=== PATIENT | male | born 1950 | race Two or more races ===

== ENCOUNTER → 2016-09-02 | Outpatient (CLI) | payer MEDICARE, BC ==
[~2016-09-02] MED LIST: AMLO5TAB2 PO; BAYE325T12 PO; PERCOCET PO; PRIN20TA3 PO; TOPR50TA PO; TRAM50TA2 PO; TYLE167L PO
--- NOTE | 2016-09-17 01:35 | ECWPNPC ---
PATIENT NAME: ANDREA CARREON : 1950 GENDER: MALE VISIT DATE: 09/02/2016 DISCHARGE DATE: 09/02/16 1241 VISIT LOCKED DATE TIME: PHYSICIAN: CARLOS A IYER RESOURCE: CARLOS A IYER REASON FOR APPOINTMENT 1. BACK PAIN HISTORY OF PRESENT ILLNESS FALL RISK SCREENIN65 Y/O MALE REFERRED BY [facility] FOR EVALUATION OF CHRONIC LOW BACK PAIN.THIS HAS BEEN ONGOING SINCE HIS 40'S.HAS SEVERE SCOLIOSIS.DENIES INJURY.DESCRIBES PAIN DISCOMFORT IN LOW BACK WITH RADIATION OF PAIN TO LEGS RIGHT GREATER THAN LEFT.PAIN HAS BEEN AGGREVATED THIS PAST YEAR. HAS BEEN TAKING TRAMADOL 50MG INTERMITTENTLY FOR PAIN EXACERBATIONS.PAIN IS NOT RELIEVED BY TRAMADOL MUCH LATELY.HISTORY OF MULTIPLE SCLEROSIS DIAGNOSED 1998.EXTENSIVE HISTORY OF SPINE SURGERY AND ALSO DORSAL COLUMN STIMULATOR PLACEMENT.THESE WERE ALL PERFORMED THROUGH [facility].REPORTS WHAT SOUNDS LIKE DECOMPRESSION IN 1991 AND A SECOND DECOMPRESSION IN 1993.HAD DORSAL COLUMN STIMULATOR PLACEMENT IN 1995.HE STOPPED USING [facility] SEVERAL YEARS AGO.HE IS NO LONGER FOLLOWED BY THOSE PHYSICIANS.DENIES BOWEL OR BLADDER INCONTINENCE.RATING PAIN VAS 7/10.DENIES BOWEL OR BLADDER INCONTINENCE. SCREENING :NO FALLS IN THE PAST YEAR PAIN SCREENING: PATIENT HAS A COMPLAINT OF ACUTE OR CHRONIC PAIN :YES CURRENT MEDICATIONS TAKING METOPROLOL SUCCINATE ER 50 MG TABLET EXTENDED RELEASE 24 HOUR TAKE ONE TABLET BY MOUTH DAILY ORAL TAKING TRAMADOL HCL 50 MG TABLET (SCHEDULE IV DRUG) TAKE 1 TABLET BY MOUTH EVERY 8 HOURS MAXIMUM DAILY DOSE 3 TABLETS ORAL TAKING AMLODIPINE BESYLATE 10 MG TABLET TAKE ONE TABLET BY MOUTH EVERY DAY ORAL TAKING LISINOPRIL 40 MG TABLET TAKE ONE TABLET BY MOUTH TWICE A DAY ORAL TAKING ASPIRIN BUFFERED 325 MG TABLET 1 TAB ORALLY DAILY MEDICATION LIST REVIEWED AND RECONCILED WITH THE PATIENT PAST MEDICAL HISTORY HTN HYPERLIPIDEMIA MULTIPLE SCLEROSIS PVD CORONARY STRICTURE ALLERGIES ATORVASTATIN CALCIUM: ACHES PENICILLIN (FOR ALLERGIES USE ONLY): RASH FEVER SURGICAL HISTORY SCOPE OF KNEE RIGHT DCS 1996 MULTIPLE DECOMPRESSIVE SURGERIES 1991, 1993 RIGHT SHOULDER REPLACED 2015 HERNIA REPAIR 2005 HEART STENTS 2004 CARATOID ENDARTARECTOMY 2005 FAMILY HISTORY MOTHER WITH ARTHRITIS, OTHERWISE UNREMARKABLE. SOCIAL HISTORY GENERAL: TOBACCO USE ARE YOU A:CURRENT SMOKER HOW MANY CIGARETTES A DAY DO YOU SMOKE?6-10 PATIENT COUNSELED ON THE DANGERS OF TOBACCO USE AND URGED TO QUIT:09/02/2016 ARE YOU INTERESTED IN QUITTING?NOT READY TO QUIT COUNSELED THE PATIENT ON SMOKING EFFECTS, EDUCATION QUEUIROB28/09/2017 ALCOHOL SCREENING POINTS0 INTERPRETATIONNEGATIVE CAFFEINE CAFFEINE USE?YES COFFEE ABOUT 4 CUPS A DAY ORIENTAL ORTHODOX [id number] JUDAISM LEARNING BARRIERS / SPECIAL NEEDS BARRIERS TO LEARNING?NO VISION IMPAIRED?YES :CORRECTIVE LENSES COGNITIVELY IMPAIRED?NO READINESS TO LEARN?YES LEARNING PREFERENCES?NO ADVANCED DIRECTIVES HEALTH CARE PROXY?YES NAME OF HCP - GENE CONTACT # FOR HCP [phone] HOSPITALIZATION/MAJOR DIAGNOSTIC PROCEDURE SEE ABOVE REVIEW OF SYSTEMS CONSTITUTIONAL: ANY CHANGE IN YOUR MEDICAL CONDITION? NO . CHILLS NO . FEVER NO . INFECTION: DO YOU HAVE NEW INFECTIONS? NO . DO YOU HAVE HISTORY OF MRSA? NO . MUSCULOSKELETAL: ANY NEW PATTERNS OF PAIN OR NUMBNESS? YES . SYTEMIC LUPUS NO . GASTROENTEROLOGY: ANY NEW CHANGE IN BOWEL CONTROL? NO . BARRETTS ESOPHAGUS NO . CIRRHOSIS NO . HEPATITIS NO . LIVER FAILURE NO . ACID REFLUX NO . UNEXPLAINED WEIGHT LOSS NO . GENITOURINARY: ANY NEW CHANGE IN BLADDER CONTROL? NO . IS THERE A CHANCE YOU COULD BE ? NO . HEMATOLOGY/LYMPH: DO YOU TAKE ANY BLOOD THINNERS? (FOR EXAMPLE- COUMADIN, PLAVIX, AGGRENOX, PLATEL, PRADAXA, OR XARELTO) NO . WHEN WAS YOUR LAST DOSE? DATE: TIME: . LOW PLATELET COUNT NO . SICKLE CELL DISEASE NO . VON WILLIEBRANDS NO . FACTOR V LEIDEN NO . THALLASEMIA NO . ANEMIA NO . EASY BRUISING NO . NEUROLOGY: HAVE YOU FALLEN IN THE PAST 6 MONTHS? YES . ANY NEW EXTREMITY NUMBNESS OR WEAKNESS? NO . HEAD INJURY NO . DEMENTIA NO . CEREBRAL PALSY NO . MULTIPLE SCLEROSIS YES . DIZZINESS NO . HEADACHE NO . STROKES NO . VERTIGO NO . CARDIOLOGY: DO YOU HAVE A PACEMAKER OR DEFIBRILLATOR? NO . ANGINA NO . HEART ATTACK NO . HEART SURGERY NO . CONGESTIVE HEART FAILURE/FLUID OVERLOAD NO . CHEST PAIN NO . HIGH BLOOD PRESSURE NO . IRREGULAR HEART BEAT NO . RESPIRATORY: HAVE YOU BEEN SICK IN THE PAST WEEK? NO . FEVER NO . FLU LIKE SYMPTOMS? NO . CPAP NO . BYPAP NO . ASTHMA NO . EMPHYSEMA NO . CHRONIC LUNG DISEASES NO . SHORTNESS OF BREATH ON EXERTION NO . COUGH NO . SNORING NO . INTEGUMENTARY: DO YOU HAVE ANY RASHES OR OPEN SORES? NO . ALLERGIC/IMMUNO: ARE YOU ALLERGIC TO SHELLFISH OR IV DYE? NO . ANY NEW ALLERGIES? NO . PSYCHIATRIC: DO YOU HAVE THOUGHTS OF HURTING YOURSELF OR SOMEONE ELSE? NO . ARE YOU ABUSED, NEGLECTED, OR IN AN UNSAFE ENVIRONMENT? NO . ENDOCRINOLOGY: ARE YOU DIABETIC? NO . THYROID DISORDER NO . OTHER: DO YOU NEED ANY PRESCRIPTIONS? NO . IF YES, PLEASE LIST: ____ . ANY NEW PROBLEMS WITH YOUR MEDICATIONS? NO . WHEN DID YOU LAST EAT? ____ . WHEN DID YOU LAST DRINK? ____ . WHAT DID YOU LAST DRINK? ____ . NAME OF PERSON DRIVING YOU HOME? ____ . DO YOU HAVE ANY OTHER QUESTIONS OR CONCERNS NO . REVIEWED BY: PROVIDER: CARLOS A CXO . VITAL SIGNS WT 100.0 LBS, HT 57.5 ", BMI 21.26 INDEX, BP 130/61 MM HG, HR 65 /MIN, RR 16 /MIN, TEMP 97.3 F, OXYGEN SAT % 99%, SAFE IN ENV? (Y/N) Y, NA INITIALS EM. EXAMINATION GENERAL EXAMINATION: GENERAL APPEARANCE:COOPERATIVE . PSYCHAFFECT NORMAL. LUNGS:LUNG ARRIETA ARE CLEAR TO AUSCULTATION BILATERALLY. GOOD MOVEMENT OF AIR. HEART:S1, S2 IN A REGULAR RATE AND RHYTHM. NO SIGNIFICANT MURMURS, RUBS OR GALLOPS NOTED. LUMBAR SPINE/LOWER BACK: PALPATION:VERTEBRAL SPINE TENDERNESS, PARASPINAL TENDERNESS. MOTOR SYSTEM:5/5 BLE. SENSORY EXAM:RANDOM PARATHESIAS TO LIGHT TOUCH LOWER EXTREMITIES.. GAIT:NORMAL. ASSESSMENTS LUMBAR SPONDYLOSIS - M47.816 (PRIMARY) NEUROPATHY - G62.9 TREATMENT LUMBAR SPONDYLOSIS CONTINUE TRAMADOL HCL TABLET, 50 MG, (SCHEDULE IV DRUG) TAKE 1 TABLET BY MOUTH EVERY 8 HOURS MAXIMUM DAILY DOSE 3 TABLETS, ORAL START CYMBALTA CAPSULE DELAYED RELEASE PARTICLES, 30 MG, 1 CAPSULE, ORALLY, ONCE A DAY, 30 DAY(S), 30 CAPSULE, REFILLS 2 NOTES: PATIENT WAS ADVISED TO START A WALKING PROGRAM TO STRENGTHEN LUMBAR PARASPINAL MUSCLES AND IMPROVE MOBILITY. THEY WERE ADVISED THAT THIS WILL IMPROVE WEIGHT LOSS AND ALSO DEPRESSION/FIBROMYALGIA SYMPTOMS. ADVISED TO WALK 10 MINUTES EVERY OTHER DAY ON A FLAT SURFACE. EMPHASIZED THE IMPORTANCE OF DOING THIS CONSISTANTLY AND NOT SPORATICALLY TO AVOID INJURY. STRONG ADVISED NOT TO DO MORE THAN 10 MINUTES EVERY OTHER DAY FOR THE FIRST 4 WEEKS. PROCEDURE CODES FA211 ESTABILISHED PATIENT [facility] CHARGE DISPOSITION & COMMUNICATION FOLLOW UP 6 WEEKS ELECTRONICALLY SIGNED BY KENNY PITTMAN ON 09/16/2016 AT 05:31 PM EDT DISCLAIMER : THIS IS A VISIT SUMMARY EXTRACTED FROM THE [employer] CHART. IT IS NOT A COPY OF THE [employer] PROGRESS NOTE. TJ
== END | disposition home or self-care (01) ==
LOC: M PAIN 11:20
PROVIDERS: ATTEND Nurse Practitioner Family
DX: G89.29 Other chronic pain (principal); M47.816 Spondylosis without myelopathy or radiculopathy, lumbar region; G62.9 Polyneuropathy, unspecified; I10 Essential (primary) hypertension; E78.5 Hyperlipidemia, unspecified; G35 Multiple sclerosis; I73.9 Peripheral vascular disease, unspecified; Z79.899 Other long term (current) drug therapy; Z79.82 Long term (current) use of aspirin; Z88.0 Allergy status to penicillin; Z88.8 Allergy status to other drugs, medicaments and biological substances; F17.210 Nicotine dependence, cigarettes, uncomplicated

== ENCOUNTER → 2016-10-14 | Outpatient (CLI) | payer MEDICARE, BC ==
--- NOTE | 2016-10-15 01:26 | ECWPNPC ---
PATIENT NAME: ANDREA CARREON : 1950 GENDER: MALE VISIT DATE: 10/14/2016 DISCHARGE DATE: 10/14/1636 VISIT LOCKED DATE TIME: PHYSICIAN: CARLOS A IYER RESOURCE: CARLOS A IYER REASON FOR APPOINTMENT 1. FOLLOWUP HISTORY OF PRESENT ILLNESS HISTORY OF PRESENT ILLNESS: HERE FOR ONE MONTH F/U OF CHRONIC LOW BACK/RIGHT LEG PAIN AND NEUROPATHY.STARTD ON CYMBALTA 30MG DAILY AT HIS INITIAL VISIT ONE MONTH AGO AND IS DOING VERY WELL.STATES THIS MEDICATION HAS CUT HIS PAIN IN HALF.RATING PAIN VAS 4/10.DENIES SIDE EFFECTS.HAS TO TAKE TRAMADOL ONE AT NIGHT AND THIS IS A REDUCTION SINCE STARTING CYMBALTA. PAIN THE PATIENT DESCRIBES THE PAIN... FALL RISK SCREENING: SCREENING :NO FALLS IN THE PAST YEAR CURRENT MEDICATIONS TAKING TRAMADOL HCL 50 MG TABLET (SCHEDULE IV DRUG) TAKE 1 TABLET BY MOUTH EVERY 8 HOURS MAXIMUM DAILY DOSE 3 TABLETS ORAL TAKING METOPROLOL SUCCINATE ER 50 MG TABLET EXTENDED RELEASE 24 HOUR TAKE ONE TABLET BY MOUTH DAILY ORAL TAKING AMLODIPINE BESYLATE 10 MG TABLET TAKE ONE TABLET BY MOUTH EVERY DAY ORAL TAKING LISINOPRIL 40 MG TABLET TAKE ONE TABLET BY MOUTH TWICE A DAY ORAL TAKING ASPIRIN BUFFERED 325 MG TABLET 1 TAB ORALLY DAILY TAKING CYMBALTA 30 MG CAPSULE DELAYED RELEASE PARTICLES 1 CAPSULE ORALLY DAILY NOT-TAKING CYMBALTA 30 MG CAPSULE DELAYED RELEASE PARTICLES 1 CAPSULE ORALLY ONCE A DAY MEDICATION LIST REVIEWED AND RECONCILED WITH THE PATIENT PAST MEDICAL HISTORY HTN HYPERLIPIDEMIA MULTIPLE SCLEROSIS PVD CORONARY STRICTURE ALLERGIES ATORVASTATIN CALCIUM: ACHES PENICILLIN (FOR ALLERGIES USE ONLY): RASH FEVER SOCIAL HISTORY GENERAL: TOBACCO USE ARE YOU A:CURRENT SMOKER HOW MANY CIGARETTES A DAY DO YOU SMOKE?6-10 PATIENT COUNSELED ON THE DANGERS OF TOBACCO USE AND URGED TO QUIT:09/02/2016 ARE YOU INTERESTED IN QUITTING?NOT READY TO QUIT COUNSELED THE PATIENT ON SMOKING EFFECTS, EDUCATION [id number]/09/2017 ALCOHOL SCREENING DID YOU HAVE A DRINK CONTAINING ALCOHOL IN THE PAST YEAR?NO POINTS0 INTERPRETATIONNEGATIVE CAFFEINE CAFFEINE USE?YES COFFEE ABOUT 4 CUPS A DAY ZOROASTRIANISM [id number] BUDDHISM LEARNING BARRIERS / SPECIAL NEEDS BARRIERS TO LEARNING?NO VISION IMPAIRED?YES :CORRECTIVE LENSES COGNITIVELY IMPAIRED?NO READINESS TO LEARN?YES LEARNING PREFERENCES?NO PAIN CLINIC PFS, CLERGY, PUBLIC HEALTH REFERRALS PFS REFERRAL NEEDED?NO CLERGY REFERRAL NEEDED?NO PUBLIC HEALTH REFERRAL NEEDED?NO HAS THE PATIENT BEEN EDUCATED REGARDING HIS/HER PLAN OF CARE?YES HAS THE PATIENT BEEN EDUCATED REGARDING PAIN, THE RISK FOR PAIN, THE IMPORTANCE OF EFFECTIVE PAIN MANAGEMENT, AND THE PAIN ASSESSMENT PROCESS?YES ADVANCE DIRECTIVES HEALTH CARE PROXY?YES NAME OF HCP - GENE CONTACT # FOR HCP [phone] REVIEW OF SYSTEMS CONSTITUTIONAL: ANY CHANGE IN YOUR MEDICAL CONDITION? NO . CHILLS NO . FEVER NO . INFECTION: DO YOU HAVE NEW INFECTIONS? NO . DO YOU HAVE HISTORY OF MRSA? NO . MUSCULOSKELETAL: ANY NEW PATTERNS OF PAIN OR NUMBNESS? NO . GASTROENTEROLOGY: ANY NEW CHANGE IN BOWEL CONTROL? NO . GENITOURINARY: ANY NEW CHANGE IN BLADDER CONTROL? NO . IS THERE A CHANCE YOU COULD BE ? NO . HEMATOLOGY/LYMPH: DO YOU TAKE ANY BLOOD THINNERS? (FOR EXAMPLE- COUMADIN, PLAVIX, AGGRENOX, PLATEL, PRADAXA, OR XARELTO) NO . WHEN WAS YOUR LAST DOSE? DATE: TIME: . NEUROLOGY: HAVE YOU FALLEN IN THE PAST 6 MONTHS? YES . ANY NEW EXTREMITY NUMBNESS OR WEAKNESS? NO . CARDIOLOGY: DO YOU HAVE A PACEMAKER OR DEFIBRILLATOR? NO . RESPIRATORY: HAVE YOU BEEN SICK IN THE PAST WEEK? NO . FEVER NO . FLU LIKE SYMPTOMS? NO . COUGH NO . INTEGUMENTARY: DO YOU HAVE ANY RASHES OR OPEN SORES? NO . ALLERGIC/IMMUNO: ARE YOU ALLERGIC TO SHELLFISH OR IV DYE? NO . ANY NEW ALLERGIES? NO . PSYCHIATRIC: DO YOU HAVE THOUGHTS OF HURTING YOURSELF OR SOMEONE ELSE? NO . ARE YOU ABUSED, NEGLECTED, OR IN AN UNSAFE ENVIRONMENT? NO . ENDOCRINOLOGY: ARE YOU DIABETIC? NO . OTHER: DO YOU NEED ANY PRESCRIPTIONS? YES . IF YES, PLEASE LIST: CYMBALTA . ANY NEW PROBLEMS WITH YOUR MEDICATIONS? NO . WHEN DID YOU LAST EAT? ____ . WHEN DID YOU LAST DRINK? ____ . WHAT DID YOU LAST DRINK? ____ . NAME OF PERSON DRIVING YOU HOME? ____ . DO YOU HAVE ANY OTHER QUESTIONS OR CONCERNS NO . REVIEWED BY: PROVIDER: CARLOS A COX . VITAL SIGNS WT 96.6 LBS, HT 57.5 ", BMI 20.54 INDEX, BP 160/81 MM HG, HR 84 /MIN, RR 16 /MIN, TEMP 96.9 F, OXYGEN SAT % 99%, NA INITIALS TL 0903, REVIEWED BY: YUKO. EXAMINATION GENERAL EXAMINATION: GENERAL APPEARANCE:COOPERATIVE . PSYCHAFFECT NORMAL. LUNGS:LUNG ARRIETA ARE CLEAR TO AUSCULTATION BILATERALLY. GOOD MOVEMENT OF AIR. HEART:S1, S2 IN A REGULAR RATE AND RHYTHM. NO SIGNIFICANT MURMURS, RUBS OR GALLOPS NOTED. LUMBAR SPINE/LOWER BACK: PALPATION:VERTEBRAL SPINE TENDERNESS, PARASPINAL TENDERNESS. MOTOR SYSTEM:5/5 BLE. SENSORY EXAM:RANDOM PARATHESIAS TO LIGHT TOUCH LOWER EXTREMITIES.. GAIT:NORMAL. ASSESSMENTS LUMBAR SPONDYLOSIS - M47.816 (PRIMARY) NEUROPATHY - G62.9 TREATMENT LUMBAR SPONDYLOSIS CONTINUE TRAMADOL HCL TABLET, 50 MG, (SCHEDULE IV DRUG) TAKE 1 TABLET BY MOUTH EVERY 8 HOURS MAXIMUM DAILY DOSE 3 TABLETS, ORAL CONTINUE CYMBALTA CAPSULE DELAYED RELEASE PARTICLES, 30 MG, 1 CAPSULE, ORALLY, DAILY, 30 DAY(S), 30 CAPSULE, REFILLS 5 PROCEDURE CODES FA211 ESTABILISHED PATIENT [facility] FACILITY CHARGE G2930 PAIN ASSESS POS TOOL F/U PLAN DOC G8427 DOC MEDS VERIFIED W/PT OR RE DISPOSITION & COMMUNICATION FOLLOW UP 3 MONTHS ELECTRONICALLY SIGNED BY KENNY PITTMAN ON 10/14/2016 AT 02:55 PM EDT DISCLAIMER : THIS IS A VISIT SUMMARY EXTRACTED FROM THE [employer] CHART. IT IS NOT A COPY OF THE [employer] PROGRESS NOTE. MTDD
== END | disposition home or self-care (01) ==
LOC: M PAIN 09:00
PROVIDERS: ATTEND Nurse Practitioner Family
DX: G89.29 Other chronic pain (principal); M47.816 Spondylosis without myelopathy or radiculopathy, lumbar region; G62.9 Polyneuropathy, unspecified; I10 Essential (primary) hypertension; E78.5 Hyperlipidemia, unspecified; G35 Multiple sclerosis; I73.9 Peripheral vascular disease, unspecified; Z79.899 Other long term (current) drug therapy; Z79.82 Long term (current) use of aspirin; I25.10 Atherosclerotic heart disease of native coronary artery without angina pectoris; F17.210 Nicotine dependence, cigarettes, uncomplicated; Z88.0 Allergy status to penicillin; Z88.8 Allergy status to other drugs, medicaments and biological substances

== ENCOUNTER → 2017-01-14 | Outpatient (CLI) | payer BC, MEDICARE ==
--- NOTE | 2017-01-16 01:48 | ECWPNPC ---
PATIENT NAME: ANDREA CARREON : 1950 GENDER: MALE VISIT DATE: 01/14/2017 DISCHARGE DATE: 01/14/17948 VISIT LOCKED DATE TIME: PHYSICIAN: CARLOS A IYER RESOURCE: CARLOS A IYER REASON FOR APPOINTMENT 1. LBP/ RT LEG/ NEUROPATHY HISTORY OF PRESENT ILLNESS HISTORY OF PRESENT ILLNESS: HERE FOR ONE MONTH F/U OF CHRONIC LOW BACK/RIGHT LEG PAIN AND NEUROPATHY.STARTD ON CYMBALTA 30MG DAILY AT HIS INITIAL VISIT SEVERAL MONTHS AGO AND IS DOING VERY WELL.STATES THIS MEDICATION HAS CUT HIS PAIN IN HALF.RATING PAIN VAS 3/10.DENIES SIDE EFFECTS.TAKES TRAMADOL ONE AT NIGHT AND THIS IS A REDUCTION SINCE STARTING CYMBALTA.THIS IS PRESCRIBED BY PRIMARY CARE. PAIN THE PATIENT DESCRIBES THE PAIN... THE PATIENT DESCRIBES THE PAIN... FALL RISK SCREENING: SCREENING :NO FALLS IN THE PAST YEAR CURRENT MEDICATIONS TAKING METOPROLOL SUCCINATE ER 50 MG TABLET EXTENDED RELEASE 24 HOUR TAKE ONE TABLET BY MOUTH DAILY ORAL TAKING AMLODIPINE BESYLATE 10 MG TABLET TAKE ONE TABLET BY MOUTH EVERY DAY ORAL TAKING LISINOPRIL 40 MG TABLET TAKE ONE TABLET BY MOUTH TWICE A DAY ORAL TAKING ASPIRIN BUFFERED 325 MG TABLET 1 TAB ORALLY DAILY TAKING TRAMADOL HCL 50 MG TABLET (SCHEDULE IV DRUG) TAKE 1 TABLET BY MOUTH EVERY 8 HOURS MAXIMUM DAILY DOSE 3 TABLETS ORAL TAKING CYMBALTA 30 MG CAPSULE DELAYED RELEASE PARTICLES 1 CAPSULE ORALLY DAILY NOT-TAKING CYMBALTA 30 MG CAPSULE DELAYED RELEASE PARTICLES 1 CAPSULE ORALLY ONCE A DAY MEDICATION LIST REVIEWED AND RECONCILED WITH THE PATIENT PAST MEDICAL HISTORY HTN HYPERLIPIDEMIA MULTIPLE SCLEROSIS PVD CORONARY STRICTURE ALLERGIES ATORVASTATIN CALCIUM: ACHES PENICILLIN (FOR ALLERGIES USE ONLY): RASH FEVER SOCIAL HISTORY GENERAL: TOBACCO USE ARE YOU A:CURRENT SMOKER HOW MANY CIGARETTES A DAY DO YOU SMOKE?6-10 PATIENT COUNSELED ON THE DANGERS OF TOBACCO USE AND URGED TO QUIT:09/02/2016 ARE YOU INTERESTED IN QUITTING?NOT READY TO QUIT COUNSELED THE PATIENT ON SMOKING EFFECTS, EDUCATION [id number]/09/2017 ALCOHOL SCREENING DID YOU HAVE A DRINK CONTAINING ALCOHOL IN THE PAST YEAR?NO POINTS0 INTERPRETATIONNEGATIVE CAFFEINE CAFFEINE USE?YES COFFEE ABOUT 4 CUPS A DAY RESTORATIONISM [id number] [employer]URCH LANGUAGE LANGUAGES SPOKEN:CROATIAN LEARNING BARRIERS / SPECIAL NEEDS CHANGE FROM LAST VISIT?NO BARRIERS TO LEARNING?NO HEARING IMPAIRED?NO VISION IMPAIRED?YES :CORRECTIVE LENSES COGNITIVELY IMPAIRED?NO READINESS TO LEARN?YES LEARNING PREFERENCES?NO LEARNING CAPABILITIES PRESENT?YES EMOTIONAL BARRIERS?NO SPECIAL DEVICES?YES :CANE FITTINGS FINISHER NEEDED?NO PAIN CLINIC PFS, CLERGY, PUBLIC HEALTH REFERRALS PFS REFERRAL NEEDED?NO CLERGY REFERRAL NEEDED?NO PUBLIC HEALTH REFERRAL NEEDED?NO HAS THE PATIENT BEEN EDUCATED REGARDING HIS/HER PLAN OF CARE?YES HAS THE PATIENT BEEN EDUCATED REGARDING PAIN, THE RISK FOR PAIN, THE IMPORTANCE OF EFFECTIVE PAIN MANAGEMENT, AND THE PAIN ASSESSMENT PROCESS?YES ADVANCE DIRECTIVES HEALTH CARE PROXY?YES NAME OF HCP - GENE CONTACT # FOR HCP [phone] DO YOU HAVE A COPY WITH YOU?NO DO YOU HAVE A DNR?NO WOULD YOU LIKE MORE INFORMATION?NO LIVING WILL?NO WOULD YOU LIKE MORE INFORMATION?NO POWER OF COUNTY AGENT?NO WOULD YOU LIKE MORE INFORMATION?NO REVIEW OF SYSTEMS REVIEWED BY: PROVIDER: CARLOS A COX . CONSTITUTIONAL: ANY CHANGE IN YOUR MEDICAL CONDITION? NO . CHILLS NO . FEVER NO . INFECTION: DO YOU HAVE NEW INFECTIONS? NO . DO YOU HAVE HISTORY OF MRSA? NO . MUSCULOSKELETAL: ANY NEW PATTERNS OF PAIN OR NUMBNESS? NO . GASTROENTEROLOGY: ANY NEW CHANGE IN BOWEL CONTROL? NO . GENITOURINARY: ANY NEW CHANGE IN BLADDER CONTROL? NO . IS THERE A CHANCE YOU COULD BE ? NO . HEMATOLOGY/LYMPH: DO YOU TAKE ANY BLOOD THINNERS? (FOR EXAMPLE- COUMADIN, PLAVIX, AGGRENOX, PLATEL, PRADAXA, OR XARELTO) NO . WHEN WAS YOUR LAST DOSE? DATE: TIME: . NEUROLOGY: HAVE YOU FALLEN IN THE PAST 6 MONTHS? YES . ANY NEW EXTREMITY NUMBNESS OR WEAKNESS? NO . CARDIOLOGY: DO YOU HAVE A PACEMAKER OR DEFIBRILLATOR? NO . RESPIRATORY: HAVE YOU BEEN SICK IN THE PAST WEEK? NO . FEVER NO . FLU LIKE SYMPTOMS? NO . COUGH NO . INTEGUMENTARY: DO YOU HAVE ANY RASHES OR OPEN SORES? NO . ALLERGIC/IMMUNO: ARE YOU ALLERGIC TO SHELLFISH OR IV DYE? NO . ANY NEW ALLERGIES? NO . PSYCHIATRIC: DO YOU HAVE THOUGHTS OF HURTING YOURSELF OR SOMEONE ELSE? NO . ARE YOU ABUSED, NEGLECTED, OR IN AN UNSAFE ENVIRONMENT? NO . ENDOCRINOLOGY: ARE YOU DIABETIC? NO . OTHER: DO YOU NEED ANY PRESCRIPTIONS? NO . IF YES, PLEASE LIST: ____ . ANY NEW PROBLEMS WITH YOUR MEDICATIONS? NO . WHEN DID YOU LAST EAT? ____ . WHEN DID YOU LAST DRINK? ____ . WHAT DID YOU LAST DRINK? ____ . NAME OF PERSON DRIVING YOU HOME? ____ . DO YOU HAVE ANY OTHER QUESTIONS OR CONCERNS NO . VITAL SIGNS WT 92.0 LBS, HT 57.5 ", BMI 19.56 INDEX, BP 156/71 MM HG, HR 63 /MIN, RR 16 /MIN, TEMP 97.5 F, OXYGEN SAT % 100%, NA INITIALS AW 0924, REVIEWED BY: CS. EXAMINATION GENERAL EXAMINATION: GENERAL APPEARANCE:COOPERATIVE . PSYCHAFFECT NORMAL. LUNGS:LUNG ARRIETA ARE CLEAR TO AUSCULTATION BILATERALLY. GOOD MOVEMENT OF AIR. HEART:S1, S2 IN A REGULAR RATE AND RHYTHM. NO SIGNIFICANT MURMURS, RUBS OR GALLOPS NOTED. LUMBAR SPINE/LOWER BACK: PALPATION:VERTEBRAL SPINE TENDERNESS, PARASPINAL TENDERNESS. MOTOR SYSTEM:5/5 BLE. SENSORY EXAM:RANDOM PARATHESIAS TO LIGHT TOUCH LOWER EXTREMITIES.. GAIT:NORMAL. ASSESSMENTS LUMBAR SPONDYLOSIS - M47.816 (PRIMARY) NEUROPATHY - G62.9 TREATMENT LUMBAR SPONDYLOSIS CONTINUE TRAMADOL HCL TABLET, 50 MG, (SCHEDULE IV DRUG) TAKE 1 TABLET BY MOUTH EVERY 8 HOURS MAXIMUM DAILY DOSE 3 TABLETS, ORAL CONTINUE CYMBALTA CAPSULE DELAYED RELEASE PARTICLES, 30 MG, 1 CAPSULE, ORALLY, DAILY, 30 DAY(S), 30, REFILLS 5 NOTES: # 226 TOBACCO USE SCREENING/INTERVENTION: PATIENT CURRENTLY USED TOBACCO. WAS OFFERED SMOKING CESSATION FOR GUIDANCE IN QUITTING THROUGH THE [facility] QUITS PROGRAM AND THE [facility] CESSATION PROGRAM. PROCEDURE CODES FA211 ESTABILISHED PATIENT [facility] FACILITY CHARGE G9580 BP SCR PRFRM RCMDD DEFIND SCR INTVL G8730 PAIN ASSESS POS TOOL F/U PLAN DOC 3016F PT SCRND UNHLTHY [place] USE 1124F ACP DISCUSS-NO [id number] DOCD G0827 DOC MEDS VERIFIED W/PT OR RE G8420 BMI<30 AND >=22 CALC & DOCU 3288F FALL RISK ASSESSMENT DOCD 4004F PT TOBACCO SCREEN RCVD TLK DISPOSITION & COMMUNICATION FOLLOW UP NO F/U NECESSARY ELECTRONICALLY SIGNED BY KENNY PITTMAN ON 01/14/2017 AT 10:38 AM EDT DISCLAIMER : THIS IS A VISIT SUMMARY EXTRACTED FROM THE [employer] CHART. IT IS NOT A COPY OF THE [employer] PROGRESS NOTE. MTDD
== END ==
LOC: M PAIN 09:00
PROVIDERS: ATTEND Nurse Practitioner Family
DX: M47.816 Spondylosis without myelopathy or radiculopathy, lumbar region (principal); G62.9 Polyneuropathy, unspecified; F17.210 Nicotine dependence, cigarettes, uncomplicated; Z79.2 Long term (current) use of antibiotics; Z79.891 Long term (current) use of opiate analgesic; Z79.899 Other long term (current) drug therapy; Z88.0 Allergy status to penicillin; Z88.8 Allergy status to other drugs, medicaments and biological substances

== ENCOUNTER 2017-06-18 09:56 | Emergency (ER) | payer MEDICARE, BC ==
[2017-06-18 10:53] LABS: BASO % 0.4 % (0.0-1.0); EOS # 0.2 10^3/uL (0.0-0.50); EOS % 1.6 % (0.0-3.0); HEMATOCRIT 40.2 % (42.0-52.0); HEMOGLOBIN 13.9 g/dl (14.0-18.0); IMMATURE GRANULOCYTE % 0.3 % (0-3.0); LYMPH # 2.1 10^3/uL (1.5-4.5); LYMPH % 21.6 % (24.0-44.0); MEAN CORPUSCULAR HEMOGLOBIN 29.3 pg (27.0-33.0); MEAN CORPUSCULAR HGB CONC 34.6 g/dl (32.0-36.5); MEAN CORPUSCULAR VOLUME 84.8 fl (80.0-96.0); MONO % 10.1 % (0.0-5.0); NEUTROPHILS # 6.3 10^3/uL (1.8-7.7); PLATELET COUNT, AUTOMATED 286 10^3/uL (150-450); RED BLOOD COUNT 4.74 10^6/uL (4.30-6.10); WHITE BLOOD COUNT 9.5 10^3/uL (4.0-10.0)
[2017-06-18 11:15] LABS: ANION GAP 9 MEQ/L (8-16); BLOOD UREA NITROGEN 14 MG/DL (7-18); C REACTIVE PROTEIN QUANTITATIV < 0.30 MG/DL (0.00-0.30); CARBON DIOXIDE LEVEL 29 MEQ/L (21-32); CHLORIDE LEVEL 88 MEQ/L (98-107); CREATININE FOR GFR 0.82 MG/DL (0.70-1.30); GLOMERULAR FILTRATION RATE > 60.0 (>49); GLUCOSE, FASTING 87 MG/DL (70-100); POTASSIUM SERUM 3.9 MEQ/L (3.5-5.1); SODIUM LEVEL 126 MEQ/L (136-145)
[2017-06-18] MEDS ORDERED: ISOVUE-370 76% 100ML VIAL (Q9967) As Ordered (11:44)
[2017-06-18] MEDS: NS 1,000 ML IV (11:45)
[2017-06-18 11:51] LABS: ERYTHROCYTE SEDIMENTATION RATE 18 mm/hr (0-20)
[2017-06-18 14:22] LABS: ALBUMIN 4.2 GM/DL (3.2-5.2); ALBUMIN/GLOBULIN RATIO 1.24 (1.00-1.93); ALKALINE PHOSPHATASE 115 U/L (45-117); ALT/SGPT 22 U/L (12-78); AST/SGOT 27 U/L (7-37); BILIRUBIN,DIRECT 0.1 MG/DL (0.0-0.2); BILIRUBIN,TOTAL 0.5 MG/DL (0.2-1.0); CHOLESTEROL LEVEL 190 MG/DL (<200); CHOLESTEROL RISK RATIO 3.653 (<5); HDL CHOLESTEROL 52 MG/DL (>40); LDL CHOLESTEROL 121.6 MG/DL (<100); NON-HDL-C 138 MG/DL; TOTAL PROTEIN 7.6 GM/DL (6.4-8.2); TRIGLYCERIDES LEVEL 82 MG/DL (<150)
== END 2017-06-18 14:27 | disposition home or self-care (01) ==
LOC: M ED 09:56
DX: M79.671 Pain in right foot (principal); M79.674 Pain in right toe(s); I73.9 Peripheral vascular disease, unspecified; I10 Essential (primary) hypertension; G35 Multiple sclerosis; M54.9 Dorsalgia, unspecified; Z95.5 Presence of coronary angioplasty implant and graft; Z79.899 Other long term (current) drug therapy; Z79.82 Long term (current) use of aspirin; Z88.0 Allergy status to penicillin; F17.210 Nicotine dependence, cigarettes, uncomplicated
CPT/HCPCS: Q9967

== ENCOUNTER → 2018-01-13 | Outpatient (REF) | payer BC, MEDICARE | LOC: M LAB REF 12:43 | DX: I70.234 Atherosclerosis of native arteries of right leg with ulceration of heel and midfoot (principal) | CPT/HCPCS: 88304 ==

== ENCOUNTER 2020-03-09 10:22 | Inpatient (IN) | payer BC, MEDICARE ==
[~2020-03-09] VITALS: Ht 144.8 cm; Wt 38.0 kg
[~2020-03-09 10:22] MED LIST changes: +ACET-716 PO; +AMLO1TAB24 PO; +AMLO1TAB25; -AMLO5TAB2 PO; +DULO1CAP5 PO; +LISI40TA; +METO1TAB7; +PLAV1TAB2 PO; +ZETI10TA16 PO
[2020-03-09] MEDS ORDERED: KLOR10TA76 PO (10:53)
[2020-03-09] MEDS ORDERED: XARE20TA PO (10:53)
[2020-03-09] MEDS ORDERED: TAMS1CAP17 PO (10:53)
[2020-03-09] MEDS ORDERED: LEVO25TA5 PO (10:53)
[2020-03-09] MEDS ORDERED: METO1TAB87 PO (10:53)
[2020-03-09] MEDS ORDERED: ATOR80TA59 PO (10:53)
--- NOTE | 2020-03-09 11:05 | REP ---
INDICATION: sudden onset headache. COMPARISON: None. TECHNIQUE: Helical scanning is acquired. 5 mm axial images were reformatted. Coronal MPR images were generated. FINDINGS: Bone window settings demonstrate an intact bony calvarium. There is no evidence of skull fracture or incidental bony calvarial lesion. The visualized paranasal sinuses appear clear. No intraorbital abnormality is seen. On soft tissue window setting images; the lateral, third, and fourth ventricles are normal in position. Schulz-white differentiation pattern is normal above and below the tentorium. There are is no evidence of intracranial hemorrhage. No mass, edema, infarction, or midline shift is seen. No extra-axial fluid collection is appreciated. There is moderate vascular calcification in the distal internal carotid and vertebral circulation. Generalized volume loss is seen. Small-vessel atherosclerotic changes are noted in the periventricular white matter. IMPRESSION: Generalized volume loss, small vessel changes and extensive vascular calcification. No acute intracranial abnormality.. <Electronically signed by Ben Bergman > 03/09/20 [id number]
[2020-03-09] MEDS ORDERED: niCARdipine IV 40 MG in IV 1 EA IV SCH (11:15)
[2020-03-09 11:19] LABS: BASO % 0.2 % (0.0-1.0); EOS % 0.2 % (0.0-3.0); HEMATOCRIT 50.7 % (42.0-52.0); HEMOGLOBIN 16.5 g/dl (13.5-17.5); LYMPH # 0.6 10^3/uL (1.5-5.0); MEAN CORPUSCULAR HEMOGLOBIN 27.8 pg (27.0-33.0); MEAN CORPUSCULAR HGB CONC 32.5 g/dl (32.0-36.5); MEAN CORPUSCULAR VOLUME 85.4 fl (80.0-96.0); MONO # 0.8 10^3/uL (0.0-0.8); MONO % 6.7 % (0.0-5.0); NEUTROPHILS # 10.6 10^3/uL (1.5-8.5); NEUTROPHILS % 87.6 % (36.0-66.0); PLATELET COUNT, AUTOMATED 208 10^3/uL (150-450); RED BLOOD COUNT 5.94 10^6/uL (4.30-6.10); WHITE BLOOD COUNT 12.1 10^3/uL (4.0-10.0)
--- NOTE | 2020-03-09 11:23 | REP ---
INDICATION: CHEST PAIN. COMPARISON: 11/29/2013, 07/13/2007 TECHNIQUE: AP seated semi- lordotic chest FINDINGS: Lungs are well inflated without infiltrate or effusion. There is no pneumothorax or pneumomediastinum. Dorsal column stimulator leads are over the lower chest. There is a right total shoulder arthroplasty and some surgical clips in the supraclavicular region. The aorta is calcified and tortuous following the course of the scoliotic thoracic spine. There is an S-shaped thoracolumbar scoliosis, convex to the right in the midthoracic spine and convex left in the upper lumbar region. No gross cardiomegaly, vascular redistribution or edema. Stable sclerotic focus in the left humeral head suggesting enchondroma. IMPRESSION: 1. No acute infiltrate effusion pneumothorax or lung mass. 2. No cardiomegaly or edema. Dorsal column stimulator leads again noted. Calcified and ectatic, tortuous aorta without aneurysm. 3. Bones demineralized with some degenerative changes left shoulder and a right total shoulder arthroplasty. S-shaped thoracolumbar scoliosis. <Electronically signed by Calin Kaur > 03/09/20 [id number]
[2020-03-09] MEDS ORDERED: ELIQ5TAB PO (11:49)
[2020-03-09 11:59] LABS: ALBUMIN 3.7 GM/DL (3.2-5.2); BILIRUBIN,DIRECT 0.1 MG/DL (0.0-0.2); BILIRUBIN,TOTAL 0.5 MG/DL (0.2-1.0); FREE T4 1.66 NG/DL (0.76-1.46); THYROID STIMULATING HORMONE 5.44 uIU/ML (0.358-3.740); TOTAL PROTEIN 7.6 GM/DL (6.4-8.2)
[2020-03-09] MEDS ORDERED: ISOVUE-370 76% 100ML VIAL As Ordered ONE (12:07)
--- NOTE | 2020-03-09 12:57 | REP ---
INDICATION: ABDOMINAL PAIN. COMPARISON: CTA abdomen pelvis 08/20/2018 TECHNIQUE: Bolus of 85 mL Isovue 370 scanning through the abdomen and pelvis with coronal and sagittal reconstructions. FINDINGS: CT abdomen: The lung bases show changes of COPD but are without infiltrate effusion nodule or mass. Heart size mildly prominent with some left atrial and ventricular enlargement. There is a levorotatory scoliosis of the thoracolumbar junction. Advanced degenerative changes with endplate sclerosis and facet arthropathy in the spine. Abdominal aorta shows diffuse atherosclerotic calcifications. There is occlusion of the aorta in its infrarenal portion with circumferential heavy calcifications aorta and common. There is no hepatomegaly, splenomegaly, focal hepatic or splenic lesion or ascites. Gallbladder without calcified stone. Pancreas without mass or ductal dilatation. Adrenal glands are normal. Left kidney shows enhancement. 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 The previous study showed flow to the kidney and in the artery although the kidney was globally smaller than the left. Some compensatory hypertrophy is seen in the interval on the left side. Accordingly I do not think this is definitely acute. There is no hydronephrosis for either kidney. I see no renal stone. No adrenal mass. Small bowel loops without gross dilatation. I do not see evidence for pneumatosis in colon or small bowel. No gross ascites and no perforation or free air evident. There is a right axillary femoral bypass graft which is patent and a cross femoral graft is also patent. There is some retrograde flow in the external iliac arteries and then to the internal iliac arteries. There is blood flow seen in the left renal artery but with the some calcifications. There is a dorsal column stimulator overlying the left flank and iliac region with leads extending to the thoracic spine. CT pelvis axillary femoral and cross femoral grafts patent with retrograde flow at the external iliacs to the internal iliacs no flow in the common iliac arteries or distal aorta. Bladder without mass, wall thickening or stone. The small bowel loops are grossly unremarkable. There is diverticulosis of the sigmoid and the distal left colon and sigmoid show some ill-defined edema in the adjacent fat suggesting diverticulitis or colitis. No pelvic free fluid or mass. The bone windows show the sacrum, hips and pelvis with degenerative changes. No fracture or destructive lesion seen. No ventral or inguinal hernia. IMPRESSION: 1. Evidence for distal left colonic and sigmoid diverticulitis and inflammatory changes in the adjacent fat but no perforation or abscess at this time. 2. Advanced atherosclerotic disease with occlusion of the infrarenal abdominal aorta and a right axillary femoral bypass and cross femoral bypass with retrograde flow into the external iliacs and internal iliacs. No flow in the common iliac arteries. 3. 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 However this is not acute as the kidney is smaller (and does not enhance). There is compensatory hypertrophy since the previous study for the left kidney. There are atherosclerotic calcifications in that kidney's main artery as well. 4. No definite evidence for small bowel abnormality or pneumatosis. No perforation or free air. 5. Advanced degenerative changes and levorotatory thoracolumbar scoliosis. Hip degenerative changes as well. <Electronically signed by Calin Kaur > 03/09/20 [id number]
[2020-03-09] MEDS ORDERED: POTASSIUM CHLORIDE 10 MEQ SR TABLET PO ONE (13:45)
[2020-03-09] MEDS ORDERED: traMADol 50 MG TAB PO PRN (16:00)
[2020-03-09 16:40] VITALS: BP 165/88
[2020-03-09 16:53] VITALS: BP 165/88
[2020-03-09] MEDS: cefTRIAXone SOD 2 GM in D5W MINI-BAG PLUS 50 ML IV SCH (17:22)
[2020-03-09] MEDS: metroNIDAZOLE 500 MG in IV 1 EA IV SCH ×2 (17:22→23:10)
[2020-03-09] MEDS ORDERED: NS 1,000 ML IV SCH (19:00)
--- NOTE | 2020-03-09 19:25 | ECGEPIP ---
[facility] - ED Test Date: 2020-03-09 Pat Name: ANDREA CARREON Department: Room: - Gender: Male Senior Product Consultant: Kira LYNN : 1950 Requested By: LORRAINE BERNARD Order Number: [id number] Reading MD: Ania Garcia Measurements Intervals [place] Rate: 82 P: 77 ME: 163 QRS: -68 QRSD: 88 T: 9 QT: 385 QTc: 452 Interpretive Statements SINUS RHYTHM POSSIBLE LEFT ATRIAL ENLARGEMENT MARKED LEFT AXIS DEVIATION ANTEROSEPTAL MYOCARDIAL INFARCTION, PROBABLY OLD NSTTW abnormalities NO PRIOR Electronically Signed on 03-09-2020 19:25:37 EST by Ania Garcia
[2020-03-09 19:58] VITALS: BP 152/100
--- NOTE | 2020-03-09 20:34 | HPEPDOC ---
General Date of Admission Mar 09, 2020 at 14:19 Date of Service: Mar 09, 2020 Chief Complaint The patient is a 69-year-old male admitted with a reason for visit of Diverticulitis. Source: Patient History of Present Illness Mr. Hedrick is a 69 year old male with HTN, HLD, multiple sclerosis, and PVD who is here for nausea, vomiting, diarrhea, and abdominal pain who was found to have acute diverticulitis. Yesterday he was in good health. Denied eating anything different. Denies eating nuts or popcorn. When he woke up this morning, he started having abdominal pain with nausea and dry heaving. He came into the ED. CT of abdomen and pelvis found acute diverticulitis. Home Medications Scheduled Apixaban (Eliquis) 5 Mg Tablet, 5 MG PO BID, (Reported) Aspirin (Aspirin) 325 Mg Tab, 325 MG PO DAILY, (Reported) Atorvastatin Calcium (Atorvastatin Calcium) 80 Mg Tablet, 80 MG PO QHS, (Reported) Duloxetine Hcl (Duloxetine HCl) 30 Mg Cap, 30 MG PO DAILY, (Reported) Levothyroxine Sodium (Levothyroxine Sodium) 25 Mcg Tablet, 25 MCG PO DAILY, (Reported) Metoprolol Tartrate (Metoprolol Tartrate) 25 Mg Tablet, 25 MG PO BID, (Reported) Potassium Chloride (Klor-Con M10) 10 Meq Tab.er.prt, 20 MEQ PO DAILY, (Reported) Tamsulosin Hcl (Tamsulosin HCl) 0.4 Mg Capsule, 0.4 MG PO DAILY, (Reported) Scheduled PRN Tramadol HCl (Tramadol HCl) 50 Mg Tab, 50 MG PO TID PRN for PAIN, (Reported) Allergies Coded Allergies: Penicillins (Verified Allergy, Mild, RASH A CHILD, 03/09/20) Past Medical History Medical History 1. Hypertension 2. Hyperlipidemia 3. Multiple sclerosis 4. Peripheral vascular disease 5. Coronary stricture Surgical History 1. Scope of right knee 2. DCS 3. Multiple decompressive surgeries 4. Right shoulder replacement 5. Hernia repair 6. Heart stents 7. Carotid endarterectomy 8. Axillofemoral bypass 9. Femoral-femoral bypass Family History Father: Heart disease Mother: Arthritis Social History * Smoker: former Smoker (quit 4 years ago, smoked for about 50 years, 1 pack per day) Alcohol: Denies Drugs: marijuana (occasional use of marijuana) A-FIB/CHADSVASC A-FIB History Current/History of A-Fib/PAF?: No Review of Systems Constitutional: Reports: Malaise; Denies: Chills, Fever Eyes: Denies: Vision change ENT: Denies: Sore Throat Skin: Denies: Rash Pulmonary: Denies: Dyspnea, Cough Cardiovascular: Denies: Chest Pain, Palpitations Gastrointestinal: Reports: Nausea, Abdominal Pain, Diarrhea Genitourinary: Denies: Dysuria Hematologic: Reports: Bruising Endocrine: Reports: Polyphagia; Denies: Polydipsia, Polyuria Physical Examination General Exam: Positive: Alert, Cooperative Eye Exam: Positive: EOMI; Negative: Sclera icteric ENT Exam: Positive: Atraumatic, Mucous membr. moist/pink (appears dry), Tongue Midline Neck Exam: Positive: Supple Chest Exam: Positive: Clear to auscultation Heart Exam: Positive: Rate Normal, Regular Rhythm Abdomen Exam: Positive: Normal bowel sounds, Soft, Tenderness Extremity Exam: Negative: Edema Neuro Exam: Positive: Cranial Nerves 3-12 NL Psych Exam: Positive: Mental status NL, Mood NL Vital Signs Vital Signs Date Time Temp Pulse Resp B/P (MAP) Pulse Ox O2 Delivery O2 Flow Rate FiO2 03/09/20 19:58 98.8 116 20 152/100 (117) 98 Room Air Laboratory Data Labs 24H Laboratory Tests 2 03/09/20 11:09: Immature Granulocyte % (Auto) 0.3, Neutrophils (%) (Auto) 87.6H, Lymphocytes (%) (Auto) 5.0L, Monocytes (%) (Auto) 6.7H, Eosinophils (%) (Auto) 0.2, Basophils (%) (Auto) 0.2, Neutrophils # (Auto) 10.6H, Lymphocytes # (Auto) 0.6L, Monocytes # (Auto) 0.8, Eosinophils # (Auto) 0.0, Basophils # (Auto) 0.0, Nucleated Red Blood Cells % (auto) 0.0, Total Bilirubin 0.5, Direct Bilirubin 0.1, Aspartate Amino Transf (AST/SGOT) 48H, Alanine Aminotransferase (ALT/SGPT) 40, Alkaline Phosphatase 119H, OJ-Mfh-L-Type Natriuretic Peptide 8326H, Total Protein 7.6, Albumin 3.7, Albumin/Globulin Ratio 0.9, Lipase 104, Thyroid Stimulating Hormone (TSH) 5.440H, Free Thyroxine 1.66H 03/09/20 11:16: POC Lactate (Misc Panel) 2.51*H 03/09/20 11:20: POC Glucose (Misc Panel) 151H, POC Sodium (Misc Panel) 136, POC Potassium (Misc Panel) 2.9*L, POC Chloride (Misc Panel) 96L, POC Total CO2 (Misc Panel) 30.0H, POC Blood Urea Nitrogen (Misc Panel 23, POC Ionized Calcium (Misc Panel) 4.2L, POC Creatinine (Misc Panel) 1.5H, POC Hematocrit (Misc Panel) 53.0H 03/09/20 11:24: POC Troponin I (Misc) 0.05 03/09/20 15:10: Coronavirus (COVID-19)(PCR) NEGATIVE 03/09/20 15:16: Lactic Acid Level 3.1*H CBC/BMP Laboratory Tests 03/09/20 11:09 Assessment/Plan Mr. Hedrick is a 69 year old male with HTN, HLD, multiple sclerosis, and PVD who is here for nausea, vomiting, diarrhea, and abdominal pain who was found to have acute diverticulitis. This is his first episode of diverticulitis. He'll be managed medically with IV antibiotics and IV fluids. He will be started on a clear liquid diet and advance as tolerated. Plan / VTE VTE Prophylaxis Ordered?: Yes Plan Plan 1. Acute diverticulitis First episode IV ceftriaxone and IV metronidazole as patient has allergies to penicillins Clear liquid diet with IVF Advance as tolerated 2. Hypokalemia He is given 40 mEq in the ED We'll recheck a BMP and replete as needed We will also check a magnesium level 3. Peripheral vascular disease Has had multiple bypasses Continue aspirin, atorvastatin, Nexium and 4. Hypothyroidism Continue levothyroxine 5. Hypertension Continue metoprolol 6. BPH Continue tamsulosin 7. DVT prophylaxis Already on apixaban WHIT RUBALCAVA DO Mar 09, 2020 20:34
[2020-03-09 20:57] LABS: CALCIUM LEVEL 9.1 MG/DL (8.8-10.2); CREATININE FOR GFR 1.79 MG/DL (0.70-1.30); GLOMERULAR FILTRATION RATE 40.1 (>42); MAGNESIUM LEVEL 1.7 MG/DL (1.8-2.4); POTASSIUM SERUM 3.3 MEQ/L (3.5-5.1)
[2020-03-09 21:00] VITALS: BP 220/120
[2020-03-09] MEDS: APIXABAN 5 MG TAB (ELIQUIS) PO SCH (21:06)
[2020-03-09] MEDS: ATORVASTATIN 20 MG TAB PO SCH (21:06)
[2020-03-09] MEDS: METOPROLOL TART 25 MG TABLET PO SCH (21:08)
[2020-03-09] MEDS: ONDANSETRON 4MG/2ML VIAL IV PRN (21:48)
[2020-03-09 22:39] VITALS: BP 200/120
[2020-03-09] MEDS ORDERED: amLODIPine 5 MG TAB PO ONE (23:00)
[2020-03-09 23:56] VITALS: BP 222/120
[2020-03-10] MEDS ORDERED: ACETAMINOPHEN TAB 650MG DOSE (2X325MG) PO PRN (00:30)
[2020-03-10 01:50] VITALS: BP 222/120
[2020-03-10 06:08] VITALS: BP 192/85
[2020-03-10] MEDS: LEVOTHYROXINE 25MCG TABLET (0.025MG) PO SCH (06:18)
[2020-03-10] MEDS: CHLORTHALIDONE 25 MG TAB PO SCH ×2 (07:03→09:00)
[2020-03-10] MEDS: metroNIDAZOLE 500 MG in IV 1 EA IV SCH ×3 (07:41→23:20)
[2020-03-10 07:50] LABS: HEMATOCRIT 47.9 % (42.0-52.0); HEMOGLOBIN 16.1 g/dl (13.5-17.5); MEAN CORPUSCULAR HEMOGLOBIN 28.1 pg (27.0-33.0); MEAN CORPUSCULAR HGB CONC 33.6 g/dl (32.0-36.5); MEAN CORPUSCULAR VOLUME 83.6 fl (80.0-96.0); PLATELET COUNT, AUTOMATED 204 10^3/uL (150-450); RED BLOOD COUNT 5.73 10^6/uL (4.30-6.10); WHITE BLOOD COUNT 16.3 10^3/uL (4.0-10.0)
[2020-03-10 08:03] LABS: CREATININE FOR GFR 1.58 MG/DL (0.70-1.30); GLOMERULAR FILTRATION RATE 46.3 (>42); MAGNESIUM LEVEL 1.8 MG/DL (1.8-2.4); POTASSIUM SERUM 3.2 MEQ/L (3.5-5.1)
[2020-03-10] MEDS: POTASSIUM CHLORIDE 10 MEQ SR TABLET PO SCH (08:59)
[2020-03-10] MEDS: ASPIRIN 325 MG TAB PO SCH (08:59)
[2020-03-10] MEDS: TAMSULOSIN 0.4 MG CAP PO SCH (08:59)
[2020-03-10 09:00] VITALS: BP 130/100
[2020-03-10] MEDS: DULoxetine 30 MG CAP (CYMBALTA) PO SCH (09:00)
[2020-03-10] MEDS: APIXABAN 5 MG TAB (ELIQUIS) PO SCH ×2 (09:00→21:31)
[2020-03-10] MEDS: METOPROLOL TART 25 MG TABLET PO SCH ×2 (09:00→21:31)
[2020-03-10] MEDS: cefTRIAXone SOD 2 GM in D5W MINI-BAG PLUS 50 ML IV SCH (09:01)
[2020-03-10] MEDS: ONDANSETRON 4MG/2ML VIAL IV PRN ×2 (09:06→23:24)
[2020-03-10 14:00] VITALS: BP 127/79
--- NOTE | 2020-03-10 16:50 | IPNPDOC ---
Subjective Date Seen The patient was seen on 03/10/20. Subjective Chief Complaint/HPI Mr. Hedrick is a 69 year old male with HTN, HLD, multiple sclerosis, and PVD who is here for nausea, vomiting, diarrhea, and abdominal pain who was found to have acute diverticulitis. This morning, he felt nauseous and vomited after drinking a lot of dayna lukasz. Afterwards, he felt better. He doesn't feel like he can tolerate solid foods at this time. Denies fever, chest pain, or dysuria. Still has nausea and abdominal pain Objective Physical Examination General Exam: Positive: Alert, Cooperative Eye Exam: Positive: EOMI; Negative: Sclera icteric ENT Exam: Positive: Atraumatic, Mucous membr. moist/pink (appears dry), Tongue Midline Neck Exam: Positive: Supple Chest Exam: Positive: Clear to auscultation Heart Exam: Positive: Rate Normal, Regular Rhythm Abdomen Exam: Positive: Normal bowel sounds, Soft, Tenderness Extremity Exam: Negative: Edema Neuro Exam: Positive: Cranial Nerves 3-12 NL Psych Exam: Positive: Mental status NL, Mood NL Assessment /Plan Assessment Mr. Hedrick is a 69 year old male with HTN, HLD, multiple sclerosis, and PVD who is here for nausea, vomiting, diarrhea, and abdominal pain who was found to have acute diverticulitis. This is his first episode of diverticulitis. He'll be managed medically with IV antibiotics and IV fluids. He will be started on a clear liquid diet and advance as tolerated. Plan/VTE VTE Prophylaxis Ordered?: Yes Plan 1. Acute diverticulitis First episode IV ceftriaxone and IV metronidazole as patient has allergies to penicillins Clear liquid diet with IVF Advance as tolerated 2. Hypokalemia He is given 40 mEq in the ED We'll recheck a BMP and replete as needed We will also check a magnesium level 3. Peripheral vascular disease Has had multiple bypasses Continue aspirin, atorvastatin, Nexium and 4. Hypothyroidism Continue levothyroxine 5. Hypertension Continue metoprolol 6. BPH Continue tamsulosin 7. DVT prophylaxis Already on apixaban VS, I&O, 24H, Fishbone Vital Signs/I&O Vital Signs Date Time Temp Pulse Resp B/P (MAP) Pulse Ox O2 Delivery O2 Flow Rate FiO2 03/10/20 14:00 97.8 70 20 127/79 (95) 98 Room Air I&O- Last 24 Hours up to 6 AM 03/10/20 06:00 Intake Total 406.25 ml Output Total 600 ml Balance -193.75 ml Laboratory Data 24H LABS Laboratory Tests 2 03/09/20 20:03: Anion Gap 14, Glomerular Filtration Rate 40.1L, Calcium Level 9.1, Magnesium Level 1.7L 03/09/20 20:07: Lactic Acid Followup at 4 Hours 4.2*H 03/09/20 23:53: Lactic Acid Level 2.0 03/10/20 07:12: Anion Gap 8, Glomerular Filtration Rate 46.3, Calcium Level 9.0, Magnesium Level 1.8, Nucleated Red Blood Cells % (auto) 0.0 CBC/BMP Laboratory Tests 03/09/20 20:03 03/10/20 07:12 WHIT RUBALCAVA DO Mar 10, 2020 16:50
[2020-03-10] MEDS ORDERED: POTASSIUM CHLORIDE 10 MEQ SR TABLET PO ONE (17:00)
[2020-03-10 20:59] VITALS: BP 147/87
[2020-03-10] MEDS ORDERED: amLODIPine 5 MG TAB PO SCH (21:00)
[2020-03-10] MEDS: ATORVASTATIN 20 MG TAB PO SCH (21:30)
[2020-03-10 21:31] VITALS: BP 147/87
[2020-03-11 06:10] VITALS: BP 150/86
[2020-03-11] MEDS: LEVOTHYROXINE 25MCG TABLET (0.025MG) PO SCH (06:23)
[2020-03-11 08:02] LABS: HEMATOCRIT 44.4 % (42.0-52.0); HEMOGLOBIN 14.3 g/dl (13.5-17.5); MEAN CORPUSCULAR HEMOGLOBIN 27.7 pg (27.0-33.0); MEAN CORPUSCULAR HGB CONC 32.2 g/dl (32.0-36.5); PLATELET COUNT, AUTOMATED 168 10^3/uL (150-450); RED BLOOD COUNT 5.16 10^6/uL (4.30-6.10); WHITE BLOOD COUNT 9.2 10^3/uL (4.0-10.0)
[2020-03-11] MEDS: TAMSULOSIN 0.4 MG CAP PO SCH (08:10)
[2020-03-11] MEDS: metroNIDAZOLE 500 MG in IV 1 EA IV SCH (08:10)
[2020-03-11] MEDS: APIXABAN 5 MG TAB (ELIQUIS) PO SCH (08:11)
[2020-03-11] MEDS: METOPROLOL TART 25 MG TABLET PO SCH (08:11)
[2020-03-11] MEDS: POTASSIUM CHLORIDE 10 MEQ SR TABLET PO SCH (08:12)
[2020-03-11] MEDS: DULoxetine 30 MG CAP (CYMBALTA) PO SCH (08:12)
[2020-03-11] MEDS: ASPIRIN 325 MG TAB PO SCH (08:12)
[2020-03-11] MEDS ORDERED: CHLORTHALIDONE 25 MG TAB PO SCH (09:00)
[2020-03-11 09:45] LABS: CALCIUM LEVEL 8.8 MG/DL (8.8-10.2); CREATININE FOR GFR 1.71 MG/DL (0.70-1.30); GLOMERULAR FILTRATION RATE 42.2 (>42); MAGNESIUM LEVEL 1.9 MG/DL (1.8-2.4); POTASSIUM SERUM 3.1 MEQ/L (3.5-5.1)
[2020-03-11] MEDS: cefTRIAXone SOD 2 GM in D5W MINI-BAG PLUS 50 ML IV SCH (10:18)
[2020-03-11] MEDS ORDERED: POTASSIUM CHLORIDE 10 MEQ SR TABLET PO ONE (12:45)
[2020-03-11] MEDS ORDERED: AMLO1TAB25 PO (14:15)
[2020-03-11] MEDS ORDERED: MOXI1TAB PO (14:15)
[2020-03-11] MEDS ORDERED: METR-265 PO (14:33)
[2020-03-11] MEDS ORDERED: LEVO750T14 PO (14:33)
--- NOTE | 2020-03-11 21:34 | DS.PDOC ---
Discharge Summary General Date of Admission Mar 09, 2020 at 14:19 Date of Discharge Mar 11, 2020 Attending Physician: WHIT RUBALCAVA DO Discharge Summary PROCEDURES PERFORMED DURING STAY: None ADMITTING DIAGNOSES: 1. Acute diverticulitis 2. Hypokalemia 3. Peripheral vascular disease 4. Hypothyroidism 5. Hypertension 6. BPH DISCHARGE DIAGNOSES: 1. Acute diverticulitis 2. Hypokalemia 3. Peripheral vascular disease 4. Hypothyroidism 5. Hypertension 6. BPH COMPLICATIONS/CHIEF COMPLAINT: Diverticulitis. HISTORY OF PRESENT ILLNESS: Mr. Hedrick is a 69 year old male with HTN, HLD, mul tiple sclerosis, and PVD who is here for nausea, vomiting, diarrhea, and abdominal pain who was found to have acute diverticulitis. Yesterday he was in good health. Denied eating anything different. Denies eating nuts or popcorn. When he woke up this morning, he started having abdominal pain with nausea and dry heaving. He came into the ED. CT of abdomen and pelvis found acute diverticulitis. HOSPITAL COURSE: The morning after admission, he vomited his clear liquid diet. He felt better afterwards. Later in the day he that he could try to advance his diet. He was advanced to low-residue diet. Today, he is feeling well and denies any nausea/vomiting or diarrhea. Denies any fever or chills, lightheadedness or dizziness, chest pain, or dysuria. He felt ready for home and was subsequently discharged home. DISCHARGE MEDICATIONS: Please see below. ALLERGIES: Please see below. PHYSICAL EXAMINATION ON DISCHARGE: VITAL SIGNS: Please see below. GENERAL: Comfortable, in no apparent distress. HEENT: Head normocephalic/atraumatic, EOMI, sclera clear. NECK: Supple, no JVD. RESPIRATORY: Lungs clear to auscultation bilaterally, no rales, wheeze or rhonchi. CARDIOVASCULAR: Regular rate and rhythm. ABDOMEN: Soft, nontender, no guarding or rebound tenderness. Normal bowel sounds. MUSCLE SKELETAL: Muscle strength 5/5 in all extremities. NEUROLOGICAL: CN 312 grossly intact, no focal deficits noted. PSYCHOLOGICAL: Normal mood and affect LABORATORY DATA: Please see below. IMAGING: CT of abdomen and pelvis 1. Evidence for distal left colonic and sigmoid diverticulitis and inflammatory changes in the adjacent fat but no perforation or abscess at this time. 2. Advanced atherosclerotic disease with occlusion of the infrarenal abdominal aorta and a right axillary femoral bypass and cross femoral bypass with retrograde flow into the external iliacs and internal iliacs. No flow in the common iliac arteries. 3. 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 However this is not acute as the kidney is smaller (and does not enhance). There is compensatory hypertrophy since the previous study for the left kidney. There are atherosclerotic calcifications in that kidney's main artery as well. 4. No definite evidence for small bowel abnormality or pneumatosis. No perforation or free air. 5. Advanced degenerative changes and levorotatory thoracolumbar scoliosis. Hip degenerative changes as well. PROGNOSIS: Good ACTIVITY: As tolerated. DIET: As tolerated DISCHARGE PLAN: Home DISPOSITION: Home, Self-Care. DISCHARGE INSTRUCTIONS: 1. Follow-up with her PCP within 5 days 2. Continue levofloxacin and metronidazole to completion for total of a 10 day treatment course. DISCHARGE CONDITION: Stable. Total time spent on discharge planning, discharge summary, and medication reconciliation: 45 minutes Vital Signs/I&Os Vital Signs Date Time Temp Pulse Resp B/P (MAP) Pulse Ox O2 Delivery O2 Flow Rate FiO2 03/11/20 06:10 98.3 77 18 150/86 (107) 95 Room Air I&O- Last 24 Hours up to 6 AM 03/11/20 06:00 Intake Total 2630 ml Output Total 1000 ml Balance 1630 ml Laboratory Data Labs 24H Laboratory Tests 2 03/11/20 07:36: Nucleated Red Blood Cells % (auto) 0.0, Anion Gap 8, Glomerular Filtration Rate 42.2, Calcium Level 8.8, Magnesium Level 1.9 CBC/BMP Laboratory Tests 03/11/20 07:36 Discharge Medications Scheduled Amlodipine Besylate (Amlodipine Besylate) 10 Mg Tablet, 10 MG PO DAILY Apixaban (Eliquis) 5 Mg Tablet, 5 MG PO BID, (Reported) Aspirin (Aspirin) 325 Mg Tab, 325 MG PO DAILY, (Reported) Atorvastatin Calcium (Atorvastatin Calcium) 80 Mg Tablet, 80 MG PO QHS, (Reported) Duloxetine Hcl (Duloxetine HCl) 30 Mg Cap, 30 MG PO DAILY, (Reported) Levothyroxine Sodium (Levothyroxine Sodium) 25 Mcg Tablet, 25 MCG PO DAILY, (Reported) Metoprolol Tartrate (Metoprolol Tartrate) 25 Mg Tablet, 25 MG PO BID, (Reported) Metronidazole (Metronidazole) 500 Mg Tablet, 500 MG PO TID Potassium Chloride (Klor-Con M10) 10 Meq Tab.er.prt, 20 MEQ PO DAILY, (Reported) Tamsulosin Hcl (Tamsulosin HCl) 0.4 Mg Capsule, 0.4 MG PO DAILY, (Reported) levoFLOXacin (levoFLOXacin) 750 Mg Tablet, 750 MG PO DAILY Scheduled PRN Tramadol HCl (Tramadol HCl) 50 Mg Tab, 50 MG PO TID PRN for PAIN, (Reported) Allergies Coded Allergies: Penicillins (Verified Allergy, Mild, RASH A CHILD, 03/09/20) WHIT RUBALCAVA DO Mar 11, 2020 21:34
== END 2020-03-11 15:43 | disposition home or self-care (01) | DRG 392 ==
LOC: M ED 10:22 → EDBD 10:22 → M ED INP 14:19 → ENRESERV 15:09 → M MS5PR 17:01
PROVIDERS: ADMIT Internal Medicine; ATTEND Internal Medicine
DX: K57.32 Diverticulitis of large intestine without perforation or abscess without bleeding (principal); I10 Essential (primary) hypertension; E78.5 Hyperlipidemia, unspecified; G35 Multiple sclerosis; I73.9 Peripheral vascular disease, unspecified; E87.6 Hypokalemia; Z79.01 Long term (current) use of anticoagulants; Z79.82 Long term (current) use of aspirin; Z79.899 Other long term (current) drug therapy; Z88.0 Allergy status to penicillin; Z96.611 Presence of right artificial shoulder joint; Z95.5 Presence of coronary angioplasty implant and graft; Z95.820 Peripheral vascular angioplasty status with implants and grafts; Z87.891 Personal history of nicotine dependence; E03.9 Hypothyroidism, unspecified; N40.0 Benign prostatic hyperplasia without lower urinary tract symptoms; Z20.828 Contact with and (suspected) exposure to other viral communicable diseases

== ENCOUNTER 2020-03-14 11:07 | Inpatient (IN) | payer MEDICARE ==
[~2020-03-14] VITALS: Ht 144.8 cm; Wt 38.6 kg
[~2020-03-14 11:07] MED LIST changes: +AMLO1TAB25 PO; +ATOR80TA59 PO; +ELIQ5TAB PO; +KLOR10TA76 PO; +LEVO25TA5 PO; +LEVO750T14 PO; +METO1TAB87 PO; +METR-265 PO; +MOXI1TAB PO; +TAMS1CAP17 PO; +XARE20TA PO
[2020-03-14] MEDS ORDERED: NS 1,000 ML IV ONE (11:45)
[2020-03-14 12:10] LABS: BASO % 0.1 % (0.0-1.0); HEMATOCRIT 49.3 % (42.0-52.0); HEMOGLOBIN 16.4 g/dl (13.5-17.5); LYMPH # 0.6 10^3/uL (1.5-5.0); LYMPH % 5.3 % (24.0-44.0); MEAN CORPUSCULAR HGB CONC 33.3 g/dl (32.0-36.5); MEAN CORPUSCULAR VOLUME 87.1 fl (80.0-96.0); MONO # 0.9 10^3/uL (0.0-0.8); MONO % 8.2 % (0.0-5.0); NEUTROPHILS # 9.6 10^3/uL (1.5-8.5); NEUTROPHILS % 86.1 % (36.0-66.0); PLATELET COUNT, AUTOMATED 183 10^3/uL (150-450); RED BLOOD COUNT 5.66 10^6/uL (4.30-6.10); WHITE BLOOD COUNT 11.2 10^3/uL (4.0-10.0)
[2020-03-14 12:22] LABS: INR 1.18; PARTIAL THROMBOPLASTIN TIME 30.9 SECONDS (24.2-38.5); PROTHROMBIN TIME 15.3 SECONDS (12.5-14.3)
[2020-03-14 13:05] LABS: ALT/SGPT 36 U/L (12-78); BILIRUBIN,DIRECT < 0.1 MG/DL (0.0-0.2); BILIRUBIN,TOTAL 0.7 MG/DL (0.2-1.0); BLOOD UREA NITROGEN 24 MG/DL (7-18); CALCIUM LEVEL 8.9 MG/DL (8.8-10.2); CARBON DIOXIDE LEVEL 31 MEQ/L (21-32); CHLORIDE LEVEL 88 MEQ/L (98-107); CREATININE FOR GFR 2.15 MG/DL (0.70-1.30); GLOMERULAR FILTRATION RATE 32.4 (>42); GLUCOSE, FASTING 133 MG/DL (70-100); LIPASE 88 U/L (73-393); SODIUM LEVEL 132 MEQ/L (136-145); TOTAL PROTEIN 6.8 GM/DL (6.4-8.2)
[2020-03-14] MEDS ORDERED: MORPHINE 2 MG/ML 1ML VIAL (J2270) IV PRN (13:45)
--- NOTE | 2020-03-14 14:21 | REP ---
INDICATION: abdominal pain COMPARISON: 03/09/2020 TECHNIQUE: Axial noncontrast images from the lung bases to the pubic symphysis with coronal and sagittal reformations. This CT examination was performed using the following dose reduction techniques: Automated exposure control, adjustment of mA and/or kv according to the patient's size, and use of iterative reconstruction technique. FINDINGS: Evaluation is significantly limited by paucity of intraperitoneal fat as well as lack of both oral and intravenous contrast enhancement. Liver, spleen, pancreas, and bilateral adrenal glands are grossly normal/stable. Atrophic appearance of the right kidney again noted with relatively normal appearance of the left kidney. Cholelithiasis appreciated without evidence for acute cholecystitis. The enteric system is inadequately evaluated. However, there is no obvious obstruction or obvious focal acute inflammatory process. Scattered colonic and sigmoid diverticula noted without obvious diverticulitis. Previously noted acute sigmoid diverticulitis on 03/09/2020 is not appreciable by current noncontrast evaluation. No free air. No ascites. Pelvis demonstrates moderately distended bladder with prostatomegaly causing mass effect on the base of the bladder suggesting element of outlet obstruction. Extensive atherosclerotic changes to the aorta and vasculature again noted without change. Lung bases are clear. Musculoskeletal structures demonstrate stable degenerative changes. IMPRESSION: 1. Limited examination. No obvious acute abdominopelvic pathology appreciated. 2. Previously identified sigmoid diverticulitis is not appreciable on current examination. There is no associated bowel obstruction, free air to suggest perforation, ascites or drainable collection/abscess. 3. Chronic findings as described above. 4. Cholelithiasis. <Electronically signed by Live Bird > 03/14/20 [id number]
[2020-03-14 14:36] LABS: CLOSTRIDIUM DIFFICILE PCR NEGATIVE (NEGATIVE)
[2020-03-14] MEDS ORDERED: AMLO1TAB25 PO (14:54)
[2020-03-14] MEDS ORDERED: METR-265 PO (14:54)
[2020-03-14] MEDS ORDERED: LEVO750T13 PO (14:54)
[2020-03-14] MEDS ORDERED: NS 500 ML IV ONE (15:00)
--- NOTE | 2020-03-14 17:04 | HPEPDOC ---
[facility] Medical History & Physical Date of Admission Mar 14, 2020 Date of Service: Mar 14, 2020 History and Physical CHIEF COMPLAINT: Nausea/vomiting HISTORY OF PRESENT ILLNESS: 69-year-old male past medical history of hypertension, hyperlipidemia, multiple sclerosis, PVD, recent Hospitalization for diverticulitis discharged a few days ago. Tell me that upon discharge from the hospital a few days ago he was feeling much better and was able to tolerate his diet that evening but the following morning his appetite became worse and he was not able to keep fluids or solids down and started feeling nauseous and dry heaving for the past few days. He denies any of abdominal pain currently. He denies any fevers or chills. He denies any chest pain or shortness of breath. He says that he hasnt been having much fluid intake since going home and feels pretty dehydrated. Feels that the IV fluids he has received in the ED has helped him significantly and his nausea has improved. He also reports diarrhea associate with the nausea. PAST MEDICAL HISTORY: HTN, HLD, MS, PVD, HTN PAST SURGICAL HISTORY: Scope of right knee, DCS, Right shoulder replacement, hernia repair, cardiac stenting, carotid endarterectomy, femoral bypass, axilliofemoral bypass. SOCIAL HISTORY: Denies alcohol use Denies tobacco use currently. quit 4 yrs ago. 50 pack year history. Denies illicit drug use other than occasional cannabis use. FAMILY HISTORY: Father had CAD. Mother arthiritis. ALLERGIES: Please see below. REVIEW OF SYSTEMS: Constitutional: No sweating or weight loss Eyes: No eye pain or acute blurred vision HENT: No complaints of headache or sore throat Cadiovascular: No Chest pain or palpitations Pulm: No SOB or cough Gastrointestinal: per HPI Genitourinary: No dysuria or hematuria Musculoskeletal: No back pain or joint pain Skin: No rash or jaundice Neurological: No weakness. HOME MEDICATIONS: Please see below. PHYSICAL EXAMINATION: Constitutional: Awake and alert, in no apparent distress ENT: Sclera are clear. Mucosa is dry Respiratory: Lungs CTA bilaterally. No respiratory distress. No use of accessory muscles. Cardiovascular: RRR S1 and S2 are normal, no murmur Gastrointestinal: Abdomen is soft, non distended, non tender, BS present. No rebound tenderness. Musculoskeletal: No LE edema Neurologic: No focal neurological deficit. Mental Status: A&O x3, normal affect Skin: Warm, dry LABORATORY DATA: See below. IMAGING: MICROBIOLOGY: Please see below. ASSESSMENT/PLAN # Dehydration Possible from gastroenteritis: Decreased fluid intake. GI panel. IVFs. Metoclopramide PRN n/v. Lactate normalized with fluids. # NAUN: likely pre-renal form dehydration. IVFs. Avoid nephrotoxins. Trend BMP. # Hypokalemia: replace. # Hypothyroidism: continue home Synthroid # Elevated lactate: likely form severe dehydration. Corrected quickly with bolus fluid. Continue IVFs. Do not suspect infection at this time. # Peripheral vascular disease: ASA, statin, eliquis given extensive vascular history # CAD: ASA, Statin # BPH: continue tamulosin # HTN: continue home meds. monitor and titrate. # Blood on urinalysis: no naveen blood in urine. Will need to fu with urology op for cystoscopy. Repeat Urinalysis in am. # DVT prophylaxis: on eliquis A Yousef Hospitalist Vital Signs Vital Signs Date Time Temp Pulse Resp B/P (MAP) Pulse Ox O2 Delivery O2 Flow Rate FiO2 03/14/20 14:39 98 18 140/75 (96) 99 Room Air 03/14/20 11:22 97.9 Laboratory Data Labs 24H Laboratory Tests 2 03/14/20 11:48: Immature Granulocyte % (Auto) 0.3, Neutrophils (%) (Auto) 86.1H, Lymphocytes (%) (Auto) 5.3L, Monocytes (%) (Auto) 8.2H, Eosinophils (%) (Auto) 0.0, Basophils (%) (Auto) 0.1, Neutrophils # (Auto) 9.6H, Lymphocytes # (Auto) 0.6L, Monocytes # (Auto) 0.9H, Eosinophils # (Auto) 0.0, Basophils # (Auto) 0.0, Nucleated Red Blood Cells % (auto) 0.0, Prothrombin Time 15.3H, Prothromb Time International Ratio 1.18, Activated Partial Thromboplast Time 30.9, Anion Gap 13, Glomerular Filtration Rate 32.4L, Lactic Acid Level 5.5*H, Calcium Level 8.9, Total Biliru bin 0.7, Direct Bilirubin < 0.1, Aspartate Amino Transf (AST/SGOT) 47H, Alanine Aminotransferase (ALT/SGPT) 36, Alkaline Phosphatase 116, Total Protein 6.8, Albumin 3.0L, Albumin/Globulin Ratio 0.8, Lipase 88 03/14/20 13:27: Urine Color YELLOW, Urine Appearance CLEAR, Urine pH 6.0, Urine Specific [place] 1.014, Urine Protein 3+H, Urine Glucose (UA) 1+H, Urine Ketones TRACEH, Urine Blood 1+H, Urine Nitrite NEGATIVE, Urine Bilirubin NEGATIVE, Urine Urobilinogen 0.2, Urine Leukocyte Esterase NEGATIVE, Urine WBC (Auto) 1, Urine RBC (Auto) 32H, Urine Hyaline Casts (Auto) 0, Urine Bacteria (Auto) NEGATIVE, Urine Squamous Epithelial Cells 0, Urine Sperm (Auto) , Clostridium difficile [id number] PRESUMPTIVE NEGATIVE, Clostridium difficile Toxin (PCR) NEGATIVE 03/14/20 15:16: Coronavirus (COVID-19)(PCR) NEGATIVE CBC/BMP Laboratory Tests 03/14/20 11:48 Microbiology Microbiology 03/14/20 Blood Culture, Received Pending 03/14/20 Blood Culture, Received Pending Home Medications Scheduled Amlodipine Besylate (Amlodipine Besylate) 10 Mg Tablet, 10 MG PO DAILY Apixaban (Eliquis) 5 Mg Tablet, 5 MG PO BID Aspirin (Aspirin) 325 Mg Tab, 325 MG PO DAILY Atorvastatin Calcium (Atorvastatin Calcium) 80 Mg Tablet, 80 MG PO DAILY Duloxetine Hcl (Duloxetine HCl) 30 Mg Cap, 30 MG PO DAILY Levofloxacin (Levofloxacin) 750 Mg Tablet, 750 MG PO DAILY FILLED 03/11/20 FOR 7 DAYS Levothyroxine Sodium (Levothyroxine Sodium) 25 Mcg Tablet, 25 MCG PO DAILY Metoprolol Tartrate (Metoprolol Tartrate) 25 Mg Tablet, 25 MG PO BID Metronidazole (Metronidazole) 500 Mg Tablet, 500 MG PO TID FILLED 03/11/20 FOR 7 DAYS Potassium Chloride (Klor-Con M10) 10 Meq Tab.er.prt, 10 MEQ PO DAILY Tamsulosin Hcl (Tamsulosin HCl) 0.4 Mg Capsule, 0.4 MG PO DAILY Scheduled PRN Tramadol HCl (Tramadol HCl) 50 Mg Tab, 50 MG PO TID PRN for PAIN Allergies Coded Allergies: Penicillins (Verified Allergy, Mild, RASH A CHILD, 03/09/20) A-FIB/CHADSVASC A-FIB History Current/History of A-Fib/PAF?: No YOUSESHAINA Valdez MD Mar 14, 2020 17:04
[2020-03-14] MEDS ORDERED: MOM 30ML SUSPENSION UDC PO PRN (17:15)
[2020-03-14] MEDS ORDERED: POTASSIUM CHLORIDE 10% LIQ 20 MEQ/15 ML UDC PO ONE (17:15)
[2020-03-14] MEDS ORDERED: ACETAMINOPHEN TAB 650MG DOSE (2X325MG) PO PRN (17:15)
[2020-03-14] MEDS: NS 1,000 ML IV SCH (18:48)
[2020-03-14 18:55] VITALS: BP 150/83
[2020-03-14] MEDS: KCL 10MEQ/100ML SWI (KRUN) 10 MEQ in IV 1 EA IV SCH ×4 (18:55→21:59)
[2020-03-14 20:30] VITALS: BP 148/87
[2020-03-14] MEDS: APIXABAN 5 MG TAB (ELIQUIS) PO SCH (20:55)
[2020-03-14] MEDS: METOPROLOL TART 25 MG TABLET PO SCH (20:57)
[2020-03-14] MEDS: METOCLOPRAMIDE INJ 10MG/2ML VIAL (J2765 PER 1) IV PRN (21:59)
[2020-03-15] VITALS: BP 124/75
[2020-03-15 00:31] LABS: APPEARANCE, URINE CLEAR (CLEAR); BACTERIA, URINE AUTO NEGATIVE (NEGATIVE); BILIRUBIN, URINE AUTO NEGATIVE (NEGATIVE); BLOOD, URINE BLOOD 2+ (NEGATIVE); COLOR, URINE YELLOW (YELLOW); GLUCOSE, URINE (UA) AUTO 1+ mg/dL (NEGATIVE); KETONE, URINE AUTO NEGATIVE (NEGATIVE); LEUKOCYTE ESTERASE, URINE AUTO NEGATIVE (NEGATIVE); MUCUS, URINE SMALL (NEGATIVE); NITRITE, URINE AUTO NEGATIVE (NEGATIVE); PROTEIN, URINE AUTO 3+ mg/dL (NEGATIVE); RBC, URINE AUTO 24 /HPF (0-3); SPECIFIC GRAVITY URINE AUTO 1.008 (1.002-1.035); SQUAMOUS EPITHELIAL CELL UR AU 0 /HPF (0-6); TRANSITIONAL EPITHELIAL AUTO <1 /HPF; UROBILINOGEN, URINE AUTO 0.2 mg/dL (0.0-2.0); WBC, URINE AUTO 1 /HPF (0-3)
[2020-03-15 04:12] VITALS: BP 136/65
[2020-03-15 04:48] LABS: HEMATOCRIT 41.4 % (42.0-52.0); MEAN CORPUSCULAR HEMOGLOBIN 27.1 pg (27.0-33.0); MEAN CORPUSCULAR HGB CONC 32.4 g/dl (32.0-36.5); MEAN CORPUSCULAR VOLUME 83.6 fl (80.0-96.0); PLATELET COUNT, AUTOMATED 196 10^3/uL (150-450); RED BLOOD COUNT 4.95 10^6/uL (4.30-6.10); WHITE BLOOD COUNT 10.8 10^3/uL (4.0-10.0)
[2020-03-15 04:52] LABS: HEMOGLOBIN 13.4 g/dl (13.5-17.5)
[2020-03-15 05:15] LABS: ALBUMIN 2.3 GM/DL (3.2-5.2); BILIRUBIN,TOTAL 0.5 MG/DL (0.2-1.0); CREATININE FOR GFR 1.47 MG/DL (0.70-1.30); GLOMERULAR FILTRATION RATE 50.3 (>42); MAGNESIUM LEVEL 1.6 MG/DL (1.8-2.4); POTASSIUM SERUM 2.5 MEQ/L (3.5-5.1); TOTAL PROTEIN 5.4 GM/DL (6.4-8.2)
[2020-03-15] MEDS ORDERED: POTASSIUM CHLORIDE 10 MEQ SR TABLET PO ONE (05:30)
[2020-03-15] MEDS: LEVOTHYROXINE 25MCG TABLET (0.025MG) PO SCH (05:35)
[2020-03-15] MEDS: NS 1,000 ML IV SCH ×2 (05:36→23:13)
[2020-03-15] MEDS ORDERED: POTASSIUM CHLORIDE 10% LIQ 20 MEQ/15 ML UDC PO ONE (07:45)
[2020-03-15 08:00] VITALS: BP 117/65
[2020-03-15] MEDS: KCL 10MEQ/100ML SWI (KRUN) 10 MEQ in IV 1 EA IV SCH ×4 (08:01→11:13)
[2020-03-15] MEDS: METOCLOPRAMIDE INJ 10MG/2ML VIAL (J2765 PER 1) IV PRN ×3 (08:01→23:13)
[2020-03-15] MEDS: ASPIRIN 325 MG TAB PO SCH (08:02)
[2020-03-15] MEDS: ATORVASTATIN 20 MG TAB PO SCH (08:03)
[2020-03-15] MEDS: METOPROLOL TART 25 MG TABLET PO SCH ×2 (08:04→21:00)
[2020-03-15] MEDS: amLODIPine 10 MG TAB PO SCH (08:04)
[2020-03-15] MEDS: APIXABAN 5 MG TAB (ELIQUIS) PO SCH ×2 (08:04→21:37)
[2020-03-15] MEDS: DULoxetine 30 MG CAP (CYMBALTA) PO SCH (08:04)
[2020-03-15] MEDS: TAMSULOSIN 0.4 MG CAP PO SCH (08:04)
[2020-03-15] MEDS: POTASSIUM CHLORIDE 10 MEQ SR TABLET PO SCH (08:04)
[2020-03-15 12:00] VITALS: BP 105/65
--- NOTE | 2020-03-15 12:59 | IPNPDOC ---
Text Note Date of Service The patient was seen on 03/15/20. NOTE Subjective: Patient was seen and examined this morning at bedside he was sitting at the edges bed. Patient tells me he is feeling much better than yesterday and feels much less dehydrated. He's been walking around his room with no problems. He says his nausea and vomiting have resolved and he's been he will to eat breakfast this morning and keep it down. He does tell me that his diarrhea still persists. Nurse tells me there was no overnight events. Patient denies any shor tness of breath or chest pain no fevers or chills. Also does not have any abdominal pain. Objective: Constitutional: Awake and alert, in no apparent distress ENT: Sclera are clear. Mucosa is dry Respiratory: Lungs CTA bilaterally. No respiratory distress. No use of accessory muscles. Cardiovascular: RRR S1 and S2 are normal, no murmur Gastrointestinal: Abdomen is soft, non distended, non tender, BS present. No rebound tenderness. Musculoskeletal: No LE edema Neurologic: No focal neurological deficit. Mental Status: A&O x3, normal affect Skin: Warm, dry Assessment/plan: 69-year-old male past medical history of hypertension, hyperlipidemia, multiple sclerosis, PVD, recent Hospitalization for diverticulitis discharged a few days ago admitted for intractable nausea and vomiting as well as diarrhea suspected to have gastroenteritis. Admitted to medical unit for hydration and monitoring. # Dehydration Possible from gastroenteritis: Decreased fluid intake. GI panel pending. Continue IVFs. Metoclopramide PRN n/v. Lactate normalized with fluids. # NAUN: likely pre-renal form dehydration. IVFs. Avoid nephrotoxins. Creatinine downtrending. # Hypothyroidism: continue home Synthroid # Elevated lactate: likely form severe dehydration. Corrected quickly with bolus fluid. Continue IVFs. Do not suspect infection at this time. # Hypokalemia: Replace. Monitor. # Peripheral vascular disease: ASA, statin, eliquis given extensive vascular history # CAD: ASA, Statin # BPH: continue tamulosin # HTN: continue home meds. monitor and titrate. # Blood on urinalysis: no naveen blood in urine. Will need to fu with urology op for cystoscopy. Repeat Urinalysis in am. # DVT prophylaxis: on eliquis A Yousef Hospitalist VS,Joon, I+O VS, Joon, I+O Laboratory Tests 03/15/20 04:18 03/15/20 11:51 Vital Signs Date Time Temp Pulse Resp B/P (MAP) Pulse Ox O2 Delivery O2 Flow Rate FiO2 03/15/20 12:00 98.5 70 16 105/65 (78) 98 Room Air I&O- Last 24 Hours up to 6 AM 03/15/20 06:00 Intake Total 2455 ml Output Total 1250 ml Balance 1205 ml SHAINA LOPEZ MD Mar 15, 2020 12:59
--- NOTE | 2020-03-15 14:16 | ECGEPIP ---
[facility] - ED Test Date: 2020-03-14 Pat Name: ANDREA CARREON Department: Room: - Gender: Male Oil Dipper: nazario garcia : 1950 Requested By: HILARY Bocanegra Order Number: [id number] Reading MD: Ania Garcia Measurements Intervals [place] Rate: 96 P: 70 GA: 143 QRS: -52 QRSD: 94 T: 57 QT: 377 QTc: 479 Interpretive Statements SINUS RHYTHM LEFT ANTERIOR FASCICULAR BLOCK ANTEROSEPTAL NC, AGE INDETERMINATE MODERATE ST DEPRESSION CLINICAL CORRELATION Electronically Signed on 03-15-2020 14:15:51 EST by Ania Garcia
[2020-03-15 16:00] VITALS: BP 97/56
[2020-03-15 20:00] VITALS: BP 98/55
[2020-03-16] VITALS: BP 111/62
[2020-03-16 04:00] VITALS: BP 106/72
[2020-03-16 05:15] VITALS: BP 128/80
[2020-03-16] MEDS: METOPROLOL TART 25 MG TABLET PO SCH (05:26)
[2020-03-16] MEDS: METOCLOPRAMIDE INJ 10MG/2ML VIAL (J2765 PER 1) IV PRN ×2 (05:27→12:27)
[2020-03-16] MEDS: LEVOTHYROXINE 25MCG TABLET (0.025MG) PO SCH (05:45)
[2020-03-16 07:23] LABS: HEMOGLOBIN 13.8 g/dl (13.5-17.5); MEAN CORPUSCULAR HEMOGLOBIN 27.3 pg (27.0-33.0); MEAN CORPUSCULAR HGB CONC 32.1 g/dl (32.0-36.5); MEAN CORPUSCULAR VOLUME 85.1 fl (80.0-96.0); PLATELET COUNT, AUTOMATED 188 10^3/uL (150-450); RED BLOOD COUNT 5.05 10^6/uL (4.30-6.10); WHITE BLOOD COUNT 12.4 10^3/uL (4.0-10.0)
[2020-03-16 08:00] VITALS: BP 107/68
[2020-03-16 08:07] LABS: ALBUMIN 2.4 GM/DL (3.2-5.2); ALT/SGPT 34 U/L (12-78); BILIRUBIN,TOTAL 0.5 MG/DL (0.2-1.0); BLOOD UREA NITROGEN 15 MG/DL (7-18); CALCIUM LEVEL 7.8 MG/DL (8.8-10.2); CARBON DIOXIDE LEVEL 28 MEQ/L (21-32); CHLORIDE LEVEL 99 MEQ/L (98-107); CREATININE FOR GFR 1.13 MG/DL (0.70-1.30); GLOMERULAR FILTRATION RATE > 60.0 (>42); GLUCOSE, FASTING 93 MG/DL (70-100); POTASSIUM SERUM 2.5 MEQ/L (3.5-5.1); SODIUM LEVEL 136 MEQ/L (136-145); TOTAL PROTEIN 5.1 GM/DL (6.4-8.2)
[2020-03-16] MEDS ORDERED: POTASSIUM CHLORIDE 10 MEQ SR TABLET PO ONE ×2 (08:30→14:30)
[2020-03-16] MEDS: KCL 10MEQ/100ML SWI (KRUN) 10 MEQ in IV 1 EA IV SCH ×4 (08:41→12:27)
[2020-03-16] MEDS: ASPIRIN 325 MG TAB PO SCH (08:41)
[2020-03-16] MEDS: ATORVASTATIN 20 MG TAB PO SCH (08:41)
[2020-03-16] MEDS: POTASSIUM CHLORIDE 10 MEQ SR TABLET PO SCH (08:42)
[2020-03-16] MEDS: DULoxetine 30 MG CAP (CYMBALTA) PO SCH (08:42)
[2020-03-16] MEDS: TAMSULOSIN 0.4 MG CAP PO SCH (08:42)
[2020-03-16] MEDS: APIXABAN 5 MG TAB (ELIQUIS) PO SCH (08:42)
[2020-03-16 08:51] VITALS: BP 112/64
[2020-03-16] MEDS: amLODIPine 10 MG TAB PO SCH (08:51)
[2020-03-16 12:00] VITALS: BP 108/64
[2020-03-16] MEDS: NS 1,000 ML IV SCH (14:32)
--- NOTE | 2020-03-16 15:52 | DS.PDOC ---
Discharge Summary General Date of Admission Mar 14, 2020 at 17:04 Date of Discharge 03/16/2020 Discharge Summary PROCEDURES PERFORMED DURING STAY: [None]. ADMITTING DIAGNOSES: 1. diarrhea DISCHARGE DIAGNOSES: 1. Dehydration likely from gastroenteritis COMPLICATIONS/CHIEF COMPLAINT: Acutte Renal Failure,Diarrhea,Intractable Vomiting. HISTORY OF PRESENT ILLNESS: From H&P: 69-year-old male past medical history of hypertension, hyperlipidemia, multiple sclerosis, PVD, recent Hospitalization for diverticulitis discharged a few days ago. Tell me that upon discharge from the hospital a few days ago he was feeling much better and was able to tolerate his diet that evening but the following morning his appetite became worse and he was not able to keep fluids or solids down and started feeling nauseous and dry heaving for the past few days. He denies any of abdominal pain currently. He d enies any fevers or chills. He denies any chest pain or shortness of breath. He says that he hasnt been having much fluid intake since going home and feels pretty dehydrated. Feels that the IV fluids he has received in the ED has helped him significantly and his nausea has improved. He also reports diarrhea associate with the nausea. HOSPITAL COURSE: 69-year-old male past medical history of hypertension, hyperlipidemia, multiple sclerosis, PVD, recent Hospitalization for diverticu litis discharged a few days ago admitted for intractable nausea and vomiting as well as diarrhea suspected to have gastroenteritis. Admitted to medical unit for hydration and monitoring. Patient did very well during his hospital stay with IV fluid hydration and his nausea and vomiting have resolved and his diarrhea also resolved his feeling good and ready to go home today patient was discharged on 03/16/2020 # Dehydration Possible from gastroenteritis: Decreased fluid intake. GI panel pending. Continue IVFs. Metoclopramide PRN n/v. Lactate normalized with fluids. # NAUN: likely pre-renal form dehydration. Resolved with IV fluids # Hypothyroidism: continue home Synthroid # Elevated lactate: likely form severe dehydration. Corrected quickly with bolus fluid. Resolved with IV fluids # Hypokalemia: Replace. Monitor. # Peripheral vascular disease: ASA, statin, eliquis given extensive vascular history # CAD: ASA, Statin # BPH: continue tamulosin # HTN: continue home meds. monitor and titrate. # Microscopic hematuria on UA: no naveen blood in urine. Will need to fu with urology op for cystoscopy. DISCHARGE MEDICATIONS: Please see below. ALLERGIES: Please see below. PHYSICAL EXAMINATION ON DISCHARGE: Constitutional: Awake and alert, in no apparent distress ENT: Sclera are clear. Mucosa is moist Respiratory: Lungs CTA bilaterally. No respiratory distress. No use of accessory muscles. Cardiovascular: RRR S1 and S2 are normal, no murmur Gastrointestinal: Abdomen is soft, non distended, non tender, BS present. No rebound tenderness. Musculoskeletal: No LE edema Neurologic: No focal neurological deficit. Mental Status: A&O x3, normal affect Skin: Warm, dry LABORATORY DATA: Please see below. IMAGING: CT ABD & PELVIS W/O CONTRAST 1. Limited examination. No obvious acute abdominopelvic pathology appreciated. 2. Previously identified sigmoid diverticulitis is not appreciable on current examination. There is no associated bowel obstruction, free air to suggest perforation, ascites or drainable collection/abscess. 3. Chronic findings as described above. 4. Cholelithiasis. PROGNOSIS: good ACTIVITY: [As tolerated]. DIET: Clear liquid diet and advance as tolerated to a regular diet DISPOSITION: .Home DISCHARGE INSTRUCTIONS: Please follow up with your primary care physician within 1 week from discharge. If you do not have one, please follow up with us to schedule an appointment. Please keep all of your follow up appointments. Please call central to book your appointments with hospital specialists. Please take all your medications as prescribed. Please call/come to Clinic or go to the Emergency Department if - Temp >101, intractable Nausea/Vomiting, Diarrhea, Mouth sores, Headaches, Altered mental status, Seizures, sudden onset of swelling, bleeding, shortness of breath or chest pain. Follow-up with urology for blood seen in urine study Follow-up with primary care doctor within 3-5 days of discharge ITEMS TO FOLLOWUP ON ON OUTPATIENT: 1. Follow-up with primary care doctor and urologist DISCHARGE CONDITION: [Stable]. TIME SPENT ON DISCHARGE: Greater than 35 minutes. Vital Signs/I&Os Vital Signs Date Time Temp Pulse Resp B/P (MAP) Pulse Ox O2 Delivery O2 Flow Rate FiO2 03/16/20 12:00 98.6 82 20 108/64 (79) 98 Room Air I&O- Last 24 Hours up to 6 AM 03/16/20 06:00 Intake Total 3450 ml Output Total 2450 ml Balance 1000 ml Laboratory Data Labs 24H Laboratory Tests 2 03/16/20 06:56: Nucleated Red Blood Cells % (auto) 0.0, Anion Gap 9, Glomerular Filtration Rate > 60.0, Calcium Level 7.8L, Total Bilirubin 0.5, Aspartate Amino Transf (AST/SGOT) 41H, Alanine Aminotransferase (ALT/SGPT) 34, Alkaline Phosphatase 91, Total Protein 5.1L, Albumin 2.4L, Albumin/Globulin Ratio 0.9 CBC/BMP Laboratory Tests 03/16/20 06:56 03/16/20 13:24 Microbiology Microbiology 03/15/20 Campylobacter (PCR), Received Pending 03/15/20 Clostridium difficile Toxin A&B PCR, Received Pending 03/15/20 Plesiomonas shigelloides (PCR), Received Pending 03/15/20 Salmonella (PCR)(HPYLLIS), Received Pending 03/15/20 Vibrio Species (PCR), Received Pending 03/15/20 Vibrio Cholerae (PCR), Received Pending 03/15/20 Yersinia enterocolitica (PCR), Received Pending 03/15/20 Enteroaggregative E. coli (PCR), Received Pending 03/15/20 Enteropathogenic E. coli (PCR), Received Pending 03/15/20 Enterotoxigenic E. coli (PCR), Received Pending 03/15/20 E. coli Shiga-like Toxin (PCR), Received Pending 03/15/20 Escherichia coli 0157 (PCR), Received Pending 03/15/20 Enteroinvasive E. coli/Shigella PCR, Received Pending 03/15/20 Cryptosporidium (PCR), Received Pending 03/15/20 Cyclospora cayetanensis (PCR), Received Pending 03/15/20 Entamoeba histolytica (PCR), Received Pending 03/15/20 Giardia lamblia (PCR), Received Pending 03/15/20 Adenovirus Type F 40/41 (PCR), Received Pending 03/15/20 Astrovirus (PCR), Received Pending 03/15/20 Norovirus GI/GII (PCR), Received Pending 03/15/20 Rotavirus A (PCR), Received Pending 03/15/20 Sapovirus I/II/IV/V (PCR), Received Pending 03/14/20 Blood Culture - Preliminary, Resulted No Growth after 48 hours. All Specime... 03/14/20 Blood Culture - Preliminary, Resulted No Growth after 48 hours. All Specime... Discharge Medications Scheduled Amlodipine Besylate (Amlodipine Besylate) 10 Mg Tablet, 10 MG PO DAILY, (Reported) Apixaban (Eliquis) 5 Mg Tablet, 5 MG PO BID, (Reported) Aspirin (Aspirin) 325 Mg Tab, 325 MG PO DAILY, (Reported) Atorvastatin Calcium (Atorvastatin Calcium) 80 Mg Tablet, 80 MG PO DAILY, (Reported) Duloxetine Hcl (Duloxetine HCl) 30 Mg Cap, 30 MG PO DAILY, (Reported) Levofloxacin (Levofloxacin) 750 Mg Tablet, 750 MG PO DAILY, (Reported) FILLED 03/11/20 FOR 7 DAYS Levothyroxine Sodium (Levothyroxine Sodium) 25 Mcg Tablet, 25 MCG PO DAILY, (Reported) Metoprolol Tartrate (Metoprolol Tartrate) 25 Mg Tablet, 25 MG PO BID, (Reported) Metronidazole (Metronidazole) 500 Mg Tablet, 500 MG PO TID, (Reported) FILLED 03/11/20 FOR 7 DAYS Potassium Chloride (Klor-Con M10) 10 Meq Tab.er.prt, 10 MEQ PO DAILY, (Reported) Tamsulosin Hcl (Tamsulosin HCl) 0.4 Mg Capsule, 0.4 MG PO DAILY, (Reported) Scheduled PRN Tramadol HCl (Tramadol HCl) 50 Mg Tab, 50 MG PO TID PRN for PAIN, (Reported) Allergies Coded Allergies: Penicillins (Verified Allergy, Mild, RASH A CHILD, 03/09/20) SHAINA LOPEZ MD Mar 16, 2020 15:52
--- NOTE | 2020-03-17 14:54 | ECGEPIP ---
[facility] Test Date: 2020-03-16 Pat Name: ANDREA CARREON Department: Room: [place] [address] Gender: Male Search Marketing Specialist: Barbara ZHU : 1950 Requested By: OLINDA ALVARADO Order Number: [id number] Reading MD: Hoang Mayen Measurements Intervals [place] Rate: 160 P: AR: 0 QRS: -76 QRSD: 90 T: -16 QT: 287 QTc: 469 Interpretive Statements SUPRAVENTRICULAR TACHYCARDIA: SINUS TACH VS ATRIAL FLUTTER LEFT ANTERIOR FASCICULAR BLOCK Non specific ST/T abnormality Compared to prior tracings in the system, Supraventricular tachycardia is new Electronically Signed on 03-17-2020 14:54:26 EST by Hoang Mayen
--- NOTE | 2020-03-17 15:05 | ECGEPIP ---
[facility] Test Date: 2020-03-16 Pat Name: ANDREA CARREON Department: Room: [place] [address] Gender: Male Marketing Systems Analyst: : 1950 Requested By: SHAINA Noble Order Number: [id number] Reading MD: Hoang Mayen Measurements Intervals [place] Rate: 75 P: 62 AL: 161 QRS: -53 QRSD: 97 T: 246 QT: 370 QTc: 413 Interpretive Statements SINUS RHYTHM LEFT ANTERIOR FASCICULAR BLOCK MODERATE ST/T-WAVE ABNORMALITY, CONSIDER ISCHEMIA Last tracing on 03/16/20 AT 5:12, a Supraventricular Tachycardia rhythm was p present. Electronically Signed on 03-17-2020 15:05:18 EST by Hoang Mayen
== END 2020-03-16 17:04 | disposition home or self-care (01) | DRG 392 ==
LOC: M ED 11:07 → EDBD 11:07 → M ED INP 17:04 → ENRESERV 17:59 → M PCU 18:47
PROVIDERS: ADMIT Family Medicine; ATTEND Family Medicine
DX: K52.9 Noninfective gastroenteritis and colitis, unspecified (principal); N17.9 Acute kidney failure, unspecified; E87.2 Acidosis; E78.5 Hyperlipidemia, unspecified; E86.0 Dehydration; G35 Multiple sclerosis; N40.0 Benign prostatic hyperplasia without lower urinary tract symptoms; E87.6 Hypokalemia; I25.10 Atherosclerotic heart disease of native coronary artery without angina pectoris; R31.29 Other microscopic hematuria; E03.9 Hypothyroidism, unspecified; I10 Essential (primary) hypertension; I73.9 Peripheral vascular disease, unspecified; Z96.611 Presence of right artificial shoulder joint; Z95.5 Presence of coronary angioplasty implant and graft; Z87.891 Personal history of nicotine dependence; Z79.01 Long term (current) use of anticoagulants; Z79.899 Other long term (current) drug therapy; Z88.0 Allergy status to penicillin; Z20.828 Contact with and (suspected) exposure to other viral communicable diseases

== ENCOUNTER → 2020-05-07 | Outpatient (REF) | payer MEDICARE ==
[~2020-05-07] MED LIST changes: +LEVO750T13 PO
[2020-05-07 13:08] LABS: APPEARANCE, URINE CLEAR (CLEAR); BACTERIA, URINE AUTO NEGATIVE (NEGATIVE); BILIRUBIN, URINE AUTO NEGATIVE (NEGATIVE); BLOOD, URINE BLOOD NEGATIVE (NEGATIVE); COLOR, URINE YELLOW (YELLOW); GLUCOSE, URINE (UA) AUTO 1+ mg/dL (NEGATIVE); KETONE, URINE AUTO NEGATIVE (NEGATIVE); LEUKOCYTE ESTERASE, URINE AUTO NEGATIVE (NEGATIVE); MUCUS, URINE SMALL (NEGATIVE); NITRITE, URINE AUTO NEGATIVE (NEGATIVE); PROTEIN, URINE AUTO 3+ mg/dL (NEGATIVE); RBC, URINE AUTO 4 /HPF (0-3); SPECIFIC GRAVITY URINE AUTO 1.015 (1.002-1.035); SQUAMOUS EPITHELIAL CELL UR AU 0 /HPF (0-6); UROBILINOGEN, URINE AUTO 0.2 mg/dL (0.0-2.0); WBC, URINE AUTO 1 /HPF (0-3)
== END ==
LOC: M LAB REF 11:01
PROVIDERS: ATTEND Family Medicine
DX: E87.6 Hypokalemia (principal)

== ENCOUNTER 2020-07-30 11:16 | Inpatient (IN) | payer MEDICARE ==
[~2020-07-30] VITALS: Ht 144.8 cm; Wt 38.6 kg
[~2020-07-30 11:16] MED LIST changes: -LISI40TA; +LISI40TA4
[2020-07-30] MEDS ORDERED: METOPROLOL TART 25 MG TABLET PO ONE (12:30)
[2020-07-30] MEDS ORDERED: ONDANSETRON 4MG/2ML VIAL IV ONE (12:30)
[2020-07-30 13:45] LABS: BASO % 0.1 % (0.0-1.0); HEMATOCRIT 25.7 % (42.0-52.0); LYMPH # 0.6 10^3/uL (1.5-5.0); LYMPH % 4.9 % (24.0-44.0); MEAN CORPUSCULAR HEMOGLOBIN 25.8 pg (27.0-33.0); MEAN CORPUSCULAR HGB CONC 31.1 g/dl (32.0-36.5); MEAN CORPUSCULAR VOLUME 82.9 fl (80.0-96.0); MONO # 1.2 10^3/uL (0.0-0.8); MONO % 9.5 % (2.0-8.0); NEUTROPHILS # 10.4 10^3/uL (1.5-8.5); NEUTROPHILS % 84.7 % (36.0-66.0); PLATELET COUNT, AUTOMATED 183 10^3/uL (150-450); WHITE BLOOD COUNT 12.2 10^3/uL (4.0-10.0)
[2020-07-30 13:56] LABS: PARTIAL THROMBOPLASTIN TIME 46.7 SECONDS (24.2-38.5)
[2020-07-30 14:03] LABS: INR 6.43
[2020-07-30] MEDS ORDERED: PANTOPRAZOLE 40MG VIAL (C9113 PER 1) IV ONE (14:25)
[2020-07-30 14:45] LABS: RSV AMPLIFICATION NEGATIVE (NEGATIVE)
[2020-07-30 14:49] LABS: BLOOD UREA NITROGEN 68 MG/DL (7-18); CALCIUM LEVEL 8.5 MG/DL (8.8-10.2); CARBON DIOXIDE LEVEL 19 MEQ/L (21-32); CHLORIDE LEVEL 100 MEQ/L (98-107); CREATININE FOR GFR 1.96 MG/DL (0.70-1.30); GLOMERULAR FILTRATION RATE 36.1 (>42); GLUCOSE, FASTING 101 MG/DL (70-100); POTASSIUM SERUM 5.2 MEQ/L (3.5-5.1); SODIUM LEVEL 133 MEQ/L (136-145)
[2020-07-30 14:50] LABS: ALBUMIN 2.7 GM/DL (3.2-5.2); ALT/SGPT 789 U/L (12-78); BILIRUBIN,DIRECT 0.9 MG/DL (0.0-0.2); BILIRUBIN,TOTAL 1.5 MG/DL (0.2-1.0); CK-MB VALUE MASS 119.4 NG/ML (<3.6); CPK CREATINE PHOSPHOKINASE 6855 U/L (39-308); LIPASE 96 U/L (73-393); MB/CK RELATIVE INDEX 1.74 (< OR =4); TOTAL PROTEIN 5.3 GM/DL (6.4-8.2); TROPONIN I 0.21 NG/ML (< 0.10)
--- NOTE | 2020-07-30 16:33 | REP ---
INDICATION: SOB. COMPARISON: 08/20/2018. TECHNIQUE: CT chest performed without the use of intravenous contrast. Sagittal and coronal reconstruction images are performed. FINDINGS: Lungs: Patchy dependent parenchymal opacities bilaterally represent atelectasis and or infiltrate. Mediastinum: No gross adenopathy. Haley: No gross adenopathy. Axilla: No gross adenopathy. Pleura: There is a large right pleural effusion. There is a moderate left pleural effusion. Heart: Mildly enlarged. Thoracic aorta: No aneurysm. There is a right axillary bypass graft noted. There is a small hiatal hernia. Visualized osseous structures: There is a metallic prosthesis of the proximal right humerus.. There are diffuse degenerative changes of the spine with multiple chronic compression deformities again noted. IMPRESSION: Large right pleural effusion, moderate left pleural effusion, with adjacent parenchymal atelectasis/infiltrate. Mild cardiomegaly. <Electronically signed by Jose De Jesus Schulz > 07/30/20 [id number]
--- NOTE | 2020-07-30 16:43 | REP ---
INDICATION: vomiting abd pain COMPARISON: 03/14/2020. TECHNIQUE: CT Scan of the abdomen and pelvis was performed without intravenous contrast. Sagittal and coronal reconstruction images performed. FINDINGS: Liver: Grossly unremarkable. Gallbladder: Unremarkable. Spleen: Grossly unremarkable.. Adrenals: Normal. Pancreas: Tiny calcifications throughout the pancreas suggests chronic pancreatitis. Kidneys: No hydronephrosis or nephrolithiasis. There is severe right renal atrophy. Small and large bowel: Grossly unremarkable. No free air or obstruction. Free fluid: Mild free fluid in the pelvis. Abdominal aorta: No aneurysm. Adenopathy: None. Appendix: Unable to visualize. Osseous structures: There are degenerative changes of the spine with evidence for prior lumbar laminectomy. Pelvis: No mass. No bladder calculus seen. Axillary to bi femoral bypass graft is noted. IMPRESSION: No free air or obstruction. Small amount of free fluid in the pelvis. <Electronically signed by Jose De Jesus Schulz > 07/30/20 [id number]
[2020-07-30] MEDS ORDERED: NS 1,000 ML IV SCH (17:31)
[2020-07-30] MEDS ORDERED: ACETAMINOPHEN TAB 650MG DOSE (2X325MG) PO PRN (17:35)
--- NOTE | 2020-07-30 17:42 | HPEPDOC ---
General Date of Admission 07/30/20 Date of Service: Jul 30, 2020 Chief Complaint The patient is a 69-year-old male admitted with a reason for visit of Short Of Breath, Weakness. Source: Patient Exam Limitations: No limitations History of Present Illness Patient 69 years old male with past history of hypertension, hyperlipidemia, multiple sclerosis, peripheral vascular diseases presented hospital with generalized weakness and shortness of breath. Patient stated that he has been having shortness of breath on exertion post 1 week. Also she stated that he had nausea for past few days. Patient denied any fever or chills. Also he denied history of black stool or blood in the stool. Of note, patient recently saw vascular surgeon in [place], which changed his medication regimen and increase the dose of aspirin to 325. Also patient takes Eliquis 5 mg twice a day. Patient has history of carotid endarterectomy, femoral bypass, axillofemoral bypass. In ER patient was found to have white blood count of 12.2, hemoglobin 8, potassium 5.2, creatinine 1.9, AST 913, [id number], ALK phos 667, troponin 0.2, CPK 6855, stool was positive for occult blood. CT abdomen and pelvis showed No free air or obstruction. Small amount of free fluid in the pelvis CT chest shows Large right pleural effusion, moderate left pleural effusion, with adjacent parenchymal atelectasis/infiltrate. Mild cardiomegaly. Home Medications Scheduled Apixaban (Eliquis) 5 Mg Tablet, 5 MG PO BID, (Reported) Aspirin (Aspirin) 325 Mg Tab, 325 MG PO DAILY, (Reported) Atorvastatin Calcium (Atorvastatin Calcium) 40 Mg Tablet, 40 MG PO DAILY, (Reported) Duloxetine Hcl (Duloxetine HCl) 30 Mg Cap, 30 MG PO DAILY, (Reported) Levothyroxine Sodium (Levothyroxine Sodium) 25 Mcg Tablet, 25 MCG PO DAILY, (Reported) Metoprolol Tartrate (Metoprolol Tartrate) 25 Mg Tablet, 25 MG PO BID, (Reported) Potassium Chloride (Klor-Con M10) 10 Meq Tab.er.prt, 20 MEQ PO DAILY, (Reported) Tamsulosin Hcl (Tamsulosin HCl) 0.4 Mg Capsule, 0.4 MG PO DAILY, (Reported) Scheduled PRN Tramadol HCl (Tramadol HCl) 50 Mg Tab, 50 MG PO TID PRN for PAIN, (Reported) Allergies Coded Allergies: Penicillins (Verified Allergy, Mild, RASH A CHILD, 03/09/20) Past Medical History Medical History 1. Hypertension 2. Hyperlipidemia 3. Multiple sclerosis 4. Peripheral vascular disease 5. Coronary stricture MD in 2003 with stent placement, 2008 thrombosis of the cardiac stent Diastolic CHF Surgical History Surgical History 1. Scope of right knee 2. DCS 3. Multiple decompressive surgeries 4. Right shoulder replacement 5. Hernia repair 6. Heart stents 7. Carotid endarterectomy 8. Axillofemoral bypass 9. Femoral-femoral bypass Social History * Smoker: former Smoker Alcohol: Denies Drugs: denies A-FIB/CHADSVASC A-FIB History Current/History of A-Fib/PAF?: No Current PO Anticoag Therapy: No Review of Systems Constitutional: Reports: Weakness; Denies: Chills, Fever Eyes: Denies: Pain ENT: Denies: Head Aches Skin: Denies: Rash Pulmonary: Reports: Dyspnea; Denies: Cough Cardiovascular: Denies: Chest Pain Gastrointestinal: Reports: Nausea; Denies: Vomiting Genitourinary: Denies: Dysuria Hematologic: Denies: Bruising Endocrine: Denies: Polydipsia, Polyphagia Musculoskeletal: Denies: Neck Pain Neurological: Denies: Weakness Psych: Reports: Mood Normal Physical Examination General Exam: Positive: Alert, Cooperative Eye Exam: Positive: PERRLA ENT Exam: Positive: Atraumatic Neck Exam: Positive: Supple, JVD Chest Exam: Positive: Diminished; Negative: Clear to auscultation Heart Exam: Positive: Rate Normal Telemetry: Positive: No significant arrhythmia Abdomen Exam: Positive: BS Hyperactive Extremity Exam: Negative: Clubbing, Cyanosis Skin Exam: Positive: Nl turgor and temperature Neuro Exam: Positive: Strength at 5/5 X4 ext, Cranial Nerves 3-12 NL Psych Exam: Positive: Mental status NL Vital Signs Vital Signs Date Time Temp Pulse Resp B/P (MAP) Pulse Ox O2 Delivery O2 Flow Rate FiO2 07/30/20 14:00 79 197/86 07/30/20 11:40 Room Air 07/30/20 11:20 97.9 20 100 Laboratory Data Labs 24H Laboratory Tests 2 07/30/20 13:14: Immature Granulocyte % (Auto) 0.8, Neutrophils (%) (Auto) 84.7H, Lymphocytes (%) (Auto) 4.9L, Monocytes (%) (Auto) 9.5H, Eosinophils (%) (Auto) 0.0, Basophils (%) (Auto) 0.1, Neutrophils # (Auto) 10.4H, Lymphocytes # (Auto) 0.6L, Monocytes # (Auto) 1.2H, Eosinophils # (Auto) 0.0, Basophils # (Auto) 0.0, Nucleated Red Blood Cells % (auto) 0.2H, Prothrombin Time 58.0H, Prothromb Time International Ratio 6.43*H, Activated Partial Thromboplast Time 46.7H, Anion Gap 14, Glomerular Filtration Rate 36.1L, Calcium Level 8.5L, Total Bilirubin 1.5H, Direct Bilirubin 0.9H, Aspartate Amino Transf (AST/SGOT) 913H, Alanine Aminotransferase (ALT/SGPT) 789H, Alkaline Phosphatase 667H, Total Creatine Kinase 6855H, Creatine Kinase MB 119.4H, Creatine Kinase MB Relative Index 1.74, Troponin I 0.21H, Total Protein 5.3L, Albumin 2.7L, Albumin/Globulin Ratio 1.0, Lipase 96, Coronavirus (COVID-19)(PCR) NEGATIVE, Influenza Type A (RT-PCR) NEGATIVE, Influenza Type B (RT-PCR) NEGATIVE, Respiratory Syncytial Virus (PCR) NEGATIVE CBC/BMP Laboratory Tests 07/30/20 13:14 Assessment/Plan Patient 69 years old male with past history of hypertension, hyperlipidemia, multiple sclerosis, peripheral vascular diseases presented hospital with generalized weakness and shortness of breath. Patient stated that he has been having shortness of breath on exertion post 1 week. Also she stated that he had nausea for past few days. Patient denied any fever or chills. Also he denied history of black stool or blood in the stool. Of note, patient recently saw vascular surgeon in [place], which changed his medication regimen and increase the dose of aspirin to 325. Also patient takes Eliquis 5 mg twice a day. Patient has history of carotid endarterectomy, femoral bypass, axillofemoral bypass. In ER patient was found to have white blood count of 12.2, hemoglobin 8, potassium 5.2, creatinine 1.9, AST 913, [id number], ALK phos 667, troponin 0.2, CPK 6855, stool was positive for occult blood. CT abdomen and pelvis showed No free air or obstruction. Small amount of free fluid in the pelvis CT chest shows Large right pleural effusion, moderate left pleural effusion, with adjacent parenchymal atelectasis/infiltrate. Mild cardiomegaly. Problems (1) Acute diastolic CHF (congestive heart failure) Status: Acute Problem Text: [place] [address], plus JVD CT showed Large right pleural effusion, moderate left pleural effusion, with adjacent parenchymal atelectasis/infiltrate. Pulse oxy sat 95% on room air Echo ordered I's and O's I talked to Dr. Oconnell, he recommended to hold diuresis for now due to NAUN. If patient developed dyspnea we will start diuresis (2) GI bleeding Status: Acute Problem Text: Most likely secondary to medication side effect, patient took aspirin 325 mg and Eliquis 5 mg twice a day on the regular basis Aspirin and Eliquis on hold Transfusion of 2 units of blood. There is concern for volume overload. Will hold diuretics for now due to a NAUN H&H every 6 hours Clear liquid diet for now Appreciate/agree with GI consult (3) Transaminitis Status: Acute Problem Text: Significantly elevated transaminases most likely secondary to atorvastatin Will check hepatitis profile and GGT. atorvastatin on hold Liver ultrasound (4) Acute anemia Status: Acute Problem Text: Secondary to GI loss due to medications side effect 2 units of blood H&H every 6 hours (5) Acute kidney injury Status: Acute Problem Text: Most likely prerenal secondary to intravascular volume depletion Continue to monitor Appreciate/agree with nephrology consult (6) Rhabdomyolysis Status: Acute Problem Text: Most likely secondary to statin therapy Patient has acute diastolic CHF, no IV fluid for now (7) PVD (peripheral vascular disease) Status: Acute Problem Text: Statin, aspirin and Eliquis on hold (8) Hypertensive urgency Status: Acute Problem Text: Hydralazine with parameters Norvasc by mouth (9) Supratherapeutic INR Status: Acute Problem Text: Secondary to liver dysfunction due to statin therapy Continue to monitor INR (10) Hyperkalemia Status: Acute Problem Text: Secondary to rhabdomyolysis and kidney failure Calcium gluconate, insulin IV, D50 Continue to monitor BMP (11) Elevated troponin Status: Acute Problem Text: Patient denied any chest pain or palpitations Troponin elevation could be attributed to NAUN and demand ischemia secondary to acute CHF EKG did not show any acute ischemic changes Continue to monitor Plan / VTE VTE Prophylaxis Ordered?: No VTE Exclusion Pharmacological: Active Bleeding VI KELLY DO Jul 30, 2020 17:42
[2020-07-30] MEDS ORDERED: ATOR40TA75 PO (17:44)
[2020-07-30] MEDS ORDERED: HumuLIN R (REGULAR) INSULIN (NovoLIN R) **100U/ML** PER UNIT IV STA (17:53)
[2020-07-30] MEDS ORDERED: DEXTROSE 50% 50 ML SYRINGE IV STA (17:53)
[2020-07-30 17:58] LABS: NT-PRO BNP 34351 PG/ML (<125)
[2020-07-30] MEDS ORDERED: traMADol 50 MG TAB PO PRN (18:00)
[2020-07-30] MEDS ORDERED: hydrALAZINE 20MG/ML 1ML VIAL (J0360 PER 20MG) IV PRN (18:05)
[2020-07-30] MEDS ORDERED: amLODIPine 5 MG TAB PO ONE (18:05)
[2020-07-30] MEDS ORDERED: CALCIUM GLUCONATE 1,000 MG in D5W MINI-BAG PLUS 100 ML IV ONE ×2 (18:15→21:00)
[2020-07-30] MEDS ORDERED: ALBUTEROL SULFATE 2.5 MG/0.5 ML INH NEB SOLN NEB ONE (18:15)
[2020-07-30 18:41] LABS: HEPATITIS B SURFACE ANTIGEN NEGATIVE (NEGATIVE)
[2020-07-30 19:10] LABS: HEPATITIS B CORE ANTIBODY IGM NEGATIVE (NEGATIVE)
[2020-07-30 19:11] LABS: HEPATITIS A ANTIBODY IGM NEGATIVE (NEGATIVE)
[2020-07-30 19:15] LABS: HEPATITIS C VIRUS ABY INDEX > 11.0 INDEX (<0.8)
[2020-07-30 20:09] LABS: HEMATOCRIT 23.4 % (42.0-52.0); HEMOGLOBIN 7.3 g/dl (13.5-17.5)
[2020-07-30 20:33] LABS: CALCIUM LEVEL 8.2 MG/DL (8.8-10.2); CREATININE FOR GFR 1.98 MG/DL (0.70-1.30); GLOMERULAR FILTRATION RATE 35.7 (>42); POTASSIUM SERUM 4.9 MEQ/L (3.5-5.1)
[2020-07-30 20:40] VITALS: BP 135/69
[2020-07-30] MEDS ORDERED: METOPROLOL TART 25 MG TABLET PO SCH (21:00)
[2020-07-30] MEDS: PANTOPRAZOLE 40MG VIAL (C9113 PER 1) IV SCH (21:22)
[2020-07-30] MEDS: METOPROLOL TART 12.5 MG PER 1/2 TAB PO SCH (21:23)
[2020-07-30 22:20] VITALS: BP 142/80
[2020-07-30 22:36] VITALS: BP 128/75
[2020-07-30 23:21] VITALS: BP 139/93
[2020-07-31] VITALS (8 sets, daily range): BP systolic 111–146; BP diastolic 62–88
[2020-07-31 02:29] LABS: HEMATOCRIT 31.3 % (42.0-52.0); HEMOGLOBIN 9.2 g/dl (13.5-17.5)
[2020-07-31] MEDS: LEVOTHYROXINE 25MCG TABLET (0.025MG) PO SCH (06:20)
--- NOTE | 2020-07-31 08:38 | REP ---
INDICATION: transaminitis COMPARISON: None. TECHNIQUE: Real time underwood scale ultrasound examination using curved array transducer. FINDINGS: Liver is normal in contour, size, and echogenicity without focal hepatic lesions identified. Pancreas is incompletely evaluated due to interposed bowel gas. The gallbladder demonstrates small amount of layering sludge mild wall thickening and suggestions for pericholecystic fluid as well as small amount of perihepatic ascites. No biliary ductal dilatation is appreciated and the common bile duct measures 4.7 mm diameter. Right kidney is normal in reniform shape without hydronephrosis and measures 5.4 x 3.4 x 2.0 cm demonstrating increased central sinus fat and cortical thinning suggesting age-related renal disease. Large right pleural effusion. IMPRESSION: 1. Findings suggesting small amount of perihepatic and pericholecystic fluid which is nonspecific. The gallbladder demonstrates small amount of layering sludge without biliary ductal dilatation. The liver is otherwise relatively unremarkable. 2. Large right pleural effusion. <Electronically signed by Live Bird > 07/31/20 [id number]
[2020-07-31] MEDS ORDERED: POTASSIUM CHLORIDE 10 MEQ SR TABLET PO SCH (09:00)
[2020-07-31] MEDS ORDERED: PREVNAR 13 VACCINE SYRINGE IM ONE (09:00)
[2020-07-31 09:13] LABS: BASO % 0.1 % (0.0-1.0); HEMATOCRIT 31.6 % (42.0-52.0); HEMOGLOBIN 10.1 g/dl (13.5-17.5); LYMPH # 0.8 10^3/uL (1.5-5.0); LYMPH % 5.4 % (24.0-44.0); MEAN CORPUSCULAR VOLUME 84.5 fl (80.0-96.0); MONO # 1.5 10^3/uL (0.0-0.8); MONO % 9.9 % (2.0-8.0); NEUTROPHILS # 12.4 10^3/uL (1.5-8.5); PLATELET COUNT, AUTOMATED 159 10^3/uL (150-450); RED BLOOD COUNT 3.74 10^6/uL (4.30-6.10)
[2020-07-31 09:16] LABS: WHITE BLOOD COUNT 14.8 10^3/uL (4.0-10.0)
[2020-07-31] MEDS: TAMSULOSIN 0.4 MG CAP PO SCH (09:24)
[2020-07-31] MEDS: PANTOPRAZOLE 40MG VIAL (C9113 PER 1) IV SCH ×2 (09:24→20:45)
[2020-07-31] MEDS: METOPROLOL TART 12.5 MG PER 1/2 TAB PO SCH ×2 (09:24→20:44)
[2020-07-31] MEDS: DULoxetine 30 MG CAP (CYMBALTA) PO SCH (09:24)
[2020-07-31] MEDS: amLODIPine 5 MG TAB PO SCH (09:25)
[2020-07-31 09:35] LABS: INR 3.57; PROTHROMBIN TIME 36.5 SECONDS (12.5-14.3)
[2020-07-31 09:43] LABS: ALBUMIN 2.6 GM/DL (3.2-5.2); BILIRUBIN,TOTAL 2.2 MG/DL (0.2-1.0); CALCIUM LEVEL 8.4 MG/DL (8.8-10.2); CREATININE FOR GFR 1.82 MG/DL (0.70-1.30); GLOMERULAR FILTRATION RATE 39.3 (>42); MAGNESIUM LEVEL 2.2 MG/DL (1.8-2.4); POTASSIUM SERUM 4.4 MEQ/L (3.5-5.1); TOTAL PROTEIN 5.6 GM/DL (6.4-8.2)
[2020-07-31] MEDS ORDERED: FUROSEMIDE 40MG/4ML VIAL (J1940) IV ONE (12:05)
[2020-07-31 12:29] LABS: APPEARANCE, URINE CLEAR (CLEAR); BACTERIA, URINE AUTO 1+ (NEGATIVE); BILIRUBIN, URINE AUTO NEGATIVE (NEGATIVE); BLOOD, URINE BLOOD 3+ (NEGATIVE); COLOR, URINE YELLOW (YELLOW); GLUCOSE, URINE (UA) AUTO NEGATIVE (NEGATIVE); KETONE, URINE AUTO NEGATIVE (NEGATIVE); LEUKOCYTE ESTERASE, URINE AUTO NEGATIVE (NEGATIVE); NITRITE, URINE AUTO NEGATIVE (NEGATIVE); PROTEIN, URINE AUTO 3+ mg/dL (NEGATIVE); RBC, URINE AUTO 1 /HPF (0-3); SPECIFIC GRAVITY URINE AUTO 1.017 (1.002-1.035); SQUAMOUS EPITHELIAL CELL UR AU 0 /HPF (0-6); UROBILINOGEN, URINE AUTO 0.2 mg/dL (0.0-2.0); WBC, URINE AUTO 1 /HPF (0-3)
[2020-07-31 14:42] LABS: HEMOGLOBIN 9.3 g/dl (13.5-17.5)
[2020-07-31] MEDS ORDERED: PHYTONADIONE 5 MG TAB PO ONE (16:00)
--- NOTE | 2020-07-31 16:24 | REP ---
INDICATION: pleural effusion. COMPARISON: 03/09/2020. TECHNIQUE: SINGLE PORTABLE AP VIEW OF THE CHEST WAS PERFORMED. FINDINGS: There are moderate bibasilar infiltrates and effusions.There is mild cardiomegaly. There is calcification of the thoracic aorta. There are dorsal column stimulator leads noted in the midthoracic region. There is a metallic prosthesis of the proximal right humerus. IMPRESSION: Moderate bibasilar infiltrates and effusions. Mild cardiomegaly. <Electronically signed by Jose De Jesus Schulz > 07/31/20 [id number]
--- NOTE | 2020-07-31 17:16 | IPNPDOC ---
Text Note Date of Service The patient was seen on 07/31/20. NOTE Subjective: Patient stated that he feels better today, around 5 PM patient dev eloped fever of 101 F. Patient denied chest pain, palpitations or shortness of breath Objective: GENERAL APPEARANCE: NAD HEENT: no scleral icterus, plus JVD, EOMI CARDIOVASCULAR: S1S2 LUNGS: Diminished lung sounds bilaterally more on the right side ABDOMEN: soft & not tender w palpitation MUSCULOSKELETAL: no cyanosis, no swelling INTEGUMENT: no generalized pallor NEUROLOGICAL: cranial nerve function from 2-12 intact intact, follows commands, speech not dysarthric Assessment/Plan Patient 69 years old male with past history of hypertension, hyperlipidemia, multiple sclerosis, peripheral vascular diseases presented hospital with generalized weakness and shortness of breath. Patient stated that he has been having shortness of breath on exertion post 1 week. Also she stated that he had nausea for past few days. Patient denied any fever or chills. Also he denied history of black stool or blood in the stool. Of note, patient recently saw vascular surgeon in [place], which changed his medication regimen and increase the dose of aspirin to 325. Also patient takes Eliquis 5 mg twice a day. Patient has history of carotid endarterectomy, femoral bypass, axillofemoral bypass. In ER patient was found to have white blood count of 12.2, hemoglobin 8, potassium 5.2, creatinine 1.9, AST 913, [id number], ALK phos 667, troponin 0.2, CPK 6855, stool was positive for occult blood. CT abdomen and pelvis showed No free air or obstruction. Small amount of free fluid in the pelvis CT chest shows Large right pleural effusion, moderate left pleural effusion, with adjacent parenchymal atelectasis/infiltrate. Mild cardiomegaly. Problems (1) Acute diastolic CHF (congestive [place]) [place] [address], plus JVD CT showed Large right pleural effusion, moderate left pleural effusion, with adjacent parenchymal atelectasis/infiltrate. Pulse oxy sat 95% on room air Await Echo report I's and O's I talked to Dr. Oconnell on 07/30/20, he recommended to hold diuresis for now due to NAUN. If patient developed dyspnea we will start diuresis We will proceed with thoracocentesis when INR will be below 2. Continue gentle diuresis today I talked to Dr. Oconnell on 07/31/20 he recommended to continue current management. He recommended diuresis with Lasix IV if patient needs oxygen (2) GI bleeding Most likely secondary to medication side effect, patient took aspirin 325 mg and Eliquis 5 mg twice a day on the regular basis Aspirin and Eliquis on hold Transfused 2 units of blood. Hemoglobin 9.3 Clear liquid diet for now Appreciate/agree with GI consult (3) Transaminitis Significantly elevated transaminases most likely secondary to atorvastatin check hepatitis profile positive for hepatitis C. Patient stated that he had a history of hepatitis C and he has been treated for it. 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 The liver is otherwise relatively unremarkable. (4) Acute anemia Secondary to GI loss due to medications side effect aspirin and Eliquis 2 units of blood Hemoglobin stable today (5) Acute kidney injury Most likely prerenal secondary to intravascular volume depletion Slightly improved today, creatinine 1.8 Continue to monitor Appreciate/agree with nephrology consult (6) Rhabdomyolysis Most likely secondary to statin therapy Patient has acute diastolic CHF, no IV fluid for now, continue to monitor (7) PVD (peripheral vascular disease) Statin, aspirin and Eliquis on hold (8) Hypertensive urgency/hypertension Hydralazine with parameters Norvasc by mouth Blood pressure today stable (9) Supratherapeutic INR Secondary to liver dysfunction due to statin therapy INR 3.5 today. Proceed with thoracocentesis tomorrow. 5 mg vitamin K by mouth today (10) Hyperkalemia Resolved Secondary to rhabdomyolysis and kidney failure (11) Elevated troponin Patient denied any chest pain or palpitations Troponin elevation could be attributed to NAUN and demand ischemia secondary to acute CHF EKG did not show any acute ischemic changes Troponin trended down SIRS Patient developed fever of 101 with leukocytosis of 14.8 No obvious source of infection, could be secondary to infected pleural effusion Blood culture, pro-calcitonin I started cefepime IV and vancomycin IV empirically MRSA screen VS,Fishbone, I+O VS, Fishbone, I+O Laboratory Tests 07/30/20 19:54 07/31/20 02:15 07/31/20 08:46 07/31/20 14:08 Vital Signs Date Time Temp Pulse Resp B/P (MAP) Pulse Ox O2 Delivery O2 Flow Rate FiO2 07/31/20 10:00 99.9 77 17 125/81 (96) 97 Room Air I&O- Last 24 Hours up to 6 AM 07/31/20 06:00 Intake Total 940 ml Output Total 375 ml Balance 565 ml VI KELLY DO Jul 31, 2020 17:16
[2020-07-31] MEDS: CEFEPIME HCL 2 GM in D5W MINI-BAG PLUS 50 ML IV SCH (17:34)
--- NOTE | 2020-07-31 17:52 | ECGEPIP ---
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
--- NOTE | 2020-07-31 19:22 | CR.PDOC ---
General Date of Consultation: Jul 31, 2020 Referring Provider: ERNESTO MARR DO Attending Physician: SKINNY JAMISON MD Consultation Primary physician/ hospitalist: -Dr. Ernesto Marr Reason for consult: -Severe anemia HPI: 69-year-old male patient with HTN, HLD, multiple sclerosis, CAD s/p PCI , peripheral vascular disease (s/p prior stents with subclavian to bifemoral vascu lar bypass, on chronic anticoagulation with Eliquis and aspirin ( 325mg), CKD III, history of hepatitis C s/p interferon therapy many years ago, was admitted to [facility] through ER for progressive shortness of breath, generalized weakness and abdominal pain. Patient was noted to have anemia (hemoglobin 8), and GI was consulted for the same. Patient reports having prior episodes of diverticulitis, and recently, loss of appetite and constipation. Patient denies any overt external bleeding. Patient does report having nausea but no vomiting. Patient denies any loss of consciousness, abdominal injury, recent OTC medication use or IVDA. Off note: Patient reports severe leg cramps, poor ambulation and uncontrolled PVD, despite multiple vascular grafts in the past. Pertinent negative GI symptoms: Patient denies fever, sick contacts, recent travel, nausea, vomiting, diarrhea, early satiety . No history of hematemesis, melena or hematochezia. Review of Systems: GI: as stated above CVS: No chest pain, No palpitations, No leg swelling. 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 Skin: No rash : No hematuria, No burning sensation of the urine ENT: No ear discharge/ pain, No dysphagia. Eyes: No photophobia. Jaundice Home medications: reviewed. Antithrombotic agents: -On Eliquis and aspirin 325 MG (on hold since admission due to elevated INR and low hemoglobin) Medical h/o: As above. Surgical h/o: As above. Social h/o: Alcohol: -, Remote use, smoking:, Quit smoking around 3 years ago, IVDA/ drugs:. Denies. Family h/o of GI cancers - None Prior Endoscopies: Reports having colonoscopy more than 10 years ago in [facility]. -- Report reviewed in provation -- Noted good bowel prep. no colon polyps. Prior GI evaluations: - was seen by Dr. Bryson Exam: Vitals: reviewed General: Alert and oriented x 3, not in distress HEENT: No pallor, no icterus. Normal oropharynx, No cervical lymph nodes. Chest: symmetric with bilateral clear air entry, CVS: S1, S2 heard, normal, no murmurs . Abdomen: non-distended, no surgical scars, soft, non-tender, no palpable masses, normal bowel sounds heard. Rectal exam: Patient refused Extremities: no pedal edema, pulses palpable. 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 Moves all extremities Skin: no rash. Labs: reviewed. Imaging: reviewed. Impression: - New onset anemia with prior couple of episodes of diverticulitis in past and chronic use of high dose aspirin, no overt external bleeding -- DDx-- rule out chronic Gi blood loss . DDx-- Gastritis vs AVM vs Colon polyps. -- Abnormal liver enzymes with prior h/o HCV treated with interferon therapy and severe vasculopathy and Diastolic CHF and use of high dose statins -- DDx-- DILI vs congestive hepatopathy vs Re-activation of hepatitis C. Less likely ischemic hepatopathy. Recommendations: - Patient educated about the test results, possible differential diagnoses and All questions answered. - Monitor H/h and transufe as needed to keep hemoglobin around 9 gm/ dL. - Close monitoring of the fluid status and follow the nephrology recommendations. - management of the pleural effusions and CHF as per the primary team. - In view of the chronic GI blood loss, discussed in detail about the indications, risks, beneftis and alternatives for the endoscopic work up with patient. Patient verbalized understanding and will consider these after his acute issues are stabilized. -- Continue with pantoprazole 40 mg oral twice daily. -- Will start on miralax twice daily for now and dose adjusted to have one soft bowel movement daily. -- As there is no overt external bleeding and patient had high risk vaculopathy, can be resumed on anticoagulation when needed from GI point. -- For abnormal liver panel, will obtian HCV VL, LDH levels. -- Will give supportive therapy with thiamine and folic acid. -- Gi will follow when acute issues are stabilized. -- Diet as tolerated for now. Plan of care discussed with patient and primary team. Patient verbalized understanding and agreed with the plan. Vital Signs/I&O Vital Signs Date Time Temp Pulse Resp B/P (MAP) Pulse Ox O2 Delivery O2 Flow Rate FiO2 07/31/20 16:00 100.1 133/88 (103) Room Air 07/31/20 14:00 89 18 100 l I&O- Last 24 Hours up to 6 AM 07/31/20 06:00 Intake Total 940 ml Output Total 375 ml Balance 565 ml Laboratory Data Labs 24H Laboratory Tests 2 07/30/20 19:54: Anion Gap 9, Glomerular Filtration Rate 35.7L, Calcium Level 8.2L, Troponin I 0.21H 07/30/20 23:25: Bedside Glucose (Misc Panel) 53L 07/31/20 00:18: Bedside Glucose (Misc Panel) 119H 07/31/20 02:15: Troponin I 0.14#H 07/31/20 08:46: Immature Granulocyte % (Auto) 0.6, Neutrophils (%) (Auto) 84.0H, Lymphocytes (%) (Auto) 5.4L, Monocytes (%) (Auto) 9.9H, Eosinophils (%) (Auto) 0.0, Basophils (%) (Auto) 0.1, Neutrophils # (Auto) 12.4H, Lymphocytes # (Auto) 0.8L, Monocytes # (Auto) 1.5H, Eosinophils # (Auto) 0.0, Basophils # (Auto) 0.0, Nucleated Red Blood Cells % (auto) 0.1H, Prothrombin Time 36.5H, Prothromb Time International Ratio 3.57, Anion Gap 8, Glomerular Filtration Rate 39.3L, Calcium Level 8.4L, Magnesium Level 2.2, Total Bilirubin 2.2H, Aspartate Amino Transf (AST/SGOT) 916H, Alanine Aminotransferase (ALT/SGPT) 819H, Alkaline Phosphatase 656H, Total Creatine Kinase 8570H, Total Protein 5.6L, Albumin 2.6L, Albumin/Globulin Ratio 0.9 07/31/20 12:09: Urine Color YELLOW, Urine Appearance CLEAR, Urine pH 6.0, Urine Specific Randall 1.017, Urine Protein 3+H, Urine Glucose (Auto)(UA) NEGATIVE, Urine Ketones (Auto) NEGATIVE, Urine Blood 3+H, Urine Nitrite NEGATIVE, Urine Bilirubin NEGATIVE, Urine Urobilinogen 0.2, Urine Leukocyte Esterase (Auto) NEGATIVE, Urine WBC (Auto) 1, Urine RBC (Auto) 1, Urine Hyaline Casts (Auto) 0, Urine Ba cteria (Auto) 1+H, Urine Squamous Epithelial Cells 0, Urine Sperm (Auto) 07/31/20 18:00: CBC/BMP Laboratory Tests 07/30/20 19:54 07/31/20 02:15 07/31/20 08:46 07/31/20 14:08 Microbiology Microbiology 07/31/20 Blood Culture, Received Pending Allergies Coded Allergies: Penicillins (Verified Allergy, Mild, RASH A CHILD, 03/09/20) Home Medications Scheduled Apixaban (Eliquis) 5 Mg Tablet, 5 MG PO BID, (Reported) Aspirin (Aspirin) 325 Mg Tab, 325 MG PO DAILY, (Reported) Atorvastatin Calcium (Atorvastatin Calcium) 40 Mg Tablet, 40 MG PO DAILY, (Reported) Duloxetine Hcl (Duloxetine HCl) 30 Mg Cap, 30 MG PO DAILY, (Reported) Levothyroxine Sodium (Levothyroxine Sodium) 25 Mcg Tablet, 25 MCG PO DAILY, (Reported) Metoprolol Tartrate (Metoprolol Tartrate) 25 Mg Tablet, 25 MG PO BID, (Reported) Potassium Chloride (Klor-Con M10) 10 Meq Tab.er.prt, 20 MEQ PO DAILY, (Reported) Tamsulosin Hcl (Tamsulosin HCl) 0.4 Mg Capsule, 0.4 MG PO DAILY, (Reported) Scheduled PRN Tramadol HCl (Tramadol HCl) 50 Mg Tab, 50 MG PO TID PRN for PAIN, (Reported) SKINNY JAMISON MD Jul 31, 2020 19:22
[2020-07-31 20:23] LABS: HEMATOCRIT 28.3 % (42.0-52.0); HEMOGLOBIN 9.3 g/dl (13.5-17.5)
[2020-07-31 20:35] LABS: INR 2.94; PROTHROMBIN TIME 31.3 SECONDS (12.5-14.3)
[2020-07-31] MEDS: MIRALAX *UNIT DOSE* 17GM PACKET PO SCH (20:44)
[2020-07-31] MEDS: THIAMINE 100 MG TAB PO SCH (20:44)
[2020-07-31] MEDS: FOLIC ACID 1 MG TAB PO SCH (20:44)
[2020-07-31] MEDS: VANCOMYCIN HCL 1,000 MG, VIAL MATE ADAPTER 1 EACH in NS 250 ML IV ONE ×2 (20:45→22:13)
--- NOTE | 2020-07-31 21:47 | CR ---
NEPHROLOGY CONSULTATION DATE: 07/31/2020 REQUESTING PHYSICIAN: Dr. Ernesto Marr CONSULTING PHYSICIAN: Dr. Marisol Nix REASON FOR CONSULTATION: Management of acute renal failure and possible fluid overload. CHIEF COMPLAINT: The patient presented to the hospital yesterday with progressive shortness of breath and not feeling well. HISTORY OF PRESENT ILLNESS: Skip Hedrick is a 69-year-old male with a past medical history of hypertension, multiple sclerosis, peripheral vascular disease, history of subclavian to bifemoral bypass, chronically anticoagulated with Eliquis, on Aspirin as well. He has a baseline chronic kidney disease 3 with a creatinine of around 1.1 as of February 2020. He presented to the hospital yesterday with progressive shortness of breath for about one week. He also complained of nausea for a few days. He did not have any fevers or chills. He denies any cough with phlegm. The patient was found to be anemic in the Emergency Room with a hemoglobin of 8. He got a CAT scan done which showed moderate to large right sided pleural effusion. He had elevated CPK and elevated BNP levels. He was admitted under the Hospitalist Service yesterday with anemia, acute decompensated diastolic congestive heart failure, right sided effusion, possible GI bleed, transaminitis and elevated CPK level, mild rhabdomyolysis. The case was discussed with myself. The decision was made to stop the patient's anticoagulation and statins. He had supratherapeutic INR on admission with an INR of 6.4. His creatinine on arrival was significantly higher than his baseline. He had a creatinine of 1.9 on arrival. Nephrology Service saw the patient today in the morning. The patient is awake and alert. He reports that he is slightly feeling better today as compared with yesterday. PAST MEDICAL HISTORY: The patient's past medical history is significant for: 1. Chronic kidney disease, stage 3, baseline creatinine of 1.1. 2. History of hypertension. 3. Hyperlipidemia. 4. Multiple sclerosis. 5. Peripheral vascular disease. 6. Coronary stricture and myocardial infarction in 2003, status post stent placement. He had thrombosis of the stent in 2007. PAST SURGICAL HISTORY: The patient's past surgical history is significant for: 1. Status post multiple decompressive surgeries in the spine. 2. Status post axillobifemoral bypass in the past. 3. Status post left sided carotid endarterectomy. 4. Status post cardiac stent in the past. 5. Hernia repair. 6. Right shoulder replacement. ALLERGIES: He is allergic to Penicillin. FAMILY HISTORY: No significant family history of end-stage renal disease requiring hemodialysis. SOCIAL HISTORY: The patient is a former smoker but he denies any active smoking, illicit drug abuse or alcohol abuse. REVIEW OF SYSTEMS: Constitutional: He denies any fevers or chills. Eyes: He denies any blurry vision. ENT: He denies any dysphagia or odynophagia. Cardiovascular: He does report progressive shortness of breath. Respiratory: He does reports shortness of breath but he denies any cough or phlegm. GI: He reports nausea. Genitourinary: He denies any dysuria or hematuria. Musculoskeletal: He denies any muscle aches and pains. Skin: He denies any rashes or ulcers. Hematological/Oncological: He denies any easy bleeding or bruising. Endocrine: He denies any polyphagia or polydipsia or polyuria. INTELLIGENCE SUPPORT OFFICER: He denies any weakness, strokes or seizures. All other review of systems is negative. PHYSICAL EXAMINATION: GENERAL APPEARANCE: The patient is awake, alert, oriented x3, laying in the bed. VITAL SIGNS: Temperature is 99.9 degrees Fahrenheit, blood pressure 125/81, pulse is 77, respiratory rate of 17, saturating 97% on room air. HEAD AND NECK: Extraocular muscles intact. Pupils are equally round and reactive to light. Mucous membranes are moist. Neck is supple. Old left sided carotid endarterectomy scar is noted. He has a scar on the right shoulder and right subclavian area as well. CARDIOVASCULAR: S1, S2. No edema of the bilateral lower extremities. Right sided axillobifemoral bypass was noted. EXTREMITIES: 1+ edema of the bilateral lower extremities. RESPIRATORY: Decreased breath sounds at the bases, worse on the right side as compared with the left side. Decreased vocal resonance bilaterally starting from the bases all the way up to the mid lung zones. ABDOMEN: Soft, positive bowel sounds. I was able to palpate the patient's liver. There is no appreciable ascites. GENITOURINARY: Bladder is not palpable. MUSCULOSKELETAL: No clubbing, no cyanosis. Pulses are 2+. INTELLIGENCE SUPPORT OFFICER: No focal deficits. Power is 5/5 in all extremities. LAB REVIEW: CBC showed a white blood cell count of 12.2, hemoglobin of 8 and platelet count of 183 on arrival. He has received one unit of PRBC transfusion and his hemoglobin is 9.3 today. INR was 6.4 yesterday. It is 3.5 today. Urinalysis done today showed 3+ protein, 3+ blood but RBCs were 1, so most likely he is having myoglobinuria. Urine bacteria is 1+. BMP showed sodium of 131, potassium 4.4, chloride 104, bicarbonate 19, BUN 60, creatinine is 1.8. Calcium 8.4, magnesium is 2.2, total bilirubin is 2.2, AST 916, ALT 819, alkaline phosphatase 656. CPK is 8,570. BNP was 34,351. IMAGING: A liver ultrasound was done today which showed a small amount of ascites and pericholecystic fluid and a large right sided pleural effusion. CAT scan of the abdomen and pelvis was done yesterday which showed no free air or obstruction, small amount of free fluid in the pelvis. A CT chest was done yesterday which showed large right sided pleural effusion, moderate left sided pleural effusion with adjacent parenchymal atelectasis and infiltrate. CURRENT INPATIENT MEDICATIONS: The patient's inpatient medications include: 1. Cefepime 2 grams IV q. 24. 2. Vancomycin 750 mg q. 12 hourly. 3. Tylenol p.r.n. 4. Amlodipine 5 mg daily. 5. Cymbalta 30 mg p.o. daily. 6. Folic Acid one mg daily. 7. I gave the patient a dose of Lasix 40 mg IV times one dose. 8. He is on Levothyroxine 25 mcg p.o. daily. 9. Metoprolol Tartrate 25 mg p.o. twice daily. 10. Protonix 40 mg IV twice daily. 11. Vitamin K 5 mg p.o. times one dose was given today. 12. Miralax one packet p.o. twice daily. 13. Flomax 0.4 mg p.o. daily. 14. He was on potassium chloride 20 mEq p.o. daily which I have stopped. 15. He is on Thiamine 100 mg p.o. daily. 16. Tramadol 50 mg p.o. three times a day p.r.n. for pain. HOME MEDICATIONS: His home medications include: 1. Eliquis 5 mg p.o. twice daily. 2. Aspirin 325 mg p.o. daily. 3. Lipitor 40 mg daily. 4. Levothyroxine 25 mcg daily. 5. Metoprolol 25 mg twice daily. 6. Potassium Chloride 20 mEq p.o. daily. 7. Flomax 0.4 mg p.o. daily. 8. Tramadol 50 mg p.o. three times daily p.r.n. ASSESSMENT AND PLAN: 1. Acute renal failure - The patient has acute renal failure, most likely secondary to a combination of mild rhabdomyolysis and decompensated congestive heart failure. At this point because of pleural effusions and congestive heart failure, he is not a candidate for IV fluid hydration. I have actually given a small dose of IV Lasix. Statins have already been on hold. Continue to monitor for renal recovery. No urgent need of hemodialysis at this time. 2. Metabolic acidosis - The patient has mild metabolic acidosis secondary to acute renal failure. No need of bicarbonate administration at this time. Hopefully his bicarbonate levels should start improving with improvement in the renal function. 3. Hyponatremia - The patient likely has hypervolemic hyponatremia. I have given him a dose of Lasix. Depending upon his response to the IV Lasix, further dose will be given tomorrow morning. 4. [id number] decompensated diastolic congestive heart failure - The patient had elevated BNP levels. As mentioned above, Lasix has been given. Further adjustment will be done tomorrow. I would avoid aggressive diuresis in this patient because he had elevated CPK levels. 5. Mild rhabdomyolysis most likely secondary to high dose of Atorvastatin use. Statins have been on hold now. No need of aggressive IV fluid hydration. 6. Elevated transaminases it is most likely secondary to medications. Statins have been on hold now. 7. Bilateral pleural effusions and infiltrate on the left side - This patient is empirically being covered with Cefepime and Vancomycin. A right sided pleuracentesis will be done once INR is therapeutic. 8. Coagulopathy - The patient was on Eliquis and he has elevated transaminases levels. Eliquis is on hold. He was given vitamin K. INR level is improving now. 9. Anemia - hemoglobin was 8 on arrival. The patient has been given one unit of PRBC transfusion. Aspirin and Eliquis have been stopped. No sign of active bleeding at this time. 10. History of peripheral vascular disease and axillary bifemoral bypass in the past - This patient is on Aspirin and anticoagulation chronically. However, during this admission because of high INR levels and possible risk of GI bleed, his anticoagulation is on hold. 11. Hypertension - blood pressure is better controlled at this time. Continue current dose of Amlodipine and Metoprolol. I have stopped the Hydralazine at this time because of acute liver injury. MTDD
[2020-08-01] VITALS: BP 143/73
[2020-08-01 04:00] VITALS: BP 135/69
[2020-08-01 05:45] LABS: BASO % 0.1 % (0.0-1.0); EOS # 0.2 10^3/uL (0.0-0.5); EOS % 1.6 % (0.0-3.0); HEMATOCRIT 28.6 % (42.0-52.0); HEMOGLOBIN 9.3 g/dl (13.5-17.5); LYMPH # 0.7 10^3/uL (1.5-5.0); MEAN CORPUSCULAR HEMOGLOBIN 26.6 pg (27.0-33.0); MEAN CORPUSCULAR HGB CONC 32.5 g/dl (32.0-36.5); MEAN CORPUSCULAR VOLUME 81.7 fl (80.0-96.0); MONO # 1.1 10^3/uL (0.0-0.8); MONO % 10.3 % (2.0-8.0); NEUTROPHILS # 8.4 10^3/uL (1.5-8.5); NEUTROPHILS % 80.5 % (36.0-66.0); PLATELET COUNT, AUTOMATED 155 10^3/uL (150-450); WHITE BLOOD COUNT 10.4 10^3/uL (4.0-10.0)
[2020-08-01] MEDS: LEVOTHYROXINE 25MCG TABLET (0.025MG) PO SCH (06:06)
[2020-08-01 06:24] LABS: ALBUMIN 2.7 GM/DL (3.2-5.2); BILIRUBIN,TOTAL 1.7 MG/DL (0.2-1.0); CREATININE FOR GFR 1.66 MG/DL (0.70-1.30); GLOMERULAR FILTRATION RATE 43.7 (>42); MAGNESIUM LEVEL 1.8 MG/DL (1.8-2.4); POTASSIUM SERUM 2.9 MEQ/L (3.5-5.1); TOTAL PROTEIN 5.2 GM/DL (6.4-8.2)
[2020-08-01] MEDS ORDERED: MAG SULF 1GM/100ML (MAG RUN) 1 GM in IV 1 EA IV ONE (06:40)
[2020-08-01] MEDS ORDERED: POTASSIUM CHLORIDE 10 MEQ SR TABLET PO ONE ×4 (06:40→21:40)
[2020-08-01 08:00] VITALS: BP 136/76
[2020-08-01] MEDS ORDERED: VANCOMYCIN HCL 750 MG, VIAL MATE ADAPTER 1 EACH in NS 250 ML IV SCH (08:00)
[2020-08-01 08:41] LABS: HEMATOCRIT 32.4 % (42.0-52.0); HEMOGLOBIN 10.3 g/dl (13.5-17.5)
[2020-08-01 08:52] LABS: INR 2.19; PROTHROMBIN TIME 24.8 SECONDS (12.5-14.3)
[2020-08-01] MEDS: TAMSULOSIN 0.4 MG CAP PO SCH (10:17)
[2020-08-01] MEDS: METOPROLOL TART 12.5 MG PER 1/2 TAB PO SCH ×2 (10:17→22:04)
[2020-08-01] MEDS: FOLIC ACID 1 MG TAB PO SCH (10:17)
[2020-08-01] MEDS: DULoxetine 30 MG CAP (CYMBALTA) PO SCH (10:17)
[2020-08-01] MEDS: PANTOPRAZOLE 40MG VIAL (C9113 PER 1) IV SCH ×2 (10:18→22:04)
[2020-08-01] MEDS: amLODIPine 5 MG TAB PO SCH (10:18)
[2020-08-01] MEDS: MIRALAX *UNIT DOSE* 17GM PACKET PO SCH ×2 (10:20→22:05)
[2020-08-01] MEDS: THIAMINE 100 MG TAB PO SCH (10:20)
--- NOTE | 2020-08-01 10:34 | ECHO ---
DATE OF PROCEDURE: 07/31/2020 Age: 69 Gender: Male Height: 57 inches Weight: 90.5 pounds Body Surface Area: 1.28 m2 PATIENT LOCATION: Inpatient PCU Room 3224. REFERRING PHYSICIAN: Ernesto Marr DO. INDICATION: CHF. MEASUREMENTS: 2D Measurements: RV 4.3 cm RV wall thickness 0.8 cm LV 4.9 cm Septum 1.1 cm Posterior wall 1.1 cm Aortic Root 2.9 cm LA 4.2 cm LVEF 65% Doppler Measurements: AV 1.59 m/s LVOT 0.71 m/s LVOT diameter 1.8 cm MV-E 108, A 103, EA ratio 1 Early mitral deceleration time 180 msec E prime medial 4.5, A prime medial 5, E prime lateral 5.6 Average E/E prime ratio 21.4/PCWP 28.4 mmHg PV 0.6 m/s Pulmonary artery acceleration time 84 msec RVSP 55 mmHg IVC 1.7 cm COMMENTS: Underlying sinus rhythm without intraventricular conduction disturbance. M-mode and 2-dimensional echocardiography was performed with pulse, continuous wave, color flow, and tissue Doppler studies. Normal left ventricular size, wall thickness, and wall motion. At least mildly dilated left atrium with grade 2 LV diastolic dysfunction and elevated estimated mean left atrial pressure. At least mildly dilated and hypertrophied right ventricle with normal wall motion and Doppler evidence of moderately severe pulmonary hypertension. Mildly dilated right atrium with IVC size upper limits of normal with reduced respiratory collapse in keeping with at least a central venous pressure that was upper limits of normal to mildly increased. Normal aortic diameters. Moderate aortic valvular sclerosis without functional abnormality. Moderate degenerative changes of the mitral valvular apparatus without inflow tract obstruction but moderate insufficiency. Normal appearing tricuspid valve with at least moderate insufficiency. No apparent intracardiac mass. Small posterior pericardial effusion measuring 4 mm without evidence of cardiac chamber compression. Fairly large left pleural effusion. A preliminary report of this study will be relayed directly to the referring physician the day this study was dictated. TJ
--- NOTE | 2020-08-01 11:05 | IPNPDOC ---
Text Note Date of Service The patient was seen on 08/01/20. NOTE Subjective: Patient stated that he feels better today. No fever overnight. He had bowel movement in the morning Objective: GENERAL APPEARANCE: NAD HEENT: no scleral icterus, plus JVD, EOMI CARDIOVASCULAR: S1S2 LUNGS: Diminished lung sounds bilaterally more on the right side ABDOMEN: soft & not tender w palpitation MUSCULOSKELETAL: no cyanosis, no swelling INTEGUMENT: no generalized pallor NEUROLOGICAL: cranial nerve function from 2-12 intact intact, follows commands, speech not dysarthric Assessment/Plan Patient 69 years old male with past history of hypertension, hyperlipidemia, multiple sclerosis, peripheral vascular diseases presented hospital with generalized weakness and shortness of breath. Patient stated that he has been having shortness of breath on exertion post 1 week. Also she stated that he had nausea for past few days. Patient denied any fever or chills. Also he denied history of black stool or blood in the stool. Of note, patient recently saw vas cular surgeon in [place], which changed his medication regimen and increase the dose of aspirin to 325. Also patient takes Eliquis 5 mg twice a day. Patient has history of carotid endarterectomy, femoral bypass, axillofemoral bypass. In ER patient was found to have white blood count of 12.2, hemoglobin 8, potassium 5.2, creatinine 1.9, AST 913, YOB211, ALK phos 667, troponin 0.2, CPK 6855, stool was positive for occult blood. CT abdomen and pelvis showed No free air or obstruction. Small amount of free fluid in the pelvis CT chest shows Large right pleural effusion, moderate left pleural effusion, with adjacent parenchymal atelectasis/infiltrate. Mild cardiomegaly. Problems (1) Acute diastolic CHF (congestive [place] [address], plus JVD CT showed Large right pleural effusion, moderate left pleural effusion, with adjacent parenchymal atelectasis/infiltrate. Pulse oxy sat 95% on room air Await Echo report I's and O's I talked to Dr. Oconnell on 07/30/20, he recommended to hold diuresis for now due to NAUN. If patient developed dyspnea we will start diuresis We will proceed with thoracocentesis when INR will be below 1.5. INR today 2.1. Will repeat vitamin K2.5 milligrams by mouth Continue gentle diuresis today I talked to Dr. Oconnell on 07/31/20 he recommended to continue current management. He recommended diuresis with Lasix IV if patient needs oxygen Echo from 07/30/20 showed ejection fraction of 65%, At least mildly dilated left atrium with grade 2 LV diastolic dysfunction and elevated estimated mean left atrial pressure. At least mildly dilated and hypertrophied right ventricle with normal wall motion and Doppler evidence of moderately severe pulmonary hypertension. Mildly dilated right atrium with IVC size upper limits of normal with reduced respiratory collapse in keeping with at least a central venous pressure that was upper limits of normal to mildly increased. (2) GI bleeding Most likely secondary to medication side effect, patient took aspirin 325 mg and Eliquis 5 mg twice a day on the regular basis Aspirin and Eliquis on hold Patient received 2 units of blood on 07/30/20. Hemoglobin 10.3 Full liquid diet Appreciate/agree with GI consult (3) Transaminitis Significantly elevated transaminases most likely secondary to atorvastatin check hepatitis profile positive for hepatitis C. Patient stated that he had a history of hepatitis C and he has been treated for it. Await her HEp [employer]ALL [employer]ORTER atorvastatin on hold Liver ultrasound showed Findings suggesting small amount of perihepatic and pericholecystic fluid which is nonspecific.The gallbladder demonstrates small amount of layering sludge without biliary ductal dilatation. The liver is otherwise relatively unremarkable. On 08/01/20 transaminitis trended down (4) Acute anemia Secondary to GI loss due to medications side effect aspirin and Eliquis 2 units of blood Hemoglobin stable today (5) Acute kidney injury Most likely prerenal secondary to intravascular volume depletion complicated by rhabdomyolysis Slightly improved today, creatinine 1.6 Continue to monitor Nephrology team follows him. Indication for dialysis for now (6) Rhabdomyolysis Most likely secondary to statin therapy Patient has acute diastolic CHF, no IV fluid for now, continue to monitor CPK 6013 (7) PVD (peripheral vascular disease) Statin, aspirin and Eliquis on hold (8) Hypertensive urgency/hypertension Hydralazine with parameters Norvasc by mouth Blood pressure today stable (9) Supratherapeutic INR Secondary to liver dysfunction due to statin therapy INR 2.1 today. Patient received 5 mg vitamin K by mouth yesterday. 2.5 mg vitamin K today (10) Hypokalemia Replaced (11) Elevated troponin Patient denied any chest pain or palpitations Troponin elevation could be attributed to NAUN and demand ischemia secondary to acute CHF EKG did not show any acute ischemic changes Troponin trended down SIRS Patient developed fever of 101 with leukocytosis of 14.8 on 07/31/20 No obvious source of infection, could be secondary to infected pleural effusion Blood culture, pro-calcitonin pending I started cefepime IV and vancomycin IV empirically. MRSA screen negative. I DC vancomycin IV. Leukocytosis improved to 10.4, no fever overnight VS,Joon, I+O VS, Evone, I+O Laboratory Tests 07/31/20 14:08 07/31/20 19:57 08/01/20 05:24 08/01/20 08:24 Vital Signs Date Time Temp Pulse Resp B/P (MAP) Pulse Ox O2 Delivery O2 Flow Rate FiO2 08/01/20 10:18 82 136/76 08/01/20 08:00 98.5 18 Room Air 08/01/20 04:00 98 I&O- Last 24 Hours up to 6 AM 08/01/20 06:00 Intake Total 2650 ml Output Total 2600 ml Balance 50 ml VI KELLY Aug 01, 2020 11:05
[2020-08-01 12:00] VITALS: BP_SYST 125; BP_SYST 158; BP_DIAS 67; BP_DIAS 92
[2020-08-01] MEDS ORDERED: PHYTONADIONE 2.5 MG **1/2 TAB PO ONE ×2 (12:00→21:40)
[2020-08-01] MEDS ORDERED: FUROSEMIDE 20MG/2ML VIAL (J1940) IV ONE (12:05)
[2020-08-01 13:59] LABS: HEMATOCRIT 30.4 % (42.0-52.0)
[2020-08-01 14:09] LABS: INR 1.93; PROTHROMBIN TIME 22.5 SECONDS (12.5-14.3)
[2020-08-01 16:00] VITALS: BP 125/67
--- NOTE | 2020-08-01 16:47 | REP ---
INDICATION: SOB, Bilateral pleural effusion. Rt>Lt. COMPARISON: 07/31/2020. TECHNIQUE: PA/Lateral FINDINGS: Bibasilar infiltrates and effusions appear improved with mild bibasilar residual. The heart is mildly enlarged. There is calcification thoracic aorta. The mediastinal silhouette appears unremarkable. Metallic prosthesis again noted of the proximal right humerus. There are dorsal column stimulator leads again noted. IMPRESSION: Relatively mild bibasilar infiltrates and effusions are improved when compared to the prior study 07/31/2020. <Electronically signed by Jose De Jesus Schulz > 08/01/20 [id number]
[2020-08-01] MEDS: CEFEPIME HCL 2 GM in D5W MINI-BAG PLUS 50 ML IV SCH (18:25)
[2020-08-01 20:00] VITALS: BP 134/80
[2020-08-01] MEDS ORDERED: APIXABAN 2.5 MG TAB (ELIQUIS) PO SCH (21:00)
[2020-08-01] MEDS ORDERED: KCL 10MEQ/100ML SWI (KRUN) 10 MEQ in IV 1 EA IV ONE (21:40)
[2020-08-01 21:49] LABS: INR 1.77
[2020-08-02] VITALS: BP 127/76
[2020-08-02 04:00] VITALS: BP 137/77
[2020-08-02 05:43] LABS: BASO % 0.1 % (0.0-1.0); EOS # 0.2 10^3/uL (0.0-0.5); EOS % 1.9 % (0.0-3.0); HEMOGLOBIN 9.5 g/dl (13.5-17.5); LYMPH # 0.8 10^3/uL (1.5-5.0); LYMPH % 9.4 % (24.0-44.0); MEAN CORPUSCULAR HEMOGLOBIN 25.7 pg (27.0-33.0); MEAN CORPUSCULAR HGB CONC 31.7 g/dl (32.0-36.5); MEAN CORPUSCULAR VOLUME 81.3 fl (80.0-96.0); MONO % 11.2 % (2.0-8.0); NEUTROPHILS # 6.8 10^3/uL (1.5-8.5); NEUTROPHILS % 76.9 % (36.0-66.0); PLATELET COUNT, AUTOMATED 175 10^3/uL (150-450); RED BLOOD COUNT 3.69 10^6/uL (4.30-6.10); WHITE BLOOD COUNT 8.9 10^3/uL (4.0-10.0)
[2020-08-02 06:09] LABS: ALBUMIN 2.6 GM/DL (3.2-5.2); BILIRUBIN,TOTAL 1.7 MG/DL (0.2-1.0); CALCIUM LEVEL 8.2 MG/DL (8.8-10.2); CREATININE FOR GFR 1.31 MG/DL (0.70-1.30); GLOMERULAR FILTRATION RATE 57.4 (>42); MAGNESIUM LEVEL 1.8 MG/DL (1.8-2.4); TOTAL PROTEIN 5.4 GM/DL (6.4-8.2)
[2020-08-02] MEDS: LEVOTHYROXINE 25MCG TABLET (0.025MG) PO SCH (06:19)
[2020-08-02 07:35] VITALS: BP 167/79
[2020-08-02] MEDS: DULoxetine 30 MG CAP (CYMBALTA) PO SCH (08:36)
[2020-08-02] MEDS: PANTOPRAZOLE 40MG VIAL (C9113 PER 1) IV SCH ×2 (08:36→21:04)
[2020-08-02] MEDS: THIAMINE 100 MG TAB PO SCH (08:36)
[2020-08-02] MEDS: FOLIC ACID 1 MG TAB PO SCH (08:36)
[2020-08-02] MEDS: POTASSIUM CHLORIDE 10 MEQ SR TABLET PO SCH (08:37)
--- NOTE | 2020-08-02 08:37 | REP ---
INDICATION: pleural effusion COMPARISON: 07/30/2020 TECHNIQUE: Axial noncontrast images from the thoracic inlet to the upper abdomen with coronal and sagittal reformations. This CT examination was performed using the following dose reduction techniques: Automated exposure control, adjustment of mA and/or kv according to the patient's size, and use of iterative reconstruction technique. FINDINGS: Moderate right and small left pleural effusions with lower lobe airspace disease including consolidations with air bronchograms again identified but appear mildly improved. A small patchy focus of airspace disease is now identified in the left apex. Nonspecific reactive adenopathy noted in the mediastinum. Further evaluation of the mediastinum demonstrates atherosclerotic changes to the thoracic aorta and coronary arteries along with mild cardiomegaly and small pericardial effusion unchanged from prior examination. Musculoskeletal structures demonstrate age-related osteopenia and degenerative changes including what appears to be chronic compression deformity at T9 IMPRESSION: 1. Moderate right and small left pleural effusions with associated lower lobe consolidations. Findings appear minimally improved compared to prior examination. <Electronically signed by Live Bird > 08/02/20 [id number]
[2020-08-02] MEDS: TAMSULOSIN 0.4 MG CAP PO SCH (08:38)
[2020-08-02] MEDS: MIRALAX *UNIT DOSE* 17GM PACKET PO SCH ×2 (08:40→21:04)
[2020-08-02] MEDS: METOPROLOL TART 12.5 MG PER 1/2 TAB PO SCH ×2 (08:40→21:05)
[2020-08-02] MEDS ORDERED: SPIRONOLACTONE 12.5MG PER 1/2 TABLET PO SCH (09:00)
[2020-08-02] MEDS: ASPIRIN 81MG ENTERIC TABLET PO SCH (09:12)
[2020-08-02 10:09] LABS: INR 1.72; PROTHROMBIN TIME 20.5 SECONDS (12.5-14.3)
--- NOTE | 2020-08-02 11:56 | IPN ---
PROGRESS NOTE DATE: 08/01/2020 SUBJECTIVE: The patient was seen and examined at the bedside today morning. He reports that he is feeling much better today as compared with yesterday. He made very good amount of urine with IV Lasix. His renal function is stable and improving. Metabolic acidosis is also getting better. The patient has developed hypokalemia with the use of IV diuretics. INR is also getting better. OBJECTIVE: Temperature is 99.1 degrees Fahrenheit, blood pressure is 125/67, pulse is 78, respiratory rate of 17, saturating 96% on room air. Intake and output: Urine output recorded as 2.3 liters yesterday, 1 liter by the time I saw him in the morning. Weight in the bed scale is 38 kg. PHYSICAL EXAMINATION: General: The patient is awake, alert, oriented x3, lying in bed in no apparent distress. Head and neck examination: Extraocular muscles are intact. Pupils are equally round and reactive to light. Neck is supple. Mildly elevated jugular venous distention (JVD). Cardiovascular: S1, S2, regular rate. No edema of the bilateral lower extremities. Right-sided subclavian two bifemoral bypasses palpable. Respiratory: Mildly decreased breath sounds at the bases, otherwise chest is much more clearer to auscultation today as compared with yesterday. Abdomen is soft, positive bowel sounds, nontender and I was able to appreciate hepatomegaly. Musculoskeletal: No clubbing or cyanosis. Pulses are 2+. HAIR WEAVER: No focal deficit. Power is 5/5 in all extremities. LABORATORY REVIEW: Complete blood count (CBC) showed a WBC of 10.4, hemoglobin is 10, platelets are 155. Basic metabolic panel (BMP) done today morning showed sodium 134, potassium 2.9, chloride 100, bicarbonate 24, BUN 43, creatinine is 1.6, calcium is 8. Total bilirubin 1.7, AST 790, ALT 815, alkaline phosphatase is 593 and all of these labs are getting better today. CPK is 6013. IMAGING: A chest x-ray is done today morning, which showed improving bilateral interstitial infiltrate and effusions. CURRENT INPATIENT MEDICATIONS: The patient's medications are all reviewed by myself. The patient was given a dose of IV Maxalfate. He was given oral potassium 40 mEq. Vancomycin has been discontinued. He is on amlodipine 5 mg by mouth daily. I have restarted the patient on Eliquis 2.5 mg by mouth twice a day and aspirin 81 mg by mouth daily. He was again given Lasix 20 mg IV times one dose, vitamin K 2.5 mg by mouth times one dose was again given today morning. ASSESSMENT AND PLAN: 1. Acute renal failure superimposed on chronic kidney disease. The patient is responding very well to the diuretics with improvement of the volume status. His renal function is getting better. Another dose of 20 mg of IV Lasix was given. Since his body weight is less than 40 kg, this 20 mg of Lasix is good enough for hi. 2. Metabolic acidosis. It has resolved with improvement in the renal function. 3. Hyponatremia. The patient has hypervolemic hyponatremia and sodium level is improving with diuresis. 4. Hypokalemia, it is secondary to use of loop diuretic. The patient was given potassium in the morning and in the afternoon as well. If hypokalemia persists, then spironolactone will be started. 5. Bilateral pleural effusions, they are significantly better on the x-ray. No need of thoracentesis at this time. 6. Hypercoagulability with acute hepatitis and history of subclavian to bifemoral bypasses. The patient was on very high dose of anticoagulation for his weight. He weighs only 38 kg and his height is less than 5 feet, so essentially he needs half the regular dose. Eliquis of 2.5 mg by mouth twice a day should be good enough of him and aspirin 81 mg by mouth daily is going to be started tomorrow morning. 7. Rhabdomyolysis and elevated liver enzymes secondary to very high use of atorvastatin, which was 80 mg. Again, for his body mass that was too much of a dose. If we have to start the patient back on statins, Lipitor of 10 mg daily should be good enough for him. MTDD
[2020-08-02 12:00] VITALS: BP 118/65
[2020-08-02] MEDS ORDERED: NULYTELY SOLN 4000ML BTL PO ONE (13:00)
--- NOTE | 2020-08-02 14:29 | IPNPDOC ---
Text Note Date of Service The patient was seen on 08/02/20. NOTE Subjective: No any acute events overnight. Patient denies fever, chills, nausea, tachycardia dysuria Objective: GENERAL APPEARANCE: NAD HEENT: no scleral icterus, plus JVD, EOMI CARDIOVASCULAR: S1S2 LUNGS: Diminished lung sounds bilaterally more on the right side ABDOMEN: soft & not tender w palpitation MUSCULOSKELETAL: no cyanosis, no swelling INTEGUMENT: no generalized pallor NEUROLOGICAL: cranial nerve function from 2-12 intact intact, follows commands, speech not dysarthric Assessment/Plan Patient 69 years old male with past history of hypertension, hyperlipidemia, multiple sclerosis, peripheral vascular diseases presented hospital with generalized weakness and shortness of breath. Patient stated that he has been having shortness of breath on exertion post 1 week. Also she stated that he had nausea for past few days. Patient denied any fever or chills. Also he denied history of black stool or blood in the stool. Of note, patient recently saw vascular surgeon in [place], which changed his medication regimen and increase the dose of aspirin to 325. Also patient takes Eliquis 5 mg twice a day. Patient has history of carotid endarterectomy, femoral bypass, axillofemoral bypass. In ER patient was found to have white blood count of 12.2, hemoglobin 8, potassium 5.2, creatinine 1.9, AST 913, NPA726, ALK phos 667, troponin 0.2, CPK 6855, stool was positive for occult blood. CT abdomen and pelvis showed No free air or obstruction. Small amount of free fluid in the pelvis CT chest shows Large right pleural effusion, moderate left pleural effusion, with adjacent parenchymal atelectasis/infiltrate. Mild cardiomegaly. Problems (1) Acute diastolic CHF (congestive [place] [address], plus JVD CT showed Large right pleural effusion, moderate left pleural effusion, with adjacent parenchymal atelectasis/infiltrate. Pulse oxy sat 95% on room air Await Echo report I's and O's I talked to Dr. Oconnell on 07/30/20, he recommended to hold diuresis for now due to NAUN. If patient developed dyspnea we will start diuresis We will proceed with thoracocentesis when INR will be below 1.5. INR today 2.1. Will repeat vitamin K2.5 milligrams by mouth Continue gentle diuresis today I talked to Dr. Oconnell on 07/31/20 he recommended to continue current management. He recommended diuresis with Lasix IV if patient needs oxygen Echo from 07/30/20 showed ejection fraction of 65%, At least mildly dilated left atrium with grade 2 LV diastolic dysfunction and elevated estimated mean left atrial pressure. At least mildly dilated and hypertrophied right ventricle with normal wall motion and Doppler evidence of moderately severe pulmonary hypertension. Mildly dilated right atrium with IVC size upper limits of normal with reduced respiratory collapse in keeping with at least a central venous pressure that was upper limits of normal to mildly increased. Today with improving kidney function we continue Lasix IV CT chest on 08/02/20 showed Moderate right and small left pleural effusions with associated lower lobe consolidations (2) GI bleeding Most likely secondary to medication side effect, patient took aspirin 325 mg and Eliquis 5 mg twice a day on the regular basis Restarted Aspirin and Eliquis on hold due to EGD endoscopy tomorrow Patient received 2 units of blood on 07/30/20. Hemoglobin 9.5 GI team will proceed with EGD and colonoscopy tomorrow (3) Transaminitis Significantly elevated transaminases most likely secondary to atorvastatin check hepatitis profile positive for hepatitis C. Patient stated that he had a history of hepatitis C and he has been treated for it. 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 The liver is otherwise relatively unremarkable. On 08/01/20 transaminitis trended down (4) Acute anemia Secondary to GI loss due to medications side effect aspirin and Eliquis Transfused 2 units of blood Hemoglobin stable today (5) Acute kidney injury Most likely prerenal secondary to intravascular volume depletion complicated by rhabdomyolysis improved today Continue to monitor Nephrology team follows him. No Indication for dialysis for now (6) Rhabdomyolysis Most likely secondary to statin therapy Patient has acute diastolic CHF, no IV fluid for now, continue to monitor CPK trended down (7) PVD (peripheral vascular disease) Statin, aspirin and Eliquis on hold (8) Hypertensive urgency/hypertension Hydralazine with parameters Norvasc by mouth Blood pressure today stable (9) Supratherapeutic INR Secondary to liver dysfunction due to statin therapy INR 1.7 (10) Hypokalemia Replaced (11) Elevated troponin Patient denied any chest pain or palpitations Troponin elevation could be attributed to NAUN and demand ischemia secondary to acute CHF EKG did not show any acute ischemic changes Troponin trended down SIRS Patient developed fever of 101 with leukocytosis of 14.8 on 07/31/20 No obvious source of infection, could be secondary to infected pleural effusion Blood culture negative, pro-calcitonin 2.26 Continue cefepime IV MRSA screen negative. Leukocytosis resolved, no fever overnight VS,Connorbone, I+O VS, Fishbone, I+O Laboratory Tests 08/01/20 16:57 08/01/20 23:16 08/02/20 05:03 Vital Signs Date Time Temp Pulse Resp B/P (MAP) Pulse Ox O2 Delivery O2 Flow Rate FiO2 08/02/20 12:00 97.0 85 18 118/65 (82) 99 Room Air I&O- Last 24 Hours up to 6 AM 08/02/20 06:00 Intake Total 270 ml Output Total 2675 ml Balance -2405 ml VI KELLY Aug 02, 2020 14:29
[2020-08-02 16:00] VITALS: BP 127/67
[2020-08-02] MEDS: CEFEPIME HCL 2 GM in D5W MINI-BAG PLUS 50 ML IV SCH (17:00)
[2020-08-02 20:00] VITALS: BP 116/75
[2020-08-02 21:35] LABS: INR 1.55; PROTHROMBIN TIME 18.9 SECONDS (12.5-14.3)
--- NOTE | 2020-08-02 22:51 | IPN ---
NEPHROLOGY PROGRESS NOTE DATE: 08/02/2020 SUBJECTIVE: The patient was seen and examined at the bedside today morning. He was given a small dose of Lasix yesterday. He made a very good amount of urine with that. He reports that his shortness of breath is significantly better today. Renal function is also improving. Creatinine is down to 1.3 today. CPK level is getting better. OBJECTIVE: VITAL SIGNS: Temperature is 98 degrees Fahrenheit, blood pressure 116/75, pulse is 82, respiratory rate of 18, saturating 99% on room air. INTAKE AND OUTPUT: Urine output recorded as 3 liters yesterday, 575 mL so far today. Weight in the bed scale is 35.2 kg. PHYSICAL EXAMINATION: GENERAL APPEARANCE: The patient is awake, alert, oriented x3, laying in bed in no apparent distress. HEAD AND NECK: Extraocular muscles intact. Pupils are equally round and reactive to light. Mucous membranes are moist. Neck is supple. There is no jugular venous distention. CARDIOVASCULAR: S1, S2, regular rate. EXTREMITIES: No edema of the bilateral lower extremities. RESPIRATORY: Chest is clear to auscultation bilaterally. Bilaterally currently no rales or rhonchi. ABDOMEN: Soft, positive bowel sounds, nontender, hepatomegaly was noted. MUSCULOSKELETAL: Subclavian to bifemoral bypass is palpable at this time. ROTATING EQUIPMENT SPECIALIST: No focal deficits. Power is 5/5 in all extremities. LAB REVIEW: CBC showed a white blood cell count of 8.9, hemoglobin 9.5, platelet count 175. BMP showed sodium of 133, potassium 4, chloride 97, bicarbonate 30, BUN 31, creatinine is 1.3, magnesium 1.8, total bilirubin 1.7, AST 521, ALT 712. Alkaline phosphatase is 532. CPK is 3,199. BNP is 14,516 which is better, was 50% less than his BNP on arrival. IMAGING: A CT of the chest was done today which showed moderate right and a small left pleural effusion with associated lower lobe consolidations. Findings appear minimally improved compared to prior exam. CURRENT INPATIENT MEDICATIONS: The patient's medications were all reviewed by myself. His Eliquis was started but it has been stopped again by the Medical Team. He continues to be on Aspirin 81 mg p.o. daily. He continues to be on IV Cefepime. He has been started on Spironolactone at 12.5 mg p.o. daily. ASSESSMENT AND PLAN: 1. Acute renal failure superimposed on chronic kidney disease it was secondary to decompensated congestive heart failure and mild rhabdomyolysis. He responded very well to diuretics. Creatinine has improved to 1.3 now. 2. Bilateral pleural effusions CT was done today again which showed minimal improvement in the pleural effusions. However clinically the patient feels much better and he is diuresing well. 3. Rhabdomyolysis and elevated liver enzymes. It was secondary to high dose Atorvastatin. Statins are on hold. Enzymes are getting better. 4. History of right subclavian to bifemoral bypass the patient's anticoagulation needs to be started once GI bleed is ruled out. He has been restarted on Aspirin.
[2020-08-03] VITALS: BP 122/87
[2020-08-03 04:00] VITALS: BP 135/77
[2020-08-03 05:42] LABS: BASO % 0.4 % (0.0-1.0); EOS # 0.3 10^3/uL (0.0-0.5); EOS % 3.3 % (0.0-3.0); HEMATOCRIT 29.7 % (42.0-52.0); HEMOGLOBIN 9.5 g/dl (13.5-17.5); LYMPH # 0.8 10^3/uL (1.5-5.0); LYMPH % 9.6 % (24.0-44.0); MEAN CORPUSCULAR HEMOGLOBIN 26.2 pg (27.0-33.0); MONO % 11.8 % (2.0-8.0); NEUTROPHILS # 6.3 10^3/uL (1.5-8.5); NEUTROPHILS % 74.4 % (36.0-66.0); PLATELET COUNT, AUTOMATED 206 10^3/uL (150-450); RED BLOOD COUNT 3.62 10^6/uL (4.30-6.10); WHITE BLOOD COUNT 8.5 10^3/uL (4.0-10.0)
[2020-08-03] MEDS: LEVOTHYROXINE 25MCG TABLET (0.025MG) PO SCH (06:00)
[2020-08-03 06:04] LABS: ALBUMIN 2.6 GM/DL (3.2-5.2); ALT/SGPT 567 U/L (12-78); BILIRUBIN,TOTAL 1.9 MG/DL (0.2-1.0); BLOOD UREA NITROGEN 18 MG/DL (7-18); CARBON DIOXIDE LEVEL 31 MEQ/L (21-32); CHLORIDE LEVEL 96 MEQ/L (98-107); GLOMERULAR FILTRATION RATE > 60.0 (>42); GLUCOSE, FASTING 83 MG/DL (70-100); MAGNESIUM LEVEL 1.7 MG/DL (1.8-2.4); SODIUM LEVEL 133 MEQ/L (136-145); TOTAL PROTEIN 5.3 GM/DL (6.4-8.2)
[2020-08-03 08:00] VITALS: BP 132/79
[2020-08-03] MEDS ORDERED: MAG SULF 1GM/100ML (MAG RUN) 1 GM in IV 1 EA IV ONE (08:00)
[2020-08-03] MEDS: MIRALAX *UNIT DOSE* 17GM PACKET PO SCH ×2 (09:00→21:00)
[2020-08-03] MEDS ORDERED: TORSEMIDE 10 MG TABLET PO SCH (09:00)
[2020-08-03] MEDS: METOPROLOL TART 12.5 MG PER 1/2 TAB PO SCH ×2 (09:29→21:31)
[2020-08-03] MEDS: DULoxetine 30 MG CAP (CYMBALTA) PO SCH (09:29)
[2020-08-03] MEDS: FOLIC ACID 1 MG TAB PO SCH (09:29)
[2020-08-03] MEDS: POTASSIUM CHLORIDE 10 MEQ SR TABLET PO SCH (09:30)
[2020-08-03] MEDS: THIAMINE 100 MG TAB PO SCH (09:30)
[2020-08-03] MEDS: TAMSULOSIN 0.4 MG CAP PO SCH (09:30)
[2020-08-03] MEDS: SPIRONOLACTONE 12.5MG PER 1/2 TABLET PO SCH (09:30)
[2020-08-03] MEDS: ASPIRIN 81MG ENTERIC TABLET PO SCH (09:31)
[2020-08-03] MEDS: PANTOPRAZOLE 40MG VIAL (C9113 PER 1) IV SCH ×2 (09:32→21:31)
[2020-08-03] MEDS ORDERED: POTASSIUM CHLORIDE 10 MEQ SR TABLET PO ONE (11:00)
[2020-08-03 12:00] VITALS: BP 138/78
[2020-08-03] MEDS ORDERED: LIDOCAINE 2% 100MG/5ML SDV (FOR ANES.) As Ordered ONE (14:47)
[2020-08-03] MEDS ORDERED: PHENYLEPHRINE 10MG/ML 1ML VIAL (J2370 PER 1) As Ordered ONE (14:47)
[2020-08-03] MEDS ORDERED: propofoL 200 MG/20 ML VIAL As Ordered ONE (14:47)
[2020-08-03] MEDS ORDERED: ePHEDrine SULFATE 25 MG/5 ML(5MG/ML) SYRINGE As Ordered ONE (14:47)
--- NOTE | 2020-08-03 15:09 | ROOR ---
Patient Name: Skip Hedrick Procedure Date: 08/03/2020 2:03 PM Date of : 1950 Age: 69 Room: [facility] Gender: Male Note Status: Finalized Procedure: Upper GI endoscopy Indications: Iron deficiency anemia Providers: Roverto Dial MD Referring MD: 2. Inpatient 2. Inpatient Requesting Provider: Medicines: Monitored Anesthesia Care Complications: No immediate complications. Procedure: Pre-Anesthesia Assessment: - Prior to the procedure, a History and Physical was performed, and patient medications and allergies were reviewed. The patient is competent. The risks and benefits of the procedure and the sedation options and risks were discussed with the patient. All questions were answered and informed consent was obtained. Patient identification and proposed procedure were verified by the physician, the nurse and the anesthesiologist in the procedure room. Mental Status Examination: normal. Respiratory Examination: clear to auscultation. CV Examination: normal. Prophylactic Antibiotics: The patient does not require prophylactic antibiotics. Prior Anticoagulants: The patient has taken no previous anticoagulant or antiplatelet agents. ASA Grade Assessment: II - A patient with mild systemic disease. After reviewing the risks and benefits, the patient was deemed in satisfactory condition to undergo the procedure. The anesthesia plan was to use monitored anesthesia care (MAC). Immediately prior to administration of medications, the patient was re-assessed for adequacy to receive sedatives. The heart rate, respiratory rate, oxygen saturations, blood pressure, adequacy of pulmonary ventilation, and response to care were monitored throughout the procedure. The physical status of the patient was re-assessed after the procedure. The Endoscope was introduced through the mouth, and advanced to the second part of duodenum. The upper GI endoscopy was accomplished without difficulty. The patient tolerated the procedure well. Findings: A small hiatal hernia was present. Patchy mild inflammation characterized by erosions was found at the pylorus. The duodenal bulb and second portion of the duodenum were normal. Impression: - Small hiatal hernia. - Gastritis. - Normal duodenal bulb and second portion of the duodenum. - No specimens collected. Recommendation: - Patient has a contact number available for emergencies. The signs and symptoms of potential delayed complications were discussed with the patient. Return to normal activities tomorrow. Written discharge instructions were provided to the patient. - High fiber diet. - Continue present medications. - Use Prilosec (omeprazole) 40 mg PO daily for 8 weeks. - Resume previous anticoagulant medication today and previous antiplatelet medication today at prior doses. Refer to primary physician for further adjustment of therapy. - Miralax 1 capful (17 grams) in 8 ounces of water PO daily. - Return to GI clinic if persistent symptoms or new symptoms. - Check hemogram with white blood cell count and platelets and CBC, serum iron , transferrin and ferritin levels (fasting labs) in 1 month. - Return to primary care physician. Procedure Code(s): --- Professional --- 95183, Esophagogastroduodenoscopy, flexible, transoral; diagnostic, including collection of specimen(s) by brushing or washing, when performed (separate procedure) Diagnosis Code(s): --- Professional --- K44.9, Diaphragmatic hernia without obstruction or gangrene K29.70, Gastritis, unspecified, without bleeding D50.9, Iron deficiency anemia, unspecified CPT copyright 2019 [employer]. All rights reserved. The codes documented in this report are preliminary and upon slime plant operator helper review may be revised to meet current compliance requirements. Roverto Dial MD Roverto Dial MD 08/03/2020 3:09:21 PM Electronically signed by Roverto Dial MD Number of Addenda: 0 Note Initiated On: 08/03/2020 2:03 PM Estimated Blood Loss: Estimated blood loss: none.
--- NOTE | 2020-08-03 15:12 | ROOR ---
Patient Name: Skip Hedrick Procedure Date: 08/03/2020 2:04 PM Date of : 1950 Age: 69 Room: [facility] Gender: Male Note Status: Finalized Procedure: Colonoscopy Indications: Acute post hemorrhagic anemia, Iron deficiency anemia Providers: Roverto Dial MD Referring MD: 2. Inpatient 2. Inpatient Requesting Provider: Medicines: Monitored Anesthesia Care Complications: No immediate complications. Procedure: Pre-Anesthesia Assessment: - Prior to the procedure, a History and Physical was performed, and patient medications and allergies were reviewed. The patient is competent. The risks and benefits of the procedure and the sedation options and risks were discussed with the patient. All questions were answered and informed consent was obtained. Patient identification and proposed procedure were verified by the physician, the nurse and the anesthesiologist in the procedure room. Mental Status Examination: alert and oriented. Airway Examination: normal oropharyngeal airway and neck mobility. Respiratory Examination: clear to auscultation. CV Examination: normal. Prophylactic Antibiotics: The patient does not require prophylactic antibiotics. Prior Anticoagulants: The patient has taken no previous anticoagulant or antiplatelet agents. ASA Grade Assessment: III - A patient with severe systemic disease. After reviewing the risks and benefits, the patient was deemed in satisfactory condition to undergo the procedure. The anesthesia plan was to use monitored anesthesia care (MAC). Immediately prior to administration of medications, the patient was re-assessed for adequacy to receive sedatives. The heart rate, respiratory rate, oxygen saturations, blood pressure, adequacy of pulmonary ventilation, and response to care were monitored throughout the procedure. The physical status of the patient was re-assessed after the procedure. The Colonoscope was introduced through the anus and advanced to the cecum, identified by appendiceal orifice and ileocecal valve. The colonoscopy was performed without difficulty. The patient tolerated the procedure well. The quality of the bowel preparation was good. The ileocecal valve, appendiceal orifice, and rectum were photographed. Scope insertion time was 3 minutes. Scope withdrawal time was 8 minutes. The total duration of the procedure was 12 minutes. Findings: The perianal and digital rectal examinations were normal. Multiple small and large-mouthed diverticula were found in the sigmoid colon. There was no evidence of diverticular bleeding. Non-bleeding external and internal hemorrhoids were found during retroflexion. The hemorrhoids were medium-sized. There is no endoscopic evidence of bleeding, mass or polyps in the entire colon. Impression: - Moderate diverticulosis in the sigmoid colon. There was no evidence of diverticular bleeding. - Non-bleeding external and internal hemorrhoids. - No specimens collected. Recommendation: - Patient has a contact number available for emergencies. The signs and symptoms of potential delayed complications were discussed with the patient. Return to normal activities tomorrow. Written discharge instructions were provided to the patient. - High fiber diet. - Continue present medications. - Miralax 1 capful (17 grams) in 8 ounces of water PO daily. - Repeat colonoscopy is not recommended due to current age (66 years or older) for screening purposes and depending on clinical and functional status. - Follow the recommendations as per the other procedure note. - Return to primary care physician. Procedure Code(s): --- Professional --- 70346, Colonoscopy, flexible; diagnostic, including collection of specimen(s) by brushing or washing, when performed (separate procedure) Diagnosis Code(s): --- Professional --- K64.8, Other hemorrhoids D62, Acute posthemorrhagic anemia D50.9, Iron deficiency anemia, unspecified K57.30, Diverticulosis of large intestine without perforation or abscess without bleeding CPT copyright 2019 [employer]. All rights reserved. The codes documented in this report are preliminary and upon volunteer services assistant review may be revised to meet current compliance requirements. Roverto Dial MD Roverto Dial MD 08/03/2020 3:12:15 PM Electronically signed by Roverto Dial MD Number of Addenda: 0 Note Initiated On: 08/03/2020 2:04 PM Estimated Blood Loss: Estimated blood loss was minimal.
[2020-08-03 16:00] VITALS: BP 117/60
[2020-08-03] MEDS: CEFEPIME HCL 2 GM in D5W MINI-BAG PLUS 50 ML IV SCH (16:31)
--- NOTE | 2020-08-03 17:04 | IPNPDOC ---
Text Note Date of Service The patient was seen on 08/03/20. NOTE Subjective: No any acute events overnight. Patient denies fever, chills, nausea, tachycardia dysuria Objective: GENERAL APPEARANCE: NAD HEENT: no scleral icterus, plus JVD, EOMI CARDIOVASCULAR: S1S2 LUNGS: Diminished lung sounds bilaterally ABDOMEN: soft & not tender w palpitation MUSCULOSKELETAL: no cyanosis, no swelling INTEGUMENT: no generalized pallor NEUROLOGICAL: cranial nerve function from 2-12 intact intact, follows commands, speech not dysarthric Assessment/Plan Patient 69 years old male with past history of hypertension, hyperlipidemia, multiple sclerosis, peripheral vascular diseases presented hospital with generalized weakness and shortness of breath. Patient stated that he has been having shortness of breath on exertion post 1 week. Also she stated that he had nausea for past few days. Patient denied any fever or chills. Also he denied history of black stool or blood in the stool. Of note, patient recently saw vascular surgeon in [place], which changed his medication regimen and increase the dose of aspirin to 325. Also patient takes Eliquis 5 mg twice a day. Patient has history of carotid endarterectomy, femoral bypass, axillofemoral bypass. In ER patient was found to have white blood count of 12.2, hemoglobin 8, potassium 5.2, creatinine 1.9, AST 913, STV274, ALK phos 667, troponin 0.2, CPK 6855, stool was positive for occult blood. CT abdomen and pelvis showed No free air or obstruction. Small amount of free fluid in the pelvis CT chest shows Large right pleural effusion, moderate left pleural effusion, with adjacent parenchymal atelectasis/infiltrate. Mild cardiomegaly. Problems (1) Acute diastolic CHF (congestive [place] [address], plus JVD CT showed Large right pleural effusion, moderate left pleural effusion, with adjacent parenchymal atelectasis/infiltrate. Pulse oxy sat 95% on room air Await Echo report I's and O's I talked to Dr. Oconnell on 07/30/20, he recommended to hold diuresis for now due to NAUN. If patient developed dyspnea we will start diuresis We will proceed with thoracocentesis when INR will be below 1.5. INR today 2.1. Will repeat vitamin K2.5 milligrams by mouth Continue gentle diuresis today I talked to Dr. Oconnell on 07/31/20 he recommended to continue current management. He recommended diuresis with Lasix IV if patient needs oxygen Echo from 07/30/20 showed ejection fraction of 65%, At least mildly dilated left atrium with grade 2 LV diastolic dysfunction and elevated estimated mean left atrial pressure. At least mildly dilated and hypertrophied right ventricle with normal wall motion and Doppler evidence of moderately severe pulmonary hypertension. Mildly dilated right atrium with IVC size upper limits of normal with reduced respiratory collapse in keeping with at least a central venous pressure that was upper limits of normal to mildly increased. Today with improving kidney function we continue Lasix IV CT chest on 08/02/20 showed Moderate right and small left pleural effusions with associated lower lobe consolidations Patient developed good urine output overnight. Since admission his weight decreased from 40.7 kg to 37.3 kg (2) GI bleeding Most likely secondary to medication side effect, patient took aspirin 325 mg and Eliquis 5 mg twice a day on the regular basis Restarted Aspirin Patient received 2 units of blood on 07/30/20. Hemoglobin 9.5 EGD and colonoscopy was done today and showed hiatal hernia, mild diverticulitis and gastritis. No active bleeding I restarted Eliquis 5 mg twice a day (3) Transaminitis Significantly elevated transaminases most likely secondary to atorvastatin check hepatitis profile positive for hepatitis C. Patient stated that he had a history of hepatitis C and he has been treated for it. 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 The liver is otherwise relatively unremarkable. On 08/01/20 transaminitis trended down (4) Acute anemia Secondary to GI loss due to medications side effect aspirin and Eliquis Transfused 2 units of blood Hemoglobin stable today (5) Acute kidney injury Most likely prerenal secondary to intravascular volume depletion complicated by rhabdomyolysis Continued improving, creatinine 1.1 Nephrology team follows him. (6) Rhabdomyolysis Most likely secondary to statin therapy Patient has acute diastolic CHF, no IV fluid for now, continue to monitor CPK trended down (7) PVD (peripheral vascular disease) Statin, Restarted aspirin and Eliquis (8) Hypertensive urgency/hypertension Hydralazine with parameters Norvasc by mouth Blood pressure today stable (9) Supratherapeutic INR Secondary to liver dysfunction due to statin therapy INR 1,5 today (10) Hypokalemia Replaced (11) Elevated troponin Patient denied any chest pain or palpitations Troponin elevation could be attributed to NAUN and demand ischemia secondary to acute CHF EKG did not show any acute ischemic changes Troponin trended down SIRS Patient developed fever of 101 with leukocytosis of 14.8 on 07/31/20 No obvious source of infection, could be secondary to infected pleural effusion Blood culture negative, pro-calcitonin 2.26 Continue cefepime IV MRSA screen negative. Leukocytosis resolved, no fever overnight VS,Fishbone, I+O VS, Fishbone, I+O Laboratory Tests 08/03/20 05:05 Vital Signs Date Time Temp Pulse Resp B/P (MAP) Pulse Ox O2 Delivery O2 Flow Rate FiO2 08/03/20 14:56 97.2 70 14 112/57 (75) 98 08/03/20 12:00 Room Air I&O- Last 24 Hours up to 6 AM 08/03/20 05:59 Intake Total 800 ml Output Total 475 ml Balance 325 ml VI KELLY DO Aug 03, 2020 17:04
[2020-08-03 20:00] VITALS: BP 117/60
[2020-08-03] MEDS: APIXABAN 5 MG TAB (ELIQUIS) PO SCH (21:31)
--- NOTE | 2020-08-03 21:42 | IPN ---
NEPHROLOGY PROGRESS NOTE DATE: 08/03/2020 SUBJECTIVE: The patient was seen and examined at the bedside today morning. He is drinking GoLYTELY to have endoscopy done today. He denies any shortness of breath. He was started on Spironolactone 12.5 mg p.o. daily. He did not make much urine with that and he is still hypokalemic today. OBJECTIVE: VITAL SIGNS: Temperature is 97.2 degrees Fahrenheit, blood pressure 112/57, pulse is 70, respiratory rate of 14, saturating 98% on room air. INTAKE AND OUTPUT: Urine output recorded as 575 mL yesterday. Weight in the bed scale is 37.3 kg. PHYSICAL EXAMINATION: GENERAL APPEARANCE: The patient is awake, alert, oriented x3, laying in bed in no apparent distress. HEAD AND NECK: Extraocular muscles intact. Pupils are equally round and reactive to light. Mucous membranes are moist. Neck is supple. Mildly elevated jugular venous distention was noted. CARDIOVASCULAR: S1, S2, regular rate. EXTREMITIES: No edema of the bilateral lower extremities. Right subclavian to bifemoral bypass is noted and palpable. RESPIRATORY: Mildly decreased breath sounds at the bases, worse on the right side as compared with left. ABDOMEN: Soft, positive bowel sounds. Liver is palpable. MUSCULOSKELETAL: No clubbing, no cyanosis. Pulses are 2+. SAP MOBILITY ARCHITECT: No focal deficits. Power is 5/5 in all extremities. LAB REVIEW: CBC showed a white blood cell count of 8.5, hemoglobin 9.5, platelet count 206. BMP showed sodium of 133, potassium 3, chloride 96, bicarbonate 31, BUN 18, creatinine is 1.1. Magnesium 1.7. Total bilirubin is 1.9, AST 326, ALT 567, alkaline phosphatase is 466. CPK has improved to 1,124. Albumin is 2.6. IMAGING: A CT chest was done yesterday. It showed moderate right and a small left pleural effusion with associated lower lobe consolidations. Findings appear minimally improved compared to prior exam. CURRENT INPATIENT MEDICATIONS: The patient's medications were all reviewed by myself. He continues to be on Cefepime 2 grams IV q. 12 hourly. He was given potassium chloride 20 mEq in the morning. Another dose of 40 mEq was given in the afternoon. Spironolactone dose has been increased to 25 mg p.o. daily by myself. ASSESSMENT AND PLAN: 1. Acute renal failure superimposed on chronic kidney disease - renal function continues to improve with diuresis. Creatinine has improved to 1.1 today. Diuretic dose is slowly being adjusted according to his response and daily weight. 2. Acute decompensated diastolic congestive heart failure - The patient was given IV Lasix 2 days in a row. He is currently drinking GoLYTELY. No IV diuretic is being given. Spironolactone has been increased to 25 mg daily. If needed, a small dose of Torsemide will be started tomorrow morning. 3. Hypokalemia - The patient's Spironolactone has been increased and he will be given an extra dose of potassium chloride 40 mEq in the afternoon. 4. Elevated liver enzymes most likely this was secondary to the use of high dose Atorvastatin. Liver function is slowly improving along with CPK. 5. Anemia - The patient is drinking GoLYTELY. He is going to have endoscopy done. He has received one unit of PRBC transfusion during this hospitalization. 6. Right sided pleural effusion - The patient's anticoagulation is on hold. He will get a right sided thoracentesis done tomorrow.
[2020-08-04] VITALS: BP 135/67
[2020-08-04] MEDS: CEFEPIME HCL 2 GM in D5W MINI-BAG PLUS 50 ML IV SCH ×2 (00:32→12:18)
[2020-08-04 04:00] VITALS: BP 124/69
[2020-08-04 05:22] LABS: BASO % 0.2 % (0.0-1.0); EOS # 0.6 10^3/uL (0.0-0.5); EOS % 6.3 % (0.0-3.0); HEMATOCRIT 29.5 % (42.0-52.0); HEMOGLOBIN 9.5 g/dl (13.5-17.5); MEAN CORPUSCULAR HEMOGLOBIN 26.2 pg (27.0-33.0); MEAN CORPUSCULAR HGB CONC 32.2 g/dl (32.0-36.5); MEAN CORPUSCULAR VOLUME 81.5 fl (80.0-96.0); MONO # 1.1 10^3/uL (0.0-0.8); MONO % 12.8 % (2.0-8.0); NEUTROPHILS # 6.1 10^3/uL (1.5-8.5); NEUTROPHILS % 69.2 % (36.0-66.0); PLATELET COUNT, AUTOMATED 196 10^3/uL (150-450); RED BLOOD COUNT 3.62 10^6/uL (4.30-6.10); WHITE BLOOD COUNT 8.8 10^3/uL (4.0-10.0)
[2020-08-04 06:04] LABS: ALBUMIN 2.6 GM/DL (3.2-5.2); ALT/SGPT 456 U/L (12-78); BILIRUBIN,TOTAL 1.3 MG/DL (0.2-1.0); BLOOD UREA NITROGEN 13 MG/DL (7-18); CALCIUM LEVEL 7.8 MG/DL (8.8-10.2); CARBON DIOXIDE LEVEL 30 MEQ/L (21-32); CHLORIDE LEVEL 96 MEQ/L (98-107); CREATININE FOR GFR 1.07 MG/DL (0.70-1.30); GLOMERULAR FILTRATION RATE > 60.0 (>42); GLUCOSE, FASTING 88 MG/DL (70-100); MAGNESIUM LEVEL 1.9 MG/DL (1.8-2.4); POTASSIUM SERUM 2.7 MEQ/L (3.5-5.1); SODIUM LEVEL 132 MEQ/L (136-145); TOTAL PROTEIN 5.4 GM/DL (6.4-8.2)
[2020-08-04] MEDS: LEVOTHYROXINE 25MCG TABLET (0.025MG) PO SCH (06:15)
[2020-08-04] MEDS ORDERED: KCL 10MEQ/100ML SWI (KRUN) 10 MEQ in IV 1 EA IV ONE (07:35)
[2020-08-04] MEDS ORDERED: POTASSIUM CHLORIDE 10 MEQ SR TABLET PO ONE ×2 (07:35→14:00)
[2020-08-04 08:00] VITALS: BP 136/69
[2020-08-04] MEDS: MIRALAX *UNIT DOSE* 17GM PACKET PO SCH (09:00)
[2020-08-04] MEDS ORDERED: TORSEMIDE 10 MG TABLET PO SCH (09:00)
[2020-08-04] MEDS: SPIRONOLACTONE 12.5MG PER 1/2 TABLET PO SCH (09:58)
[2020-08-04] MEDS: ASPIRIN 81MG ENTERIC TABLET PO SCH (09:58)
[2020-08-04] MEDS: PANTOPRAZOLE 40MG VIAL (C9113 PER 1) IV SCH (09:58)
[2020-08-04] MEDS: METOPROLOL TART 12.5 MG PER 1/2 TAB PO SCH ×2 (09:58→21:15)
[2020-08-04] MEDS: APIXABAN 5 MG TAB (ELIQUIS) PO SCH (09:59)
[2020-08-04] MEDS: THIAMINE 100 MG TAB PO SCH (09:59)
[2020-08-04] MEDS: TAMSULOSIN 0.4 MG CAP PO SCH (09:59)
[2020-08-04] MEDS: FOLIC ACID 1 MG TAB PO SCH (09:59)
[2020-08-04] MEDS: DULoxetine 30 MG CAP (CYMBALTA) PO SCH (09:59)
[2020-08-04] MEDS: POTASSIUM CHLORIDE 10 MEQ SR TABLET PO SCH (09:59)
--- NOTE | 2020-08-04 11:43 | IPNPDOC ---
Text Note Date of Service The patient was seen on 08/04/20. NOTE Subjective: Patient stated that he is doing better today. He stated that he has a good appetite Objective: GENERAL APPEARANCE: NAD HEENT: no scleral icterus, plus JVD, EOMI CARDIOVASCULAR: S1S2 LUNGS: Diminished lung sounds bilaterally ABDOMEN: soft & not tender w palpitation MUSCULOSKELETAL: no cyanosis, no swelling INTEGUMENT: no generalized pallor NEUROLOGICAL: cranial nerve function from 2-12 intact intact, follows commands, speech not dysarthric Assessment/Plan Patient 69 years old male with past history of hypertension, hyperlipidemia, multiple sclerosis, peripheral vascular diseases presented hospital with generalized weakness and shortness of breath. Patient stated that he has been having shortness of breath on exertion post 1 week. Also she stated that he had nausea for past few days. Patient denied any fever or chills. Also he denied history of black stool or blood in the stool. Of note, patient recently saw vascular surgeon in [place], which changed his medication regimen and increase the dose of aspirin to 325. Also patient takes Eliquis 5 mg twice a day. Patient has history of carotid endarterectomy, femoral bypass, axillofemoral bypass. In ER patient was found to have white blood count of 12.2, hemoglobin 8, potassium 5.2, creatinine 1.9, AST 913, SCI060, ALK phos 667, troponin 0.2, CPK 6855, stool was positive for occult blood. CT abdomen and pelvis showed No free air or obstruction. Small amount of free fluid in the pelvis CT chest shows Large right pleural effusion, moderate left pleural effusion, with adjacent parenchymal atelectasis/infiltrate. Mild cardiomegaly. Problems (1) Acute diastolic CHF (congestive [place] [address], plus JVD CT showed Large right pleural effusion, moderate left pleural effusion, with adjacent parenchymal atelectasis/infiltrate. Pulse oxy sat 95% on room air Await Echo report I's and O's I talked to Dr. Oconnell on 07/30/20, he recommended to hold diuresis for now due to NAUN. If patient developed dyspnea we will start diuresis We will proceed with thoracocentesis when INR will be below 1.5. INR today 2.1. Will repeat vitamin K2.5 milligrams by mouth Continue gentle diuresis today I talked to Dr. Oconnell on 07/31/20 he recommended to continue current management. He recommended diuresis with Lasix IV if patient needs oxygen Echo from 07/30/20 showed ejection fraction of 65%, At least mildly dilated left atrium with grade 2 LV diastolic dysfunction and elevated estimated mean left atrial pressure. At least mildly dilated and hypertrophied right ventricle with normal wall motion and Doppler evidence of moderately severe pulmonary hypertension. Mildly dilated right atrium with IVC size upper limits of normal with reduced respiratory collapse in keeping with at least a central venous pressure that was upper limits of normal to mildly increased. Today with improving kidney function we continue Lasix IV CT chest on 08/02/20 showed Moderate right and small left pleural effusions with associated lower lobe consolidations Patient developed good urine output overnight. Since admission his weight decreased from 40.7 kg to 37.3 kg His kidney function normalized today, we continue treatment with torsemide 5 mg (2) GI bleeding Most likely secondary to medication side effect, patient took aspirin 325 mg and Eliquis 5 mg twice a day on the regular basis Restarted Aspirin Patient received 2 units of blood on 07/30/20. Hemoglobin 9.5 EGD and colonoscopy was done today and showed hiatal hernia, mild diverticulitis and gastritis. No active bleeding I restarted Eliquis 5 mg twice a day (3) Transaminitis Significantly elevated transaminases most likely secondary to atorvastatin check hepatitis profile positive for hepatitis C. Patient stated that he had a history of hepatitis C and he has been treated for it. 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 The liver is otherwise relatively unremarkable. On 08/01/20 transaminitis trended down (4) Acute anemia Secondary to GI loss due to medications side effect aspirin and Eliquis Transfused 2 units of blood Hemoglobin stable today (5) Acute kidney injury Most likely prerenal secondary to intravascular volume depletion complicated by rhabdomyolysis Nephrology team follows him. Resolved today (6) Rhabdomyolysis Most likely secondary to statin therapy Patient has acute diastolic CHF, no IV fluid for now, continue to monitor CPK trended down (7) PVD (peripheral vascular disease) Statin, Restarted aspirin and Eliquis (8) Hypertensive urgency/hypertension Hydralazine with parameters Norvasc by mouth Blood pressure today stable (9) Supratherapeutic INR Secondary to liver dysfunction due to statin therapy Resolved (10) Hypokalemia Replaced (11) Elevated troponin Patient denied any chest pain or palpitations Troponin elevation could be attributed to NAUN and demand ischemia secondary to acute CHF EKG did not show any acute ischemic changes Troponin trended down SIRS Patient developed fever of 101 with leukocytosis of 14.8 on 07/31/20 No obvious source of infection, could be secondary to infected pleural effusion Blood culture negative, pro-calcitonin 2.26 Continue cefepime IV MRSA screen negative. Leukocytosis resolved, no fever overnight VS,Fishbone, I+O VS, Fishbone, I+O Laboratory Tests 08/04/20 04:55 Vital Signs Date Time Temp Pulse Resp B/P (MAP) Pulse Ox O2 Delivery O2 Flow Rate FiO2 08/04/20 09:59 66 136/69 08/04/20 08:00 98.1 18 91 Room Air I&O- Last 24 Hours up to 6 AM 08/04/20 06:00 Intake Total 1790 ml Output Total 1525 ml Balance 265 ml VI KELLY DO Aug 04, 2020 11:43
[2020-08-04 12:00] VITALS: BP 121/72
[2020-08-04] MEDS ORDERED: IRON SUCROSE 200 MG in NS 100 ML IV SCH (14:00)
--- NOTE | 2020-08-04 14:00 | IPN ---
NEPHROLOGY PROGRESS NOTE DATE: 08/04/2020 SUBJECTIVE: Patient was seen and examined at the bedside today morning. He reports that his breathing is much better. He got the endoscopy done yesterday. No significant bleeding was found. There was moderate diverticulosis in the sigmoid colon on colonoscopy and on upper GI endoscopy. He was found to have small hiatal hernia and gastritis. Patient is hypokalemic today because of all the bowel prep that he did. Renal function is stable with a creatinine of 1.07 today. He continues to be on full dose of Spironolactone. OBJECTIVE: VITAL SIGNS: Temperature 98.1 degrees Fahrenheit, blood pressure 136/69, pulse 66, respiratory rate 18, saturating 91% on room air. INTAKE AND OUTPUT: Urine output recorded as 1.3 liters yesterday and 870 mL so far today since overnight. Weight in the bed scale is 36.8 kg. PHYSICAL EXAMINATION: GENERAL: Patient is awake, alert and oriented x3, in no apparent distress. HEAD AND NECK: Extraocular muscles intact. Pupils equally round and reactive to light. Mucous membranes are moist. Neck is supple. No significant JVD. RESPIRATORY: Mildly decreased breath sounds at the bases. Otherwise no active rales or rhonchi. CARDIOVASCULAR: S1, S2. No edema of the bilateral lower extremities. He has a right subclavian to bifemoral bypass, which is palpable. ABDOMEN: Soft, positive bowel sounds. Liver is palpable. MUSCULOSKELETAL: No clubbing or cyanosis. Pulses are 2+. FLOUR DISTRIBUTOR: No focal deficit. Power is 5/5 in all extremities. LAB REVIEW: CBC showed WBC 8.8, hemoglobin 9.5, platelets 196,000. BMP showed sodium 132, potassium 2.7, chloride 96, bicarb 30, BUN 13, creatinine 1.07. Calcium 7.8. Magnesium 1.9. Total bilirubin 1.3. AST 204, ALT 456, alkaline phosphatase 426, and all of these numbers are getting better. MICROBIOLOGY: Blood cultures are negative. CURRENT INPATIENT MEDICATIONS: Patient's medications were all reviewed by myself. He is currently on Spironolactone 25 mg p.o. daily. I have started him on Torsemide 5 mg p.o. daily. He was given potassium chloride 40 mEq p.o. two doses; one in the morning and another one in the afternoon. He was also given KCl 10 mEq I.V. as well. He has been restarted on Eliquis 5 mg p.o. twice a day; I have decreased the dose to 2.5 mg p.o. twice a day. ASSESSMENT AND PLAN: 1. Acute nonoliguric renal failure: It is getting better with optimization of fluid status. Creatinine has improved to 1 today. Continue the low dose diuretics. 2. Acute decompensated diastolic congestive heart failure: He has been started on Spironolactone 25 mg p.o. daily. He is going to be started on low dose of Torsemide 5 mg p.o. daily. Patient has short stature and he weighs less than 40 kg, so he would need very small doses of diuretics. 3. Hypokalemia: It is secondary to diuresis and use of bowel regimen yesterday. Oral and I.V. potassium is also being given. He is on Spironolactone as well. 4. Elevated liver enzymes: It was secondary to congestive hepatopathy and use of high dose Atorvastatin. Liver enzymes are getting better. 5. Iron deficiency anemia: Patient got 1 unit of PRBC transfusion. I am starting the patient on I.V. Venofer infusion as well while he is here. 6. Presence of axillary to bifemoral bypass: Patient has been restarted on Eliquis; dose is being decreased to 2.5 mg p.o. twice a day. 7. Right-sided pleural effusion: Patient is being diuresed at this time. If it does not improve, then we have to hold his Eliquis for right-sided thoracentesis.
[2020-08-04] MEDS: IRON SUCROSE 200 MG in NS 100 ML IV SCH (15:39)
[2020-08-04 16:00] VITALS: BP 122/63
[2020-08-04 20:00] VITALS: BP 128/68
[2020-08-04] MEDS: OMEPRAZOLE 20 MG CAP PO SCH (21:15)
[2020-08-04] MEDS: APIXABAN 2.5 MG TAB (ELIQUIS) PO SCH (21:15)
[2020-08-05] VITALS: BP 119/66
[2020-08-05] MEDS: CEFEPIME HCL 2 GM in D5W MINI-BAG PLUS 50 ML IV SCH ×2 (01:51→12:53)
[2020-08-05 04:00] VITALS: BP 131/71
[2020-08-05] MEDS: LEVOTHYROXINE 25MCG TABLET (0.025MG) PO SCH (05:15)
[2020-08-05 07:46] LABS: BASO % 0.2 % (0.0-1.0); EOS # 0.4 10^3/uL (0.0-0.5); EOS % 3.1 % (0.0-3.0); HEMATOCRIT 31.5 % (42.0-52.0); LYMPH # 0.8 10^3/uL (1.5-5.0); LYMPH % 6.5 % (24.0-44.0); MEAN CORPUSCULAR HGB CONC 31.7 g/dl (32.0-36.5); MONO % 8.1 % (2.0-8.0); NEUTROPHILS # 10.2 10^3/uL (1.5-8.5); NEUTROPHILS % 81.4 % (36.0-66.0); PLATELET COUNT, AUTOMATED 209 10^3/uL (150-450); RED BLOOD COUNT 3.84 10^6/uL (4.30-6.10); WHITE BLOOD COUNT 12.5 10^3/uL (4.0-10.0)
[2020-08-05 08:00] VITALS: BP 146/70
[2020-08-05 08:20] LABS: ALBUMIN 2.6 GM/DL (3.2-5.2); BILIRUBIN,TOTAL 1.2 MG/DL (0.2-1.0); CALCIUM LEVEL 8.3 MG/DL (8.8-10.2); CREATININE FOR GFR 1.4 MG/DL (0.70-1.30); GLOMERULAR FILTRATION RATE 53.2 (>42); MAGNESIUM LEVEL 1.8 MG/DL (1.8-2.4); POTASSIUM SERUM 4.1 MEQ/L (3.5-5.1); TOTAL PROTEIN 5.7 GM/DL (6.4-8.2)
[2020-08-05] MEDS: OMEPRAZOLE 20 MG CAP PO SCH ×2 (09:28→21:30)
[2020-08-05] MEDS: METOPROLOL TART 12.5 MG PER 1/2 TAB PO SCH ×2 (09:28→21:30)
[2020-08-05] MEDS: ASPIRIN 81MG ENTERIC TABLET PO SCH (09:28)
[2020-08-05] MEDS: DULoxetine 30 MG CAP (CYMBALTA) PO SCH (09:29)
[2020-08-05] MEDS: THIAMINE 100 MG TAB PO SCH (09:29)
[2020-08-05] MEDS: POTASSIUM CHLORIDE 10 MEQ SR TABLET PO SCH (09:29)
[2020-08-05] MEDS: TAMSULOSIN 0.4 MG CAP PO SCH (09:29)
[2020-08-05] MEDS: SPIRONOLACTONE 12.5MG PER 1/2 TABLET PO SCH (09:29)
[2020-08-05] MEDS: FOLIC ACID 1 MG TAB PO SCH (09:29)
[2020-08-05] MEDS: APIXABAN 2.5 MG TAB (ELIQUIS) PO SCH ×2 (09:29→21:30)
[2020-08-05 12:00] VITALS: BP 114/85
--- NOTE | 2020-08-05 12:04 | IPNPDOC ---
Text Note Date of Service The patient was seen on 08/05/20. NOTE Subjective: No any acute events overnight, patient denied fever, chills, kim sea, or dysuria Objective: GENERAL APPEARANCE: NAD HEENT: no scleral icterus, plus JVD, EOMI CARDIOVASCULAR: S1S2 LUNGS: Diminished lung sounds bilaterally ABDOMEN: soft & not tender w palpitation MUSCULOSKELETAL: no cyanosis, no swelling INTEGUMENT: no generalized pallor NEUROLOGICAL: cranial nerve function from 2-12 intact intact, follows commands, speech not dysarthric Assessment/Plan Patient 69 years old male with past history of hypertension, hyperlipidemia, multiple sclerosis, peripheral vascular diseases presented hospital with generalized weakness and shortness of breath. Patient stated that he has been having shortness of breath on exertion post 1 week. Also she stated that he had nausea for past few days. Patient denied any fever or chills. Also he denied history of black stool or blood in the stool. Of note, patient recently saw vascular surgeon in [place], which changed his medication regimen and increase the dose of aspirin to 325. Also patient takes Eliquis 5 mg twice a day. Patient has history of carotid endarterectomy, femoral bypass, axillofemoral bypass. In ER patient was found to have white blood count of 12.2, hemoglobin 8, potassium 5.2, creatinine 1.9, AST 913, KOT395, ALK phos 667, troponin 0.2, CPK 6855, stool was positive for occult blood. CT abdomen and pelvis showed No free air or obstruction. Small amount of free fluid in the pelvis CT chest shows Large right pleural effusion, moderate left pleural effusion, with adjacent parenchymal atelectasis/infiltrate. Mild cardiomegaly. Problems (1) Acute diastolic CHF (congestive [place] [address], plus JVD CT showed Large right pleural effusion, moderate left pleural effusion, with adjacent parenchymal atelectasis/infiltrate. Pulse oxy sat 95% on room air I's and O's I talked to Dr. Oconnell on 07/30/20, he recommended to hold diuresis for now due to NAUN. If patient developed dyspnea we will start diuresis We will proceed with thoracocentesis when INR will be below 1.5. INR today 2.1. Will repeat vitamin K2.5 milligrams by mouth Continue gentle diuresis today I talked to Dr. Oconnell on 07/31/20 he recommended to continue current management. He recommended diuresis with Lasix IV if patient needs oxygen Echo from 07/30/20 showed ejection fraction of 65%, At least mildly dilated left atrium with grade 2 LV diastolic dysfunction and elevated estimated mean left atrial pressure. At least mildly dilated and hypertrophied right ventricle with normal wall motion and Doppler evidence of moderately severe pulmonary hypertension. Mildly dilated right atrium with IVC size upper limits of normal with reduced respiratory collapse in keeping with at least a central venous pressure that was upper limits of normal to mildly increased. CT chest on 08/02/20 showed Moderate right and small left pleural effusions with associated lower lobe consolidations Since admission his weight decreased from 40.7 kg to 36.4 kg Urine output around 2 L. Torsemide to hold (2) GI bleeding Most likely secondary to medication side effect, patient took aspirin 325 mg and Eliquis 5 mg twice a day on the regular basis Restarted Aspirin Patient received 2 units of blood on 07/30/20. Hemoglobin 9.5 EGD and colonoscopy was done today and showed hiatal hernia, mild diverticulitis and gastritis. No active bleeding I restarted Eliquis 5 mg twice a day (3) Transaminitis Significantly elevated transaminases most likely secondary to atorvastatin check hepatitis profile positive for hepatitis C. Patient stated that he had a history of hepatitis C and he has been treated for it. 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 The liver is otherwise relatively unremarkable. On 08/01/20 transaminitis trended down (4) Acute anemia Secondary to GI loss due to medications side effect aspirin and Eliquis Transfused 2 units of blood Hemoglobin stable today Venofer IV (5) Acute kidney injury Most likely prerenal secondary to intravascular volume depletion complicated by rhabdomyolysis Nephrology team follows him. Resolved today (6) Rhabdomyolysis Most likely secondary to statin therapy Patient has acute diastolic CHF, no IV fluid for now, continue to monitor CPK trended down (7) PVD (peripheral vascular disease) Statin, Restarted aspirin and Eliquis (8) Hypertensive urgency/hypertension Hydralazine with parameters Norvasc by mouth Blood pressure today stable (9) Supratherapeutic INR Secondary to liver dysfunction due to statin therapy Resolved (10) Hypokalemia Replaced (11) Elevated troponin Patient denied any chest pain or palpitations Troponin elevation could be attributed to NAUN and demand ischemia secondary to acute CHF EKG did not show any acute ischemic changes Troponin trended down SIRS Patient developed fever of 101 with leukocytosis of 14.8 on 07/31/20 No obvious source of infection, could be secondary to infected pleural effusion Blood culture negative, pro-calcitonin 2.26 Continue cefepime IV day 3 MRSA screen negative. PVD Continue aspirin and Eliquis VS,Fishbone, I+O VS, Fishbone, I+O Laboratory Tests 08/04/20 14:47 08/04/20 19:05 08/04/20 22:47 08/05/20 02:55 08/05/20 07:23 Vital Signs Date Time Temp Pulse Resp B/P (MAP) Pulse Ox O2 Delivery O2 Flow Rate FiO2 08/05/20 09:29 79 146/70 08/05/20 08:00 97.3 16 95 Room Air I&O- Last 24 Hours up to 6 AM 08/05/20 06:00 Intake Total 1260 ml Output Total 1770 ml Balance -510 ml VI KELLY DO Aug 05, 2020 12:04
[2020-08-05] MEDS: MIRALAX *UNIT DOSE* 17GM PACKET PO SCH (12:58)
[2020-08-05] MEDS: IRON SUCROSE 200 MG in NS 100 ML IV SCH (15:50)
[2020-08-05 16:00] VITALS: BP 111/74
[2020-08-05] MEDS ORDERED: ONDANSETRON 4 MG TAB PO PRN (18:20)
[2020-08-05 20:00] VITALS: BP 145/85
[2020-08-06] VITALS: BP 141/77
[2020-08-06 04:00] VITALS: BP 129/73
[2020-08-06] MEDS: LEVOTHYROXINE 25MCG TABLET (0.025MG) PO SCH (05:30)
[2020-08-06 05:51] LABS: BASO % 0.2 % (0.0-1.0); EOS # 0.2 10^3/uL (0.0-0.5); EOS % 1.1 % (0.0-3.0); HEMATOCRIT 31.1 % (42.0-52.0); HEMOGLOBIN 9.8 g/dl (13.5-17.5); LYMPH # 0.7 10^3/uL (1.5-5.0); LYMPH % 4.8 % (24.0-44.0); MEAN CORPUSCULAR HEMOGLOBIN 25.5 pg (27.0-33.0); MEAN CORPUSCULAR HGB CONC 31.5 g/dl (32.0-36.5); MEAN CORPUSCULAR VOLUME 80.8 fl (80.0-96.0); MONO # 1.4 10^3/uL (0.0-0.8); MONO % 9.4 % (2.0-8.0); NEUTROPHILS # 12.5 10^3/uL (1.5-8.5); NEUTROPHILS % 83.9 % (36.0-66.0); PLATELET COUNT, AUTOMATED 233 10^3/uL (150-450); RED BLOOD COUNT 3.85 10^6/uL (4.30-6.10); WHITE BLOOD COUNT 14.9 10^3/uL (4.0-10.0)
[2020-08-06 06:17] LABS: ALBUMIN 2.6 GM/DL (3.2-5.2); BILIRUBIN,TOTAL 1.4 MG/DL (0.2-1.0); CALCIUM LEVEL 8.7 MG/DL (8.8-10.2); CREATININE FOR GFR 1.45 MG/DL (0.70-1.30); GLOMERULAR FILTRATION RATE 51.1 (>42); MAGNESIUM LEVEL 1.7 MG/DL (1.8-2.4); TOTAL PROTEIN 6.1 GM/DL (6.4-8.2)
[2020-08-06 08:00] VITALS: BP 102/56
[2020-08-06 09:02] VITALS: BP 102/56
[2020-08-06] MEDS: METOPROLOL TART 12.5 MG PER 1/2 TAB PO SCH (09:02)
[2020-08-06] MEDS: TAMSULOSIN 0.4 MG CAP PO SCH (09:03)
[2020-08-06] MEDS: DULoxetine 30 MG CAP (CYMBALTA) PO SCH (09:03)
[2020-08-06] MEDS: FOLIC ACID 1 MG TAB PO SCH (09:03)
[2020-08-06] MEDS: OMEPRAZOLE 20 MG CAP PO SCH (09:03)
[2020-08-06] MEDS: THIAMINE 100 MG TAB PO SCH (09:03)
[2020-08-06] MEDS: SPIRONOLACTONE 12.5MG PER 1/2 TABLET PO SCH (09:03)
[2020-08-06] MEDS: ASPIRIN 81MG ENTERIC TABLET PO SCH (09:03)
[2020-08-06] MEDS: APIXABAN 2.5 MG TAB (ELIQUIS) PO SCH (09:03)
[2020-08-06] MEDS: POTASSIUM CHLORIDE 10 MEQ SR TABLET PO SCH (09:04)
[2020-08-06] MEDS: MIRALAX *UNIT DOSE* 17GM PACKET PO SCH (09:04)
--- NOTE | 2020-08-06 09:55 | IPN ---
PROGRESS NOTE DATE: 08/05/2020 SUBJECTIVE: Patient was seen and examined at the bedside today morning. He is afebrile, hemodynamically stable. His creatinine has slightly bumped up from 1 to 1.4 today. He was given a combination of torsemide and spironolactone yesterday. He denies any shortness of breath. His torsemide today morning dose was held by myself. OBJECTIVE: VITAL SIGNS: Temperature is 97.3 degrees Fahrenheit, blood pressure 145/85, pulse is 82, respiratory rate is 20, saturating 98% on room air. INTAKE AND OUTPUT: Urine output recorded as 1.9 liters yesterday, 500 ml so far today since overnight, weight on the bed scale is 36.4 kg. GENERAL: Patient is awake, alert and oriented x3, laying in bed in no apparent distress. HEAD AND NECK: Extraocular muscles are intact. Pupils equally round and reactive to light. Mucous membranes are moist. Neck is supple. There is no significant JVD. CARDIOVASCULAR: S1 and S2, right subclavian to bifemoral bypass was noted. RESPIRATORY: Mildly decreased breath sounds at the bases, otherwise no active rales or rhonchi. ABDOMEN: Soft, positive bowel sounds, hepatomegaly is noted. MUSCULOSKELETAL: No clubbing or cyanosis. Pulses are 2+. BEEF FARMER: No focal deficit. Power is 5/5 in all extremities. LABORATORY DATA: CBC showed a WBC of 12.5, hemoglobin of 10, platelets of 209,000. BMP showed a sodium of 131, potassium of 4.1, chloride 98, bicarbonate 26, BUN 23, creatinine is 1.4. It was 1.07 yesterday. Calcium 8.3. Magnesium 1.8. Total bilirubin is 1.2. AST is 138, ALT 382. Alkaline phosphatase is 404 and all of these numbers are improving. CURRENT INPATIENT MEDICATIONS: Patient's medications were all reviewed by myself. He continues to be on IV Cefepime. He has received two bags of IV Venofer. He is on spironolactone 25 mg p.o. daily. He got one dose of torsemide 5 mg which I have stopped now. ASSESSMENT AND PLAN: 1. Acute renal failure superimposed on chronic kidney disease. Patient got a combination of torsemide and spirolactone yesterday. The torsemide is being held because of the bump in the creatinine. Continue the spironolactone. 2. Acute decompensated diastolic congestive heart failure. Continue the spironolactone as mentioned above, loop diuretic is being held. 3. Hypokalemia, it is resolved with the combination of spironolactone and oral potassium. 4. Elevated liver enzymes is secondary to combination of high dose atorvastatin and hepatomegaly. Liver enzymes are getting better. 5. Iron deficiency anemia, patient is status post IV Venofer. Hemoglobin level is stable and improving. 6. Axillary to bifemoral bypass. Continue aspirin and Eliquis. 7. Right sided pleural effusion. Patient continues to be on diuretics. Repeat imaging will be done tomorrow morning for any need of thoracentesis.
--- NOTE | 2020-08-06 10:19 | REP ---
INDICATION: pleural effusion COMPARISON: 08/02/2020 TECHNIQUE: Axial noncontrast images from the thoracic inlet to the upper abdomen with coronal and sagittal reformations. This CT examination was performed using the following dose reduction techniques: Automated exposure control, adjustment of mA and/or kv according to the patient's size, and use of iterative reconstruction technique. FINDINGS: Moderate to large bilateral pleural effusions with associated lower lobe consolidations/atelectasis demonstrating air bronchograms and surrounding ground-glass opacities have increased from prior examination. No pneumothorax. The mediastinum demonstrates mild stable cardiomegaly, atherosclerotic changes to the coronary arteries and small stable pericardial fluid. Chronic atherosclerotic changes to the thoracic aorta and branch vessels are also identified without aneurysm. No obvious adenopathy. Musculoskeletal structures demonstrate stable chronic osteopenia and degenerative changes similar to prior examination. IMPRESSION: 1. Moderate to large bilateral pleural effusions with lower lobe atelectasis/consolidations (right greater than left) increased from prior examination. <Electronically signed by Live Bird > 08/06/20 1016
[2020-08-06 12:00] VITALS: BP 130/70
[2020-08-06] MEDS ORDERED: ASPI-551 PO (12:20)
[2020-08-06 12:30] VITALS: BP 105/59
--- NOTE | 2020-08-06 12:34 | DS.PDOC ---
Discharge Summary General Date of Admission Jul 30, 2020 at 17:31 Date of Discharge 08/05/20 Discharge Summary PROCEDURES PERFORMED DURING STAY: [None]. ADMITTING DIAGNOSES: Acute diastolic CHF (congestive heart failure) GI bleeding Transaminitis Acute anemia Acute kidney injury Rhabdomyolysis PVD (peripheral vascular disease) Hypertensive urgency/hypertension Supratherapeutic INR Hypokalemia Elevated troponin SIRS DISCHARGE DIAGNOSES: Acute diastolic CHF (congestive heart failure) GI bleeding Transaminitis Acute anemia Acute kidney injury Rhabdomyolysis PVD (peripheral vascular disease) Hypertensive urgency/hypertension Supratherapeutic INR Hypokalemia Elevated troponin SIRS STEMI COMPLICATIONS/CHIEF COMPLAINT: Gi Bleed. HISTORY OF PRESENT ILLNESS: Patient 69 years old male with past history of hypertension, hyperlipidemia, multiple sclerosis, peripheral vascular diseases presented hospital with generalized weakness and shortness of breath. Patient stated that he has been having shortness of breath on exertion post 1 week. Also she stated that he had nausea for past few days. Patient denied any fever or chills. Also he denied history of black stool or blood in the stool. Of note, patient recently saw vascular surgeon in [place], which changed his medication regimen and increase the dose of aspirin to 325. Also patient takes Eliquis 5 mg twice a day. Patient has history of carotid endarterectomy, femoral bypass, axillofemoral bypass. In ER patient was found to have white blood count of 12.2, hemoglobin 8, potassium 5.2, creatinine 1.9, AST 913, RCG185, ALK phos 667, troponin 0.2, CPK 6855, stool was positive for occult blood. CT abdomen and pelvis showed No free air or obstruction. Small amount of free fluid in the pelvis CT chest shows Large right pleural effusion, moderate left pleural effusion, with adjacent parenchymal atelectasis/infiltrate. Mild cardiomegaly. HOSPITAL COURSE: During this hospital stay the following issue addressed Acute diastolic CHF (congestive [place] [address], plus JVD on admission CT showed Large right pleural effusion, moderate left pleural effusion, with adjacent parenchymal atelectasis/infiltrate. Pulse oxy sat 95% on room air I's and O's I talked to Dr. Oconnell on 07/30/20, he recommended to hold diuresis for now due to NAUN. If patient developed dyspnea we will start diuresis We will proceed with thoracocentesis when INR will be below 1.5. INR today 2.1. Will repeat vitamin K2.5 milligrams by mouth Patient received gentle diuresis I talked to Dr. Oconnell on 07/31/20 he recommended to continue current management. He recommended diuresis with Lasix IV if patient needs oxygen Echo from 07/30/20 showed ejection fraction of 65%, At least mildly dilated left atrium with grade 2 LV diastolic dysfunction and elevated estimated mean left atrial pressure. At least mildly dilated and hypertrophied right ventricle with normal wall motion and Doppler evidence of moderately severe pulmonary hyperten beckie. Mildly dilated right atrium with IVC size upper limits of normal with reduced respiratory collapse in keeping with at least a central venous pressure that was upper limits of normal to mildly increased. CT chest on 08/02/20 showed Moderate right and small left pleural effusions with associated lower lobe consolidations Patient developed good urine output overnight. Since admission his weight decreased from 40.7 kg to 37.3 kg His kidney function normalized, we continue treatment with torsemide [address] chest on 08/06/20 showed Moderate to large bilateral pleural effusions with lower lobe atelectasis/consolidations (right greater than left) increased from prior examination. Patient might need thoracocentesis due to persistent pleural effusion ACS/STEMI Overnight patient developed chest pain EKG was done in the morning, showed new ST elevation in V2, V3. Dr. Oconnell recommended urgent transferred to [facility]. Dr. Maldonado buckle attacher accepted patient GI bleeding Most likely secondary to medication side effect, patient took aspirin 325 mg and Eliquis 5 mg twice a day on the regular basis Patient received 2 units of blood on 07/30/20. Hemoglobin 9.5 EGD and colonoscopy was done and showed hiatal hernia, mild diverticulitis and gastritis. No active bleeding I restarted Eliquis 5 mg twice a day, restarted aspirin 81 mg daily (3) Transaminitis Significantly elevated transaminases most likely secondary to atorvastatin check hepatitis profile positive for hepatitis C. Patient stated that he had a history of hepatitis C and he has been treated for it. Await her HEp ELEMENTARY EDUCATION TUTOR atorvastatin on hold Liver ultrasound showed Findings suggesting small amount of perihepatic and pericholecystic fluid which is nonspecific.The gallbladder demonstrates small amount of layering sludge without biliary ductal dilatation. The liver is otherwise relatively unremarkable. On 08/01/20 transaminitis trended down (4) Acute anemia Secondary to GI loss due to medications side effect aspirin and Eliquis Transfused 2 units of blood Hemoglobin stable today (5) Acute kidney injury Most likely prerenal secondary to intravascular volume depletion complicated by rhabdomyolysis Nephrology team follows him. Resolved today (6) Rhabdomyolysis Most likely secondary to statin therapy Patient has acute diastolic CHF, no IV fluid for now, continue to monitor CPK trended down (7) PVD (peripheral vascular disease) Statin, Restarted aspirin and Eliquis (8) Hypertensive urgency/hypertension Hydralazine with parameters Norvasc by mouth Blood pressure today stable (9) Supratherapeutic INR Secondary to liver dysfunction due to statin therapy Resolved (10) Hypokalemia Replaced (11) Elevated troponin Patient denied any chest pain or palpitations Troponin elevation could be attributed to NAUN and demand ischemia secondary to acute CHF EKG did not show any acute ischemic changes Troponin trended down Troponin was done on 08/06/20 due to chest pain, result pending SIRS Patient developed fever of 101 with leukocytosis of 14.8 on 07/31/20 No obvious source of infection, could be secondary to infected pleural effusion Blood culture negative, pro-calcitonin 2.26 Continue cefepime IV , patient received cefepime for 4 days. Today patient has leukocytosis of 14.9, blood culture ordered, procalcitonin ordered, pending MRSA screen negative. DISCHARGE MEDICATIONS: Please see below. ALLERGIES: Please see below. PHYSICAL EXAMINATION ON DISCHARGE: LABORATORY DATA: Please see below. IMAGING: [facility] NAME: ANDREA CARREON DATE OF : 1950 AGE: 69 SEX: M REPORT #: [id number] ROOM: [facility] TECHNOLOGIST: MAYRA DOCTOR: VI KELLY DO Ordered for Date&Time: 08/06/20 0906 cc: [~ rep ct ivnm] Service Date&Time: This report is in Signed status. If this report is in a DRAFT status it has not yet been reviewed by the radiologist for accuracy. Thank you for having your radiology procedures performed at [facility] RADIOLOGY REPORT Date&Time printed: [~ rep prt dt last] [~ rep prt tm last] Page 2 of 2 [place] [address] RADIOLOGY REPORT This report is in Signed status. If this report is in a DRAFT status it has not yet been reviewed by the radiologist for accuracy. Thank you for having your radiology procedures performed at [facility] RADIOLOGY REPORT Date&Time printed: [~ rep prt dt last] [~ rep prt tm last] Page 1 of 1 INDICATION: pleural effusion COMPARISON: 08/02/2020 TECHNIQUE: Axial noncontrast images from the thoracic inlet to the upper abdomen with coronal and sagittal reformations. This CT examination was performed using the following dose reduction techniques: Automated exposure control, adjustment of mA and/or kv according to the patient's size, and use of iterative reconstruction technique. FINDINGS: Moderate to large bilateral pleural effusions with associated lower lobe consolidations/atelectasis demonstrating air bronchograms and surrounding ground-glass opacities have increased from prior examination. No pneumothorax. The mediastinum demonstrates mild stable cardiomegaly, atherosclerotic changes to the coronary arteries and small stable pericardial fluid. Chronic atherosclerotic changes to the thoracic aorta and branch vessels are also identified without aneurysm. No obvious adenopathy. Musculoskeletal structures demonstrate stable chronic osteopenia and degenerative changes similar to prior examination. IMPRESSION: 1. Moderate to large bilateral pleural effusions with lower lobe atelectasis/consolidations (right greater than left) increased from prior examination. <Electronically signed by Live Bird > 08/06/20 1016 DD: Live Bird MD 08/06/20 1012 DT: MARIAH 08/06/20 1016 DS: EM 08/06/20 1012 08/06/20 1012 [~ rep ct labl] PROGNOSIS: Fair ACTIVITY: [As tolerated]. DIET: Cardiac DISCHARGE PLAN: Urgent transferred to [facility] ITEMS TO FOLLOWUP ON ON OUTPATIENT: Follow-up with roller checker, civil cadd technician and PCP DISCHARGE CONDITION: [Stable]. TIME SPENT ON DISCHARGE: 40 minutes. Vital Signs/I&Os Vital Signs Date Time Temp Pulse Resp B/P (MAP) Pulse Ox O2 Delivery O2 Flow Rate FiO2 08/06/20 12:00 98.0 84 18 130/70 (90) 96 Room Air I&O- Last 24 Hours up to 6 AM 08/06/20 05:59 Intake Total 1310 ml Output Total 950 ml Balance 360 ml Laboratory Data Labs 24H Laboratory Tests 2 08/06/20 05:33: Immature Granulocyte % (Auto) 0.6, Neutrophils (%) (Auto) 83.9H, Lymphocytes (%) (Auto) 4.8L, Monocytes (%) (Auto) 9.4H, Eosinophils (%) (Auto) 1.1, Basophils (%) (Auto) 0.2, Neutrophils # (Auto) 12.5H, Lymphocytes # (Auto) 0.7L, Monocytes # (Auto) 1.4H, Eosinophils # (Auto) 0.2, Basophils # (Auto) 0.0, Nucleated Red Blood Cells % (auto) 0.0, Anion Gap 7L, Glomerular Filtration Rate 51.1, Calcium Level 8.7L, Magnesium Level 1.7L, Total Bilirubin 1.4H, Aspartate Amino Transf (AST/SGOT) 96H, Alanine Aminotransferase (ALT/SGPT) 309H, Alkaline Phosphatase 400H, Total Protein 6.1L, Albumin 2.6L, Albumin/Globulin Ratio 0.7 08/06/20 10:14: 08/06/20 11:12: Troponin I 0.05 08/06/20 12:20: CBC/BMP Laboratory Tests 08/06/20 05:33 Microbiology Microbiology 08/06/20 Blood Culture, Received Pending 08/06/20 Blood Culture, Received Pending 08/01/20 Stool Occult Blood (PHYLLIS) - Final, Complete 07/31/20 Blood Culture - Final, Complete NO GROWTH AFTER 5 DAYS 07/31/20 Blood Culture - Final, Complete NO GROWTH AFTER 5 DAYS Discharge Medications Scheduled Apixaban (Eliquis) 5 Mg Tablet, 5 MG PO BID, (Reported) Aspirin (Aspirin EC) 81 Mg Tablet.dr, 81 MG PO DAILY Atorvastatin Calcium (Atorvastatin Calcium) 40 Mg Tablet, 40 MG PO DAILY, (Reported) Duloxetine Hcl (Duloxetine HCl) 30 Mg Cap, 30 MG PO DAILY, (Reported) Levothyroxine Sodium (Levothyroxine Sodium) 25 Mcg Tablet, 25 MCG PO DAILY, (Reported) Metoprolol Tartrate (Metoprolol Tartrate) 25 Mg Tablet, 25 MG PO BID, (Reported) Potassium Chloride (Klor-Con M10) 10 Meq Tab.er.prt, 20 MEQ PO DAILY, (Reported) Tamsulosin Hcl (Tamsulosin HCl) 0.4 Mg Capsule, 0.4 MG PO DAILY, (Reported) Scheduled PRN Tramadol HCl (Tramadol HCl) 50 Mg Tab, 50 MG PO TID PRN for PAIN, (Reported) Allergies Coded Allergies: Penicillins (Verified Allergy, Mild, RASH A CHILD, 03/09/20) VI KELLY DO Aug 06, 2020 12:34
[2020-08-06 12:44] LABS: INR 1.71; PROTHROMBIN TIME 20.5 SECONDS (12.5-14.3)
[2020-08-06] MEDS ORDERED: CEFEPIME HCL 2 GM in D5W MINI-BAG PLUS 50 ML IV SCH (13:00)
--- NOTE | 2020-08-06 22:32 | IPN ---
NEPHROLOGY PROGRESS NOTE DATE: 08/06/2020 SUBJECTIVE: The patient was seen and examined this morning at the bedside. He is in good spirits. He reported chest pain and subsequently had an EKG done which showed new ST elevations and the patient is pending transfer to [facility]. He also complains of shortness of breath with any simple exertion and he had a repeat chest CT without contrast done today which showed moderate to large bilateral pleural effusions. OBJECTIVE: PHYSICAL EXAMINATION: VITAL SIGNS: Temperature 97.6, pulse 84, respiratory rate 28, blood pressure 105/59, saturating 92-96% on room air. INTAKE AND OUTPUT: Urine output yesterday was 500 mL. Weight in the bed scale today is 38.6 kg. GENERAL APPEARANCE: The patient is seen awake, alert, lying in bed in no apparent distress. He has dwarf-like stature. HEENT: The extraocular muscles are intact. Tongue is moist. NECK: Jugular veins are elevated appearing. HEART: Regular, S1, S2. There is no peripheral edema. LUNGS: Diminished breath sounds bilaterally but there is no accessory muscle nor tachypnea. He is on room air. ABDOMEN: Soft and nontender. EXTREMITIES: Negative for any peripheral edema. SKIN: Warm and dry. NEUROLOGICAL: He is oriented x3, interactive and conversational. LABORATORY STUDIES: White count 14.9, hemoglobin 9.8, platelet count 233. Sodium 132, potassium 4.0, BUN 29, creatinine 1.4, magnesium 1.7, AST decreased to 96, ALT decreased to 300. IMAGING: CT of the chest shows moderate to large bilateral pleural effusions. INPATIENT MEDICATIONS: The patient's medications were reviewed by myself. He is receiving Cefepime 2 grams IV daily. His Amlodipine dose was decreased to 5 mg daily. His remainder of medications are unchanged as compared to yesterday. PROBLEMS: 1. Acute decompensated diastolic congestive heart failure with moderate bilateral pleural effusions - The patient needs further diuresis. He has received both loop diuretics and Spironolactone intermittently over the course of this admission and he will need to continue with diuresis, and I feel he may also benefit from a thoracentesis. 2. Hypervolemic hyponatremia - continue with oral fluid restriction and with combination diuretics. 3. Chronic kidney disease stage 3 review of labs show significant fluctuation in the patient's creatinine from a low of 1.1 in February of 2020 up to around 1.6 in the recent past. His fluctuation in renal function is likely related to fluid status, and at present he is still in moderate fluid overload and needs to continue with diuresis. He did have several CAT scans on this admission, but they were all without contrast. Renal imaging revealed severe right renal atrophy. 4. Anemia in the setting of iron deficiency - The patient received one unit packed red blood cells on this admission, and he has also received Venofer. 5. ST-elevation myocardial infarction - The patient is being urgently transferred to [facility] for further workup and probable cardiac catheterization.
--- NOTE | 2020-08-06 23:21 | ECGEPIP ---
[facility] Test Date: 2020-08-06 Pat Name: ANDREA CARREON Department: Room: [place] [address] Gender: Male Dog Hair Clipper: BRITTANEY : 1950 Requested By: VI KELLY Order Number: [id number] Reading MD: Hoang Mayen Measurements Intervals [facility] Rate: 79 P: 7 LA: 160 QRS: 3 QRSD: 94 T: 18 QT: 384 QTc: 440 Interpretive Statements Normal sinus rhythm with sinus arrhythmia Minimal voltage criteria for LVH, may be normal variant ( Gildardo product ) Nonspecific T wave abnormality Compared to prior 3 tracings in the system, no remarkable changes Electronically Signed on 08-06-2020 23:21:28 EDT by Hoang Mayen
[2020-08-07] MEDS ORDERED: amLODIPine 5 MG TAB PO SCH (09:00)
== END 2020-08-06 14:03 | disposition short-term general hospital (02) | DRG 377 ==
LOC: M ED 11:16 → EDBD 11:16 → M ED INP 17:31 → ENRESERV 19:32 → M PCU 20:38
PROVIDERS: ADMIT Internal Medicine; ATTEND Internal Medicine
PROC: 30233N1 Transfusion of Nonautologous Red Blood Cells into Peripheral Vein, Percutaneous Approach (ICD-10-PCS; 2020-07-30)
PROC: 0DJD8ZZ Inspection of Lower Intestinal Tract, Via Natural or Artificial Opening Endoscopic (ICD-10-PCS; 2020-08-03)
PROC: 0DJ08ZZ Inspection of Upper Intestinal Tract, Via Natural or Artificial Opening Endoscopic (ICD-10-PCS; principal; 2020-08-03 14:30)
DX: K92.2 Gastrointestinal hemorrhage, unspecified (principal); I50.33 Acute on chronic diastolic (congestive) heart failure; I21.3 ST elevation (STEMI) myocardial infarction of unspecified site; N17.9 Acute kidney failure, unspecified; M62.82 Rhabdomyolysis; I16.1 Hypertensive emergency; I24.8 Other forms of acute ischemic heart disease; E87.2 Acidosis; D62 Acute posthemorrhagic anemia; B17.9 Acute viral hepatitis, unspecified; I13.0 Hypertensive heart and chronic kidney disease with heart failure and stage 1 through stage 4 chronic kidney disease, or unspecified chronic kidney disease; D68.4 Acquired coagulation factor deficiency; R65.10 Systemic inflammatory response syndrome (SIRS) of non-infectious origin without acute organ dysfunction; D68.32 Hemorrhagic disorder due to extrinsic circulating anticoagulants; E78.5 Hyperlipidemia, unspecified; G35 Multiple sclerosis; K64.8 Other hemorrhoids; N18.30 Chronic kidney disease, stage 3 unspecified; K59.00 Constipation, unspecified; K64.4 Residual hemorrhoidal skin tags; K57.30 Diverticulosis of large intestine without perforation or abscess without bleeding; K44.9 Diaphragmatic hernia without obstruction or gangrene; E87.5 Hyperkalemia; I73.9 Peripheral vascular disease, unspecified; R74.01 Elevation of levels of liver transaminase levels; I25.2 Old myocardial infarction; Z95.5 Presence of coronary angioplasty implant and graft; Z98.62 Peripheral vascular angioplasty status; Z79.01 Long term (current) use of anticoagulants; Z79.82 Long term (current) use of aspirin; Z79.899 Other long term (current) drug therapy; Z88.0 Allergy status to penicillin; Z96.611 Presence of right artificial shoulder joint; Z87.891 Personal history of nicotine dependence; Z20.822 Contact with and (suspected) exposure to COVID-19

== ENCOUNTER → 2020-09-20 | Outpatient (CLI) | payer MEDICARE ==
[~2020-09-20] MED LIST changes: +ASPI-551 PO; +ATOR40TA75 PO
--- NOTE | 2020-09-20 11:19 | REP ---
INDICATION: ABNORMAL LUNG FINDINGS COMPARISON: 08/23/2020 TECHNIQUE: PA and lateral. FINDINGS: The mediastinum and cardiac silhouette are stable. Diffuse chronic interstitial changes are again noted. Increased bibasilar opacities suggesting atelectasis and small pleural effusions (right greater than left). The skeletal structures are stable. IMPRESSION: Chronic stable changes. Subtle superimposed small basilar opacities and pleural effusions suspected. <Electronically signed by Live Bird > 09/20/20 1233
== END ==
LOC: M ADAMS 11:02
PROVIDERS: ATTEND Nurse Practitioner Family
DX: R91.8 Other nonspecific abnormal finding of lung field (principal)

== ENCOUNTER 2020-09-28 01:10 | Inpatient (IN) | payer MEDICARE ==
[~2020-09-28] VITALS: Ht 144.8 cm; Wt 37.9 kg
[2020-09-28 02:18] LABS: ALBUMIN 1.9 GM/DL (3.2-5.2); BILIRUBIN,DIRECT 0.2 MG/DL (0.0-0.2); BILIRUBIN,TOTAL 0.5 MG/DL (0.2-1.0); CALCIUM LEVEL 8.7 MG/DL (8.8-10.2); CREATININE FOR GFR 2.59 MG/DL (0.70-1.30); GLOMERULAR FILTRATION RATE 26.1 (>42); POTASSIUM SERUM 5.2 MEQ/L (3.5-5.1); TOTAL PROTEIN 5.7 GM/DL (6.4-8.2)
[2020-09-28 02:28] LABS: BASO % 0.1 % (0.0-1.0); EOS # 0.1 10^3/uL (0.0-0.5); EOS % 1.6 % (0.0-3.0); HEMATOCRIT 35.1 % (42.0-52.0); HEMOGLOBIN 10.7 g/dl (13.5-17.5); LYMPH # 0.8 10^3/uL (1.5-5.0); LYMPH % 9.6 % (24.0-44.0); MEAN CORPUSCULAR HEMOGLOBIN 23.9 pg (27.0-33.0); MEAN CORPUSCULAR HGB CONC 30.5 g/dl (32.0-36.5); MEAN CORPUSCULAR VOLUME 78.5 fl (80.0-96.0); MONO # 0.7 10^3/uL (0.0-0.8); MONO % 7.7 % (2.0-8.0); NEUTROPHILS # 6.9 10^3/uL (1.5-8.5); NEUTROPHILS % 80.4 % (36.0-66.0); PLATELET COUNT, AUTOMATED 359 10^3/uL (150-450); RED BLOOD COUNT 4.47 10^6/uL (4.30-6.10); WHITE BLOOD COUNT 8.6 10^3/uL (4.0-10.0)
[2020-09-28] MEDS ORDERED: NS 1,000 ML IV ONE (04:20)
[2020-09-28] MEDS ORDERED: ACETAMINOPHEN TAB 650MG DOSE (2X325MG) PO PRN (04:55)
[2020-09-28] MEDS ORDERED: DEXTROSE 50% 50 ML SYRINGE IV PRN (04:55)
[2020-09-28] MEDS ORDERED: MAALOX 30 ML SUSP *UDC PO PRN (04:55)
[2020-09-28] MEDS ORDERED: GLUCAGON INJ 1MG VIAL SC PRN (04:55)
[2020-09-28] MEDS ORDERED: GLUCOSE 4GM CHEW TABLET PO PRN (04:55)
[2020-09-28] MEDS ORDERED: MOM 30ML SUSPENSION UDC PO PRN (04:55)
--- NOTE | 2020-09-28 05:00 | HPEPDOC ---
[facility] Medical History & Physical Date of Admission Sep 28, 2020 Date of Service: Sep 28, 2020 History and Physical CHIEF COMPLAINT: Hypoglycemia HISTORY OF PRESENT ILLNESS: 69-year-old male history of CAD, PVD, MS, who was brought in to [facility] by EMS because of a fall at home with this by his . Patient tells me he was asleep in his chair when he believes he slid out and fell onto the floor and his called 911. Upon arrival EMS found his blood sugar to be in the 30s and gave him oral glucose blood sugar on repeat was 29 and he was brought to the hospital. In the ED blood sugar improved to 143. Patient tells me HARINDER that has been good he ate linguini with shrimp before falling asleep and he's been drinking lots of water. He tells me surprise his blood sugar was low and he's never experienced this before. He tells me his is nondiabetic and he could not have His medications with nurse. He tells me he doesn't have a history of diabetes and has no access to insulin. Currently he is feeling well he denies any headaches or dizziness weakness chest pain or shortness of breath. He does endorse lower extremity swelling which she thinks has been getting worse over the past 2 months. PAST MEDICAL/SURGICAL HISTORY: Multiple sclerosis CAD with stenting Peripheral vascular disease with stenting Hypertension Hyperlipidemia Depression Chronic back pain BPH Scope of right knee DCS Right shoulder replacement Hernia repair Cardiac stenting Carotid endarterectomy For more a bypass Axillofemoral bypass SOCIAL HISTORY: Denies alcohol use Denies tobacco use quit around 4 years ago prior to that 48 accurate history Denies illicit drug use other than occasionally using cannabis FAMILY HISTORY: Father had coronary artery disease. Mother has arthritis ALLERGIES: Please see below. REVIEW OF SYSTEMS: 10 point review of systems complete all negative otherwise stated in HPI HOME MEDICATIONS: Please see below. PHYSICAL EXAMINATION: Constitutional: Awake and alert, in no apparent distress ENT: Sclera are clear. Mucosa is moist. Respiratory: Lungs CTA bilaterally. No respiratory distress. No use of accessory muscles. Cardiovascular: RRR S1 and S2 are normal Gastrointestinal: Abdomen is soft, Slightly distended with 1+ pitting edema on lower abdomen, non tender, BS present. Musculoskeletal: 3+ lower extremity edema, edema extends up to his lower abdomen. Edematous scrotum. Neurologic: No focal neurological deficit. Mental Status: A&O x3, normal affect Skin: No visible rashes LABORATORY DATA: See below. IMAGING: See chart MICROBIOLOGY: Please see below. ASSESSMENT/PLAN 69-year-old male history of CAD, PVD, MS, who was initially brought to the hospital due to hypoglycemia of unknown etiology also found to have acute on chronic CHF exacerbation possibly also cardiorenal syndrome and electric abnormalities. Patient will be admitted for further workup and management. # Acute on chronic CHFpEF: Clinically decompensated, fluid overloaded up to his abdomen. No BNP done, fu BNP. Last EF 07/2020 EF 65% G2DD. Diuresis IV lasix. Continue spironolactone. Hold metoprolol in light of acute CHF exacerbation. Strict Ins/outs. Restrict fluid intake. # NAUN: Cr 2.59 on admit. Possible cardiorenal syndrome. Trial of IV diuresis. Consider nephrology consultation. # Hypoglycemia: Etiology unknown at this point. Monitor blood sugars with meals. Hypoglycemic precautions. D50 PRN. # Hyperkalemia: K5.2 on admit. Possibly from renal failure. Monitor. Kayexelate if increases. # Lactic acidosis: Initial lactate 2.8. Likely from his episode of hypoglycemia as well as in the setting of acute kidney injury. No fever or leukocytosis. Repeat lactate. Fu UA. # Transaminitis: in the setting of CHF, monitor and trend. Fu Liver US, GGT. Hold statin. # Hyponatremia: Lower than baseline, although has a history of hyponatremia. Fluid restrict. Consider nephro consult. # Hypertension: Continue home meds. Monitor and titrate # CAD with stenting: ASA, hold statin in light of transaminitis # PVD: contine home ASA, eliquis, hold statin in light of transaminitis # Depression: Continue Duloxetine # Chronic back pain: continue tramadol PRN # BPH: continue home tamulosin # DVT prophylaxis: Julianna Noble Yousef Hospitalist Vital Signs Vital Signs Date Time Temp Pulse Resp B/P (MAP) Pulse Ox O2 Delivery O2 Flow Rate FiO2 09/28/20 04:15 72 16 175/99 (124) 95 Room Air 09/28/20 01:43 96.9 Laboratory Data Labs 24H Laboratory Tests 2 09/28/20 01:29: Bedside Glucose (Misc Panel) 136H 09/28/20 01:36: Anion Gap 10, Glomerular Filtration Rate 26.1L, Lactic Acid Level 2.8*H, Calcium Level 8.7L, Total Bilirubin 0.5, Direct Bilirubin 0.2, Aspartate Amino Transf (AST/SGOT) 111H, Alanine Aminotransferase (ALT/SGPT) 117H, Alkaline Phosphatase 245H, Ammonia < 10, Total Protein 5.7L, Albumin 1.9L, Albumin/Globulin Ratio 0.5, Lipase 102 09/28/20 01:38: Immature Granulocyte % (Auto) 0.6, Neutrophils (%) (Auto) 80.4H, Lymphocytes (%) (Auto) 9.6L, Monocytes (%) (Auto) 7.7, Eosinophils (%) (Auto) 1.6, Basophils (%) (Auto) 0.1, Neutrophils # (Auto) 6.9, Lymphocytes # (Auto) 0.8L, Monocytes # (Auto) 0.7, Eosinophils # (Auto) 0.1, Basophils # (Auto) 0.0, Nucleated Red Blood Cells % (auto) 0.3H 09/28/20 04:14: Bedside Glucose (Misc Panel) 129H 09/28/20 04:41: CBC/BMP Laboratory Tests 09/28/20 01:36 09/28/20 01:38 Home Medications Scheduled Apixaban (Eliquis) 2.5 Mg Tablet, 2.5 MG PO BID Aspirin (Aspirin EC) 81 Mg Tablet.dr, 81 MG PO DAILY Atorvastatin Calcium (Atorvastatin Calcium) 40 Mg Tablet, 40 MG PO DAILY Calcitriol (Calcitriol) 0.25 Mcg Capsule, 0.25 MCG PO 3XW THURSDAY, THURSDAY AND THURSDAY Duloxetine Hcl (Duloxetine HCl) 30 Mg Cap, 30 MG PO DAILY Levothyroxine Sodium (Levothyroxine Sodium) 25 Mcg Tablet, 25 MCG PO DAILY Metoprolol Tartrate (Metoprolol Tartrate) 25 Mg Tablet, 25 MG PO BID Potassium Chloride (Klor-Con M10) 10 Meq Tab.er.prt, 20 MEQ PO DAILY Spironolactone (Spironolactone) 25 Mg Tablet, 25 MG PO DAILY Tamsulosin Hcl (Tamsulosin HCl) 0.4 Mg Capsule, 0.4 MG PO DAILY Torsemide (Torsemide) 20 Mg Tablet, 20 MG PO DAILY Scheduled PRN Tramadol HCl (Tramadol HCl) 50 Mg Tab, 50 MG PO TID PRN for PAIN Allergies Coded Allergies: Penicillins (Verified Allergy, Mild, RASH A CHILD, 03/09/20) A-FIB/CHADSVASC A-FIB History Current/History of A-Fib/PAF?: No SHAINA LOPEZ MD Sep 28, 2020 05:00
[2020-09-28] MEDS ORDERED: ASPI-161 PO (05:22)
[2020-09-28] MEDS ORDERED: SPIR-10 PO (05:22)
[2020-09-28] MEDS ORDERED: CALC1CAP31 PO (05:22)
[2020-09-28] MEDS ORDERED: ELIQ2.5T PO (05:22)
[2020-09-28] MEDS ORDERED: TORS20TA2 PO (05:22)
[2020-09-28 05:30] LABS: RSV AMPLIFICATION NEGATIVE (NEGATIVE)
[2020-09-28] MEDS: FUROSEMIDE 40MG/4ML VIAL (J1940) IV SCH ×3 (06:32→21:03)
[2020-09-28] MEDS: LEVOTHYROXINE 25MCG TABLET (0.025MG) PO SCH (06:32)
--- NOTE | 2020-09-28 07:36 | REPVR ---
PROCEDURE INFORMATION: Exam: US Abdomen, Limited; Right Upper Quadrant Exam date and time: 09/28/2020 6:34 AM Age: 69 years old Clinical indication: Other: Transaminitis TECHNIQUE: Imaging protocol: US abdomen. Real time ultrasound with image documentation. Limited exam focused on the right upper quadrant. COMPARISON: CT ABD PELVIS W/O CONTRAST 07/30/2020 3:42 PM FINDINGS: Pleural spaces: Right-sided pleural effusion is seen. Liver: Normal. No masses. Gallbladder: There is a 7 mm gallstone. The gallbladder is partially distended. There is mild gallbladder wall thickening. No sonographic Butcher's sign was elicited. Common bile duct: The CBD is normal in caliber measuring 5 mm. Pancreas: Limited in partially visualized pancreatic head demonstrate no focal lesion. The majority of the pancreas is obscured by bowel gas. Right kidney: The right kidney is severely atretic and echogenic measuring 5.5 x 3.8 x 2.3 cm. No focal right renal lesions seen. Intraperitoneal space: Perihepatic free fluid is seen. IMPRESSION: 1. Right-sided pleural effusion and perihepatic ascites. 2. 7 mm gallstone with upper normal to minimally thickened gallbladder wall but with no sonographic Butcher's sign. The mild gallbladder wall thickening could be secondary to 3rd spacing/perihepatic ascites however underlying early cholecystitis cannot be completely excluded. Correlate with clinical history, symptoms and LFTs. If indicated HIDA scan may be considered for further evaluation. 3. Severely atretic right kidney. Electronically signed by: Colin Jernigan On 09/28/2020 07:35:51 AM
[2020-09-28 07:45] LABS: NT-PRO BNP 43335 PG/ML (<125)
[2020-09-28 09:28] LABS: BASO % 0.2 % (0.0-1.0); EOS % 0.5 % (0.0-3.0); HEMATOCRIT 36.1 % (42.0-52.0); HEMOGLOBIN 11.2 g/dl (13.5-17.5); LYMPH # 0.8 10^3/uL (1.5-5.0); MEAN CORPUSCULAR HEMOGLOBIN 24.1 pg (27.0-33.0); MEAN CORPUSCULAR VOLUME 77.6 fl (80.0-96.0); MONO # 0.7 10^3/uL (0.0-0.8); MONO % 7.7 % (2.0-8.0); NEUTROPHILS # 7.2 10^3/uL (1.5-8.5); PLATELET COUNT, AUTOMATED 355 10^3/uL (150-450); RED BLOOD COUNT 4.65 10^6/uL (4.30-6.10); WHITE BLOOD COUNT 8.7 10^3/uL (4.0-10.0)
--- NOTE | 2020-09-28 09:33 | ECGEPIP ---
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
--- NOTE | 2020-09-28 09:50 | REP ---
INDICATION: Swelling COMPARISON: None. TECHNIQUE: Schulz scale and color Doppler evaluation using linear high frequency transducer. FINDINGS: Ultrasound examination of the right and left lower extremity deep venous structures from the common femoral vein through the popliteal veins with limited evaluation of the calf/ankle veins due to edema. There is no evidence for deep venous thrombosis. IMPRESSION: No evidence for deep venous thrombosis. Limited evaluation of the calf through the ankles due to edema. <Electronically signed by Live Bird > 09/28/20 0972
--- NOTE | 2020-09-28 09:52 | REP ---
INDICATION: CHF COMPARISON: 09/20/2020 TECHNIQUE: PA and lateral. FINDINGS: Mediastinum and cardiac silhouette are stable with cardiomegaly again noted. Lung sewell demonstrate chronic interstitial changes. Superimposed small to moderate pleural effusions (right greater than left) and associated bibasilar parenchymal opacities/atelectasis are also identified and similar to prior examination. IMPRESSION: Findings suggest increasing small to moderate pleural effusions and bibasilar opacities. <Electronically signed by Live Bird > 09/28/20 0940
[2020-09-28 10:06] LABS: ALBUMIN 1.8 GM/DL (3.2-5.2); ALT/SGPT 112 U/L (12-78); BILIRUBIN,DIRECT 0.2 MG/DL (0.0-0.2); BILIRUBIN,TOTAL 0.5 MG/DL (0.2-1.0); BLOOD UREA NITROGEN 51 MG/DL (7-18); CARBON DIOXIDE LEVEL 24 MEQ/L (21-32); CHLORIDE LEVEL 95 MEQ/L (98-107); CK-MB VALUE MASS 30.5 NG/ML (<3.6); CPK CREATINE PHOSPHOKINASE 754 U/L (39-308); CREATININE FOR GFR 2.49 MG/DL (0.70-1.30); GLOMERULAR FILTRATION RATE 27.4 (>42); GLUCOSE, FASTING 120 MG/DL (70-100); MAGNESIUM LEVEL 2.3 MG/DL (1.8-2.4); MB/CK RELATIVE INDEX 4.05 (< OR =4); POTASSIUM SERUM 4.6 MEQ/L (3.5-5.1); SODIUM LEVEL 131 MEQ/L (136-145); TOTAL PROTEIN 5.3 GM/DL (6.4-8.2); TROPONIN I 0.02 NG/ML (< 0.10)
[2020-09-28] MEDS: DULoxetine 30 MG CAP (CYMBALTA) PO SCH (10:09)
[2020-09-28] MEDS: ASPIRIN 81MG ENTERIC TABLET PO SCH (10:09)
[2020-09-28] MEDS: APIXABAN 2.5 MG TAB (ELIQUIS) PO SCH ×2 (10:09→21:01)
[2020-09-28] MEDS: TAMSULOSIN 0.4 MG CAP PO SCH (10:09)
[2020-09-28] MEDS: DOCUSATE SODIUM 100MG CAPSULE PO SCH ×2 (10:09→21:00)
[2020-09-28 10:50] LABS: HEPATITIS B SURFACE ANTIGEN NEGATIVE (NEGATIVE)
[2020-09-28] MEDS: CALCITRIOL 0.25 MCG CAP (S0169) PO SCH (11:11)
[2020-09-28] MEDS: SPIRONOLACTONE 25 MG TAB PO SCH (11:11)
[2020-09-28 11:17] LABS: HEPATITIS B CORE ANTIBODY IGM NEGATIVE (NEGATIVE)
[2020-09-28 11:19] LABS: HEPATITIS A ANTIBODY IGM NEGATIVE (NEGATIVE)
[2020-09-28 11:24] LABS: HEPATITIS C VIRUS ABY INDEX > 11.0 INDEX (<0.8)
--- NOTE | 2020-09-28 11:53 | IPNPDOC ---
Text Note Date of Service The patient was seen on 09/28/20. NOTE Subjective: Patient is a 69 year old male with a PMHx of HTN, CAD w/ stenting, PVD w/ stenting and femoral bypass, DLP, MS, Chronic back pain, Depression and BPH, who presented to the ER because he had slid out of his chair an fell on the floor. EMS was called and found his glucose level to be 30. Patient was given an oral glucose tablet and repeat was 29. Patient was brought to the ER for further evaluation. On arrival to emergency room, patient's glucose levels have improved, however. Physical does reveal significant fluid overloaded. Patient was admitted to the hospital service for further evaluation and treatment. Patient was seen and examined at the bedside. Patient was sitting up at that adjusted the bed was awake and alert. Denies any chest pain or palpitations. Reports some shortness of breath with exertion. Denies any nausea, vomiting or abdominal pain. Reports that his lower extremities have been swollen and worsening over last 2 months. Objective: Vitals (See below) General: Sitting up at the edge of bed, appears to be comfortable, AAOx3 HEENT: NC, AT CVS: +S1S2 Lungs: Diminished sound bilaterally, there does not appear to be appreciated wheezing, crackles or rhonchi Abdomen: Soft, ND, nontender, edema appreciate the lower abdomen Extremities: 3+ pitting edema extending from feet to abdomen, - Calf tenderness Imaging: Liver US 09/28: 1. Right-sided pleural effusion and perihepatic ascites. 2. 7 mm gallstone with upper normal to minimally thickened gallbladder wall but with no sonographic Butcher's sign. The mild gallbladder wall thickening could be secondary to 3rd spacing/perihepatic ascites however underlying early cholecystitis cannot be completely excluded. Correlate with clinical history, symptoms and LFTs. If indicated HIDA scan may be considered for further evaluation. 3. Severely atretic right kidney. CXR 09/28: Findings suggest increasing small to moderate pleural effusions and bibasilar opacities. Vascular US 09/28: No evidence for deep venous thrombosis. Limited evaluation of the calf through the ankles due to edema. Assessment and plan: Diffuse LE edema - likely 2/2 decompensated CHF (preserved EF) - Patient reports shortness of breath with exertion and worsening lower extremity edema over last 2 months - Physical reveals extensive lower extremity edema extending up abdomen - Currently on room air - Elevated BNP - Will repeat ECHO - Will have strict ins/outs, daily weights, fluid restriction - c/w Furosemide IV and spironolactone NAUN - likely 2/2 cardiorenal syndrome - Will avoid nephrotoxic medications - Will c/w diuresis - If renal function fails to improve in next 24 hours; will consider Nephrology consult Transaminitis - Hepatitis C positive - Abdomen is without any tenderness - Imaging noted above; this is unlikely cholecystitis - patient is not febrile no leukocytosis, no abdominal pain, nausea, vomiting - Temperature appears to be more consistent with hepatic congestion from fluid overload - c/w Diuresis as stated above Hyponatremia - likely 2/2 hypotonic hypervolemic etiology - Will continue with diuresis s/p Hyperkalemia - Improving with diuresis Lactic acidosis - No evidence of infection - Will not start IV fluids; patient is grossly fluid overloaded - Will continue with diuresis HTN - BP remains elevated - Will resume Metoprolol - c/w Furosemide and Spironolactone CAD w/ stenting - Patient was recently at [facility] for further cardiac evaluation - He is reported that he has had a stress test that was negative; he did not get any catheterization at that time - Patient follows up with Dr. Oconnell as an outpatient PVD w/ stenting and femoral bypass - Statin on hold (re: Transaminitis) - c/w ASA and Eliquis DLP - Statin on hold (re: Transaminitis) Multiple sclerosis Chronic back pain - c/w Tramadol Hypothyroidism - c/w Levothyroxine Depression - c/w Duloxetine BPH - c/w Tamsulosin DVT prophylaxis - c/w full anticoagulation with Eliquis Disposition: - Awaiting clinical improvement VS,Joon, I+O VS, Joon, I+O Laboratory Tests 09/28/20 01:36 09/28/20 01:38 09/28/20 09:17 Vital Signs Date Time Temp Pulse Resp B/P (MAP) Pulse Ox O2 Delivery O2 Flow Rate FiO2 09/28/20 06:15 77 16 182/92 (122) 94 Room Air 09/28/20 01:43 96.9 RACHELE WALKER MD Sep 28, 2020 11:53
[2020-09-28 12:54] VITALS: BP 156/92
[2020-09-28 14:10] LABS: CK-MB VALUE MASS 30.1 NG/ML (<3.6); MB/CK RELATIVE INDEX 3.98 (< OR =4); TROPONIN I 0.02 NG/ML (< 0.10)
[2020-09-28] MEDS: METOPROLOL TART 25 MG TABLET PO SCH ×2 (14:15→21:02)
[2020-09-28 16:30] VITALS: BP 139/81
[2020-09-28] MEDS: traMADol 50 MG TAB PO PRN (16:59)
[2020-09-28 18:43] LABS: CK-MB VALUE MASS 30.2 NG/ML (<3.6); MB/CK RELATIVE INDEX 3.78 (< OR =4); TROPONIN I 0.04 NG/ML (< 0.10)
[2020-09-28] MEDS ORDERED: SLF 3 ML SYR IV PRN (19:45)
[2020-09-28 20:00] VITALS: BP 143/77
[2020-09-28] MEDS: SLF 3 ML SYR IV SCH (21:03)
[2020-09-29] VITALS: BP 135/64
[2020-09-29 04:00] VITALS: BP 123/78
[2020-09-29 04:17] LABS: BASO % 0.2 % (0.0-1.0); EOS # 0.1 10^3/uL (0.0-0.5); EOS % 1.6 % (0.0-3.0); HEMATOCRIT 34.1 % (42.0-52.0); HEMOGLOBIN 10.5 g/dl (13.5-17.5); LYMPH # 0.9 10^3/uL (1.5-5.0); LYMPH % 10.6 % (24.0-44.0); MEAN CORPUSCULAR HEMOGLOBIN 23.8 pg (27.0-33.0); MEAN CORPUSCULAR HGB CONC 30.8 g/dl (32.0-36.5); MEAN CORPUSCULAR VOLUME 77.3 fl (80.0-96.0); MONO # 0.8 10^3/uL (0.0-0.8); MONO % 9.5 % (2.0-8.0); NEUTROPHILS # 6.3 10^3/uL (1.5-8.5); NEUTROPHILS % 77.7 % (36.0-66.0); PLATELET COUNT, AUTOMATED 318 10^3/uL (150-450); RED BLOOD COUNT 4.41 10^6/uL (4.30-6.10); WHITE BLOOD COUNT 8.1 10^3/uL (4.0-10.0)
[2020-09-29 04:40] LABS: ALBUMIN 1.7 GM/DL (3.2-5.2); BILIRUBIN,TOTAL 0.5 MG/DL (0.2-1.0); CREATININE FOR GFR 2.32 MG/DL (0.70-1.30); GLOMERULAR FILTRATION RATE 29.7 (>42); POTASSIUM SERUM 4.1 MEQ/L (3.5-5.1); TOTAL PROTEIN 5.3 GM/DL (6.4-8.2)
[2020-09-29] MEDS: LEVOTHYROXINE 25MCG TABLET (0.025MG) PO SCH (06:16)
[2020-09-29] MEDS: SLF 3 ML SYR IV SCH ×3 (06:16→21:12)
[2020-09-29] MEDS: FUROSEMIDE 40MG/4ML VIAL (J1940) IV SCH ×3 (06:18→21:12)
[2020-09-29 08:00] VITALS: BP 146/82
[2020-09-29] MEDS: SPIRONOLACTONE 25 MG TAB PO SCH (09:21)
[2020-09-29] MEDS: DOCUSATE SODIUM 100MG CAPSULE PO SCH ×2 (09:21→21:00)
[2020-09-29] MEDS: DULoxetine 30 MG CAP (CYMBALTA) PO SCH (09:21)
[2020-09-29] MEDS: ASPIRIN 81MG ENTERIC TABLET PO SCH (09:21)
[2020-09-29] MEDS: METOPROLOL TART 25 MG TABLET PO SCH ×2 (09:22→21:12)
[2020-09-29] MEDS: APIXABAN 2.5 MG TAB (ELIQUIS) PO SCH ×2 (09:22→21:12)
[2020-09-29] MEDS: TAMSULOSIN 0.4 MG CAP PO SCH (09:22)
--- NOTE | 2020-09-29 11:29 | IPNPDOC ---
Text Note Date of Service The patient was seen on 09/29/20. NOTE Subjective: Patient is a 69 year old male with a PMHx of HTN, CAD w/ stenting, PVD w/ stenting and femoral bypass, DLP, MS, Chronic back pain, Depression and BPH, who presented to the ER because he had slid out of his chair an fell on the floor. EMS was called and found his glucose level to be 30. Patient was given an oral glucose tablet and repeat was 29. Patient was brought to the ER for further evaluation. On arrival to emergency room, patient's glucose levels have improved, however. Physical does reveal significant fluid overloaded. Patient was admitted to the hospital service for further evaluation and treatment. Patient was seen and examined at the bedside. Patient was sitting in chair, appears to be comfortable, not in any acute distress. Reports that her shortness of breath with exertion and has had some improvement. Denies any chest pain or palpitations. Has not spent any nausea, vomiting, abdominal pain. Reports that his lower extremities have had some improvement of their swelling. Objective: Vitals (See below) General: Sitting up in chair, appears to be comfortable, not in any acute distress, oriented to person, place and time HEENT: Normocephalic and atraumatic CVS: +S1S2 Lungs: Air entry is fair bilaterally without any evidence of wheezing, crackles or rhonchi Abdomen: Soft, nondistended and nontender Extremities: 2-3+ pitting edema bilaterally extending up to abdomen, - Calf tenderness Imaging: Liver US 09/28: 1. Right-sided pleural effusion and perihepatic ascites. 2. 7 mm gallstone with upper normal to minimally thickened gallbladder wall but with no sonographic Butcher's sign. The mild gallbladder wall thickening could be secondary to 3rd spacing/perihepatic ascites however underlying early cholecystitis cannot be completely excluded. Correlate with clinical history, symptoms and LFTs. If indicated HIDA scan may be considered for further evaluation. 3. Severely atretic right kidney. CXR 09/28: Findings suggest increasing small to moderate pleural effusions and bibasilar opacities. Vascular US 09/28: No evidence for deep venous thrombosis. Limited evaluation of the calf through the ankles due to edema. Assessment and plan: Diffuse LE edema - likely 2/2 decompensated CHF (preserved EF) - Clinically patient has reported some improvement of their breathing - LE edema persists; but improving - Saturating well on room air - Elevated BNP - ECHO complete; report pending - c/w strict ins/outs, daily weights, fluid restriction - patient has been negative fluid balance - c/w Furosemide IV (will increase dose) and spironolactone NAUN - likely 2/2 cardiorenal syndrome - Baseline Cr of 1.0-1.4 - Improving slowly - Will avoid nephrotoxic medications - c/w diuresis Transaminitis - Hepatitis C positive - Abdomen is without any tenderness - Imaging noted above; this is unlikely cholecystitis - patient is not febrile no leukocytosis, no abdominal pain, nausea, vomiting - Temperature appears to be more consistent with hepatic congestion from fluid overload - c/w Diuresis as stated above Hyponatremia - likely 2/2 hypotonic hypervolemic etiology - c/w diuresis s/p Hyperkalemia - Improving with diuresis Lactic acidosis - No evidence of infection - Will not start IV fluids; patient is grossly fluid overloaded - Will continue with diuresis HTN - BP remains elevated - Will resume Metoprolol - c/w Furosemide and Spironolactone CAD w/ stenting - Patient was recently at [facility] for further cardiac evaluation - He is reported that he has had a stress test that was negative; he did not get any catheterization at that time - Patient follows up with Dr. Oconnell as an outpatient PVD w/ stenting and femoral bypass - Statin on hold (re: Transaminitis) - c/w ASA and Eliquis DLP - Statin on hold (re: Transaminitis) Multiple sclerosis Chronic back pain - c/w Tramadol Hypothyroidism - c/w Levothyroxine Depression - c/w Duloxetine BPH - c/w Tamsulosin DVT prophylaxis - c/w full anticoagulation with Eliquis Disposition: - Awaiting clinical improvement VS,Fishbone, I+O VS, Fishbone, I+O Laboratory Tests 09/29/20 03:58 Vital Signs Date Time Temp Pulse Resp B/P (MAP) Pulse Ox O2 Delivery O2 Flow Rate FiO2 09/29/20 09:22 76 146/82 09/29/20 08:00 98.3 Room Air 09/29/20 04:00 18 95 I&O- Last 24 Hours up to 6 AM 09/29/20 06:00 Intake Total 1240 ml Output Total 2200 ml Balance -960 ml WALKER,VIJESH MD Sep 29, 2020 11:29
[2020-09-29 12:00] VITALS: BP 148/80
[2020-09-29 16:00] VITALS: BP 130/85
[2020-09-29] MEDS: traMADol 50 MG TAB PO PRN (16:23)
[2020-09-29 20:00] VITALS: BP 124/85
[2020-09-30] VITALS: BP 145/92
[2020-09-30 04:00] VITALS: BP 134/93
[2020-09-30 05:04] LABS: BASO % 0.2 % (0.0-1.0); EOS # 0.2 10^3/uL (0.0-0.5); EOS % 1.8 % (0.0-3.0); HEMATOCRIT 37.2 % (42.0-52.0); HEMOGLOBIN 11.6 g/dl (13.5-17.5); LYMPH # 0.9 10^3/uL (1.5-5.0); LYMPH % 8.3 % (24.0-44.0); MEAN CORPUSCULAR HEMOGLOBIN 23.9 pg (27.0-33.0); MEAN CORPUSCULAR HGB CONC 31.2 g/dl (32.0-36.5); MEAN CORPUSCULAR VOLUME 76.5 fl (80.0-96.0); MONO # 0.6 10^3/uL (0.0-0.8); MONO % 6.1 % (2.0-8.0); NEUTROPHILS # 8.6 10^3/uL (1.5-8.5); NEUTROPHILS % 82.9 % (36.0-66.0); PLATELET COUNT, AUTOMATED 332 10^3/uL (150-450); RED BLOOD COUNT 4.86 10^6/uL (4.30-6.10); WHITE BLOOD COUNT 10.4 10^3/uL (4.0-10.0)
[2020-09-30 05:45] LABS: BILIRUBIN,TOTAL 0.6 MG/DL (0.2-1.0); CALCIUM LEVEL 8.3 MG/DL (8.8-10.2); CREATININE FOR GFR 2.38 MG/DL (0.70-1.30); GLOMERULAR FILTRATION RATE 28.8 (>42); MAGNESIUM LEVEL 1.9 MG/DL (1.8-2.4); POTASSIUM SERUM 2.9 MEQ/L (3.5-5.1); TOTAL PROTEIN 6.4 GM/DL (6.4-8.2)
[2020-09-30] MEDS: LEVOTHYROXINE 25MCG TABLET (0.025MG) PO SCH (05:56)
[2020-09-30] MEDS: FUROSEMIDE 40MG/4ML VIAL (J1940) IV SCH ×3 (05:59→21:19)
[2020-09-30] MEDS: SLF 3 ML SYR IV SCH ×3 (06:00→21:26)
[2020-09-30] MEDS ORDERED: POTASSIUM CHLORIDE 10 MEQ SR TABLET PO ONE ×2 (07:00→10:00)
[2020-09-30] MEDS ORDERED: KCL 10MEQ/100ML SWI (KRUN) 10 MEQ in IV 1 EA IV ONE (07:00)
[2020-09-30 08:00] VITALS: BP 124/98
--- NOTE | 2020-09-30 08:56 | ECHO ---
ECHOCARDIOGRAM DATE OF PROCEDURE: 09/28/2020 Age: 69 Gender: Male Height: 145 cm Weight: 47 kg REFERRING PHYSICIAN: Yonatan Cordero M.D. INDICATION: Localized edema, unspecified. MEASUREMENTS: 2D Measurements: Left ventricle diastole 4.3 cm Intraventricular septum 1.10 cm Posterior wall 1.13 cm Left atrium 3.7 cm Aortic root 3.0 cm Aortic annulus 2.0 cm Left atrium volume index 55 Inferior vena cava 1.3 cm (more than 50% respiratory variation) Doppler Measurements: No aortic stenosis No aortic regurgitation Aortic valve velocity 132 cm/s LVOT velocity 73.8 cm/s LVOT VTI 10.3 cm Moderate mitral regurgitation No mitral stenosis Mitral E velocity 102 cm/s Mitral A velocity 122 cm/s Mitral deceleration time 164 msec Moderate tricuspid regurgitation Estimated right ventricular systolic pressure 75 mmHg Estimated right atrial pressure 10 mmHg No pulmonic regurgitation Pulmonary artery acceleration time 77 msec MITRAL ANNULAR TISSUE DOPPLER E prime septal 3.6 cm/s, E prime lateral 4.8 cm/s DESCRIPTION: Rhythm was sinus. This was a moderately technically difficult echocardiogram. This was a 2D, M-mode, color flow Doppler, and pulsed wave Doppler examination including mitral annular tissue Doppler. CONCLUSIONS: 1. Normal left ventricular internal dimensions and wall thickness. Moderate global LV hypokinesis. Moderate reduction of overall LV systolic function. LVEF 40% (3D quantitation). Grade 1 LV diastolic dysfunction (impaired relaxation filling pattern). 2. Suggestive of severe elevation of estimated right ventricle systolic pressure (75 mmHg). Normal right ventricle size and systolic function. 3. Severe left atrial dilatation. 4. Moderate aortic valve sclerosis of a 3-cuspid aortic valve. No aortic stenosis or regurgitation. 5. Moderate mitral annular calcification with moderate mitral regurgitation. No mitral stenosis. 6. Small pericardial effusion measuring 0.7 cm over the posterior wall of the left ventricle. No diastolic chamber collapse. Pericardial effusion was circumferential and was without masses. 7. Left pleural effusion.
[2020-09-30] MEDS: DOCUSATE SODIUM 100MG CAPSULE PO SCH ×3 (09:00→21:00)
--- NOTE | 2020-09-30 09:35 | IPNPDOC ---
Text Note Date of Service The patient was seen on 09/30/20. NOTE Subjective: Patient is a 69 year old male with a PMHx of HTN, CAD w/ stenting, PVD w/ stenting and femoral bypass, DLP, MS, Chronic back pain, Depression and BPH, who presented to the ER because he had slid out of his chair an fell on the floor. EMS was called and found his glucose level to be 30. Patient was given an oral glucose tablet and repeat was 29. Patient was brought to the ER for further evaluation. On arrival to emergency room, patient's glucose levels have improved, however. Physical does reveal significant fluid overloaded. Patient was admitted to the hospital service for further evaluation and treatment. Patient was seen and examined at the bedside. Patient was reporting pain in his right arm where the K runs were running patient denies any nausea, vomiting, chest pain, shortness breath, palpitations. Reports his lower extremities have been improving. Objective: Vitals (See below) General: Patient is sitting in chair, reporting right arm pain while K runs are infusing, is oriented to person, place and time HEENT: NC, AT CVS: +S1S2 Lungs: Auscultation is fair bilaterally without evidence of wheezing, crackles, rhonchi Abdomen: Soft without distention or tenderness Extremities: There is 2-3+ pitting edema that extends up to his thighs Imaging: Liver US 09/28: 1. Right-sided pleural effusion and perihepatic ascites. 2. 7 mm gallstone with upper normal to minimally thickened gallbladder wall but with no sonographic Butcher's sign. The mild gallbladder wall thickening could be secondary to 3rd spacing/perihepatic ascites however underlying early cholec ystitis cannot be completely excluded. Correlate with clinical history, symptoms and LFTs. If indicated HIDA scan may be considered for further evaluation. 3. Severely atretic right kidney. CXR 09/28: Findings suggest increasing small to moderate pleural effusions and bibasilar opacities. Vascular US 09/28: No evidence for deep venous thrombosis. Limited evaluation of the calf through the ankles due to edema. ECHO 09/28: 1. Normal left ventricular internal dimensions and wall thickness. Moderate global LV hypokinesis. Moderate reduction of overall LV systolic function. LVEF 40% (3D quantitation). Grade 1 LV diastolic dysfunction (impaired relaxation filling pattern). 2. Suggestive of severe elevation of estimated right ventricle systolic pressure (75 mmHg). Normal right ventricle size and systolic function. 3. Severe left atrial dilatation. 4. Moderate aortic valve sclerosis of a 3-cuspid aortic valve. No aortic stenosis or regurgitation. 5. Moderate mitral annular calcification with moderate mitral regurgitation. No mitral stenosis. 6. Small pericardial effusion measuring 0.7 cm over the posterior wall of the left ventricle. No diastolic chamber collapse. Pericardial effusion was circumferential and was without masses. 7. Left pleural effusion. Assessment and plan: Diffuse LE edema / Effusion - likely 2/2 decompensated systolic and diastolic CHF (EF: 40%) - Again, patient has reported improvement of his edema, but physical still reveals significant lower extremity swelling - Saturating well on room air - Elevated BNP - ECHO noted above - c/w strict ins/outs, daily weights, fluid restriction; continues to remain negative fluid balance - c/w Furosemide IV and spironolactone Systolic and Diastolic CHF (EF: 40%) - ECHO above - c/w Furosemide / Spironolactone / Metoprolol - Will consider adding Entresto / MARICHUY / ARB within 24 hours; however will follow kidney function NAUN - likely 2/2 cardiorenal syndrome - Baseline Cr of 1.0-1.4 - Remains stable - Will avoid nephrotoxic medications - c/w diuresis Transaminitis - Hepatitis C positive - Abdomen is without any tenderness - Imaging noted above; this is unlikely cholecystitis - patient is not febrile no leukocytosis, no abdominal pain, nausea, vomiting - Temperature appears to be more consistent with hepatic congestion from fluid overload - c/w Diuresis as stated above Hyponatremia - likely 2/2 hypotonic hypervolemic etiology - c/w diuresis Hypokalemia - Will provide supplementation - Will repeat basic metabolic panel this afternoon Lactic acidosis - No evidence of infection - Will not start IV fluids; patient is grossly fluid overloaded - Will continue with diuresis HTN - BP improved - c/w Furosemide / Spironolactone / Metoprolol CAD w/ stenting - Patient was recently at [facility] for further cardiac evaluation - He is reported that he has had a stress test that was negative; he did not get any catheterization at that time - Patient follows up with Dr. Oconnell as an outpatient PVD w/ stenting and femoral bypass - Statin on hold (re: Transaminitis) - c/w ASA and Eliquis DLP - Statin on hold (re: Transaminitis) Multiple sclerosis Chronic back pain - c/w Tramadol Hypothyroidism - c/w Levothyroxine Depression - c/w Duloxetine BPH - c/w Tamsulosin DVT prophylaxis - c/w full anticoagulation with Eliquis Disposition: - Awaiting clinical improvement VS,Joon, I+O VSJoon I+O Laboratory Tests 09/30/20 04:52 Vital Signs Date Time Temp Pulse Resp B/P (MAP) Pulse Ox O2 Delivery O2 Flow Rate FiO2 09/30/20 08:00 97.8 72 18 124/98 (107) 93 Room Air I&O- Last 24 Hours up to 6 AM 09/30/20 05:59 Intake Total 270 ml Output Total 1920 ml Balance -1650 ml RACHELE WALKER MD Sep 30, 2020 09:35
[2020-09-30] MEDS: SPIRONOLACTONE 25 MG TAB PO SCH (09:47)
[2020-09-30] MEDS: ASPIRIN 81MG ENTERIC TABLET PO SCH (09:48)
[2020-09-30] MEDS: TAMSULOSIN 0.4 MG CAP PO SCH (09:48)
[2020-09-30] MEDS: APIXABAN 2.5 MG TAB (ELIQUIS) PO SCH ×2 (09:48→21:21)
[2020-09-30] MEDS: DULoxetine 30 MG CAP (CYMBALTA) PO SCH (09:48)
[2020-09-30] MEDS: METOPROLOL TART 25 MG TABLET PO SCH ×2 (09:48→21:21)
[2020-09-30] MEDS: traMADol 50 MG TAB PO PRN ×2 (09:53→14:44)
[2020-09-30 12:00] VITALS: BP 118/88
[2020-09-30 12:50] LABS: CREATININE FOR GFR 2.22 MG/DL (0.70-1.30); GLOMERULAR FILTRATION RATE 31.2 (>42); POTASSIUM SERUM 4.4 MEQ/L (3.5-5.1)
[2020-09-30 16:00] VITALS: BP 143/83
[2020-09-30 20:00] VITALS: BP 124/78
[2020-09-30] MEDS ORDERED: CARVedilol 3.125 MG TAB PO SCH (21:00)
[2020-09-30] MEDS: POTASSIUM CHLORIDE 10 MEQ SR TABLET PO SCH (21:20)
[2020-10-01] VITALS: BP 130/74
[2020-10-01] MEDS: traMADol 50 MG TAB PO PRN ×3 (00:15→21:06)
[2020-10-01 03:15] VITALS: BP 131/85
--- NOTE | 2020-10-01 05:18 | REPVR ---
PROCEDURE INFORMATION: Exam: CT Head Without Contrast Exam date and time: 10/01/2020 4:35 AM Age: 69 years old Clinical indication: Injury or trauma; Fall; Blunt trauma (contusions or hematomas); Consciousness not specified; Additional info: Unwitnessed fall, patient said he hit his head TECHNIQUE: Imaging protocol: Computed tomography of the head without contrast. Radiation optimization: All CT scans at this facility use at least one of these dose optimization techniques: automated exposure control; mA and/or kV adjustment per patient size (includes targeted exams where dose is matched to clinical indication); or iterative reconstruction. COMPARISON: CT Head without contrast 03/09/2020 10:35 AM FINDINGS: Brain: There is mild periventricular white matter hypoattenuation with no associated mass effect. Cerebral ventricles: There is age-related cerebral atrophy with secondary ventricular dilatation. There is normal variant cavum septum pellucidum. Paranasal sinuses: Visualized sinuses are unremarkable. No fluid levels. Mastoid air cells: Visualized mastoid air cells are well aerated. Bones/joints: Unremarkable. No acute fracture. Soft tissues: Unremarkable. IMPRESSION: 1. No CT evidence of acute intracranial hemorrhage, mass effect or midline shift. 2. Age-related cerebral atrophy with mild chronic microangiopathic changes. Electronically signed by: Colin Jernigan On 10/01/2020 05:18:24 AM
[2020-10-01 05:35] LABS: BASO % 0.2 % (0.0-1.0); EOS # 0.2 10^3/uL (0.0-0.5); EOS % 1.9 % (0.0-3.0); HEMATOCRIT 34.8 % (42.0-52.0); HEMOGLOBIN 10.6 g/dl (13.5-17.5); LYMPH # 0.9 10^3/uL (1.5-5.0); LYMPH % 10.8 % (24.0-44.0); MEAN CORPUSCULAR HEMOGLOBIN 23.3 pg (27.0-33.0); MEAN CORPUSCULAR HGB CONC 30.5 g/dl (32.0-36.5); MEAN CORPUSCULAR VOLUME 76.5 fl (80.0-96.0); MONO # 0.6 10^3/uL (0.0-0.8); MONO % 6.9 % (2.0-8.0); NEUTROPHILS # 6.8 10^3/uL (1.5-8.5); NEUTROPHILS % 79.6 % (36.0-66.0); PLATELET COUNT, AUTOMATED 296 10^3/uL (150-450); RED BLOOD COUNT 4.55 10^6/uL (4.30-6.10); WHITE BLOOD COUNT 8.5 10^3/uL (4.0-10.0)
[2020-10-01 05:57] LABS: ALBUMIN 1.8 GM/DL (3.2-5.2); BILIRUBIN,TOTAL 0.5 MG/DL (0.2-1.0); CALCIUM LEVEL 8.1 MG/DL (8.8-10.2); CREATININE FOR GFR 2.22 MG/DL (0.70-1.30); GLOMERULAR FILTRATION RATE 31.2 (>42); MAGNESIUM LEVEL 1.9 MG/DL (1.8-2.4); POTASSIUM SERUM 4.3 MEQ/L (3.5-5.1); TOTAL PROTEIN 5.3 GM/DL (6.4-8.2)
[2020-10-01] MEDS: LEVOTHYROXINE 25MCG TABLET (0.025MG) PO SCH (06:08)
[2020-10-01] MEDS: FUROSEMIDE 40MG/4ML VIAL (J1940) IV SCH ×3 (06:09→21:07)
[2020-10-01] MEDS: SLF 3 ML SYR IV SCH ×3 (06:09→21:08)
[2020-10-01 08:00] VITALS: BP 166/74
[2020-10-01] MEDS: TAMSULOSIN 0.4 MG CAP PO SCH (08:42)
[2020-10-01] MEDS: CALCITRIOL 0.25 MCG CAP (S0169) PO SCH (08:42)
[2020-10-01] MEDS: DOCUSATE SODIUM 100MG CAPSULE PO SCH ×2 (08:42→21:00)
[2020-10-01] MEDS: DULoxetine 30 MG CAP (CYMBALTA) PO SCH (08:42)
[2020-10-01] MEDS: APIXABAN 2.5 MG TAB (ELIQUIS) PO SCH ×2 (08:42→21:05)
[2020-10-01] MEDS: POTASSIUM CHLORIDE 10 MEQ SR TABLET PO SCH ×2 (08:43→21:07)
[2020-10-01] MEDS: ASPIRIN 81MG ENTERIC TABLET PO SCH (08:43)
[2020-10-01] MEDS: SPIRONOLACTONE 25 MG TAB PO SCH (08:43)
[2020-10-01] MEDS: METOPROLOL TART 25 MG TABLET PO SCH ×2 (08:44→21:07)
--- NOTE | 2020-10-01 09:43 | IPNPDOC ---
Text Note Date of Service The patient was seen on 10/01/20. NOTE Subjective: Patient is a 69 year old male with a PMHx of HTN, CAD w/ stenting, PVD w/ stenting and femoral bypass, DLP, MS, Chronic back pain, Depression and BPH, who presented to the ER because he had slid out of his chair an fell on the floor. EMS was called and found his glucose level to be 30. Patient was given an oral glucose tablet and repeat was 29. Patient was brought to the ER for further evaluation. On arrival to emergency room, patient's glucose levels have improved, however. Physical does reveal significant fluid overloaded. Patient was admitted to the hospital service for further evaluation and treatment. Patient was seen and examined at the bedside. Patient was sitting in chair. Patient denies any chest pain, shortness of breath, palpitations. Reports that he is not experiencing any nausea, vomiting or abdominal pain. He has been urinating but not met. Reports that his lower extremity edema has not changed over last day. Objective: Vitals (See below) General: Sitting in chair, appears comfortable without any acute distress, is oriented to person, place and time HEENT: Normocephalic and atraumatic CVS: +S1S2 Lungs: There is fair air entry bilaterally without evidence of wheezing, crackles or rhonchi Abdomen: Soft without distention or tenderness Extremities: 2+ pitting edema extending to thighs Imaging: Liver US 09/28: 1. Right-sided pleural effusion and perihepatic ascites. 2. 7 mm gallstone with upper normal to minimally thickened gallbladder wall but with no sonographic Butcher's sign. The mild gallbladder wall thickening could be secondary to 3rd spacing/perihepatic ascites however underlying early cholecystitis cannot be completely excluded. Correlate with clinical history, symptoms and LFTs. If indicated HIDA scan may be considered for further evaluation. 3. Severely atretic right kidney. CXR 09/28: Findings suggest increasing small to moderate pleural effusions and bibasilar opacities. Vascular US 09/28: No evidence for deep venous thrombosis. Limited evaluation of the calf through the ankles due to edema. ECHO 09/28: 1. Normal left ventricular internal dimensions and wall thickness. Moderate global LV hypokinesis. Moderate reduction of overall LV systolic function. LVEF 40% (3D quantitation). Grade 1 LV diastolic dysfunction (impaired relaxation filling pattern). 2. Suggestive of severe elevation of estimated right ventricle systolic pressure (75 mmHg). Normal right ventricle size and systolic function. 3. Severe left atrial dilatation. 4. Moderate aortic valve sclerosis of a 3-cuspid aortic valve. No aortic stenosis or regurgitation. 5. Moderate mitral annular calcification with moderate mitral regurgitation. No mitral stenosis. 6. Small pericardial effusion measuring 0.7 cm over the posterior wall of the left ventricle. No diastolic chamber collapse. Pericardial effusion was circumferential and was without masses. 7. Left pleural effusion. Assessment and plan: Diffuse LE edema / Effusion - likely 2/2 decompensated systolic and diastolic CHF (EF: 40%) - Patient reports his lower extremity edema persists and has very little improvement from yesterday - Denies any shortness of breath, saturating well on room air - Elevated BNP - ECHO noted above - c/w strict ins/outs, daily weights, fluid restriction; continues to remain negative fluid balance - c/w Furosemide IV and spironolactone - Will consult nephrology for assistance with diuresis Systolic and Diastolic CHF (EF: 40%) - ECHO above - c/w Furosemide / Spironolactone / Metoprolol - Will consider adding Entresto / MARICHUY / ARB; however will follow kidney function NAUN - likely 2/2 cardiorenal syndrome - Baseline Cr of 1.0-1.4 - Creatinine has had some improvement from admission. However, is not at baseline - Will avoid nephrotoxic medications - c/w diuresis - Will consult nephrology for assistance with diuresis Transaminitis - Hepatitis C positive - Abdomen is without any tenderness - Imaging noted above; this is unlikely cholecystitis - patient is not febrile no leukocytosis, no abdominal pain, nausea, vomiting - Temperature appears to be more consistent with hepatic congestion from fluid overload - c/w Diuresis as stated above Hyponatremia - likely 2/2 hypotonic hypervolemic etiology - c/w diuresis s/p Hypokalemia Lactic acidosis - No evidence of infection - Will not start IV fluids; patient is grossly fluid overloaded - Will continue with diuresis HTN - BP elevated - c/w Furosemide / Spironolactone / Metoprolol - Will have diuresis adjusted CAD w/ stenting - Patient was recently at [facility] for further cardiac evaluation - He is reported that he has had a stress test that was negative; he did not get any catheterization at that time - Patient follows up with Dr. Oconnell as an outpatient PVD w/ stenting and femoral bypass - Statin on hold (re: Transaminitis) - c/w ASA and Eliquis DLP - Statin on hold (re: Transaminitis) Multiple sclerosis Chronic back pain - c/w Tramadol Hypothyroidism - c/w Levothyroxine Depression - c/w Duloxetine BPH - c/w Tamsulosin DVT prophylaxis - c/w full anticoagulation with Eliquis Disposition: - Awaiting clinical improvement - Nephrology consulted Joon STRICKLAND, I+O VSJoon I+O Laboratory Tests 09/30/20 11:52 10/01/20 04:54 Vital Signs Date Time Temp Pulse Resp B/P (MAP) Pulse Ox O2 Delivery O2 Flow Rate FiO2 10/01/20 08:47 18 10/01/20 08:44 83 166/74 10/01/20 08:00 97.3 95 Room Air I&O- Last 24 Hours up to 6 AM 10/01/20 06:00 Intake Total 2050 ml Output Total 825 ml Balance 1225 ml RACHELE WALKER MD Oct 01, 2020 09:43
[2020-10-01 12:00] VITALS: BP 131/85
[2020-10-01] MEDS ORDERED: metOLazone 5 MG TAB PO ONE (12:15)
[2020-10-01 16:00] VITALS: BP 166/70
[2020-10-01 20:00] VITALS: BP 141/83
--- NOTE | 2020-10-01 22:53 | CR ---
NEPHROLOGY CONSULTATION DATE: 10/01/2020 REQUESTING PHYSICIAN: Dr. Yonatan Cordero CONSULTING PHYSICIAN: Dr. Marisol Nix REASON FOR CONSULTATION: Management of acute renal failure and decompensated volume status. CHIEF COMPLAINT: The patient presented to the hospital on September 28 with leg swelling and low sugar levels. HISTORY OF PRESENT ILLNESS: Skip Hedrick is a 69-year-old male with a past medical history of hypertension, peripheral vascular disease, chronic kidney disease stage 3 with a best baseline creatinine of 1.1, history of chronic combined systolic and diastolic congestive heart failure. He was initially admitted on September 28, 2020 with hypoglycemia. He was admitted under the Hospitalist Service. He had a creatinine of 2.5 on arrival. Medical Team tried to diurese him, however he is not diuresing well. He still has signs of fluid overload. His creatinine was 2.2 today morning. Nephrology Service was called for further help in the management of this patient. I saw and evaluated the patient today morning at the bedside. He was actually sitting up on the sofa. He was able to provide me with a history. He still reports persistent lower extremity edema with swelling all the way up to his knees. PAST MEDICAL HISTORY: The patient's past medical history is significant for: 1. Chronic kidney disease stage 3. 2. Cardiorenal syndrome best baseline creatinine 1.1 about 2 months ago. 3. History of chronic combined systolic and diastolic congestive heart failure, left ventricular ejection fraction around 40%. 4. Peripheral vascular disease. 5. Coronary artery disease was stenting. 6. Hypertension. 7. Hyperlipidemia. 8. Chronic back pain. 9. Benign prostatic hypertrophy. PAST SURGICAL HISTORY: The patient's past surgical history is significant for: 1. Status post cardiac stenting. 2. Status post right shoulder replacement. 3. Hernia repair. 4. Carotid endarterectomy. 5. Axillobifemoral bypass on the right side. FAMILY HISTORY: Positive history of coronary artery disease in father. No history of end-stage renal disease. SOCIAL HISTORY: The patient lives at home with his . He denies any alcohol abuse or drug abuse. ALLERGIES: He is allergic to Penicillin. REVIEW OF SYSTEMS: Constitutional: He denies any fevers or chills. Eyes: He denies any blurry vision, double vision. ENT: He denies any dysphagia or odynophagia. Cardiovascular: He reports lower extremity edema. Respiratory: He denies mild shortness of breath. Gastrointestinal: He denies any nausea or vomiting. Musculoskeletal: He reports lower extremity edema. Skin: He denies any rashes or ulcers. FIELD CLERK: He denies any weakness or seizures. Hematological/Oncological: He denies any easy bleeding or bruising. All other review of systems is negative. PHYSICAL EXAMINATION: GENERAL APPEARANCE: The patient is awake, alert, oriented x3, short stature. VITAL SIGNS: Temperature is 96.8 degrees Fahrenheit, blood pressure 141/83, pulse rate 70, respiratory rate of 18, saturating 90% on room air. INTAKE AND OUTPUT: Urine output recorded as 1.6 liters yesterday, 525 mL so far today since overnight. HEAD AND NECK: Extraocular muscles intact. Pupils are equally round and reactive to light. Mucous membranes are moist. Neck is supple. There is significantly elevated jugular venous distention noted. CARDIOVASCULAR: S1, S2, regular rate. EXTREMITIES: 3+ edema of the bilateral lower extremities all the way up to his knees. RESPIRATORY: Mildly decreased breath sounds at the bases bilaterally. ABDOMEN: Soft, positive bowel sounds, nontender, no organomegaly. GENITOURINARY: Bladder is non palpable. MUSCULOSKELETAL: Significant swelling of the extremities up to his knees is noted. He also has right axillary to bifemoral bypass which is palpable in the right axilla region. FIELD CLERK: No focal deficits. Power is 5/5 in all extremities. LABORATORY DATA: CBC showed a WBC count of 8.5, hemoglobin 10.6, platelet count 296. Urinalysis on September 28 showed 3+ protein, 1+ glucose. BMP today showed sodium 130, potassium 4.3, chloride 91, bicarbonate 30, BUN 38, creatinine is 2.2. It was 2.2 yesterday as well. Calcium 8.1, magnesium 1.9, AST 82, ALT is 76, alkaline phosphatase is 192, albumin 1.8. IMAGING: Chest x-ray done on September 28 showed increased small to moderate pleural effusions and bibasilar opacities. CURRENT INPATIENT MEDICATIONS: The patient's medications were all reviewed by myself. He is Tylenol p.r.n., Mylanta p.r.n., Eliquis 2.5 mg twice daily, Aspirin 81 mg p.o. daily, Calcitriol 0.25 mcg p.o. Thursday, Thursday, Thursday, Colace 100 mg p.o. twice daily, Cymbalta 30 mg p.o. daily. He is on Lasix 60 mg IV q. 8 hourly, Carafate 25 mcg p.o. daily. I gave him a dose of Metolazone 5 mg p.o. times one dose. He is on 25 mg of Metoprolol twice daily, potassium chloride 20 mEq p.o. twice daily, Spironolactone 25 mg p.o. daily, Flomax 0.4 mg p.o. daily and Tramadol 50 mg p.o. three times daily. ASSESSMENT AND PLAN: 1. Acute renal failure superimposed on chronic kidney disease most likely it is cardiorenal in nature. The patient still has significant volume overload. Okay to continue diuresis. I have added Metolazone for sequential nephron blockade. If the patient does not respond to this dose, then further adjustment of diuretics will be done tomorrow morning. 2. Srrct-ba-ayjzcul combined systolic and diastolic congestive heart failure - left ventricular ejection fraction is around 40% on the latest echocardiogram. He has grade one diastolic dysfunction as well. He has significant volume overload. Continue Lasix and Spironolactone for now. Metolazone was added. If he does not respond to oral Metolazone, then he will be given IV diuretics tomorrow morning. 3. Hyponatremia the patient has hypervolemic hyponatremia. Sodium should get better with further optimization of fluid status. 4. Elevated liver enzymes they are most likely secondary to hepatic congestion. LFTs are getting better with further diuresis. Thank you for involving me in the care of this patient. I shall be happy to follow the patient along with you tomorrow morning.
--- NOTE | 2020-10-01 23:48 | IPNPDOC ---
Text Note Date of Service The patient was seen on 10/01/20. NOTE Patient fell in his room unwitnessed early this morning. He reported to me that he tripped over his IV pole when he was walking. He says he hit the right side of his head when he landed on the floor. He is AA&Ox 4 when I assessed him at bedside and ordered CT Head w/o IV contrast which revealed no acute fracture or intracranial bleed/hemorrhage or mass effect nor midline shift. VS,Connorbone, I+O VS, Connorbone, I+O Laboratory Tests 10/01/20 04:54 Vital Signs Date Time Temp Pulse Resp B/P (MAP) Pulse Ox O2 Delivery O2 Flow Rate FiO2 10/01/20 21:36 18 10/01/20 21:07 70 141/83 10/01/20 20:00 96.8 90 Room Air I&O- Last 24 Hours up to 6 AM 10/01/20 06:00 Intake Total 2050 ml Output Total 825 ml Balance 1225 ml ISABEL STEPHENS CORK INSULATION INSTALLER Oct 01, 2020 23:48
[2020-10-02] VITALS: BP 115/85
[2020-10-02 04:00] VITALS: BP 130/65
[2020-10-02] MEDS: SLF 3 ML SYR IV SCH ×3 (05:53→21:59)
[2020-10-02] MEDS: LEVOTHYROXINE 25MCG TABLET (0.025MG) PO SCH (05:53)
[2020-10-02] MEDS: FUROSEMIDE 40MG/4ML VIAL (J1940) IV SCH ×3 (05:53→21:59)
[2020-10-02 05:57] LABS: BASO % 0.3 % (0.0-1.0); EOS # 0.2 10^3/uL (0.0-0.5); EOS % 2.5 % (0.0-3.0); HEMATOCRIT 34.2 % (42.0-52.0); HEMOGLOBIN 10.8 g/dl (13.5-17.5); LYMPH % 10.4 % (24.0-44.0); MEAN CORPUSCULAR HEMOGLOBIN 23.8 pg (27.0-33.0); MEAN CORPUSCULAR HGB CONC 31.6 g/dl (32.0-36.5); MEAN CORPUSCULAR VOLUME 75.5 fl (80.0-96.0); MONO # 0.8 10^3/uL (0.0-0.8); MONO % 8.3 % (2.0-8.0); NEUTROPHILS # 7.5 10^3/uL (1.5-8.5); PLATELET COUNT, AUTOMATED 286 10^3/uL (150-450); RED BLOOD COUNT 4.53 10^6/uL (4.30-6.10); WHITE BLOOD COUNT 9.6 10^3/uL (4.0-10.0)
[2020-10-02 06:25] LABS: ALBUMIN 1.8 GM/DL (3.2-5.2); BILIRUBIN,TOTAL 0.5 MG/DL (0.2-1.0); CALCIUM LEVEL 8.1 MG/DL (8.8-10.2); CREATININE FOR GFR 2.24 MG/DL (0.70-1.30); GLOMERULAR FILTRATION RATE 30.9 (>42); MAGNESIUM LEVEL 1.8 MG/DL (1.8-2.4); POTASSIUM SERUM 3.5 MEQ/L (3.5-5.1); TOTAL PROTEIN 5.4 GM/DL (6.4-8.2)
[2020-10-02 07:26] VITALS: BP 147/70
[2020-10-02] MEDS: ATORVASTATIN 20 MG TAB PO SCH (09:00)
[2020-10-02] MEDS: DOCUSATE SODIUM 100MG CAPSULE PO SCH ×2 (09:00→20:27)
[2020-10-02] MEDS: POTASSIUM CHLORIDE 10 MEQ SR TABLET PO SCH ×2 (09:17→20:26)
[2020-10-02] MEDS: SPIRONOLACTONE 25 MG TAB PO SCH (09:17)
[2020-10-02] MEDS: APIXABAN 2.5 MG TAB (ELIQUIS) PO SCH ×2 (09:18→20:26)
[2020-10-02] MEDS: TAMSULOSIN 0.4 MG CAP PO SCH (09:18)
[2020-10-02] MEDS: DULoxetine 30 MG CAP (CYMBALTA) PO SCH (09:18)
[2020-10-02] MEDS: ASPIRIN 81MG ENTERIC TABLET PO SCH (09:18)
[2020-10-02] MEDS: METOPROLOL TART 25 MG TABLET PO SCH ×2 (09:18→20:27)
[2020-10-02] MEDS: traMADol 50 MG TAB PO PRN ×2 (09:26→20:30)
[2020-10-02 11:30] VITALS: BP 118/75
[2020-10-02] MEDS ORDERED: metOLazone 2.5 MG TAB PO ONE (12:00)
[2020-10-02 15:42] VITALS: BP 141/64
--- NOTE | 2020-10-02 15:53 | IPNPDOC ---
Text Note Date of Service The patient was seen on 10/02/20. NOTE Subjective: -Tripped and fell overnight and landed on R head --> had CT of head without acute pathologies noted, including fractures or bleeding. Objective: Vitals: See below General: Sitting in chair, appears comfortable without any acute distress, is oriented to person, place and time HEENT: Normocephalic and atraumatic CVS: RRR, +S1S2 Lungs: There is fair air entry bilaterally without evidence of wheezing, crackles or rhonchi Abdomen: Soft without distention or tenderness Extremities: 2+ pitting edema, WWP LAbs: WBC 9.6 hgb 10.8 platelet 286 na 129 K 3.5 Cr 2.24 Mag 1.8 AST 94 ALT 71 Imaging: Liver US 09/28: 1. Right-sided pleural effusion and perihepatic ascites. 2. 7 mm gallstone with upper normal to minimally thickened gallbladder wall but with no sonographic Butcher's sign. The mild gallbladder wall thickening could be secondary to 3rd spacing/perihepatic ascites however underlying early cholecystitis cannot be completely excluded. Correlate with clinical history, symptoms and LFTs. If indicated HIDA scan may be considered for further evaluation. 3. Severely atretic right kidney. CXR 09/28: Findings suggest increasing small to moderate pleural effusions and bibasilar opacities. Vascular US 09/28: No evidence for deep venous thrombosis. Limited evaluation of the calf through the ankles due to edema. ECHO 09/28: 1. Normal left ventricular internal dimensions and wall thickness. Moderate global LV hypokinesis. Moderate reduction of overall LV systolic function. LVEF 40% (3D quantitation). Grade 1 LV diastolic dysfunction (impaired relaxation filling pattern). 2. Suggestive of severe elevation of estimated right ventricle systolic pressure (75 mmHg). Normal right ventricle size and systolic function. 3. Severe left atrial dilatation. 4. Moderate aortic valve sclerosis of a 3-cuspid aortic valve. No aortic stenosis or regurgitation. 5. Moderate mitral annular calcification with moderate mitral regurgitation. No mitral stenosis. 6. Small pericardial effusion measuring 0.7 cm over the posterior wall of the left ventricle. No diastolic chamber collapse. Pericardial effusion was circumferential and was without masses. 7. Left pleural effusion. Assessment: Acute renal failure superimposed on chronic kidney disease: - Likely cardiorenal with congestive nephropathy i/s/o decompensated mixed s ystolic and diastolic CHF with significant volume overload. - Nephrology was consulted, to continue diuresis and added on metolazone Stixp-bt-diamzmp combined systolic and diastolic congestive heart failure - Continue Lasix, metolazone and Spironolactone for now - ECHO noted above - c/w strict ins/outs, daily weights, fluid restriction; continues to remain negative fluid balance - c/w Furosemide IV and spironolactone - Will consider adding Entresto when optimized Hyponatremia 2/2 hypervolemia. -diuresis as noted above Mild transaminitis: Most likely secondary to hepatic congestion. -diuresis as noted above -Has chronic HCV however with undetectable viral load -Imaging noted above HTN - BP elevated - c/w Furosemide / Metoprolol CAD - Patient was recently at [facility] for further cardiac evaluation - He is reported that he has had a stress test that was negative; he did not get any catheterization at that time - Patient follows up with Dr. Oconnell as an outpatient PVD w/ stenting and femoral bypass - Resume home statin as Transaminitis is most likely congestive - c/w ASA and Eliquis DLP - resume statin Multiple sclerosis: stable Chronic back pain - c/w Tramadol Hypothyroidism - c/w Levothyroxine Depression - c/w Duloxetine BPH - c/w Tamsulosin DVT prophylaxis - c/w full anticoagulation with Eliquis Disposition: - Awaiting clinical improvement - Nephrology consulted VS,Joon, I+O VSJoon, I+O Laboratory Tests 10/02/20 05:02 Vital Signs Date Time Temp Pulse Resp B/P (MAP) Pulse Ox O2 Delivery O2 Flow Rate FiO2 10/02/20 07:26 97.0 69 18 147/70 (95) 90 Room Air I&O- Last 24 Hours up to 6 AM 10/02/20 06:00 Intake Total 240 ml Output Total 1450 ml Balance -1210 ml MJ QUIROGA MD Oct 02, 2020 09:26
[2020-10-02 20:00] VITALS: BP 123/77
[2020-10-03 00:45] VITALS: BP 137/66
[2020-10-03 04:30] VITALS: BP 105/59
[2020-10-03] MEDS: LEVOTHYROXINE 25MCG TABLET (0.025MG) PO SCH (05:44)
[2020-10-03] MEDS: FUROSEMIDE 40MG/4ML VIAL (J1940) IV SCH ×2 (05:45→20:24)
[2020-10-03] MEDS: SLF 3 ML SYR IV SCH ×3 (05:45→20:31)
[2020-10-03 05:58] LABS: BASO % 0.2 % (0.0-1.0); EOS # 0.2 10^3/uL (0.0-0.5); EOS % 2.3 % (0.0-3.0); HEMATOCRIT 36.9 % (42.0-52.0); HEMOGLOBIN 11.5 g/dl (13.5-17.5); LYMPH # 0.9 10^3/uL (1.5-5.0); LYMPH % 9.7 % (24.0-44.0); MEAN CORPUSCULAR HEMOGLOBIN 23.2 pg (27.0-33.0); MEAN CORPUSCULAR HGB CONC 31.2 g/dl (32.0-36.5); MEAN CORPUSCULAR VOLUME 74.4 fl (80.0-96.0); MONO # 0.7 10^3/uL (0.0-0.8); MONO % 7.3 % (2.0-8.0); NEUTROPHILS # 7.2 10^3/uL (1.5-8.5); NEUTROPHILS % 79.9 % (36.0-66.0); PLATELET COUNT, AUTOMATED 279 10^3/uL (150-450); RED BLOOD COUNT 4.96 10^6/uL (4.30-6.10); WHITE BLOOD COUNT 9.1 10^3/uL (4.0-10.0)
[2020-10-03 06:23] LABS: ALBUMIN 1.8 GM/DL (3.2-5.2); BILIRUBIN,TOTAL 0.5 MG/DL (0.2-1.0); CALCIUM LEVEL 8.8 MG/DL (8.8-10.2); CREATININE FOR GFR 2.29 MG/DL (0.70-1.30); GLOMERULAR FILTRATION RATE 30.1 (>42); MAGNESIUM LEVEL 1.7 MG/DL (1.8-2.4)
[2020-10-03 07:41] VITALS: BP 96/55
[2020-10-03] MEDS: METOPROLOL TART 25 MG TABLET PO SCH (07:55)
[2020-10-03] MEDS: ASPIRIN 81MG ENTERIC TABLET PO SCH (08:10)
[2020-10-03] MEDS: CALCITRIOL 0.25 MCG CAP (S0169) PO SCH (08:10)
[2020-10-03] MEDS: TAMSULOSIN 0.4 MG CAP PO SCH (08:10)
[2020-10-03] MEDS: APIXABAN 2.5 MG TAB (ELIQUIS) PO SCH ×2 (08:10→20:23)
[2020-10-03] MEDS: POTASSIUM CHLORIDE 10 MEQ SR TABLET PO SCH ×2 (08:10→20:23)
[2020-10-03] MEDS: DULoxetine 30 MG CAP (CYMBALTA) PO SCH (08:10)
[2020-10-03] MEDS: traMADol 50 MG TAB PO PRN ×2 (08:10→16:17)
[2020-10-03] MEDS: ATORVASTATIN 20 MG TAB PO SCH (08:11)
[2020-10-03] MEDS: DOCUSATE SODIUM 100MG CAPSULE PO SCH ×2 (08:11→20:23)
--- NOTE | 2020-10-03 08:59 | IPN ---
NEPHROLOGY PROGRESS NOTE DATE: 10/02/2020 SUBJECTIVE: The patient was seen and examined at the bedside today morning. He is afebrile, hemodynamically stable. He continues to be on IV diuretics. He reports his lower extremity edema is gradually getting better. There is still no significant improvement in the renal function. Creatinine is still fluctuating around 2.2. OBJECTIVE: VITAL SIGNS: Temperature is 97.6 degrees Fahrenheit, blood pressure 123/77, pulse rate 61, respiratory rate of 18, saturating 97% on room air. INTAKE AND OUTPUT: Urine output recorded as 775 mL yesterday and 1,400 mL by the time I saw him in the morning. Weight in the bed scale is 40.7 kg. PHYSICAL EXAMINATION: GENERAL APPEARANCE: The patient is awake, alert, oriented x3, sitting up in the bed in no apparent distress. HEAD AND NECK: Extraocular muscles intact. Pupils are equally round and reactive to light. Mucous membranes are moist. Neck is supple. Moderately elevated jugular venous distention is noted. CARDIOVASCULAR: S1, S2, regular rate. EXTREMITIES: 2+ edema of the bilateral lower extremities up to the knees. RESPIRATORY: Mildly decreased breath sounds at the bases. ABDOMEN: Soft, positive bowel sounds, nontender, no organomegaly. MUSCULOSKELETAL: Venous stasis changes of the bilateral lower extremities and edema of the lower extremities as mentioned above. INVESTIGATION MANAGER: No focal deficits. Power is 5/5 in all extremities. LAB REVIEW: CBC showed a WBC count of 9.6, hemoglobin 10.8, platelet count 296. BMP showed sodium of 129, potassium 3.5, chloride 87, bicarbonate 33, BUN 45, creatinine is 2.2. Magnesium 1.8, albumin is 1.8. CURRENT INPATIENT MEDICATIONS: The patient's medications were all reviewed by myself. He continues to be on IV Lasix. I gave him another dose of Metolazone 2.5 mg p.o. times one dose. I have also stopped his Spironolactone. ASSESSMENT AND PLAN: 1. Acute renal failure superimposed on chronic kidney disease - The patient's creatinine is still higher than the baseline. However he does need to continue the diuresis. I have stopped the patient's Spironolactone to see if that makes any difference in his renal function. 2. Acrcd-fy-vjowcuk combined systolic and diastolic congestive heart failure - The patient's volume status is still decompensated but it is better than yesterday. He is responding well to a combination of loop diuretics and Metolazone. Another dose was given today. 3. Hyponatremia - The patient has hypervolemic hyponatremia. Sodium levels should get better with further improvement in volume status. 4. Peripheral vascular disease and the presence of axillary bifemoral bypass - continue Aspirin and Eliquis at this time. Continue Lipitor 40 mg p.o. daily. 5. Secondary hyperparathyroidism - continue Calcitriol p.o. Thursday, Thursday, Thursday.
[2020-10-03] MEDS ORDERED: MAG SULF 1GM/100ML (MAG RUN) 1 GM in IV 1 EA IV ONE (10:00)
[2020-10-03 12:00] VITALS: BP 118/64
[2020-10-03] MEDS ORDERED: POTASSIUM CHLORIDE 10 MEQ SR TABLET PO ONE (12:00)
--- NOTE | 2020-10-03 13:43 | IPNPDOC ---
Text Note Date of Service The patient was seen on 10/03/20. NOTE Subjective: -No acute events Objective: Vitals: See below General: Sitting in chair, appears comfortable without any acute distress, is oriented to person, place and time HEENT: Normocephalic and atraumatic CVS: RRR, +S1S2 Lungs: There is fair air entry bilaterally without evidence of wheezing, crackles or rhonchi Abdomen: Soft without distention or tenderness Extremities: Trace bilateral pitting edema, WWP LAbs: WBC 9.1 hgb 11.5 platelet 279 na 127 K 3 (repleted) Cr 2.29 Mag 1.7 AST 98 ALT 69 bicarb 37 Imaging: Liver US 09/28: 1. Right-sided pleural effusion and perihepatic ascites. 2. 7 mm gallstone with upper normal to minimally thickened gallbladder wall but with no sonographic Butcher's sign. The mild gallbladder wall thickening could be secondary to 3rd spacing/perihepatic ascites however underlying early cholecystitis cannot be completely excluded. Correlate with clinical history, symptoms and LFTs. If indicated HIDA scan may be considered for further e valuation. 3. Severely atretic right kidney. CXR 09/28: Findings suggest increasing small to moderate pleural effusions and bibasilar opacities. Vascular US 09/28: No evidence for deep venous thrombosis. Limited evaluation of the calf through the ankles due to edema. ECHO 09/28: 1. Normal left ventricular internal dimensions and wall thickness. Moderate global LV hypokinesis. Moderate reduction of overall LV systolic function. LVEF 40% (3D quantitation). Grade 1 LV diastolic dysfunction (impaired relaxation filling pattern). 2. Suggestive of severe elevation of estimated right ventricle systolic pressure (75 mmHg). Normal right ventricle size and systolic function. 3. Severe left atrial dilatation. 4. Moderate aortic valve sclerosis of a 3-cuspid aortic valve. No aortic stenosis or regurgitation. 5. Moderate mitral annular calcification with moderate mitral regurgitation. No mitral stenosis. 6. Small pericardial effusion measuring 0.7 cm over the posterior wall of the left ventricle. No diastolic chamber collapse. Pericardial effusion was circumferential and was without masses. 7. Left pleural effusion. Plan: Acute renal failure superimposed on chronic kidney disease: - Likely cardiorenal with congestive nephropathy i/s/o decompensated mixed systolic and diastolic CHF with significant volume overload. - Nephrology was consulted, to continue diuresis and added on metolazone Rnydl-qa-jqhhfpj combined systolic and diastolic congestive heart failure - Continue Lasix IV but reduced to BID from TID and metolazone per nephrology - Spironolactone was discontinued - ECHO noted above - c/w strict ins/outs, daily weights, fluid restriction; continues to remain negative fluid balance Metabolic alkalosis: likely 2/2 contraction: - Was started on acetazolamide by nephrology Hyponatremia likely 2/2 hypervolemia. -diuresis as noted above Mild transaminitis: Most likely secondary to hepatic congestion. -diuresis as noted above -Has chronic HCV however with undetectable viral load -Imaging noted above HTN - BP elevated - c/w Furosemide / Metoprolol CAD - Patient was recently at [facility] for further cardiac evaluation - He is reported that he has had a stress test that was negative; he did not get any catheterization at that time - Patient follows up with Dr. Oconnell as an outpatient PVD w/ stenting and femoral bypass -continue home statin - c/w ASA and Eliquis DLP - resume statin Multiple sclerosis: stable Chronic back pain - c/w Tramadol Hypothyroidism - c/w Levothyroxine Depression - c/w Duloxetine BPH - c/w Tamsulosin DVT prophylaxis - c/w full anticoagulation with Eliquis Disposition: - Awaiting clinical improvement - Nephrology consulted Joon STRICKLAND, I+O Joon STRICKLAND I+O Laboratory Tests 10/03/20 05:37 Vital Signs Date Time Temp Pulse Resp B/P (MAP) Pulse Ox O2 Delivery O2 Flow Rate FiO2 10/03/20 08:40 18 Room Air 10/03/20 07:55 66 96/55 10/03/20 07:41 96.8 94 I&O- Last 24 Hours up to 6 AM 10/03/20 05:59 Intake Total 1320 ml Output Total 3075 ml Balance -1755 ml MJ QUIROGA MD Oct 03, 2020 10:33
[2020-10-03 16:00] VITALS: BP 121/86
[2020-10-03 20:00] VITALS: BP 106/63
--- NOTE | 2020-10-03 22:52 | IPN ---
NEPHROLOGY PROGRESS NOTE DATE: 10/03/2020 SUBJECTIVE: Patient was seen and examined at the bedside today morning. He reports that his leg swelling is gradually getting better. He is responding well to the diuretics. Renal function is stable with a creatinine of 2.2. OBJECTIVE: VITAL SIGNS: Temperature 96.4 degrees Fahrenheit, blood pressure 121/86, pulse 61, respiratory rate 18, saturating 96% on room air. INTAKE/OUTPUT: Urine output recorded as 3.3 liters yesterday and by the time I saw him he had made 1,195 mL of urine. Weight in the bed scale is 38 kg. PHYSICAL EXAMINATION: GENERAL: Patient is awake, alert and oriented x3, sitting up in the bed, in no apparent distress. HEAD/NECK: Extraocular muscles intact. Pupils equally round and reactive to light. Mucous membranes are moist. Neck is supple. Mildly elevated JVD. CARDIOVASCULAR: S1, S2, regular rate. 2+ edema of the bilateral lower extremities all the way up to knees. RESPIRATORY: Mildly decreased breath sounds at the bases. ABDOMEN: Soft, positive bowel sounds, nontender. MUSCULOSKELETAL: No clubbing or cyanosis. Chronic venous stasis changes of bilateral lower extremities and right axillary to bifemoral bypass is palpable. ENT SURGEON: No focal deficit. Power is 5/5 in all extremities. LABORATORY REVIEW: CBC showed WBC 9.1, hemoglobin 11.5, platelets 279,000. BMP showed sodium 127, potassium 3, chloride 83, bicarb 37, BUN 51, creatinine 2.29; it was 2.24 yesterday. Magnesium 1.7. AST 98, ALT 69, alkaline phosphatase 189. Albumin 1.8. ASSESSMENT AND PLAN: 1. Acute renal failure superimposed on chronic kidney disease: Patient's creatinine has been fluctuating at 2.2. I stopped his Spironolactone dose yesterday, but he had already received a dose. So I am hopeful to see some improvement in the kidney numbers by tomorrow. He needs to continue the diuretics, however, diuretic dose is being decreased to 60 mg twice a day. 2. 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 Diuretic is being decreased to twice a day and he is also being given a dose of Acetazolamide 250 mg I.V. times one dose. 3. Hyponatremia: It is secondary to a combination of congestive heart failure and use of Metolazone. Continue the loop diuretic for now. Metolazone is being stopped. 4. Hypokalemia: It is secondary to aggressive diuresis, patient will get an extra dose of potassium chloride 40 mEq in the afternoon. 5. Hypomagnesemia: Patient will get a dose of I.V. magnesium sulfate today morning. 6. Elevated liver enzymes: It is secondary to a combination of decompensated congestive heart failure and use of Lipitor. I am going to decrease the Lipitor dose to 20 mg p.o. daily. 7. History of axillary and bifemoral bypass: Continue aspirin and Eliquis at this time.
[2020-10-04] VITALS (8 sets, daily range): BP systolic 98–168; BP diastolic 56–90
[2020-10-04] MEDS: LEVOTHYROXINE 25MCG TABLET (0.025MG) PO SCH (05:18)
[2020-10-04] MEDS: SLF 3 ML SYR IV SCH ×3 (05:19→20:57)
[2020-10-04] MEDS: traMADol 50 MG TAB PO PRN (05:19)
[2020-10-04 05:37] LABS: BASO % 0.3 % (0.0-1.0); EOS # 0.2 10^3/uL (0.0-0.5); EOS % 1.9 % (0.0-3.0); HEMATOCRIT 38.2 % (42.0-52.0); HEMOGLOBIN 11.9 g/dl (13.5-17.5); LYMPH # 0.8 10^3/uL (1.5-5.0); LYMPH % 8.8 % (24.0-44.0); MEAN CORPUSCULAR HEMOGLOBIN 23.3 pg (27.0-33.0); MEAN CORPUSCULAR HGB CONC 31.2 g/dl (32.0-36.5); MEAN CORPUSCULAR VOLUME 74.9 fl (80.0-96.0); MONO # 0.6 10^3/uL (0.0-0.8); MONO % 5.9 % (2.0-8.0); NEUTROPHILS # 7.8 10^3/uL (1.5-8.5); NEUTROPHILS % 82.7 % (36.0-66.0); PLATELET COUNT, AUTOMATED 283 10^3/uL (150-450); WHITE BLOOD COUNT 9.4 10^3/uL (4.0-10.0)
[2020-10-04 05:59] LABS: BILIRUBIN,TOTAL 0.5 MG/DL (0.2-1.0); CALCIUM LEVEL 8.5 MG/DL (8.8-10.2); CREATININE FOR GFR 2.45 MG/DL (0.70-1.30); GLOMERULAR FILTRATION RATE 27.9 (>42); MAGNESIUM LEVEL 2.1 MG/DL (1.8-2.4); POTASSIUM SERUM 3.5 MEQ/L (3.5-5.1); TOTAL PROTEIN 6.5 GM/DL (6.4-8.2)
[2020-10-04] MEDS ORDERED: oxyCODONE 5MG TAB PO PRN (08:05)
--- NOTE | 2020-10-04 09:17 | REPVR ---
PROCEDURE INFORMATION: Exam: CT Head Without Contrast Exam date and time: 10/04/2020 8:04 AM Age: 69 years old Clinical indication: Injury or trauma; Fall; Blunt trauma (contusions or hematomas); Additional info: Fall now with twitching TECHNIQUE: Imaging protocol: Computed tomography of the head without contrast. Radiation optimization: All CT scans at this facility use at least one of these dose optimization techniques: automated exposure control; mA and/or kV adjustment per patient size (includes targeted exams where dose is matched to clinical indication); or iterative reconstruction. COMPARISON: CT Head without contrast 10/01/2020 4:23 AM FINDINGS: Brain: There is moderate ill-defined patchy hypodensity within the bilateral cerebral periventricular white matter, consistent with chronic microvascular ischemic changes. There is moderate diffuse cerebral atrophy present, consistent with this patient's age. Cerebral ventricles: The ventricular system demonstrates moderate diffuse compensatory enlargement. There is a normal-variant cavum septum pellucidum. Paranasal sinuses: Visualized sinuses are unremarkable. No fluid levels. Mastoid air cells: Visualized mastoid air cells are well aerated. Vasculature: There is atherosclerotic calcification of the bilateral cavernous carotid arteries. Bones/joints: Unremarkable. No acute fracture. Soft tissues: Unremarkable. IMPRESSION: 1. No acute infarction, masses or hemorrhage is seen. No acute intracranial abnormality is identified. 2. Diffuse age-related cerebral atrophy and moderate chronic microvascular white matter ischemic changes, without evidence of an acute intracranial abnormality. 3. There has been no adverse interval change since the previous study. Electronically signed by: Sigifredo Benjamin On 10/04/2020 09:17:21 AM
[2020-10-04] MEDS: DULoxetine 30 MG CAP (CYMBALTA) PO SCH (09:54)
[2020-10-04] MEDS: TAMSULOSIN 0.4 MG CAP PO SCH (09:54)
[2020-10-04] MEDS: APIXABAN 2.5 MG TAB (ELIQUIS) PO SCH ×2 (09:54→20:56)
[2020-10-04] MEDS: POTASSIUM CHLORIDE 10 MEQ SR TABLET PO SCH (09:55)
[2020-10-04] MEDS: ASPIRIN 81MG ENTERIC TABLET PO SCH (09:55)
[2020-10-04] MEDS: FUROSEMIDE 40MG/4ML VIAL (J1940) IV SCH (09:55)
[2020-10-04] MEDS: ATORVASTATIN 20 MG TAB PO SCH (09:55)
[2020-10-04] MEDS: DOCUSATE SODIUM 100MG CAPSULE PO SCH ×2 (09:55→20:57)
--- NOTE | 2020-10-04 10:03 | IPNPDOC ---
Text Note Date of Service The patient was seen on 10/04/20. NOTE Subjective: -Had 2 falls in one night, all described to be mechanical in nature, with the last one early this morning where he did hit his head. Then shortly after was noted to have some twitching, which mentioned to me yesterday that he has been doing that at home as well from time to time. He is also complaining of pain at this time. Objective: Vitals: See below General: Sitting up, unwell appearing, anxious appearing, is oriented to person, place and time HEENT: Normocephalic and atraumatic CVS: RRR, +S1S2 Lungs: There is fair air entry bilaterally without evidence of wheezing, crackles or rhonchi Abdomen: Normoactive sounds, soft, NTND Extremities: No noted pitting edema, WWP LAbs: WBC 9.4 hgb 11.9 platelet 283 na 128 K 3.5 Cr 2.45 Mag 2.1 AST 98 ALT 68 bicarb 35 Imaging: Liver US 09/28: 1. Right-sided pleural effusion and perihepatic ascites. 2. 7 mm gallstone with upper normal to minimally thickened gallbladder wall but with no sonographic Butcher's sign. The mild gallbladder wall thickening could be secondary to 3rd spacing/perihepatic ascites however underlying early cholecystitis cannot be completely excluded. Correlate with clinical history, symptoms and LFTs. If indicated HIDA scan may be considered for further evaluation. 3. Severely atretic right kidney. CXR 09/28: Findings suggest increasing small to moderate pleural effusions and bibasilar opacities. Vascular US 09/28: No evidence for deep venous thrombosis. Limited evaluation of the calf through the ankles due to edema. ECHO 09/28: 1. Normal left ventricular internal dimensions and wall thickness. Moderate global LV hypokinesis. Moderate reduction of overall LV systolic function. LVEF 40% (3D quantitation). Grade 1 LV diastolic dysfunction (impaired relaxation filling pattern). 2. Suggestive of severe elevation of estimated right ventricle systolic pressure (75 mmHg). Normal right ventricle size and systolic function. 3. Severe left atrial dilatation. 4. Moderate aortic valve sclerosis of a 3-cuspid aortic valve. No aortic stenosis or regurgitation. 5. Moderate mitral annular calcification with moderate mitral regurgitation. No mitral stenosis. 6. Small pericardial effusion measuring 0.7 cm over the posterior wall of the left ventricle. No diastolic chamber collapse. Pericardial effusion was circumferential and was without masses. 7. Left pleural effusion. Plan: Falls and twitching: -check CT head, EEG. 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 - Nephrology was consulted, has been diuresing [id number] combined systolic and diastolic congestive heart failure - diruetics per nephrology - ECHO noted above - c/w strict ins/outs, daily weights, fluid restriction; continues to remain negative fluid balance Metabolic alkalosis: likely 2/2 contraction: - Was given acetazolamide by nephrology yesterday Hyponatremia likely 2/2 hypervolemia. -diuresis as noted above Mild transaminitis: Most likely secondary to hepatic congestion. -diuresis as noted above -Has chronic HCV however with undetectable viral load -Imaging noted above HTN - BP elevated - c/w Furosemide / Metoprolol CAD - Patient was recently at [facility] for further cardiac evaluation - He is reported that he has had a stress test that was negative; he did not get any catheterization at that time - Patient follows up with Dr. Oconnell as an outpatient PVD w/ stenting and femoral bypass -continue home statin - c/w ASA and Eliquis DLP - resume statin Multiple sclerosis: stable Chronic back pain - c/w Tramadol Hypothyroidism - c/w Levothyroxine Depression - c/w Duloxetine BPH - c/w Tamsulosin DVT prophylaxis - c/w full anticoagulation with Eliquis Disposition: - Awaiting clinical improvement - Nephrology consulted VS,Connorbone, I+O VS, Fishbone, I+O Laboratory Tests 10/04/20 05:17 Vital Signs Date Time Temp Pulse Resp B/P (MAP) Pulse Ox O2 Delivery O2 Flow Rate FiO2 10/04/20 07:15 97.3 86 20 168/84 (112) 98 Room Air I&O- Last 24 Hours up to 6 AM 10/04/20 06:00 Intake Total 1780 ml Output Total 1925 ml Balance -145 ml MJ QUIROGA MD Oct 04, 2020 08:34
[2020-10-04] MEDS ORDERED: NS 500 ML IV ONE (10:35)
[2020-10-04] MEDS ORDERED: NS 500 ML IV SCH (10:35)
[2020-10-04] MEDS ORDERED: traMADol 50 MG TAB PO PRN (12:05)
[2020-10-04] MEDS ORDERED: PILL CUTTER 1 EACH XX PRN (12:15)
[2020-10-04] MEDS ORDERED: CYCLOBENZAPRINE 5MG TABLET PO PRN (19:00)
[2020-10-04 20:51] LABS: BASO % 0.2 % (0.0-1.0); EOS # 0.1 10^3/uL (0.0-0.5); EOS % 1.4 % (0.0-3.0); HEMATOCRIT 36.5 % (42.0-52.0); HEMOGLOBIN 11.5 g/dl (13.5-17.5); LYMPH # 0.9 10^3/uL (1.5-5.0); LYMPH % 9.4 % (24.0-44.0); MEAN CORPUSCULAR HEMOGLOBIN 23.8 pg (27.0-33.0); MEAN CORPUSCULAR HGB CONC 31.5 g/dl (32.0-36.5); MEAN CORPUSCULAR VOLUME 75.4 fl (80.0-96.0); MONO # 0.7 10^3/uL (0.0-0.8); MONO % 7.8 % (2.0-8.0); NEUTROPHILS # 7.4 10^3/uL (1.5-8.5); NEUTROPHILS % 80.9 % (36.0-66.0); PLATELET COUNT, AUTOMATED 254 10^3/uL (150-450); RED BLOOD COUNT 4.84 10^6/uL (4.30-6.10); WHITE BLOOD COUNT 9.2 10^3/uL (4.0-10.0)
[2020-10-04] MEDS: LORazepam 2 MG/ML VIAL IV PRN ×2 (20:56→23:00)
[2020-10-04] MEDS ORDERED: levETIRAcetam INJection 1,000 MG in D5W 100 ML IV ONE (21:30)
[2020-10-04 21:31] LABS: ALBUMIN 1.9 GM/DL (3.2-5.2); BILIRUBIN,TOTAL 0.5 MG/DL (0.2-1.0); CALCIUM LEVEL 7.8 MG/DL (8.8-10.2); CREATININE FOR GFR 2.37 MG/DL (0.70-1.30); POTASSIUM SERUM 2.9 MEQ/L (3.5-5.1); PROLACTIN 17.8 NG/ML (2.1-17.7); TOTAL PROTEIN 5.6 GM/DL (6.4-8.2)
--- NOTE | 2020-10-04 22:06 | IPNPDOC ---
Text Note Date of Service The patient was seen on 10/04/20. NOTE I was informed by CLEO Taylor that the patient has been having tremor like activity, episodes of confusion and had another fall this evening. At the time of my assessment the pt was alert, talkative but intermittently had shaking of his arms and legs; during the episodes he was distracted and his eyes pointed upwards and to the left. After the episodes he was alert and able to talk. BP 130/90 / HR 76 / RR 18 / O2 98%/ glucose 95 #Seizure vs Psychogenic Seizure -he is not having typical tonic clonic tremors and the post-ictal phase appears to be very short Plan: f/u Na, prolactin, serum osmo, UOsm, Riaz, Uosmo / load with Keppra 1000mg IV, then c/w 500mg PO BID / Ativan 2mg IV PRN for seizure like activity / EEG / will ask the day time team to consider touching base with Neurology VS,Joon, I+O VS, Joon, I+O Laboratory Tests 10/04/20 05:17 10/04/20 20:39 Vital Signs Date Time Temp Pulse Resp B/P (MAP) Pulse Ox O2 Delivery O2 Flow Rate FiO2 10/04/20 20:00 98.0 87 24 96 Room Air 10/04/20 16:00 130/65 (86) I&O- Last 24 Hours up to 6 AM 10/04/20 05:59 Intake Total 1780 ml Output Total 1925 ml Balance -145 ml OLINDA ALVARADO MD Oct 04, 2020 22:06
[2020-10-04] MEDS ORDERED: POTASSIUM CHLORIDE 10 MEQ SR TABLET PO ONE (22:10)
[2020-10-04] MEDS ORDERED: KCL 10MEQ/100ML SWI (KRUN) 10 MEQ in IV 1 EA IV ONE (22:10)
[2020-10-04] MEDS ORDERED: LACOSAMIDE 10MG/ML 20ML VIAL (VIMPAT) IV STA (23:28)
[2020-10-05] VITALS (16 sets, daily range): BP systolic 133–154; BP diastolic 82–96; O2SAT 94–99
--- NOTE | 2020-10-05 01:17 | IPN ---
NEPHROLOGY PROGRESS NOTE DATE: 10/04/2020 SUBJECTIVE: Patient was seen and examined at the bedside today morning. The last 24 hour events were noted. Patient was feeling very weak and jittery. He reports his edema is better, but he has a lack of energy now. He fell in his room. He had loss of balance. His diuretics were stopped by myself today. He was alkalotic and he was given a dose of Acetazolamide yesterday. OBJECTIVE: VITAL SIGNS: Temperature 97.2 degrees Fahrenheit, blood pressure 98/56, pulse 82, respiratory rate 20, saturating 95% on room air. INTAKE/OUTPUT: Urine output recorded as 2.3 liters yesterday and 1 liter so far today since overnight. Weight in the bed scale is 36.6 kg, which is lower than his weight yesterday. PHYSICAL EXAMINATION: GENERAL: Patient is awake, alert, oriented x3, feeling weak and jittery. Has some tremors of upper extremities. HEAD/NECK: Extraocular muscles intact. Pupils equally round and reactive to light. Mucous membranes are moist. Neck is supple. There is no JVD. CVS: S1, S2, regular rate. Trace edema of the left lower extremity is noted. RESPIRATORY: Chest is clear to auscultation bilaterally. ABDOMEN: Soft, positive bowel sounds, nontender. No organomegaly. MUSCULOSKELETAL: Edema of the lower extremities is significantly better. He actually looks clinically dry now. Right axillary to bifemoral bypass is also noted. 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 LABORATORY REVIEW: CBC showed WBC 9.2, hemoglobin 11.5, platelets 254,000. BMP today morning showed sodium 128, potassium 3.5, chloride 82, bicarb 35, BUN 52, creatinine 2.4. Glucose 135. IMAGING: A CAT scan of the head was done, which did not show any acute pathology. CURRENT INPATIENT MEDICATIONS: Patient's medications were all reviewed by myself. I have decreased his Tramadol dose to 25 mg p.o. three times a day p.r.n. I.V. diuretics were stopped. Patient was given a dose of potassium chloride 40 mEq p.o. times one dose. I also started the patient on normal saline at 100 cc an hour and he was also given normal saline 500 cc I.V. bolus. ASSESSMENT AND PLAN: 1. Acute renal failure superimposed on chronic kidney disease: Most likely patient is volume depleted now because of aggressive diuresis. Creatinine bumped up to 2.4. Patient was given 500 cc normal saline bolus and he was started on I.V. normal saline hydration. Patient's creatinine is 2.4, but according to his body mass index, his creatinine clearance is only 15. I explained to the patient that the current labs are over estimating his GFR. If his creatinine goes to high 2's, he might need to be started on dialysis. 2. Hypokalemia: Patient was given additional dose of potassium chloride. Potassium should get better. 3. Hyponatremia and hypochloremia: It is secondary to volume depletion and aggressive diuresis. He was given normal saline now. 4. 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 His volume status is better. He is actually volume depleted. I.V. diuretics have been held now.
[2020-10-05] MEDS ORDERED: PHENYTOIN 100 MG/2 ML VIAL (J1165) IV ONE (01:40)
[2020-10-05] MEDS ORDERED: NS IV ONE (01:45)
[2020-10-05] MEDS ORDERED: PHENYTOIN IV ONE (01:45)
[2020-10-05] MEDS: APIXABAN 2.5 MG TAB (ELIQUIS) PO SCH ×3 (02:13→21:00)
[2020-10-05 03:03] LABS: ABG BASE EXCESS 7.8 (-2.0-2.0); ABG HCO3 31.1 MEQ/L (22.0-26.0); ABG PARTIAL PRESSURE CO2 38.7 mmHg (35.0-45.0); ABG PARTIAL PRESSURE O2 73.5 mmHg (75.0-100.0); ABG STANDARD HCO3 31.5 MEQ/L (22.0-26.0); ABG TOTAL CO2 32.3 MEQ/L (23.0-31.0); ABG pH (ARTERIAL) 7.523 UNITS (7.350-7.450)
[2020-10-05 05:01] LABS: BASO % 0.3 % (0.0-1.0); EOS # 0.1 10^3/uL (0.0-0.5); EOS % 1.1 % (0.0-3.0); HEMATOCRIT 37.5 % (42.0-52.0); HEMOGLOBIN 11.9 g/dl (13.5-17.5); LYMPH # 0.7 10^3/uL (1.5-5.0); MEAN CORPUSCULAR HEMOGLOBIN 23.6 pg (27.0-33.0); MEAN CORPUSCULAR HGB CONC 31.7 g/dl (32.0-36.5); MEAN CORPUSCULAR VOLUME 74.4 fl (80.0-96.0); MONO # 0.7 10^3/uL (0.0-0.8); MONO % 7.4 % (2.0-8.0); NEUTROPHILS # 8.2 10^3/uL (1.5-8.5); NEUTROPHILS % 83.8 % (36.0-66.0); PLATELET COUNT, AUTOMATED 284 10^3/uL (150-450); RED BLOOD COUNT 5.04 10^6/uL (4.30-6.10); WHITE BLOOD COUNT 9.8 10^3/uL (4.0-10.0)
[2020-10-05] MEDS: LEVOTHYROXINE 25MCG TABLET (0.025MG) PO SCH (05:21)
[2020-10-05] MEDS: SLF 3 ML SYR IV SCH ×3 (05:21→21:21)
[2020-10-05 05:41] LABS: BILIRUBIN,TOTAL 0.6 MG/DL (0.2-1.0); CREATININE FOR GFR 2.03 MG/DL (0.70-1.30); GLOMERULAR FILTRATION RATE 34.6 (>42); MAGNESIUM LEVEL 1.8 MG/DL (1.8-2.4); TOTAL PROTEIN 5.8 GM/DL (6.4-8.2)
[2020-10-05] MEDS: DOCUSATE SODIUM 100MG CAPSULE PO SCH ×2 (07:58→21:00)
[2020-10-05] MEDS: DULoxetine 30 MG CAP (CYMBALTA) PO SCH (07:59)
[2020-10-05] MEDS: TAMSULOSIN 0.4 MG CAP PO SCH (07:59)
[2020-10-05] MEDS: CALCITRIOL 0.25 MCG CAP (S0169) PO SCH (07:59)
[2020-10-05] MEDS: ASPIRIN 81MG ENTERIC TABLET PO SCH (08:15)
[2020-10-05] MEDS: ATORVASTATIN 20 MG TAB PO SCH (08:15)
[2020-10-05] MEDS ORDERED: levETIRAcetam 250MG TABLET (KEPPRA) PO SCH (09:00)
[2020-10-05] MEDS ORDERED: LACOSAMIDE 10MG/ML 20ML VIAL (VIMPAT) IV SCH (09:00)
[2020-10-05] MEDS ORDERED: levETIRAcetam INJection 500 MG in D5W MINI-BAG PLUS 100 ML IV SCH (09:00)
--- NOTE | 2020-10-05 09:58 | EEG ---
ELECTROENCEPHALOGRAM DATE: 10/04/2020 DIAGNOSIS: Falls and twitching; rule out seizures. EEG# [id number]. REFERRING PHYSICIAN: Alistair Conrad MD. HISTORY: Patient is a 69-year-old man who was admitted at [facility] after he was found to have blood sugar in the 30s. A repeat blood sugar was 29. The patient tripped and fell overnight and landed on his right side. This EEG was done to rule out epileptic potential. He is currently taking Cymbalta, Flomax, aspirin, Eliquis, tramadol, oxycodone, etc. TECHNICAL DESCRIPTION: This digital EEG was recorded by 21-scalp, ear, and two EKG electrodes and was reviewed in bipolar and referential montages following reformatting in 10-20 international electrode placement system. INTERPRETATION: Patient was noted to be in awake state during this EEG. Resting and awake background rhythm consisted of 8-9 Hz alpha activity measuring 15-40 microvolts in amplitude, which was symmetric and reactive to eye opening. No sleep was achieved. Hyperventilation and photic stimulation were not performed. EKG revealed normal sinus rhythm. No focal, lateralizing, or epileptiform abnormalities were seen. Special Distribution Clerk reported patient twitching on couple of occasions but there was no EEG correlate except muscle artifact. CONCLUSION: This EEG in awake state is within normal limits. Special Distribution Clerk reported patient twitching on couple of occasions but there was no EEG correlate except muscle artifact. MTDD
[2020-10-05] MEDS ORDERED: POTASSIUM CHLORIDE 10 MEQ SR TABLET PO ONE ×2 (10:15→11:00)
[2020-10-05] MEDS ORDERED: NS 500 ML IV ONE (11:00)
[2020-10-05] MEDS ORDERED: LIDOCAINE 1% MDV 20ML VIAL As Ordered ONE (12:38)
[2020-10-05] MEDS: KCL 10MEQ/100ML SWI (KRUN) 10 MEQ in IV 1 EA IV SCH ×4 (12:42→17:31)
--- NOTE | 2020-10-05 12:42 | IPNPDOC ---
Text Note Date of Service The patient was seen on 10/05/20. NOTE Subjective: -had multiple falls yesterday and overnight had witnessed seizure-like activity for which neurology was consulted and he received Keppra, vimpat and dilantin as well as PRN ativan. -Prolactin was elevated despite the negative EEG yesterday morning. Objective: Vitals: See below General: Fast asleep this morning, NAD, breathing comfortably HEENT: Normocephalic and atraumatic CVS: RRR, +S1S2 Lungs: There is fair air entry bilaterally without evidence of wheezing, crackles or rhonchi Abdomen: Normoactive sounds, soft, NTND Extremities: No pitting edema, WWP Labs: WBC 9.8 hgb 11.9 platelet 284 na 131 K 3 (repleting) Cr 2.03 Mag 2.1 AST 98 ALT 68 bicarb 35 Imaging: Liver US 09/28: 1. Right-sided pleural effusion and perihepatic ascites. 2. 7 mm gallstone with upper normal to minimally thickened gallbladder wall but with no sonographic Butcher's sign. The mild gallbladder wall thickening could be secondary to 3rd spacing/perihepatic ascites however underlying early cholecystitis cannot be completely excluded. Correlate with clinical history, symptoms and LFTs. If indicated HIDA scan may be considered for further evaluation. 3. Severely atretic right kidney. CXR 09/28: Findings suggest increasing small to moderate pleural effusions and bibasilar opacities. Vascular US 09/28: No evidence for deep venous thrombosis. Limited evaluation of the calf through the ankles due to edema. ECHO 09/28: 1. Normal left ventricular internal dimensions and wall thickness. Moderate global LV hypokinesis. Moderate reduction of overall LV systolic function. LVEF 40% (3D quantitation). Grade 1 LV diastolic dysfunction (impaired relaxation filling pattern). 2. Suggestive of severe elevation of estimated right ventricle systolic pressure (75 mmHg). Normal right ventricle size and systolic function. 3. Severe left atrial dilatation. 4. Moderate aortic valve sclerosis of a 3-cuspid aortic valve. No aortic stenosis or regurgitation. 5. Moderate mitral annular calcification with moderate mitral regurgitation. No mitral stenosis. 6. Small pericardial effusion measuring 0.7 cm over the posterior wall of the left ventricle. No diastolic chamber collapse. Pericardial effusion was circumferential and was without masses. 7. Left pleural effusion. Plan: Suspected seizures: Falls and twitching w/ elevated prolactin -CT head was without acute pathology -10/04 EEG was negative for epileptiform activity, but then he had seizure-like activity on the night of 10/04 into 10/05. Will re-EEG this AM. 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 - Nephrology was consulted, had been diuresing but held off yesterday after he was actually dry and gave 500cc [id number] combined systolic and diastolic congestive heart failure: much improved, now euvolemic - diruetics now held per nephrology - ECHO noted above - c/w strict ins/outs, daily weights Metabolic alkalosis: likely 2/2 contraction: improving -s/p acetazolamide on 10/03 and per nephrology will dose today -diuretics held Hyponatremia likely 2/2 hypervolemia: improved Mild transaminitis: Most likely secondary to hepatic congestion. -was diuresed as noted above -Has chronic HCV however with undetectable viral load -Imaging noted above HTN - BP elevated - c/w Metoprolol CAD - Patient was recently at [facility] for further cardiac evaluation - He is reported that he has had a stress test that was negative; he did not get any catheterization at that time - Patient follows up with Dr. Oconnell as an outpatient PVD w/ stenting and femoral bypass -continue home statin - c/w ASA and Eliquis DLP - resume statin Multiple sclerosis: stable Chronic back pain - c/w Tramadol Hypothyroidism - c/w Levothyroxine Depression - c/w Duloxetine BPH - c/w Tamsulosin DVT prophylaxis - c/w full anticoagulation with Eliquis Disposition: - Awaiting clinical improvement - Nephrology and now neurology are consulted -PT/OT VS,Fishbone, I+O VS, Fishbone, I+O Laboratory Tests 10/04/20 20:39 10/05/20 04:31 Vital Signs Date Time Temp Pulse Resp B/P (MAP) Pulse Ox O2 Delivery O2 Flow Rate FiO2 10/05/20 08:00 99 Nasal Cannula 1.0 10/05/20 04:00 98.7 102 16 154/88 (110) I&O- Last 24 Hours up to 6 AM 10/05/20 06:00 Intake Total 780 ml Output Total 1450 ml Balance -670 ml MJ QUIROGA MD Oct 05, 2020 10:14
[2020-10-05] MEDS ORDERED: D5W/0.9% SODIUM CHLORIDE 1,000 ML IV SCH (13:00)
--- NOTE | 2020-10-05 20:34 | IPNPDOC ---
Text Note Date of Service The patient was seen on 10/05/20. NOTE Per d/w we will dc the ativan, tramadol, keppra & vimpat & continue to monitor the patient. VS,Fishbone, I+O VS, Fishbone, I+O Laboratory Tests 10/04/20 20:39 10/05/20 04:31 Vital Signs Date Time Temp Pulse Resp B/P (MAP) Pulse Ox O2 Delivery O2 Flow Rate FiO2 10/05/20 18:00 97 Nasal Cannula 1.0 10/05/20 17:45 96.9 104 23 142/84 (103) I&O- Last 24 Hours up to 6 AM 10/05/20 06:00 Intake Total 780 ml Output Total 1450 ml Balance -670 ml OLINDA ALVARADO MD Oct 05, 2020 20:34
[2020-10-05 22:42] LABS: ALBUMIN 1.8 GM/DL (3.2-5.2); CALCIUM LEVEL 7.7 MG/DL (8.8-10.2); CREATININE FOR GFR 1.95 MG/DL (0.70-1.30); GLOMERULAR FILTRATION RATE 36.3 (>42); PHOSPHORUS LEVEL 3.9 MG/DL (2.5-4.9); POTASSIUM SERUM 3.4 MEQ/L (3.5-5.1)
--- NOTE | 2020-10-05 23:18 | IPN ---
NEPHROLOGY PROGRESS NOTE DATE: 10/05/2020 SUBJECTIVE: The patient was seen and examined at the bedside today morning. The last 24-hour overnight events are noted. The patient got decompensated yesterday. He became jittery and agitated despite IV fluid hydration and last night he started having seizures. He was given multiple anti-seizure medications including Keppra, Dilantin, Ativan, and Vimpat. Despite that, the patient was having twitching. The patient was alkalotic yesterday with an ABG PHF of 7.52. He is on a one to one precaution and seizure precautions. When I saw him in the morning he was very drowsy, and he was unable to provide me with any review of systems. OBJECTIVE: VITAL SIGNS: Temperature is 97.7 degrees Fahrenheit, blood pressure 145/94, pulse rate 99, respiratory rate of 22, saturating 97% on nasal cannula at one liter. INTAKE AND OUTPUT: Urine output recorded was one liter yesterday. Weight in the bed scale is 35 kg which is half a kg below his weight yesterday. PHYSICAL EXAMINATION: GENERAL APPEARANCE: The patient is laying in bed having some twitching movements, very obtunded and drowsy. HEAD AND NECK: Pupils are equally round and reactive to light. Mucous membranes are dry. Neck is supple. There is no jugular venous distention. CARDIOVASCULAR: S1, S2, regular rate. EXTREMITIES: No edema of the bilateral lower extremities. RESPIRATORY: Chest is clear to auscultation bilaterally. Bilaterally currently no rales or rhonchi. ABDOMEN: Soft, positive bowel sounds, nontender, no organomegaly. GENITOURINARY: He has an indwelling Jon catheter. MUSCULOSKELETAL: No clubbing, no cyanosis. Pulses are 2+. LOCOMOTIVE FIRER/FIREMAN: The patient is very drowsy and sleepy at this time. LAB REVIEW: CBC shows a WBC count of 9.8, hemoglobin 11.9, platelet count 284. ABG - pH last night was 7.52, pco2 of 38, pO2 of 73, bicarbonate was 31.1, 02 sat 95%. BMP done today morning showed sodium of 131, potassium 3, chloride 88, bicarbonate 30, BUN 41, creatinine is 2, glucose 125, calcium is 8. CURRENT INPATIENT MEDICATIONS: The patient's medications were all reviewed by myself. I gave the patient a bolus of 500 mL normal saline. I also gave him a dose of Acetazolamide 250 mg IV times one dose, and I also started the patient on d5 normal saline at 70 mL an hour. The patient is also being given IV KCL runs. ASSESSMENT AND PLAN: 1. Acute renal failure superimposed on chronic kidney disease - initially it was cardiorenal in nature. However the patient was dry yesterday. He was given IV fluid hydration. He still clinically looks dry and his creatinine is improving with IV fluid hydration. Continue gentle IV fluid hydration for now. 2. Metabolic alkalosis - The patient was alkalotic yesterday and he was having seizures. I would give more IV fluid hydration and as mentioned above, I gave him a dose of Acetazolamide as well. Metabolic alkalosis lowers the seizure threshold, and I believe that that has contributed to his seizures. 3. New onset seizures the patient has received multiple anti-seizure medications including Dilantin, Keppra, Vimpat and Ativan, however, I believe that if we do not correct is metabolic alkalosis, he would keep on having this seizure like activity and for that he has been given IV fluids and Acetazolamide. 4. Hyponatremia - The patient initially had hypervolemic hyponatremia when he came to the hospital. However current hyponatremia is hypovolemic and it is responding to IV normal saline administration. Sodium has improved to 132. 5. Hypokalemia - potassium level is improving to 3.4 with IV fluid hydration. 6. Chronic combined systolic and diastolic congestive heart failure - The patient was aggressively diuresed. He currently has no edema and because of alkalosis and volume depletion, currently he is not on any diuretics.
[2020-10-06] VITALS (18 sets, daily range): BP systolic 138–168; BP diastolic 80–120; O2SAT 95–99
[2020-10-06] MEDS: KCL 40MEQ IN D5/0.45NS 1000ML 1,000 ML IV SCH (00:41)
[2020-10-06 01:46] LABS: APPEARANCE, URINE HAZY (CLEAR); BACTERIA, URINE AUTO 1+ (NEGATIVE); BILIRUBIN, URINE AUTO NEGATIVE (NEGATIVE); BLOOD, URINE BLOOD 3+ (NEGATIVE); COLOR, URINE YELLOW (YELLOW); GLUCOSE, URINE (UA) AUTO 1+ mg/dL (NEGATIVE); KETONE, URINE AUTO NEGATIVE (NEGATIVE); LEUKOCYTE ESTERASE, URINE AUTO NEGATIVE (NEGATIVE); NITRITE, URINE AUTO NEGATIVE (NEGATIVE); PROTEIN, URINE AUTO 3+ mg/dL (NEGATIVE); RBC, URINE AUTO TNTC /HPF (0-3); SQUAMOUS EPITHELIAL CELL UR AU 0 /HPF (0-6); UROBILINOGEN, URINE AUTO 0.2 mg/dL (0.0-2.0); WBC, URINE AUTO 1 /HPF (0-3)
[2020-10-06] MEDS: LEVOTHYROXINE 25MCG TABLET (0.025MG) PO SCH (06:00)
[2020-10-06] MEDS: SLF 3 ML SYR IV SCH ×3 (06:06→22:00)
[2020-10-06 07:56] LABS: HEMOGLOBIN 12.6 g/dl (13.5-17.5); MEAN CORPUSCULAR HEMOGLOBIN 23.6 pg (27.0-33.0); MEAN CORPUSCULAR HGB CONC 30.7 g/dl (32.0-36.5); MEAN CORPUSCULAR VOLUME 76.6 fl (80.0-96.0); PLATELET COUNT, AUTOMATED 242 10^3/uL (150-450); RED BLOOD COUNT 5.35 10^6/uL (4.30-6.10); WHITE BLOOD COUNT 13.2 10^3/uL (4.0-10.0)
[2020-10-06 08:06] LABS: ABG HCO3 26.3 MEQ/L (22.0-26.0); ABG PARTIAL PRESSURE CO2 28.9 mmHg (35.0-45.0); ABG PARTIAL PRESSURE O2 131.1 mmHg (75.0-100.0); ABG STANDARD HCO3 29.1 MEQ/L (22.0-26.0); ABG TOTAL CO2 27.2 MEQ/L (23.0-31.0); ABG pH (ARTERIAL) 7.577 UNITS (7.350-7.450)
[2020-10-06] MEDS: ATORVASTATIN 20 MG TAB PO SCH (08:26)
[2020-10-06] MEDS: ASPIRIN 81MG ENTERIC TABLET PO SCH (08:26)
[2020-10-06] MEDS: TAMSULOSIN 0.4 MG CAP PO SCH (08:26)
[2020-10-06] MEDS: APIXABAN 2.5 MG TAB (ELIQUIS) PO SCH ×2 (08:26→22:30)
[2020-10-06] MEDS: DOCUSATE SODIUM 100MG CAPSULE PO SCH ×3 (08:26→22:30)
[2020-10-06] MEDS: DULoxetine 30 MG CAP (CYMBALTA) PO SCH (08:26)
[2020-10-06 08:30] LABS: ALBUMIN 1.8 GM/DL (3.2-5.2); BILIRUBIN,TOTAL 0.8 MG/DL (0.2-1.0); CALCIUM LEVEL 8.6 MG/DL (8.8-10.2); CREATININE FOR GFR 1.84 MG/DL (0.70-1.30); GLOMERULAR FILTRATION RATE 38.8 (>42); THYROID STIMULATING HORMONE 15.9 uIU/ML (0.358-3.740); TOTAL PROTEIN 6.3 GM/DL (6.4-8.2); TROPONIN I 0.17 NG/ML (< 0.10)
--- NOTE | 2020-10-06 08:49 | REP ---
INDICATION: hematuria, spasms, AMS COMPARISON: Comparison CT study is from July 30, 2020.. TECHNIQUE: Helical scanning is acquired and 3 mm axial images were reformatted. Coronal and sagittal MPR images were generated and reviewed. 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 Extensive vascular calcification is noted. On axial CT images at lung base, bilateral lower lobe small infiltrates are seen consistent with pneumonia, right greater than left. There is a small amount of right pleural fluid. Pleural effusion is decreased compared with the July 30, 2020 study which showed bilateral effusions. There is a small pericardial effusion visible today. There is extensive vascular calcification throughout the arterial tree in the patient has a fem-fem crossover graft in place. The liver and the spleen are normal in size. No focal lesion is seen in either organ. No focal abnormality is seen in the gallbladder. There are stippled calcifications throughout the head and body and tail of the pancreas consistent with chronic pancreatitis. No pancreatic mass or cyst is apparent. The right kidney is quite atrophic unchanged from comparison study. There is renal artery vascular calcification bilaterally. There is no evidence of hydronephrosis. No intrarenal calculus is observed. There is a dorsal column stimulator power pack in the left flank with leads coursing into the epidural space at the thoracolumbar and lower thoracic spine. Patient is status post multiple lumbar laminectomies. A Jon catheter is noted in place. No retroperitoneal mass or adenopathy is seen. There is no evidence of free air or abnormal abdominal fluid collection. No gastrointestinal obstructive lesion is appreciated. There is a moderate levoconvex lumbar scoliotic curve. Bone window settings show degenerative changes in the spine. No bony destructive lesion. IMPRESSION: Extensive, essentially diffuse, arterial vascular calcification. Bilateral lower lobe pulmonary parenchymal infiltrates, right larger than left. Small right pleural effusion and small pericardial effusion. Post lumbar laminectomy at multiple levels with scoliosis and dorsal column stimulator device seen. Jon catheter. Fem-fem crossover vascular graft. No acute abdominal or pelvic abnormality seen. <Electronically signed by Ben Bergman > 10/06/20 [id number]
--- NOTE | 2020-10-06 09:25 | IPNPDOC ---
Text Note Date of Service The patient was seen on 10/06/20. NOTE Subjective: -Somnolent, continues to have twitching and spasm like activity -Slept through most of yesterday after receiving ativan overnight with other AEDs for suspected seizure activity -Still has urinary catheter that reportedly transiently was draining pink urine with UA with hematuria Objective: Vitals: See below General: Sleeping this morning, drowsy on waking him barely waking, NAD, breathing comfortably HEENT: Normocephalic and atraumatic CVS: RRR, +S1S2 Lungs: There is fair air entry bilaterally without evidence of wheezing, crackles or rhonchi, on 1L NC Abdomen: Normoactive sounds, soft, NTND Extremities: No pitting edema, WWP Labs: pending AM labs. Imaging: Liver US 09/28: 1. Right-sided pleural effusion and perihepatic ascites. 2. 7 mm gallstone with upper normal to minimally thickened gallbladder wall but with no sonographic Butcher's sign. The mild gallbladder wall thickening could be secondary to 3rd spacing/perihepatic ascites however underlying early cholecystitis cannot be completely excluded. Correlate with clinical history, symptoms and LFTs. If indicated HIDA scan may be considered for further evaluation. 3. Severely atretic right kidney. CXR 09/28: Findings suggest increasing small to moderate pleural effusions and bibasilar opacities. Vascular US 09/28: No evidence for deep venous thrombosis. Limited evaluation of the calf through the ankles due to edema. ECHO 09/28: 1. Normal left ventricular internal dimensions and wall thickness. Moderate global LV hypokinesis. Moderate reduction of overall LV systolic function. LVEF 40% (3D quantitation). Grade 1 LV diastolic dysfunction (impaired relaxation filling pattern). 2. Suggestive of severe elevation of estimated right ventricle systolic pressure (75 mmHg). Normal right ventricle size and systolic function. 3. Severe left atrial dilatation. 4. Moderate aortic valve sclerosis of a 3-cuspid aortic valve. No aortic stenosis or regurgitation. 5. Moderate mitral annular calcification with moderate mitral regurgitation. No mitral stenosis. 6. Small pericardial effusion measuring 0.7 cm over the posterior wall of the left ventricle. No diastolic chamber collapse. Pericardial effusion was circumferential and was without masses. 7. Left pleural effusion. Plan: Encephalopathy: -Likely 2/2 medications s/p ativan i/s/o suspected seizure activity and received 4mg with low BMI and diminished renal clearance. Suspected seizures: Falls and twitching w/ elevated prolactin -CT head was without acute pathology x 2 -10/04 EEG was negative for epileptiform activity, but then he had seizure-like activity on the night of 10/04 into 10/05. f/u 10/05 re-EEG. -Neurology consulted, appreciate recs --> suspect that this may not be actually seizures, so at this time Dr. Camarillo recommended holding all AEDs -Possible that he seized in the setting of the ongoing contraction alkalosis, s/p acetazolamide yesterd, f/u AM labs, bicarb had normalized to 27 by 10/05 10pm labs -Normoglycemic -Fall precautions with bed alarm and proximity to nursing station -DC'd tramadol -oxycodone PRN for severe pain -Dc'd Keppra, vimpat and PRN ativan at this time Hematuria: -H/H is stable, monitor -given hematuria, pain, spasms and AMS will also get CT A/P Acute renal failure superimposed on chronic kidney disease: - Likely cardiorenal with congestive nephropathy i/s/o decompensated mixed systolic and diastolic CHF with significant volume overload. - Nephrology was consulted, had been diuresing but stopped when he became euvolemic and actually had contraction alkalosis and became dry, on gentle fluids [id number] combined systolic and diastolic congestive heart failure: much improved, now euvolemic - s/p aggressive diuresis, but stopped when he became euvolemic and actually had contraction alkalosis and became dry, on gentle fluids - ECHO noted above - c/w strict ins/outs, daily weights Metabolic alkalosis: likely 2/2 contraction: improving -s/p acetazolamide on 10/03 and 10/05 per nephrology -diuretics held Hyponatremia likely 2/2 hypervolemia: improved Mild transaminitis: Most likely secondary to hepatic congestion. -was diuresed as noted above -Has chronic HCV however with undetectable viral load -Imaging noted above HTN - BP elevated - c/w Metoprolol CAD - Patient was recently at [facility] for further cardiac evaluation - He is reported that he has had a stress test that was negative; he did not get any catheterization at that time - Patient follows up with Dr. Oconnell as an outpatient PVD w/ stenting and femoral bypass -continue home statin - c/w ASA and Eliquis DLP - resume statin Multiple sclerosis: stable Chronic back pain - c/w Tramadol Hypothyroidism - c/w Levothyroxine Depression - c/w Duloxetine BPH - c/w Tamsulosin DVT prophylaxis - c/w full anticoagulation with Eliquis Disposition: - Awaiting clinical improvement - Nephrology and now neurology are consulted - PT/OT VS,Fishbone, I+O VS, Fishbone, I+O Laboratory Tests 10/05/20 22:05 Vital Signs Date Time Temp Pulse Resp B/P (MAP) Pulse Ox O2 Delivery O2 Flow Rate FiO2 10/06/20 00:00 98.5 107 20 168/88 (114) 99 Nasal Cannula 1.0 I&O- Last 24 Hours up to 6 AM 10/06/20 06:00 Intake Total 1005 ml Output Total 1615 ml Balance -610 ml MJ QUIROGA MD Oct 06, 2020 07:40
[2020-10-06] MEDS: KCL 10MEQ/100ML SWI (KRUN) 10 MEQ in IV 1 EA IV SCH ×4 (09:54→13:09)
[2020-10-06] MEDS ORDERED: NS 1,000 ML IV ONE (10:15)
--- NOTE | 2020-10-06 12:00 | CR ---
CONSULTATION DATE: 10/05/2020 REFERRING PROVIDER: Hina Byers MD REASON FOR CONSULTATION: Suspected seizure activity. HISTORY OF PRESENT ILLNESS: The patient is a 69-year-old male who was admitted to [facility] for a fall at home. It seems the patient's blood sugars were extremely low in the 30s. He was given oral glucose with a repeat of 29. He was brought to the emergency department. His sugars did improve. In the patient's past medical history, it states that she has multiple sclerosis. He has not been known to have any disorder. The patient while in the hospital last evening was noted to have an episode of altered mental status while conversing with the night hospitalist. The patient was noted to stop speaking, turning his head towards the left and his eyes gazing towards the left for a few seconds followed by return to baseline space. This did occur at least twice, possibly more. The patient was loaded with Keppra. He has a very low BMI and is currently in acute renal failure. He was given 1000 mg load and maintained on 500 mg twice a day. Due to persistent twitching described by the physician, then I was contacted and had advised to load the patient with 200 mg of Vimpat and maintain with 100 mg twice a day with instructions that if further seizure activity persists or dilantin to be loaded and maintained. Eventually through the night due to ongoing motor activity, the patient was given a load of Dilantin. However, maintenance doses were not given. The following day, Dilantin random level was 11 in the therapeutic range. The patient has been obtunded, unable to open eyes, follow commands and speak. He did receive 4 mg of Ativan prior to the Keppra load as well. At this point, he may be overmedicated. It is possible that the patient has been experiencing complex partial seizure with head turning towards the left with altered mental status in between episodes with return to baseline, states it is unclear whether the patient truly was in status epilepticus. At this point, I would recommend to wean off of the antiepileptic medications. The patient is currently not on Dilantin. He is on Vimpat which will be discontinued and levetiracetam is still dosed at 500 mg twice a day which is a higher dose for his BMI and kidney function. These drugs will likely linger in the patient for another day or two so I would recommend stopping these antiepileptic medications and continue seizure precautions. Head CT did not reveal any acute intracranial process. It is possible that the patient may have had seizure activity precipitated by contraction alkalosis. The primary team was advised to discontinue Tramadol today which can also lower the seizure threshold. PAST MEDICAL HISTORY: 1. Reported multiple sclerosis. 2. Coronary artery disease. 3. Peripheral vascular disease. 4. Hypertension. 5. Hyperlipidemia. 6. Depression. 7. Chronic back pain. 8. BPH. 9. ACS. PAST SURGICAL HISTORY: 1. Carotid endarterectomy. 2. Axillofemoral bypass. 3. Cardiac stenting. 4. Hernia repair. 5. Right shoulder replacement. 6. Scope of right knee. 7. DCS. SOCIAL HISTORY: The patient does not use alcohol, quit tobacco four years ago. Denies use of recreational drugs other than occasional cannabis. FAMILY HISTORY: Noncontributory. REVIEW OF SYSTEMS: Unobtainable due to the patient's current mental status. VITAL SIGNS: Blood pressure 142/84, pulse rate 104. Respiratory rate is 23. Temperature is 96.9 degrees Fahrenheit, oxygenation 96% on room air. Current height is 5'7". Current weight is 35 kilograms. CURRENT MEDICATIONS: 1. Acetaminophen 650 mg 2. Apixaban 2.5 mg b.i.d. 3. Aspirin 81 mg daily. 4. Atorvastatin 20 mg daily. 5. Calcitriol 0.25 mcg 6. Cyclobenzaprine 5 mg p.r.n. 7. Dextrose 25 mg. 8. Duloxetine 30 mg daily. 9. Levothyroxine 25 mcg. 10. Magnesium hydroxide 30 mL p.r.n. 11. Oxycodone 5 mg p.r.n. pain. 12. Potassium chloride. 13. Tamsulosin 0.4 mg. 14. Levetiracetam 500 mg b.i.d. 15. Glucosamine 100 mg b.i.d. ALLERGIES: PENICILLINS. PHYSICAL EXAMINATION: The patient is obtunded, unable to participate in physical exam. He keeps his eyes closed. I can manually open his eyes and they remain open. His pupils appear sluggishly reactive to light. Extraocular movements are unable to be properly tested. Doll's eye is positive. Facial grimacing is symmetric. The patient noted to purposely move limbs away from noxious stimuli. He is in a contracted position with hips flexed, knees flexed, arms flexed. Deep tendon reflexes are reduced throughout. Babinski signs are absent. The patient withdraws from noxious stimuli. He reacts to tactile stimuli in all four extremities and the face. Electroencephalogram completed on 10/04/2020 was within normal limits. Repeat electroencephalogram results are pending. Head CT 10/01/2020: Age-related cerebral atrophy with mild microangiopathic changes. No acute findings. Repeat head CT 10/04 after fall: No adverse interval change since prior study. Lab work shows elevated prolactin level which can be present in case of head trauma. The patient is not witnessed to have generalized tonic-clonic seizure, most likely complex partial seizure with head turning, eye deviation. Continue to treat underlying metabolic causes, avoidance of Tramadol. ASSESSMENT: A 69-year-old male with multiple falls with suspected seizure-like activity on the night of October 04, currently encephalopathic. Acute problems include hematuria, acute renal failure superimposed on chronic kidney disease, [id number] combined systolic and diastolic congestive heart failure, metabolic alkalosis, hyponatremia, mild transaminitis, hypertension, CAD, peripheral vascular disease, history of multiple sclerosis. PLAN: 1. At this point, recommend avoidance of tramadol, hold antiepileptic medications, continue to treat underlying metabolic conditions, possible that the patient may have had provoked seizures due to tramadol and underlying metabolic alkalosis in the setting of hyponatremia. Falls at home likely contributed from hypoglycemia. It is also possible patient could have had a seizure while at home with a blood glucose of 30 and 29. At this point in time, the patient is extremely encephalopathic, lethargic, obtunded due to current medications provided on October 04 including Ativan, levetiracetam, glucosamine and Dilantin. Over the next several days, let these medications metabolize out of the patient's system and continue observation with seizure precautions. Can consider MRI of brain without contrast. The patient should never receive gadolinium with his current kidney disease. 2. Second EEG has been completed. Results will probably be available on Thursday once Tiesha is able to deliver the recording to [facility], Dr. Hayes for interpretation. This was unable to be processed this past Thursday. Continue supportive care. The patient should follow seizure precautions upon discharge including no driving, operating heavy machinery, climb ladders, working planks, etc for the next six months.
--- NOTE | 2020-10-06 12:58 | EEG ---
ELECTROENCEPHALOGRAM DATE: 10/05/2020 DIAGNOSIS: Body twitching and altered mental status, rule out seizures. EEG# [id number]. REFERRING PHYSICIAN: Alistair Conrad MD. HISTORY: Patient is a 69-year-old man who was admitted at [facility] and started having body twitches without losing consciousness. The patient received Keppra, Vimpat, and Dilantin. The patient remains unresponsive and does not wake up upon calling his name or physical stimulation. This EEG was done to rule out epileptic potential. He is currently on Keppra, Vimpat, phenytoin, Eliquis, levothyroxine, atorvastatin, etc. TECHNICAL DESCRIPTION: This digital EEG was recorded by 21-scalp, ear, and two EKG electrodes and was reviewed in bipolar and referential montages following reformatting in 10-20 international electrode placement system. INTERPRETATION: Patient was noted to be in mostly drowsy and asleep states during this EEG. Resting background consisted of 5-6 Hz beta activity measuring 15-40 microvolts in amplitude, which was symmetric bilaterally. Anteriorly low voltage mixed frequency 14 Hz beta activity was noted; likely due to medication effect. No sleep stages were identified. Intermittent muscle artifact and electrode artifact was noted. Hyperventilation was not performed. Photic stimulation remained unremarkable. EKG revealed regular rhythm with wide QRS complexes. No focal, lateralizing, or epileptiform abnormalities were seen. No relevant clinical activity was noted. CONCLUSION: This EEG in mostly drowsy state is abnormal due to presence of mild generalized slowing and disorganization of background consistent with nonspecific diffuse cerebral dysfunction suggesting an encephalopathy due to multiple potential causes, including toxic, metabolic, medication related, infection, or multifocal structure brain abnormalities. No epileptiform abnormalities were seen. Excessive beta activity is due to medication effect. Clinical correlation is recommended.
[2020-10-06] MEDS ORDERED: LevoFLOXacin IV 750 MG in IV 1 EA IV SCH (17:00)
[2020-10-06 20:49] LABS: CALCIUM LEVEL 7.9 MG/DL (8.8-10.2); CREATININE FOR GFR 1.83 MG/DL (0.70-1.30); FREE T4 0.99 NG/DL (0.76-1.46); POTASSIUM SERUM 3.8 MEQ/L (3.5-5.1); TROPONIN I 0.23 NG/ML (< 0.10)
--- NOTE | 2020-10-06 21:46 | IPN ---
NEPHROLOGY PROGRESS NOTE DATE: 10/06/2020 SUBJECTIVE: The patient was seen and examined at the bedside today morning. He is still under one to one observation, still very drowsy and obtunded. He was seen by Neurology. Most of the anti-epileptic medications are stopped. He continues to be on IV fluid hydration. Renal function is stable and improving. OBJECTIVE: VITAL SIGNS: Temperature is 98 degrees Fahrenheit, blood pressure is 138/92, pulse is 122, respiratory rate of 18, saturating 99% on room air. INTAKE AND OUTPUT: Urine output recorded as 1.9 liters yesterday. One liter so far today since overnight. Weight in the bed scale is 35.1 kg. PHYSICAL EXAMINATION: GENERAL APPEARANCE: The patient is very drowsy and obtunded, laying in bed. Opens eyes to painful stimuli only. HEAD AND NECK: Mucous membranes are dry. Neck is supple. There is no jugular venous distention. CARDIOVASCULAR: S1, S2, regular rate. EXTREMITIES: No edema of the bilateral lower extremities. RESPIRATORY: Chest is clear to auscultation bilaterally. Bilaterally currently no rales or rhonchi. ABDOMEN: Soft, positive bowel sounds, nontender, no organomegaly. MUSCULOSKELETAL: No clubbing, no cyanosis. Pulses are 2+. VB NET DEVELOPER: The patient is very drowsy and sleepy and wakes up to painful stimuli only. Otherwise he moves extremities. LAB REVIEW: CBC showed a WBC count of 13.2, hemoglobin 12.6, platelet count 242. BMP showed sodium of 134, potassium 3, chloride 96, bicarbonate 31, BUN 30, creatinine is 1.8; it was 1.9 yesterday. ABG done today morning showed a pH of 7.57, pco2 of 28, pO2 of 131, bicarbonate of 26.3, O2 sat is 99%. CURRENT INPATIENT MEDICATIONS: The patient's medications were all reviewed by myself. His IV fluids have been increased to 60 mL p.o. daily. He has also been started on Levaquin 750 mg IV q. 48 hourly. He was given normal saline one liter bolus. ASSESSMENT AND PLAN: 1. Acute renal failure superimposed on chronic kidney disease the patient is getting IV fluid hydration and his creatinine is improving. 2. Combined respiratory and metabolic alkalosis - The patient is being given IV fluids. He was given a dose of Acetazolamide yesterday. No need of Acetazolamide today. 3. Hypokalemia - The patient was given IV KCL in addition to the KCL that he is getting in the IV fluids. Repeat BMP will be done tonight. 4. Hyponatremia - The patient had hypovolemic hyponatremia. Sodium is improving with IV fluid hydration. 5. Metabolic encephalopathy It is secondary to the use of multiple anti-seizure medications and alkalosis. The patient is waking up a little bit more today as compared with yesterday.
[2020-10-07] VITALS: BP 178/108
[2020-10-07] MEDS: KCL 40MEQ IN D5/0.45NS 1000ML 1,000 ML IV SCH ×2 (00:11→13:59)
--- NOTE | 2020-10-07 00:44 | IPNPDOC ---
Text Note Date of Service The patient was seen on 10/07/20. NOTE #Hypertension Per d/w the patient's RN Carlos the patient's BP is 178/108 Based on the audit trail the Metoprolol was discontinued on October 03 Plan: will start IV Metoprolol bc the patient is to lethargic to swallow pills VS,Fishbone, I+O VS, Fishbone, I+O Laboratory Tests 10/06/20 07:20 10/06/20 07:25 10/06/20 20:03 Vital Signs Date Time Temp Pulse Resp B/P (MAP) Pulse Ox O2 Delivery O2 Flow Rate FiO2 10/06/20 20:00 98.1 128 22 99 Room Air 10/06/20 16:04 138/92 (107) 10/06/20 16:00 1.0 I&O- Last 24 Hours up to 6 AM 10/07/20 06:00 Intake Total 2025 ml Output Total 500 ml Balance 1525 ml OLINDA ALVARADO MD Oct 07, 2020 00:44
[2020-10-07] MEDS: METOPROLOL 5 MG/5 ML VIAL IV SCH ×2 (01:02→06:36)
[2020-10-07] MEDS: APIXABAN 2.5 MG TAB (ELIQUIS) PO SCH ×3 (01:22→21:42)
[2020-10-07 02:16] LABS: HEMATOCRIT 35.1 % (42.0-52.0); HEMOGLOBIN 10.9 g/dl (13.5-17.5); MEAN CORPUSCULAR HEMOGLOBIN 23.4 pg (27.0-33.0); MEAN CORPUSCULAR HGB CONC 31.1 g/dl (32.0-36.5); MEAN CORPUSCULAR VOLUME 75.3 fl (80.0-96.0); PLATELET COUNT, AUTOMATED 219 10^3/uL (150-450); RED BLOOD COUNT 4.66 10^6/uL (4.30-6.10); WHITE BLOOD COUNT 13.1 10^3/uL (4.0-10.0)
[2020-10-07 03:02] LABS: CALCIUM LEVEL 8.1 MG/DL (8.8-10.2); CREATININE FOR GFR 1.83 MG/DL (0.70-1.30); POTASSIUM SERUM 3.9 MEQ/L (3.5-5.1); TROPONIN I 0.32 NG/ML (< 0.10)
[2020-10-07 04:00] VITALS: BP 160/104
[2020-10-07] MEDS: LEVOTHYROXINE 100MCG (0.1MG) VIAL IV SCH (06:36)
[2020-10-07] MEDS: SLF 3 ML SYR IV SCH ×3 (06:36→21:42)
[2020-10-07 08:09] VITALS: BP 140/90
[2020-10-07] MEDS: TAMSULOSIN 0.4 MG CAP PO SCH (08:16)
[2020-10-07] MEDS: ASPIRIN 81MG ENTERIC TABLET PO SCH (08:16)
[2020-10-07] MEDS: DULoxetine 30 MG CAP (CYMBALTA) PO SCH (08:17)
[2020-10-07] MEDS: ATORVASTATIN 20 MG TAB PO SCH (08:17)
[2020-10-07] MEDS: DOCUSATE SODIUM 100MG CAPSULE PO SCH ×2 (08:17→21:42)
[2020-10-07] MEDS: METOPROLOL TART 25 MG TABLET PO SCH ×2 (08:17→21:42)
[2020-10-07 11:16] VITALS: BP 135/86
--- NOTE | 2020-10-07 13:03 | IPNPDOC ---
Text Note Date of Service The patient was seen on 10/07/20. NOTE Subjective: -Awake, confused, oriented to self, restless, complaining of back pain Objective: Vitals: See below General: Awake, alert, restless, oriented only to self at this time, NAD, breathing comfortably HEENT: Normocephalic and atraumatic CVS: RRR, +S1S2 Lungs: Bibasilar crackles, otherwise clear apices and moving air well Abdomen: Normoactive sounds, soft, NTND Extremities: No pitting edema, WWP Labs: WBC 13.1 Hgb 10.9 platelets 219 Na 133 K 3.9 bicarb 24 BUN 32 Cr 1.83 TSH 15.9, free T4 0.99 Imaging: Liver US 09/28: 1. Right-sided pleural effusion and perihepatic ascites. 2. 7 mm gallstone with upper normal to minimally thickened gallbladder wall but with no sonographic Butcher's sign. The mild gallbladder wall thickening could be secondary to 3rd spacing/perihepatic ascites however underlying early cholecystitis cannot be completely excluded. Correlate with clinical history, symptoms and LFTs. If indicated HIDA scan may be considered for further evaluat ion. 3. Severely atretic right kidney. CXR 09/28: Findings suggest increasing small to moderate pleural effusions and bibasilar opacities. Vascular US 09/28: No evidence for deep venous thrombosis. Limited evaluation of the calf through the ankles due to edema. ECHO 09/28: 1. Normal left ventricular internal dimensions and wall thickness. Moderate global LV hypokinesis. Moderate reduction of overall LV systolic function. LVEF 40% (3D quantitation). Grade 1 LV diastolic dysfunction (impaired relaxation filling pattern). 2. Suggestive of severe elevation of estimated right ventricle systolic pressure (75 mmHg). Normal right ventricle size and systolic function. 3. Severe left atrial dilatation. 4. Moderate aortic valve sclerosis of a 3-cuspid aortic valve. No aortic stenosis or regurgitation. 5. Moderate mitral annular calcification with moderate mitral regurgitation. No mitral stenosis. 6. Small pericardial effusion measuring 0.7 cm over the posterior wall of the left ventricle. No diastolic chamber collapse. Pericardial effusion was circumferential and was without masses. 7. Left pleural effusion. CT A/P: FINDINGS: Digital preliminary remittance clerk radiograph demonstrates that the patient was unable to raise his arms out of the scanned field. Extensive vascular calcification is noted. On axial CT images at lung base, bilateral lower lobe small infiltrates are seen consistent with pneumonia, right greater than left. There is a small amount of right pleural fluid. Pleural effusion is decreased compared with the July 30, 2020 study which showed bilateral effusions. There is a small pericardial effusion visible today. There is extensive vascular calcification throughout the arterial tree in the patient has a fem-fem crossover graft in place. The liver and the spleen are normal in size. No focal lesion is seen in either organ. No focal abnormality is seen in the gallbladder. There are stippled calcifications throughout the head and body and tail of the pancreas consistent with chronic pancreatitis. No pancreatic mass or cyst is apparent. The right kidney is quite atrophic unchanged from comparison study. There is renal artery vascular calcification bilaterally. There is no evidence of hydronephrosis. No intrarenal calculus is observed. There is a dorsal column stimulator power pack in the left flank with leads coursing into the epidural space at the thoracolumbar and lower thoracic spine. Patient is status post multiple lumbar laminectomies. A Jon catheter is noted in place. No retroperitoneal mass or adenopathy is seen. There is no evidence of free air or abnormal abdominal fluid collection. No ga strointestinal obstructive lesion is appreciated. There is a moderate levoconvex lumbar scoliotic curve. Bone window settings show degenerative changes in the spine. No bony destructive lesion. IMPRESSION: Extensive, essentially diffuse, arterial vascular calcification. Bilateral lower lobe pulmonary parenchymal infiltrates, right larger than left. Small right pleural effusion and small pericardial effusion. Post lumbar laminectomy at multiple levels with scoliosis and dorsal column stimulator device seen. Jon catheter. Fem- fem crossover vascular graft. No acute abdominal or pelvic abnormality seen. Plan: Encephalopathy: -Likely 2/2 medications s/p ativan i/s/o suspected seizure activity and received 4mg with low BMI and diminished renal clearance and PNA HAP: noted on CT A/P with leukocytosis -day 2 of renally dosed levofloxacin Suspected seizures: Falls and twitching w/ elevated prolactin -CT head was without acute pathology x 2 -10/04 and 10/05 EEGs were negative for epileptiform activity, although he had reported seizure-like activity on the night of 10/04 -Neurology consulted, appreciate recs --> Initially recommended empiric AEDs but suspected that this may not be actually seizures and likely metabolic driven, so Dr. Camarillo recommended holding all AEDs -Possible that he seized in the setting of the ongoing contraction alkalosis, s/p acetazolamide, bicarb has normalized -Normoglycemic -Fall precautions with bed alarm and proximity to nursing station -DC'd tramadol -oxycodone PRN for severe pain -Dc'd Keppra, vimpat and PRN ativan at this time Hematuria: resolved -H/H is stable, monitor -given hematuria, pain, spasms and AMS Acute renal failure superimposed on chronic kidney disease: - Likely cardiorenal with congestive nephropathy i/s/o decompensated mixed systolic and diastolic CHF with significant volume overload. - Nephrology was consulted, had been diuresing but stopped when he became euvolemic and actually had contraction alkalosis and became dry, on gentle fluids [id number] combined systolic and diastolic congestive heart failure: much improved, now euvolemic - s/p aggressive diuresis, but stopped when he became euvolemic and actually had contraction alkalosis and became dry, on gentle fluids - ECHO noted above - c/w strict ins/outs, daily weights Metabolic alkalosis: likely 2/2 contraction: improving -s/p acetazolamide on 10/03 and 10/05 per nephrology -diuretics held Hyponatremia likely 2/2 hypervolemia: improved Mild transaminitis: Most likely secondary to hepatic congestion. -was diuresed as noted above -Has chronic HCV however with undetectable viral load -Imaging noted above HTN - BP elevated - c/w Metoprolol CAD - Patient was recently at [facility] for further cardiac evaluation - He is reported that he has had a stress test that was negative; he did not get any catheterization at that time - Patient follows up with Dr. Oconnell as an outpatient PVD w/ stenting and femoral bypass -continue home statin - c/w ASA and Eliquis DLP - c/w statin Multiple sclerosis: stable Chronic back pain - c/w oxycodone PRN, dc'd tramadol Hypothyroidism - c/w Levothyroxine Depression - c/w Duloxetine BPH - c/w Tamsulosin DVT prophylaxis - c/w full anticoagulation with Eliquis Disposition: - Awaiting clinical improvement - Nephrology and neurology were consulted - PT/OT VS,Fishbone, I+O VS, Fishbone, I+O Laboratory Tests 10/06/20 20:03 10/07/20 02:06 Vital Signs Date Time Temp Pulse Resp B/P (MAP) Pulse Ox O2 Delivery O2 Flow Rate FiO2 10/07/20 06:36 110 174/100 10/07/20 04:00 97.6 18 94 Room Air 10/07/20 00:00 1.0 I&O- Last 24 Hours up to 6 AM 10/07/20 05:59 Intake Total 2225 ml Output Total 700 ml Balance 1525 ml MJ QUIROGA MD Oct 07, 2020 08:04
[2020-10-07 15:25] VITALS: BP 120/87
--- NOTE | 2020-10-07 16:17 | ECGEPIP ---
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
--- NOTE | 2020-10-07 16:28 | ECGEPIP ---
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
--- NOTE | 2020-10-07 16:29 | ECGEPIP ---
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
[2020-10-07 20:00] VITALS: BP 142/88
[2020-10-08] VITALS: BP 144/79
[2020-10-08 04:00] VITALS: BP 137/83
[2020-10-08] MEDS: SLF 3 ML SYR IV SCH ×3 (06:03→21:02)
[2020-10-08 06:09] LABS: HEMATOCRIT 35.2 % (42.0-52.0); HEMOGLOBIN 10.7 g/dl (13.5-17.5); MEAN CORPUSCULAR HEMOGLOBIN 23.3 pg (27.0-33.0); MEAN CORPUSCULAR HGB CONC 30.4 g/dl (32.0-36.5); MEAN CORPUSCULAR VOLUME 76.5 fl (80.0-96.0); PLATELET COUNT, AUTOMATED 180 10^3/uL (150-450)
[2020-10-08 07:02] LABS: CALCIUM LEVEL 7.9 MG/DL (8.8-10.2); CREATININE FOR GFR 2.55 MG/DL (0.70-1.30); GLOMERULAR FILTRATION RATE 26.6 (>42); POTASSIUM SERUM 5.1 MEQ/L (3.5-5.1); TROPONIN I 0.14 NG/ML (< 0.10)
[2020-10-08 08:00] VITALS: BP 122/68
[2020-10-08] MEDS: ASPIRIN 81MG ENTERIC TABLET PO SCH (08:53)
[2020-10-08] MEDS: DOCUSATE SODIUM 100MG CAPSULE PO SCH ×2 (08:53→21:00)
[2020-10-08 08:54] VITALS: BP 129/73
[2020-10-08] MEDS: METOPROLOL TART 25 MG TABLET PO SCH (08:54)
[2020-10-08] MEDS: DULoxetine 30 MG CAP (CYMBALTA) PO SCH (08:54)
[2020-10-08] MEDS: TAMSULOSIN 0.4 MG CAP PO SCH (08:54)
[2020-10-08] MEDS: APIXABAN 2.5 MG TAB (ELIQUIS) PO SCH (08:54)
[2020-10-08] MEDS: ATORVASTATIN 20 MG TAB PO SCH (08:54)
[2020-10-08] MEDS: CALCITRIOL 0.25 MCG CAP (S0169) PO SCH (08:54)
[2020-10-08] MEDS: LEVOTHYROXINE 100MCG (0.1MG) VIAL IV SCH (08:55)
--- NOTE | 2020-10-08 11:31 | IPNPDOC ---
Text Note Date of Service The patient was seen on 10/08/20. NOTE Subjective: -Awake, oriented to self, continues to be restless and tries to get out of bed often Objective: Vitals: See below General: Awake, alert, restless, oriented only to self at this time, NAD, breathing comfortably HEENT: Normocephalic and atraumatic CVS: RRR, +S1S2 Lungs: Bibasilar crackles, otherwise clear apices and moving air well Abdomen: Normoactive sounds, soft, NTND Extremities: No pitting edema, WWP Labs: WBC 10 Hgb 10.7 platelets 180 Na 129 K 5.1 bicarb 18 BUN 43 Cr 2.55 Imaging: Liver US 09/28: 1. Right-sided pleural effusion and perihepatic ascites. 2. 7 mm gallstone with upper normal to minimally thickened gallbladder wall but with no sonographic Butcher's sign. The mild gallbladder wall thickening could be secondary to 3rd spacing/perihepatic ascites however underlying early cholecystitis cannot be completely excluded. Correlate with clinical history, symptoms and LFTs. If indicated HIDA scan may be considered for further evaluation. 3. Severely atretic right kidney. CXR 09/28: Findings suggest increasing small to moderate pleural effusions and bibasilar opacities. Vascular US 09/28: No evidence for deep venous thrombosis. Limited evaluation of the calf through the ankles due to edema. ECHO 09/28: 1. Normal left ventricular internal dimensions and wall thickness. Moderate global LV hypokinesis. Moderate reduction of overall LV systolic function. LVEF 40% (3D quantitation). Grade 1 LV diastolic dysfunction (impaired relaxation filling pattern). 2. Suggestive of severe elevation of estimated right ventricle systolic pressure (75 mmHg). Normal right ventricle size and systolic function. 3. Severe left atrial dilatation. 4. Moderate aortic valve sclerosis of a 3-cuspid aortic valve. No aortic stenosis or regurgitation. 5. Moderate mitral annular calcification with moderate mitral regurgitation. No mitral stenosis. 6. Small pericardial effusion measuring 0.7 cm over the posterior wall of the left ventricle. No diastolic chamber collapse. Pericardial effusion was circumferential and was without masses. 7. Left pleural effusion. CT A/P: FINDINGS: Digital preliminary senior chemical process engineer radiograph demonstrates that the patient was unable to raise his arms out of the scanned field. Extensive vascular calcification is noted. On axial CT images at lung base, bilateral lower lobe small infiltrates are seen consistent with pneumonia, right greater than left. There is a small amount of right pleural fluid. Pleural effusion is decreased compared with the July 30, 2020 study which showed bilateral effusions. There is a small pericardial effusion visible today. There is extensive vascular calcification throughout the arterial tree in the patient has a fem-fem crossover graft in place. The liver and the spleen are normal in size. No focal lesion is seen in either organ. No focal abnormality is seen in the gallbladder. There are stippled calcifications throughout the head and body and tail of the pancreas consistent with chronic pancreatitis. No pancreatic mass or cyst is apparent. The right kidney is quite atrophic unchanged from comparison study. There is renal artery vascular calcification bilaterally. There is no evidence of hydronephrosis. No intrarenal calculus is observed. There is a dorsal column stimulator power pack in the left flank with leads coursing into the epidural space at the thoracolumbar and lower thoracic spine. Patient is status post multiple lumbar laminectomies. A Jon catheter is noted in place. No retroperitoneal mass or adenopathy is seen. There is no evidence of free air or abnormal abdominal fluid collection. No gastrointestinal obstructive lesion is appreciated. There is a moderate levoconvex lumbar scoliotic curve. Bone window settings show degenerative changes in the spine. No bony destructive lesion. IMPRESSION: Extensive, essentially diffuse, arterial vascular calcification. Bilateral lower lobe pulmonary parenchymal infiltrates, right larger than left. Small right pleural effusion and small pericardial effusion. Post lumbar laminectomy at multiple levels with scoliosis and dorsal column stimulator device seen. Jon catheter. Fem- fem crossover vascular graft. No acute abdominal or pelvic abnormality seen. Assessment: 69 yo M with a history of reported multiple sclerosis, coronary artery disease, PVD, Hypertension, HLD, Depression, Chronic back pain, BPH who presented from home after a witnessed fall and noted hypoglycemia to 36 on EMS evaluation and later 27 who was admitted for CHF exacerbation and presumed symptomatic hypoglycemia, whose course was c/b NAUN, metabolic acidosis, then later contraction alkalosis i/s/o aggressive diuresis with suspected seizure activity and encephalopathy. Plan: Encephalopathy: -Likely 2/2 medications s/p ativan i/s/o suspected seizure activity and received 4mg with low BMI and diminished renal clearance and PNA HAP: noted on CT A/P with leukocytosis -day 3 of renally dosed levofloxacin Suspected seizures: Falls and twitching w/ elevated prolactin -CT head was without acute pathology x 2 -10/04 and 10/05 EEGs were negative for epileptiform activity, although he had reported seizure-like activity on the night of 10/04 -Neurology consulted, appreciate recs --> Initially recommended empiric AEDs but suspected that this may not be actually seizures and likely metabolic driven, so Dr. Camarillo recommended holding all AEDs -Possible that he seized in the setting of the ongoing contraction alkalosis, s/p acetazolamide, bicarb has normalized -Normoglycemic -Fall precautions with bed alarm and proximity to nursing station -DC'd tramadol -oxycodone PRN for severe pain -Dc'd Keppra, vimpat and PRN ativan at this time Hematuria: resolved -H/H is stable, monitor -given hematuria, pain, spasms and AMS Acute renal failure superimposed on chronic kidney disease: had been getting better, but now worse again - Likely initially cardiorenal with congestive nephropathy i/s/o decompensated mixed systolic and diastolic CHF with significant volume overload. - Nephrology was consulted, with intermittent diuresis but stopped when he became euvolemic and actually had contraction alkalosis and became dry, and required gentle fluids. Unfortunately is worse today [id number]-[id number] combined systolic and diastolic congestive heart failure: much improved, now euvolemic - s/p aggressive diuresis, but stopped when he became euvolemic and actually had contraction alkalosis and became dry, on gentle fluids - ECHO noted above - c/w strict ins/outs, daily weights Metabolic alkalosis: likely 2/2 contraction: improving -s/p acetazolamide on 10/03 and 10/05 per nephrology -diuretics held Hyponatremia likely 2/2 hypervolemia: improved Mild transaminitis: Most likely secondary to hepatic congestion. -was diuresed as noted above -Has chronic HCV however with undetectable viral load -Imaging noted above HTN - BP elevated - c/w Metoprolol CAD - Patient was recently at [facility] for further cardiac evaluation - He is reported that he has had a stress test that was negative; he did not get any catheterization at that time - Patient follows up with Dr. Oconnell as an outpatient PVD w/ stenting and femoral bypass -continue home statin - c/w ASA and Eliquis DLP - c/w statin Multiple sclerosis: stable Chronic back pain - c/w oxycodone PRN, dc'd tramadol Hypothyroidism - c/w Levothyroxine Depression - c/w Duloxetine BPH - c/w Tamsulosin DVT prophylaxis - c/w full anticoagulation with Eliquis Disposition: - Awaiting clinical improvement - Nephrology and neurology were consulted - PT/OT VS,Fishbone, I+O VS, Fishbone, I+O Laboratory Tests 10/08/20 05:53 10/08/20 05:54 Vital Signs Date Time Temp Pulse Resp B/P (MAP) Pulse Ox O2 Delivery O2 Flow Rate FiO2 10/08/20 08:54 80 129/73 10/08/20 08:00 97.4 18 98 Room Air 10/07/20 00:00 1.0 I&O- Last 24 Hours up to 6 AM 10/08/20 06:00 Intake Total 1735 ml Output Total 275 ml Balance 1460 ml MJ QUIROGA MD Oct 08, 2020 09:19
[2020-10-08 12:00] VITALS: BP 94/54
[2020-10-08] MEDS ORDERED: NS 1,000 ML IV ONE ×2 (12:25→12:40)
[2020-10-08] MEDS: DEXTROSE 50% 50 ML SYRINGE IV PRN ×6 (12:28→13:21)
--- NOTE | 2020-10-08 12:32 | IPN ---
PROGRESS NOTE DATE: 10/07/2020 SUBJECTIVE: The patient was seen and examined at the bedside today morning. Patient is much more awake and alert today. He was able to answer a few questions. He is oriented x1. He continues to be on IV fluid hydration. I was told by the nursing staff that when the patient got up he felt very thirsty and he drank a lot of fluids as well. OBJECTIVE: VITAL SIGNS: Temperature is 97.6 degrees Fahrenheit, blood pressure is 142/88, pulse is 82, respiratory rate is 17, saturating 98% on room air. INTAKE AND OUTPUT: Urine output recorded as 1 liter yesterday, 525 ml so far today. Weight on the bed scale is not available. GENERAL: Patient is awake, alert and oriented x1 laying in bed, in no apparent distress. HEAD AND NECK: Extraocular muscles are intact. Pupils are equally round and reactive to light. Mucous membranes are moist. NECK: Supple. There is no JVD. CARDIOVASCULAR: S1 and S2, regular rate. No edema of the bilateral lower extremities. RESPIRATORY: Chest is clear to auscultation bilaterally. Bilateral equal air entry. No rales or rhonchi. ABDOMEN: Soft, positive bowel sounds, nontender. No organomegaly. MUSCULOSKELETAL: No clubbing or cyanosis, pulses are 2+. AIR TRAFFIC CONTROL MANAGER: Patient is oriented x1 laying in bed, follows commands today. LABORATORY DATA: CBC showed a WBC of 13.1, hemoglobin is 10.9, platelets are 219,000. BMP showed a sodium of 133, potassium 3.9, chloride is 100, bicarbonate is 24, BUN 32, creatinine is 1.83. Calcium is 8.1. CURRENT INPATIENT MEDICATIONS: Patient's medications were all reviewed by myself. He was getting IV fluid hydration which will be stopped by tonight. He was getting Levaquin 750 mg IV q. 48 hourly. I have changed the dose to 500 mg because of his low body mass. No other change in the medications today. Metoprolol dose has been increased to 25 mg p.o. twice a day. ASSESSMENT AND PLAN: 1. Acute renal failure superimposed on chronic kidney disease. Patient's creatinine continues to improve, it is 1.8 today. Diuretics are on hold. 2. Metabolic alkalosis. He was given Normal Saline bolus yesterday. Bicarbonate level is within the acceptable range now. 3. Leukocytosis. Patient is currently getting IV Levaquin, the dose has been decreased. 4. Hypertension. Patient is currently on metoprolol, the dose has been increased by medical team.
[2020-10-08 13:01] LABS: ABG BASE EXCESS -8.1 (-2.0-2.0); ABG HCO3 14.6 MEQ/L (22.0-26.0); ABG O2 SATURATION 99.7 % (95.0-99.0); ABG PARTIAL PRESSURE CO2 22.5 mmHg (35.0-45.0); ABG STANDARD HCO3 17.9 MEQ/L (22.0-26.0); ABG TOTAL CO2 15.3 MEQ/L (23.0-31.0); ABG pH (ARTERIAL) 7.431 UNITS (7.350-7.450)
[2020-10-08] MEDS ORDERED: VANCOMYCIN INTERMITTENT/PULSE DOSING BY CLINICAL PHARMACIST PER DOSING PROTOCOL XX SCH (13:15)
--- NOTE | 2020-10-08 13:27 | REP ---
INDICATION: hypoxemia. COMPARISON: 09/28/2020. TECHNIQUE: Single portable AP view of the chest was performed. FINDINGS: There is cardiomegaly. There is vascular congestion and interstitial edema diffusely bilaterally. There is a right pleural effusion layering posteriorly. There is retrocardiac atelectasis/infiltrate in the left lung base.There is calcification of the thoracic aorta. The mediastinal silhouette is unchanged. Metallic prosthesis is noted in the proximal right humerus. Stimulator leads are again noted overlying the inferior thoracic spine. IMPRESSION: Cardiomegaly, vascular congestion and interstitial edema. Right pleural effusion. Atelectasis/infiltrate left base. <Electronically signed by Jose De Jesus Schulz > 10/08/20 [id number]
[2020-10-08 13:37] LABS: CK-MB VALUE MASS 10.7 NG/ML (<3.6); MB/CK RELATIVE INDEX 5.3 (< OR =4); TROPONIN I 0.1 NG/ML (< 0.10)
[2020-10-08] MEDS ORDERED: VANCOMYCIN HCL 750 MG, VIAL MATE ADAPTER 1 EACH in NS 250 ML IV ONE (14:00)
[2020-10-08] MEDS ORDERED: D10W 1,000 ML IV SCH (14:05)
[2020-10-08] MEDS: MORPHINE 2 MG/ML 1ML VIAL (J2270) IV PRN (14:22)
[2020-10-08] MEDS: NS 1,000 ML IV SCH (15:19)
[2020-10-08] MEDS: LORazepam 2 MG/ML VIAL IV PRN (16:25)
--- NOTE | 2020-10-08 16:56 | ECGEPIP ---
[facility] Test Date: 2020-10-08 Pat Name: ANDREA CARREON Department: Room: [place] [address] Gender: Male Hydrologic Modeler: galilea : 1950 Requested By: MJ Barrow Order Number: [id number] Reading MD: Shakila Young Measurements Intervals [place] Rate: 57 P: GA: QRS: 131 QRSD: 88 T: 225 QT: 612 QTc: 595 Interpretive Statements Critical Test Result: Long QTc NEW SINUS rhythm voltage criteria for LVH, AnteriorLATERAL infarct , age undetermined ST & Marked T wave abnormality, consider inferolateral ischemia NEW Prolonged QT NEW RATE SLOWER // LEFT ANTERIOR FASCICULAR BLOCK ABSENT C/W 10/06/20 Electronically Signed on 10-08-2020 16:56:17 EDT by Shakila Young
[2020-10-08] MEDS ORDERED: LevoFLOXacin IV 500 MG in IV 1 EA IV SCH (17:00)
--- NOTE | 2020-10-08 17:29 | IPNPDOC ---
Text Note Date of Service The patient was seen on 10/08/20. NOTE Rapid Response Note: After evaluating Mr. Adame at approximately 9am while he sat up eating breakfast and was fully oriented, eating a regular diet, breathing comfortably on room air, I was called by nursing to the bedside at approximately noon that he was complaining of acute chest pain with pressure and he was acutely hypoxemic, bradycardic to 42, hypotensive to SBP 76 and somnolent with acute pallor. On my arrival he was complaining of severe back pain more than chest pain. Stat EKG showed new large TWI in lateral leads and less pronounced but also present in the inferior leads. He was also noted to be hypoglycemic to 29. We proceeded to give him NS boluses 2L in total and he required 7 amps of d50 in total to keep FSBG greater than 120. He became more responsive and was oriented fully. I called his HCP/ Aracely who was on her way to visitation and she decided to make him DNR/DNI and later on discussion of potentially transferring him to [place] for possible inferolateral ID, he declined transfer and decided to make him [employer]. After he regained full consciousness, I had this discussion with both of them (including Mr. Hedrick himself) and they made the decision to focus only on his comfort and treat his back pain and pursue hospice care with goal for i npatient hospice discharge and will not seek aggressive care at this time. He was transitioned to [employer]. MOLST was completed with nursing and family present with patient fully conscious. VS,Connorbone, I+O VS, Fishbone, I+O Laboratory Tests 10/08/20 05:53 10/08/20 05:54 Vital Signs Date Time Temp Pulse Resp B/P (MAP) Pulse Ox O2 Delivery O2 Flow Rate FiO2 10/08/20 14:32 18 Room Air 10/08/20 12:45 15.0 10/08/20 12:00 96.7 60 94/54 (67) 99 I&O- Last 24 Hours up to 6 AM 10/08/20 06:00 Intake Total 1735 ml Output Total 275 ml Balance 1460 ml MJ QUIROGA MD Oct 08, 2020 17:29
[2020-10-09] MEDS: NS 1,000 ML IV SCH ×2 (00:44→10:48)
[2020-10-09] MEDS: SLF 3 ML SYR IV SCH ×2 (05:30→14:13)
[2020-10-09] MEDS ORDERED: SCOPOLAMINE 1MG TRANSDERMAL PATCH TOP SCH (09:00)
[2020-10-09] MEDS: LEVOTHYROXINE 100MCG (0.1MG) VIAL IV SCH (09:00)
[2020-10-09] MEDS: DOCUSATE SODIUM 100MG CAPSULE PO SCH (09:00)
[2020-10-09] MEDS: MORPHINE 2 MG/ML 1ML VIAL (J2270) IV PRN ×2 (09:21→13:15)
[2020-10-09] MEDS: LORazepam 2 MG/ML VIAL IV PRN (12:12)
[2020-10-09] MEDS ORDERED: ONDANSETRON 4MG/2ML VIAL IV PRN (13:35)
[2020-10-09] MEDS ORDERED: LORazepam 2 MG/ML VIAL IV STA (14:25)
--- NOTE | 2020-10-09 20:42 | DS.PDOC ---
Discharge Summary General Date of Admission Sep 28, 2020 at 04:52 Date of Discharge 10/09/2020 Discharge Summary Discharge diagnosis: Patient transitioned to comfort care measures on 10/08/2020 after conversation with and this morning began to decompensate further. He was progressively agitated and required several PRN doses of Ativan and morphine for comfort. At 1400 he began to experience dark hematemesis and on examination had progressively mottled extremities and respiratory pauses. Time of was called at 1438. Provider, nursing staff, , and 's friend were present at patient's bedside. An autopsy was declined by the patient's . No additional services were requested by family though student loan counselor services were offered. Vital Signs/I&Os Vital Signs Date Time Temp Pulse Resp B/P (MAP) Pulse Ox O2 Delivery O2 Flow Rate FiO2 10/09/20 13:25 19 10/08/20 14:32 Room Air 10/08/20 12:45 15.0 10/08/20 12:00 96.7 60 94/54 (67) 99 I&O- Last 24 Hours up to 6 AM 10/09/20 06:00 Intake Total 0 ml Output Total 50 ml Balance -50 ml Discharge Medications Scheduled Apixaban (Eliquis) 2.5 Mg Tablet, 2.5 MG PO BID, (Reported) Aspirin (Aspirin EC) 81 Mg Tablet.dr, 81 MG PO DAILY, (Reported) Atorvastatin Calcium (Atorvastatin Calcium) 40 Mg Tablet, 40 MG PO DAILY, (Reported) Calcitriol (Calcitriol) 0.25 Mcg Capsule, 0.25 MCG PO 3XW, (Reported) THURSDAY, THURSDAY AND THURSDAY Duloxetine Hcl (Duloxetine HCl) 30 Mg Cap, 30 MG PO DAILY, (Reported) Levothyroxine Sodium (Levothyroxine Sodium) 25 Mcg Tablet, 25 MCG PO DAILY, (Reported) Metoprolol Tartrate (Metoprolol Tartrate) 25 Mg Tablet, 25 MG PO BID, (Reported) Potassium Chloride (Klor-Con M10) 10 Meq Tab.er.prt, 20 MEQ PO DAILY, (Reported) Spironolactone (Spironolactone) 25 Mg Tablet, 25 MG PO DAILY, (Reported) Tamsulosin Hcl (Tamsulosin HCl) 0.4 Mg Capsule, 0.4 MG PO DAILY, (Reported) Torsemide (Torsemide) 20 Mg Tablet, 20 MG PO DAILY, (Reported) Scheduled PRN Tramadol HCl (Tramadol HCl) 50 Mg Tab, 50 MG PO TID PRN for PAIN, (Reported) Allergies Coded Allergies: Penicillins (Verified Allergy, Mild, RASH A CHILD, 03/09/20) KENNEHT ÁLVAREZ MD MPH Oct 09, 2020 20:40
--- NOTE | 2020-10-10 11:06 | ECHO ---
ECHOCARDIOGRAM DATE OF PROCEDURE: 10/08/2020 Age: 69 Gender: Male Height: 57 inches Weight: 81 pounds Body Surface Area: 1.22 m2 PATIENT LOCATION: Inpatient PCU Room 3229. REFERRING PHYSICIAN: Dr. Mirna Avery. INDICATION: Chest pain/abnormal EKG. MEASUREMENTS: 2D Measurements: RV 4.2 cm LV 4.3 cm Septum 1.3 cm Posterior wall 1.3 cm Aortic Root 3.1 cm LA 4.3 cm LVEF 50% Doppler Measurements: AV 1.32 m/s LVOT - 0.56 m/s LVOT diameter 2.0 cm Dimensionless index 0.38 MV-E 102, A 111, EA ratio 0.9 Early mitral deceleration time 195 msec MVA 3.9 cm2 PV - 0.55 m/s Pulmonary artery acceleration time 79 msec RVSP 92 mmHg IVC - 1.9 cm COMMENTS: Sinus bradycardia without intraventricular conduction disturbance. Technically challenging study in light of the patient's body habitus, but diagnostically useful information was still obtained. M-mode and 2-dimensional echocardiography was performed with pulse, continuous wave, color flow, and tissue Doppler studies. Mild concentric left ventricular hypertrophy with localized septal wall motion abnormalities suspected to be due to right ventricular pressure overload. At least mild impairment of global resting systolic function. Mild-moderately dilated left atrium. Could not comment on LV diastolic function in light of intrinsic mitral valve disorder. Mildly dilated right ventricle and moderately dilated right atrium with normal wall motion but Doppler evidence of severe pulmonary hypertension. At least mildly dilated right atrium and IVC upper limits of normal in size with markedly reduced IVC collapse with respiration in keeping with a significantly elevated central venous pressure. Normal aortic dimensions. Moderately severe thickening of the aortic valve with reduced cusp separation. Dimensionless index in keeping with at least a mild degree of aortic stenosis. No apparent insufficiency. Moderate degenerative changes of the mitral valvular apparatus with Doppler evidence to suggest a mild degree of LV inflow tract obstruction. Moderate mitral insufficiency. Normal appearing tricuspid valve with fairly severe insufficiency. Subtle posterior pericardial effusion. No apparent intracardiac mass. Based on the above testing findings, we would anticipate this gentleman has a very guarded cardiovascular prognosis. MTDD
== END 2020-10-09 17:15 | disposition expired ==
LOC: M ED 01:10 → M ED INP 04:52 → ENRESERV 10:51 → M PCU 12:26
PROVIDERS: ADMIT Family Medicine; ATTEND General Practice
DX: I13.0 Hypertensive heart and chronic kidney disease with heart failure and stage 1 through stage 4 chronic kidney disease, or unspecified chronic kidney disease (principal); I21.9 Acute myocardial infarction, unspecified; I50.43 Acute on chronic combined systolic (congestive) and diastolic (congestive) heart failure; G92 Toxic encephalopathy; J96.01 Acute respiratory failure with hypoxia; E43 Unspecified severe protein-calorie malnutrition; N17.9 Acute kidney failure, unspecified; E87.4 Mixed disorder of acid-base balance; E87.1 Hypo-osmolality and hyponatremia; N25.81 Secondary hyperparathyroidism of renal origin; R18.8 Other ascites; Z68.1 Body mass index [BMI] 19.9 or less, adult; K92.2 Gastrointestinal hemorrhage, unspecified; Z51.5 Encounter for palliative care; Z66 Do not resuscitate; I25.10 Atherosclerotic heart disease of native coronary artery without angina pectoris; I73.9 Peripheral vascular disease, unspecified; G35 Multiple sclerosis; E78.5 Hyperlipidemia, unspecified; E87.5 Hyperkalemia; R74.01 Elevation of levels of liver transaminase levels; E16.2 Hypoglycemia, unspecified; R56.9 Unspecified convulsions; R31.9 Hematuria, unspecified; N18.30 Chronic kidney disease, stage 3 unspecified; T42.75XA Adverse effect of unspecified antiepileptic and sedative-hypnotic drugs, initial encounter; F32.9 Major depressive disorder, single episode, unspecified; E87.8 Other disorders of electrolyte and fluid balance, not elsewhere classified; N40.0 Benign prostatic hyperplasia without lower urinary tract symptoms; Z96.611 Presence of right artificial shoulder joint; Z95.5 Presence of coronary angioplasty implant and graft; Z95.820 Peripheral vascular angioplasty status with implants and grafts; Z87.891 Personal history of nicotine dependence; Z79.01 Long term (current) use of anticoagulants; Z79.82 Long term (current) use of aspirin; Z79.899 Other long term (current) drug therapy; Z88.0 Allergy status to penicillin